=== PATIENT | male | born 1970 | race Hispanic/Latino ===

== ENCOUNTER 2017-10-23 21:54 | Emergency (ER) | payer OTHER, SELFPAY ==
[2017-10-23] MEDS ORDERED: LEVETIRACETAM 500 MG/5 ML VIAL IV ONE (23:44)
[2017-10-23] MEDS ORDERED: NA CHLORIDE 0.9% 1,000 ML ONE (23:44)
[2017-10-24] MEDS ORDERED: CEFTRIAXONE 1000 MG/VIAL ONE (00:46)
[2017-10-24] MEDS ORDERED: NA CHLORIDE 0.9% 100 ML IV ONE (00:46)
[2017-10-24 00:51] LABS: Absolute Lymphocytes (CBC) 1.5 K/uL (0.7-4.9); Absolute Monocytes 0.8 K/uL (0.1-1.3); Absolute Neutrophil 5.8 K/uL (1.8-8.0); Basophils % 0.3 % (0-1.3); Eosinophils % 2.7 % (0-4.4); Hematocrit 46.2 % (39.6-49.0); Lymphocytes % 17.7 % (15.3-44.8); MCV 88.3 fL (80-100); MPV 7.6 fL (7.6-11.3); Monocytes % 9.5 % (3.3-12.3); RBC Red Blood Cell Count 5.23 M/uL (4.33-5.43)
--- NOTE | 2017-10-24 01:29 | EDPHYS ---
Physician Documentation [facility] Name: Pravin Bateman Age: 47 yrs Sex: Male : 1970 Arrival Date: 10/23/2017 Time: 21:55 Bed 27 Private MD: ED Physician Jhon Mcmullen HPI: 10/23 23:35 This 47 yrs old Male presents to ER via Ambulatory with complaints of Headache.pj 23:35 The patient complains of pain to the forehead. The patient describes the headache as pj constant. Onset: The symptoms/episode began/occurred 1 day(s) ago. Associated signs and symptoms: The patient has no apparent associated signs or symptoms. Severity of symptoms: At its worst the pain was mild, moderate, in the emergency department the pain is unchanged. Headache History: Denies prior headaches. The symptoms are alleviated by nothing. the symptoms are aggravated by nothing. The patient has not experienced similar symptoms in the past. Historical: - Allergies: 22:02 Augmentin; la1 22:02 K-Clor; la1 22:02 PENICILLINS; la1 - Home Meds: 22:51 Topamax 50 mg oral tab 3 tabs 2 times per day [Active]; losartan 100 mg Oral tab 1 tab tl3 once daily [Active]; Keppra 250 mg oral tab 1 tabs 2 times per day [Active]; clindamycin HCl 300 mg Oral cap 1 cap every 6 hours [Active]; - PMHx: 22:02 Hypertension; Seizures; la1 - PSHx: 22:02 sinus cavity sx; la1 - Immunization history:: Adult Immunizations up to date. - Social history:: Smoking status: Patient/guardian denies using tobacco. - Family history:: not pertinent. ROS: 23:35 Constitutional: Negative for fever, chills, and weight loss, Eyes: Negative for injury, pj pain, redness, and discharge, ENT: Negative for injury, pain, and discharge, Neck: Negative for injury, pain, and swelling, Cardiovascular: Negative for chest pain, palpitations, and edema, Respiratory: Negative for shortness of breath, cough, wheezing, and pleuritic chest pain, Abdomen/GI: Negative for abdominal pain, nausea, vomiting, diarrhea, and constipation, Back: Negative for injury and pain, : Negative for injury, bleeding, discharge, and swelling, MS/Extremity: Negative for injury and deformity, Skin: Negative for injury, rash, and discoloration, Psych: Negative for depression, anxiety, suicide ideation, homicidal ideation, and hallucinations, Allergy/Immunology: Negative for hives, rash, and allergies, Endocrine: Negative for neck swelling, polydipsia, polyuria, polyphagia, and marked weight changes, Hematologic/Lymphatic: Negative for swollen nodes, abnormal bleeding, and unusual bruising. 23:35 Neuro: Positive for dizziness, headache, of the forehead. Exam: 23:35 Constitutional: This is a well developed, well nourished patient who is awake, alert, pj and in no acute distress. Head/Face: Normocephalic, atraumatic. Eyes: Pupils equal round and reactive to light, extra-ocular motions intact. Lids and lashes normal. Conjunctiva and sclera are non-icteric and not injected. Cornea within normal limits. Periorbital areas with no swelling, redness, or edema. ENT: Nares patent. No nasal discharge, no septal abnormalities noted. Tympanic membranes are normal and external auditory canals are clear. Oropharynx with no redness, swelling, or masses, exudates, or evidence of obstruction, uvula midline. Mucous membranes moist. Neck: Trachea midline, no thyromegaly or masses palpated, and no cervical lymphadenopathy. Supple, full range of motion without nuchal rigidity, or vertebral point tenderness. No Meningismus. Chest/axilla: Normal chest wall appearance and motion. Nontender with no deformity. No lesions are appreciated. Cardiovascular: Regular rate and rhythm with a normal S1 and S2. No gallops, murmurs, or rubs. Normal PMI, no JVD. No pulse deficits. Respiratory: Lungs have equal breath sounds bilaterally, clear to auscultation and percussion. No rales, rhonchi or wheezes noted. No increased work of breathing, no retractions or nasal flaring. Abdomen/GI: Soft, non-tender, with normal bowel sounds. No distension or tympany. No guarding or rebound. No evidence of tenderness throughout. Back: No spinal tenderness. No costovertebral tenderness. Full range of motion. Male : Normal genitalia with no discharge or lesions. Skin: Warm, dry with normal turgor. Normal color with no rashes, no lesions, and no evidence of cellulitis. MS/ Extremity: Pulses equal, no cyanosis. Neurovascular intact. Full, normal range of motion. Psych: Awake, alert, with orientation to person, place and time. Behavior, mood, and affect are within normal limits. 23:35 Neuro: Orientation: is normal, appropriate for stated age, no acute changes, Mentation: is normal, appropriate for stated age, no acute changes, Memory: is normal, appropriate for stated age, no acute changes, Cranial nerves: grossly normal, is grossly normal based on the patient's age, no acute changes, CN II- XII are normal as tested, Cerebellar function: is grossly normal, Motor: is normal, no acute changes, moves all fours, Sensation: is normal, no obvious gross deficits, appropriate numbness, Gait: not tested. seizure activity, is not displayed by the patient. 23:39 Neck: ROM/movement: is normal, no acute changes, pain, is not appreciated, limited pj range of motion, is not appreciated, Meningeal signs: are not present, Kernig's sign is negative, Brudzinski's sign is negative, nuchal rigidity, is not appreciated. Vital Signs: 22:02 BP 175 / 99; Pulse 85; Resp 19; Temp 99.7(TE); Pulse Ox 100% on R/A; Weight 127.91 kg; la1 Height 6 ft. 0 in. (182.88 cm); 22:42 BP 151 / 96; Pulse 98; Resp 18; Pulse Ox 98% ; tl3 10/24 00:38 BP 148 / 81; Pulse 72; Resp 18; Pulse Ox 100% on R/A; tl3 01:20 BP 137 / 69; Pulse 80; Resp 18; Pulse Ox 98% on R/A; rk2 02:06 BP 152 / 83; Pulse 70; Resp 18; Pulse Ox 98% on R/A; rk2 10/23 22:02 Body Mass Index 38.25 (127.91 kg, 182.88 cm) la1 MDM: 10/23 22:53 Patient medically screened. [facility] 23:35 Data reviewed: vital signs, nurses notes, lab test result(s), EKG, radiologic studies, [facility] CT scan, plain films. 10/23 23:34 Order name: CBC with Diff; Complete Time: 01:14 [facility] 10/23 23:34 Order name: Comprehensive Metabolic Panel; Complete Time: 01:57 [facility] 10/23 23:34 Order name: Blood Culture Adult (2) [facility] 10/23 23:34 Order name: Chest Single View XRAY [facility] 10/23 23:34 Order name: Urine Culture [facility] 10/24 00:44 Order name: Urine Dipstick--Ancillary (enter results); Complete Time: 01:57 rg2 10/23 23:34 Order name: Urine Dipstick-Ancillary (obtain specimen); Complete Time: 00:35 [facility] 10/23 23:34 Order name: Seizure Precautions; Complete Time: 00:02 [facility] 10/23 23:34 Order name: CT Head Brain wo Cont [facility] 10/23 23:35 Order name: EKG; Complete Time: 23:35 [facility] 10/23 23:35 Order name: EKG - Nurse/Tech; Complete Time: 00:01 [facility] Administered Medications: 10/24 00:02 Not Given (pt just took home dose at 10pm): Keppra 500 mg IV at per protocol once tl3 00:35 Drug: NS 0.9% 1000 ml Route: IV; Rate: 1 bolus; Site: right wrist; tl3 01:17 Drug: Rocephin - (cefTRIAXone) 2 grams Route: IVPB; Infused Over: 30 mins; Site: right rk2 wrist; Disposition: 10/24/17 01:28 Transfer ordered to [facility]. Diagnosis are Headache - sp sinus surgery, 10/19/17, Fever, unspecified, Acute sinusitis. - Reason for transfer: Higher level of care. - Accepting physician is to [facility]. - Condition is Fair. - Problem is new. - Symptoms have improved. Signatures: Dispatcher [employer] EDJhon Guerrero MD MD cha Attema, Lee RN RN la1 Pura Preston RN RN rk2 Kirsty Connolly RN RN tl3 Corrections: (The following items were deleted from the chart) 01:57 01:28 10/24/2017 01:28 Transfer ordered to [facility]. [facility] Diagnosis is Headache - sp sinus surgery, 10/19/17; Fever, unspecified. Reason for transfer: Higher level of care. Accepting physician is to [facility]. Condition is Fair. Problem is new. Symptoms have improved. pj 02:45 01:57 10/24/2017 01:28 Transfer ordered to [facility]. rk2 Diagnosis is Headache - sp sinus surgery, 10/19/17; Fever, unspecified; Acute sinusitis. Reason for transfer: Higher level of care. Accepting physician is to [facility]. Condition is Fair. Problem is new. Symptoms have improved. [facility]
--- NOTE | 2017-10-24 01:29 | ER ---
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 Transition of care: patient was not received from another setting of care. Onset of symptoms was October 23, 2017. Initial Sepsis Screen: Does the patient meet any 2 criteria? No. Patient's initial sepsis screen is negative. Does the patient have a suspected source of infection? No. Patient's initial sepsis screen is negative. Care prior to arrival: None. 22:00 Method Of Arrival: Ambulatory la1 22:00 Acuity: DONNIE 3 la1 Triage Assessment: 10/24 00:41 Pain: Also complains of. tl3 00:42 Headache History: Denies prior headaches. General: Appears uncomfortable, well groomed, tl3 well developed, well nourished. Pain: Complains of pain in forehead Pain currently is 6 out of 10 on a pain scale. Pain began 4 hours ago. Historical: - Allergies: 10/23 22:02 Augmentin; la1 22:02 K-Clor; la1 22:02 PENICILLINS; la1 - Home Meds: 22:51 Topamax 50 mg oral tab 3 tabs 2 times per day [Active]; losartan 100 mg Oral tab 1 tab tl3 once daily [Active]; Keppra 250 mg oral tab 1 tabs 2 times per day [Active]; clindamycin HCl 300 mg Oral cap 1 cap every 6 hours [Active]; - PMHx: 22:02 Hypertension; Seizures; la1 - PSHx: 22:02 sinus cavity sx; la1 - Immunization history:: Adult Immunizations up to date. - Social history:: Smoking status: Patient/guardian denies using tobacco. - Family history:: not pertinent. Screenin:42 Abuse screen: Denies threats or abuse. Nutritional screening: No deficits noted. tl3 Tuberculosis screening: No symptoms or risk factors identified. Fall Risk None identified. Assessment: 22:42 Reassessment: pt c/o headache, increased blood pressure and hands turning cold. tl3 General: Appears distressed, uncomfortable, obese, well groomed, well developed, well nourished, Behavior is calm, cooperative, appropriate for age. Pain: Complains of pain in headache. Neuro: Level of Consciousness is awake, alert, obeys commands, Oriented to person, place, time, situation, Appropriate for age. Cardiovascular: Heart tones S1 S2 present Patient's skin is warm and dry. Respiratory: Airway is patent Trachea midline Respiratory effort is even, unlabored, Respiratory pattern is regular, symmetrical, Breath sounds are clear bilaterally. GI: No signs and/or symptoms were reported involving the gastrointestinal system. : No signs and/or symptoms were reported regarding the genitourinary system. 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. Derm: No signs and/or symptoms reported regarding the dermatologic system. Musculoskeletal: No signs and/or symptoms reported regarding the musculoskeletal system. 10/24 00:38 Reassessment: Patient appears in no apparent distress at this time. No changes from tl3 previously documented assessment. Patient and/or family updated on plan of care and expected duration. Pain level reassessed. Patient is alert, oriented x 3, equal unlabored respirations, skin warm/dry/pink. family at bedside, pt has no needs at this time. 02:18 Reassessment: Report called to receiving RN September... Pt. is to be transported by EMS. rk2 02:44 Reassessment: Reported given to EMS... pt. ambulated to stretcher without difficulty. rk2 Vital Signs: 10/23 22:02 BP 175 / 99; Pulse 85; Resp 19; Temp 99.7(TE); Pulse Ox 100% on R/A; Weight 127.91 kg; la1 Height 6 ft. 0 in. (182.88 cm); 22:42 BP 151 / 96; Pulse 98; Resp 18; Pulse Ox 98% ; tl3 10/24 00:38 BP 148 / 81; Pulse 72; Resp 18; Pulse Ox 100% on R/A; tl3 01:20 BP 137 / 69; Pulse 80; Resp 18; Pulse Ox 98% on R/A; rk2 02:06 BP 152 / 83; Pulse 70; Resp 18; Pulse Ox 98% on R/A; rk2 10/23 22:02 Body Mass Index 38.25 (127.91 kg, 182.88 cm) la1 ED Course: 10/23 21:55 Patient arrived in ED. ds1 22:01 Triage completed. la1 22:02 Arm band placed on right wrist. la1 22:42 Kirsty Connolly RN is Primary Nurse. tl3 22:42 Patient has correct armband on for positive identification. Placed in gown. Bed in low tl3 position. Call light in reach. Side rails up X 1. Adult w/ patient. Pulse ox on. NIBP on. 22:42 No provider procedures requiring assistance completed. tl3 22:53 Jhon Mcmullen MD is Attending Physician. pj 23:47 X-ray completed. Portable x-ray completed in exam room. Patient tolerated procedure kw well. 23:49 Chest Single View XRAY In Process Unspecified. EDMS 23:50 Initial lab(s) drawn, by me, sent to lab. First set of blood cultures drawn by me. tl3 05/08 00:38 Inserted saline lock: 22 gauge in right wrist, using aseptic technique. Blood collected.tl3 00:41 No apparent distress. Awaiting lab results. tl3 00:[address] via wheelchair. tl3 00:57 CT Head Brain wo Cont In Process Unspecified. EDMS 01:02 Report given to Pura HARRIS. tl3 02:45 Patient transferred, IV remains in place. rk2 Administered Medications: 00:02 Not Given (pt just took home dose at 10pm): Keppra 500 mg IV at per protocol once tl3 00:35 Drug: NS 0.9% 1000 ml Route: IV; Rate: 1 bolus; Site: right wrist; tl3 01:17 Drug: Rocephin - (cefTRIAXone) 2 grams Route: IVPB; Infused Over: 30 mins; Site: right rk2 wrist; Outcome: 01:28 ER care complete, transfer ordered by . pj 02:45 Transferred by ground EMS to [facility]. rk2 02:45 Condition: good 02:45 Instructed on the need for transfer. 02:45 Patient left the ED. rk2 Signatures: Dispatcher [employer] EDJhon Guerrero MD MD cha Sanford, Demi ds1 Carmita Wiley Lee RN RN la1 Pura Preston RN RN rk2 Kirsty Connolly RN RN tl3
[2017-10-24 01:35] LABS: Glucose Level 105 mg/dL (65-120)
[2017-10-24 01:39] LABS: ALT/SGPT 21 IU/L (10-60); AST/SGOT 21 IU/L (10-42); Albumin 4.3 g/dL (3.2-5.5); Alkaline Phosphatase 121 IU/L (42-121); BUN Blood Urea Nitrogen 14 mg/dL (6-20); Bicarbonate 22 mEq/L (21-31); Bilirubin Total 0.9 mg/dL (0.3-1.2); Potassium 4.1 mEq/L (3.6-5.0); Protein, Total 7.8 g/dL (6.0-8.3); Sodium Level 137 mEq/L (135-145)
[2017-10-24 01:42] LABS: Urine Blood NEGATIVE (NEG); Urine Glucose NEGATIVE (NEG); Urine Protein NEGATIVE (NEG)
[2017-10-24 02:52] VITALS: TEMP 99.7
[2017-10-24 02:57] VITALS: O2SAT 98
[2017-10-24 02:58] VITALS: BP 152/83
--- NOTE | 2017-10-24 06:39 | EKG ---
Test Date: 2017-10-23 Test Time: 23:52:18 Vice President Tax: TL MEASUREMENT RESULTS: Intervals: Rate: 73 SD: 144 QRSD: 80 QT: 386 QTc: 425 [place]: P: 33 SD: 144 QRS: 0 T: 16 INTERPRETIVE STATEMENTS: Normal sinus rhythm Normal ECG Compared to ECG 06/13/2017 10:37:09 No significant changes Electronically Signed On 10-24-17 06:38:59 CDT by Jovi Bass
--- NOTE | 2017-10-24 08:25 | RAD REPORT ---
EXAM DESCRIPTION: CT - Head Brain Wo Cont - 10/24/2017 5:38 am CLINICAL HISTORY: Headache COMPARISON: 06/13/2017 TECHNIQUE: All CT scans are performed using dose optimization technique as appropriate and may inclu de automated exposure control or mA/KV adjustment according to patient size. FINDINGS: No intracranial hemorrhage, hydrocephalus or extra-axial fluid collection.No areas of brai n edema or evidence of midline shift. Extensive multifocal opacification of the paranasal sinuses is seen, greatest involving the the sphen oid and posterior ethmoid air cells. Trace fluid also seen in the right mastoid air cell. The calvari um is intact. IMPRESSION: No acute intracranial abnormality. Extensive multifocal sinus opacification.
--- NOTE | 2017-10-24 08:45 | RAD REPORT ---
EXAM DESCRIPTION: RAD - Chest Single View - 10/23/2017 11:51 pm CLINICAL HISTORY: Headache, chest pain COMPARISON: 06/13/2017 FINDINGS: Portable technique limits examination quality. The lungs are grossly clear. The heart is normal in size. No displaced fractures. IMPRESSION: No acute intrathoracic process suspected.
== END 2017-10-24 02:45 | disposition short-term general hospital (02) ==
LOC: ER 21:54
DX: R50.9 Fever, unspecified (principal); J01.90 Acute sinusitis, unspecified; Z98.890 Other specified postprocedural states; I10 Essential (primary) hypertension; G40.909 Epilepsy, unspecified, not intractable, without status epilepticus; Z88.0 Allergy status to penicillin; Z88.1 Allergy status to other antibiotic agents; Z88.8 Allergy status to other drugs, medicaments and biological substances
CPT/HCPCS: 36415; 70450; 71045; 80053; 81003; 85025; 87040 ×2; 87086; 87088; 93005; 96374; 99285; J7030; J1953

== ENCOUNTER 2018-04-21 06:32 | Emergency (ER) | payer OTHER ==
--- OUTSIDE RECORDS SUMMARY | 2018-04-21 06:34 | XMS REPORT ---
:1970 Author Organization eClinicalWorks Care Team Providers Name Role Phone Tez [facility] Provider Role Unavailable Allergies No Known Allergies Problems Problem Type Condition Code Onset Dates Condition Status Problem BMI 40.0-44.9, adult Z68.41 Active Problem Chronic sinusitis J32.9 Active Problem Nonalcoholic fatty liver disease K76.0 Active Assessment Hypertension I10 Active Problem Obesity E66.9 Active Problem Seizure disorder G40.909 Active Problem Hypertension I10 Active Problem Hyperlipidemia, mixed E78.2 Active Problem Sleep apnea, obstructive G47.33 Active Problem Headache R51 Active Problem Erectile dysfunction N52.9 Active Medications Medication Code System Code Instructions Start Date End Date Status Dosage Cozaar [facility] 75950284047 100 MG Orally Active 1 tablet Once a day Results No Known Results Summary Purpose eClinicalWorks Submission
--- OUTSIDE RECORDS SUMMARY | 2018-04-21 06:34 | XMS REPORT ---
:1970 Author Organization eClinical[employer] Care Team Providers Name Role Phone Tez Beau Provider Role Unavailable Allergies No Known Allergies Problems Problem Type Condition Code Onset Dates Condition Status Problem BMI 40.0-44.9, adult Z68.41 Active Problem Chronic sinusitis J32.9 Active Problem Nonalcoholic fatty liver disease K76.0 Active Problem Obesity E66.9 Active Problem Seizure disorder G40.909 Active Problem Hypertension I10 Active Problem Hyperlipidemia, mixed E78.2 Active Problem Sleep apnea, obstructive G47.33 Active Problem Headache R51 Active Problem Erectile dysfunction N52.9 Active Assessment Chronic sinusitis J32.9 Active Assessment Headache R51 Active Assessment BMI 40.0-44.9, adult Z68.41 Active Assessment Sleep apnea, obstructive G47.33 Active Assessment Hyperlipidemia, mixed E78.2 Active Assessment Seizure disorder G40.909 Active Assessment Acute diffuse otitis externa of H60.311 Active right ear Assessment Nonalcoholic fatty liver disease K76.0 Active Assessment Hypertension I10 Active Medications Medication Code Code Instructions Start End Status Dosage System Date Date [facility] 41752710528 100 MG Orally Active 1 tablet Once a day Topamax [facility] 71219924408 50 MG Orally Active 3 tablet Twice a day Levetiracetam [facility] 40721155833 250 MG Orally Active 1 tablet Twice a day Neomycin-Polymyx [facility] [id number] 3.5-48706-7 December 04, Active 1 drop into in-HC Otic TID 2017 affected ear Results No Known Results Summary Purpose eClinicalWorks Submission
--- OUTSIDE RECORDS SUMMARY | 2018-04-21 06:34 | XMS REPORT | Summary of Care ---
:1970 Author Encounter [facility] Encntr_mamie(HENRIK) [id number] Date(s): 09/23/14 - 09/23/[address] Discharge Disposition: Home Physician Attending: Larry Mckinney MD Physician_Referring: Larry Mckinney MD Vital Signs No data available for this section Problem List No data available for this section Allergies, Adverse Reactions, Alerts Substance Reaction Severity Status NKDA Active Medications No data available for this section Results No data available for this section Immunizations No data available for this section Procedures No data available for this section Social History No data available for this section Assessment and Plan No data available for this section
--- OUTSIDE RECORDS SUMMARY | 2018-04-21 06:34 | XMS REPORT | CCD ---
:1970 Author Organization [facility] Care Team Providers Name Role Phone ChartServer, Login Consulting Provider Unavailable Param Ferguson Consulting Provider Vance Najera Consulting Provider [phone] Physician, Non Associated Referring Provider Unavailable Saima Mcallister Consulting Provider [phone] Sahil Dixon Consulting Provider Unavailable Allergies, Adverse Reactions, Alerts Substance Reaction Status NKDA ?? Active
--- OUTSIDE RECORDS SUMMARY | 2018-04-21 06:34 | XMS REPORT | Continuity of Care Document ---
:1970 Author Organization Interface Problems Problem Status Onset Classification Date Comments Source Date Reported INTRACTABLE Active [facility] PARTIAL COMPLEX 5 [facility] SEIZ[facility] DISO Center INTRACTABLE Active [facility] PARTIAL 4 Medical SEIZURES Center 345.[address] APNEA Active [address] Medications Medication Details Route Status Patient Ordering Order Source Instructions Provider Date Allergies, Adverse Reactions, Alerts Substance Category Reaction Severity Reaction Status Date Comments Source type Reported Immunizations Immunization Date Given Site Status Last Updated Comments Source Results Order Results Value Reference Date Interpretation Comments Source Name Range Brain wo Brain wo EXAM: MRI OF THE BRAIN WITHOUT CONTRAST - EPILEPSY PROTOCOL 05/03 - [facility] contrast contrast /2013 - [facility] Read by: Imani Wills MD Dictated Date/time: 05/03/14 13:51 DATE: May 03, 2014 11:38:56 AM Electronically Signed by: Imani Wills MD 05/03/14 14:09 FINAL REPORT CLINICAL HISTORY: Seizures COMPARISON: TECHNIQUE: Noncontrast images of the brain are performed. High resolution coronal T2- weighted images and axial T1 weighted images are also obtained for structural evaluation. FINDINGS: Although there is no architectural distortion, the height of the right hippocampal formation is smaller as compared to the left. This is especially noticeable in the body of the hippocampi. There is a s mall arachnoid pit in the floor of the middle cranial fossa, with a small meningocele is identified (series 5, image 56) however no encephalocele is demonstrated. No other focal parenchymal lesion is id entified. The ventricles and sulci are normal in size. Mucosal thickening is demonstrated in the left sphenoid sinus and right maxillary sinus. IMPRESSION: Questionable loss of height of the right hippocampal body as compared to the left. 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 Vital Signs Vital Sign Value Date Comments Source Encounters Location Location Encounter Encounter Reason Attending ADM DC Status Source Details Type Number For Provider Date Date Visit [facility] Outpatient [id number] 345.41 JESSICA 04/21 Active [facility] Aline REYNOLDS /2010 [facility] Outpatient [id number] Larry 09/23 09/24 [facility] Reggie Mckinney /2014 [facility] Procedures Procedure Code Date Perfomer Comments Source
--- OUTSIDE RECORDS SUMMARY | 2018-04-21 06:35 | XMS REPORT ---
:1970 Author Organization eClinicalWorks Care Team Providers Name Role Phone Tez [facility] Provider Role Unavailable Allergies No Known Allergies [...] Start Date End Date Status Dosage Cozaar [facility] 63630897747 100 MG Orally Active 1 tablet Once a day Results No Known Results Summary Purpose eClinicalWorks Submission
[2018-04-21 07:22] LABS: Absolute Lymphocytes (CBC) 1.5 K/uL (0.7-4.9); Absolute Monocytes 0.4 K/uL (0.1-1.3); Absolute Neutrophil 3.8 K/uL (1.8-8.0); Basophils % 0.3 % (0-1.3); Eosinophils % 2.7 % (0-4.4); Hematocrit 48.5 % (39.6-49.0); Lymphocytes % 25.2 % (15.3-44.8); MCH 30.8 pg (27.0-35.0); MPV 7.6 fL (7.6-11.3); Monocytes % 7.2 % (3.3-12.3); RBC Red Blood Cell Count 5.45 M/uL (4.33-5.43)
[2018-04-21 07:28] LABS: Protime INR 1.08
[2018-04-21 07:41] LABS: BUN Blood Urea Nitrogen 15 mg/dL (7-18); Bicarbonate 27 mmol/L (21-32); Creatine Phosphokinase 55 U/L (39-308); Glucose Level 107 mg/dL (74-106); Magnesium 2.3 mg/dL (1.8-2.4); Potassium 3.9 mmol/L (3.5-5.1); Sodium Level 141 mmol/L (136-145); Troponin (Emerg Dept Use Only) < 0.02 ng/mL (0.0-0.045)
--- NOTE | 2018-04-21 07:55 | RAD REPORT ---
EXAM DESCRIPTION: CT - Ct Stroke Brain Wo Cont - 04/21/2018 7:25 am CLINICAL HISTORY: Confusion and dizziness COMPARISON: October 2017 TECHNIQUE: Computed axial tomography of the head was obtained. IV contrast was not requested. All CT scans are performed using dose optimization technique as appropriate and may include automated exposure control or mA/KV adjustment according to patient size. FINDINGS: An intracranial bleed is not seen . The ventricles are normal in caliber. No extra-axial fluid collection is noted. Fluid within the sinuses/ mastoids is not seen. IMPRESSION: No acute intracranial abnormality is seen. If patient's symptoms persist MRI of the bra in would be recommended. Exam was discussed with 3 to change in emergency room 7:35 a.m. 04/21/2018
[2018-04-21] MEDS ORDERED: CALCIUM GLUCONATE 1gm/100 ML NS (4.65 mEq/100mL) IV ONE ×2 (08:00)
[2018-04-21 08:03] LABS: Albumin 3.9 g/dL (3.4-5.0); Phosphorus 3.1 mg/dL (2.5-4.9)
--- NOTE | 2018-04-21 09:10 | RAD REPORT ---
EXAM DESCRIPTION: Silvano Single View04/21/2018 7:23 am CLINICAL HISTORY: Hypertension and seizure COMPARISON: October 2017 FINDINGS: The lungs appear clear of acute infiltrate. The heart is normal size IMPRESSION: No acute abnormalities displayed
[2018-04-21] MEDS ORDERED: ACETAMINOPHEN 500 MG TAB ONE ×2 (09:39)
--- NOTE | 2018-04-21 09:52 | EDPHYS ---
Physician Documentation [facility] Name: Pravin Bateman Age: 47 yrs Sex: Male : 1970 Arrival Date: 04/21/2018 Time: 06:33 Bed 8 Private MD: Madyson Reaganh ED Physician Medardo Hoover HPI: 04/21 06:41 This 47 yrs old Male presents to ER via Ambulatory with complaints of rh1 Dizziness, PREVIOUS SEIZURES, CONFUSION, Slurred Speech. 06:41 The patient presents with feeling faint, generalized weakness. Onset: The rh1 symptoms/episode began/occurred yesterday, at 10:00. Context: occurred at home, occurred while the patient was at rest. Modifying factors: The symptoms are alleviated by nothing, the symptoms are aggravated by nothing. Associated signs and symptoms: Pertinent positives: confusion, focal weakness of the left hand, Pertinent negatives: agitation, ataxia, blurred vision, chest pain, diaphoresis, head injury, headache, nausea, near-syncope, numbness, palpitations, shortness of breath, syncope, tingling, vomiting. Severity of symptoms: At their worst the symptoms were moderate in the emergency department the symptoms are unchanged. The patient has experienced a previous episode, last year. The patient has not recently seen a physician. His states he has been confused and not acting right since waking yesterday am at 1000. Yesterday he was having difficulty speaking describes difficulty finding words, possibly slurred speech. His left hand was "frozen" for < 5 minutes, without paresthesias yesterday am. She checked his BP yesterday with onset of symptoms, which was 180 systolic. 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 1 month ago his neurologist/Maximiliano at lowered his dose of keppra. She reports similar symptoms last year prior to his most recent SZ, and is concerned with the lowered dosing he is going to have another SZ. This am he denies any complaints overall, reports generally feels sleepy. . 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 - Social history:: Smoking status: Patient/guardian denies using tobacco, Patient/guardian denies using alcohol, street drugs. - Ebola Screening: : No symptoms or risks identified at this time. ROS: 06:41 Constitutional: Negative for fever, chills rh1 06:41 Eyes: Negative for acute changes, blurry vision, visual disturbance. 06:41 ENT: Negative for rhinorrhea, difficulty swallowing, difficulty handling secretions. 06:41 Neck: Negative for pain with movement, pain at rest. 06:41 Cardiovascular: Negative for chest pain, edema, palpitations. 06:41 Respiratory: Negative for cough, shortness of breath, wheezing. 06:41 Abdomen/GI: Negative for abdominal pain, nausea, vomiting, and diarrhea. 06:41 Back: Negative for decreased range of motion, pain at rest, pain with movement. 06:41 : Negative for difficulty urinating. 06:41 MS/extremity: Positive for decreased range of motion, Negative for pain, paresthesias, swelling, tenderness, tingling. 06:41 Skin: Negative for diaphoresis, discoloration. 06:41 Neuro: Positive for altered mental status, dizziness, speech changes, Negative for gait disturbance, headache, loss of consciousness, numbness, seizure activity, syncope, near syncope, tingling, visual changes, weakness. Exam: 06:41 Constitutional: This is a well developed, well nourished patient who is awake, alert, rh1 and in no acute distress. Head/Face: Normocephalic, atraumatic. 06:41 Neck: Trachea midline, and no cervical lymphadenopathy. Supple, full range of motion without nuchal rigidity. No Meningismus. Chest/axilla: Normal chest wall appearance and motion. Nontender with no deformity. No lesions are appreciated. Cardiovascular: Regular rate and rhythm with a normal S1 and S2. No gallops, murmurs, or rubs. No JVD. No pulse deficits. Respiratory: Lungs have equal breath sounds bilaterally, clear to auscultation. No rales, rhonchi or wheezes noted. No increased work of breathing. Abdomen/GI: Soft, non-tender, with normal bowel sounds. No distension. No guarding or rebound. No evidence of tenderness throughout. Back: No spinal tenderness. No costovertebral tenderness. Full range of motion. Skin: Warm, dry with normal turgor. Normal color with no rashes, no lesions, and no evidence of cellulitis. 06:41 Eyes: Pupils: no acute changes, normal size, normal reaction to light, equal, right pupil is approximately 3 mm(s), left pupil is approximately 3 mm(s), Extraocular movements: intact throughout, Nystagmus: is not appreciated. 06:41 ENT: Mouth: is normal, no drooling, no lip abnormalities, no mucosal abnormalities, Posterior pharynx: is normal, airway is patent, Voice: is normal. 06:41 Musculoskeletal/extremity: ROM: intact in all extremities, full active range of motion, in all extremities, Pulses: noted to be 2+ in the right radial artery, right posterior tibial artery, right dorsalis pedis artery, left radial artery, left posterior tibial artery and left dorsalis pedis artery, Edema, is not appreciated, Sensation intact. 06:41 Neuro: Orientation: is normal, to person, place \\T\\ time. Mentation: is normal, lucid, able to follow commands, reports he is staring off and not as interactive as per normal, Memory: is normal, Cranial nerves: visual mesa are intact. extraocular movements are intact, Facial palsy and sensory deficits are absent. Nystagmus is absent. Speech is clear and appropriate. Gag reflex present. Tongue strength is normal, deviation is absent. Cerebellar function: normal finger to nose testing, heel to cavazos testing is normal, Motor: is normal, moves all fours, strength is 5/5 in all extremities, Sensation: is normal, no obvious gross deficits, numbness, is not appreciated, tingling, is not appreciated, Gait: is steady, at a normal pace, without difficulty, seizure activity, is not displayed by the patient. Vital Signs: 06:54 BP 172 / 86; Pulse 71; Resp 16 S; Temp 97.9(O); Pulse Ox 98% on R/A; Weight 128.82 kg bb (R); Height 6 ft. 0 in. (182.88 cm) (R); 07:34 BP 138 / 90; Pulse 70; Resp 17; Pulse Ox 98% on R/A; tw2 08:35 BP 143 / 86; Pulse 81; Resp 14; Pulse Ox 98% on R/A; tw2 09:38 BP 145 / 84; Pulse 64; Resp 18; Pulse Ox 99% on R/A; ph 06:54 Body Mass Index 38.52 (128.82 kg, 182.88 cm) bb NIH Stroke Scale Scores: 07:21 NIHSS Score: 0 tw2 MDM: 06:41 Patient medically screened. [facility] 08:15 Physician consultation: MD Darling was called at 08:16, paged via nurse triage line. [facility] 08:37 Physician consultation: MD Renteria was called at 08:15, was contacted at 08:30, [facility] regarding consult, patient's condition, Pt. was seen on 04/05/18, and had topamax dose lowered from 150 mg BID to 100 mg BID, keppra dose currently at 250 mg BID; recommendation to increase topamax back up to 150 mg BID, and follow up with Dr. Gallardo in the clinic Monday -- pt. and notified, in agreement with plan of care. 08:37 ED course: pt. reports he had another "episode" described as licking lips and rh1 moving eyes back and forth, blinking a lot; per RN in room no SZ - like activity noted; upon questioning pt. reports feeling a lot of saliva in mouth at the time, no specific complaints otherwise, no neuro deficits at this time, no SZ activity noted now. 08:50 Data reviewed: I have discussed the patient's presentation/case with the attending [facility] Emergency Department Physician;. 09:49 Data reviewed: vital signs, nurses notes, lab test result(s), EKG, radiologic studies, [facility] CT scan, plain films, I have discussed the patient's presentation/case with the attending Emergency Department Physician; and as a result, I will discharge patient. Data interpreted: Pulse oximetry: on room air is 99 %. Interpretation: normal. Counseling: I had a detailed discussion with the patient and/or guardian regarding: the historical points, exam findings, and any diagnostic results supporting the discharge/admit diagnosis, lab results, radiology results, the need for outpatient follow up, a neurologist, to return to the emergency department if symptoms worsen or persist or if there are any questions or concerns that arise at home. Special discussion: Based on the history and exam findings, there is no indication for further emergent testing or inpatient evaluation. I discussed with the patient/guardian the need to see the neurologist for further evaluation of the symptoms. 04/21 07:01 Order name: UDS; Complete Time: 10:45 [facility] 04/21 07:01 Order name: Troponin (emerg Dept Use Only); Complete Time: 08:15 [facility] 04/21 07:01 Order name: Magnesium; Complete Time: 08:15 [facility] 04/21 07:01 Order name: CPK; Complete Time: 08:15 [facility] 04/21 07:01 Order name: Basic Metabolic Panel; Complete Time: 08:15 [facility] 04/21 07:01 Order name: CBC with Diff; Complete Time: 07:29 [facility] 04/21 07:01 Order name: Protime (+inr); Complete Time: 07:42 [facility] 04/21 07:01 Order name: Ptt, Activated; Complete Time: 07:42 [facility] 04/21 07:01 Order name: CT Stroke Brain w/o Contrast; Complete Time: 07:57 [facility] 04/21 07:55 Order name: Phosphorus; Complete Time: 08:15 EDMS 04/21 07:55 Order name: Albumin; Complete Time: 08:15 EDMS 04/21 09:40 Order name: Urine Dipstick--Ancillary (enter results) hb 04/21 07:01 Order name: Stroke CXR 1 View; Complete Time: 09:15 [facility] 04/21 07:01 Order name: EKG; Complete Time: 07:02 [facility] 04/21 07:01 Order name: Accucheck; Complete Time: 07:19 [facility] 04/21 07:01 Order name: Cardiac monitoring; Complete Time: 07:19 [facility] 04/21 07:01 Order name: EKG - Nurse/Tech; Complete Time: 07:19 [facility] 04/21 07:01 Order name: IV Saline Lock; Complete Time: 07:19 [facility] 04/21 07:01 Order name: Labs collected and sent; Complete Time: 07:19 [facility] 04/21 07:01 Order name: NPO; Complete Time: 07:07 [facility] 04/21 07:01 Order name: O2 Per Protocol; Complete Time: 07:20 rh1 04/21 07:01 Order name: O2 Sat Monitoring; Complete Time: 07:20 rh1 04/21 07:01 Order name: Stroke Swallow Screen; Complete Time: 07:06 rh1 04/21 07:01 Order name: Misc. Order: if swallow screen negative, ok to take home BP and SZ rh1 medication; Complete Time: 07:06 Administered Medications: 08:14 Drug: Calcium Gluconate 1 grams Route: IVPB; Infused Over: 60 mins; Site: left tw2 antecubital; 09:20 Follow up: Response: No adverse reaction; IV Status: Completed infusion tw2 09:23 Follow up: Response: No adverse reaction; IV Status: Completed infusion ph 08:35 Not Given (pt taking own medication, provider at bedside): Topamax 50 mg PO once tw2 09:37 Drug: Tylenol 1000 mg Route: PO; ph 10:04 Follow up: Response: No adverse reaction tw2 Point of Care Testing: Blood Glucose: 07:13 Blood Glucose: 102 mg/dL; rb1 Ranges: Critical Glucose Levels:Adult <50 mg/dl or >400 mg/dl <40 mg/dl or >180 mg/dl Disposition: 11:47 Co-signature as Attending Physician, Medardo Hoover MD I agree with the assessment and kdr plan of care. Disposition: 04/21/18 09:51 Discharged to Home. Impression: Altered mental status, unspecified. - Condition is Stable. - Discharge Instructions: Confusion, Seizure, Adult. - Prescriptions for topiramate 50 mg Oral tablet - take 3 tablet by ORAL route 2 times per day; 120 tablet. - Medication Reconciliation Form, Thank You Letter, Antibiotic Education, Prescription Opioid Use form. - Follow up: Beau Reagan DO; When: 1 - 2 days. Follow up: Private Physician; When: 1 - 2 days; Reason: Recheck today's complaints, Continuance of care, Re-evaluation by your physician. Follow up: Emergency Department; When: As needed; Reason: Fever > 102 F, If symptoms return, Trouble breathing, Worsening of condition. - Problem is new. - Symptoms have improved. NIH Stroke Scale - NIH Stroke Score Date: 04/21/2018 Time: 07:21 Total Score = 0 1a. Level of Consciousness (LOC) - 0(Alert) 1b. Level of Consciousness (LOC) (Year \\T\\ Age) - 0(Both) 1c. LOC Commands (Open \\T\\ Closes Eyes/Side Show Entertainer) - 0(Both) 2. Best Gaze (Lateral Gaze Paresis) - 0(Normal) 3. Visual Field Loss - 0(No visual loss) 4. Facial Palsy - 0(Normal) 5a. Left Arm: Motor (10-second hold) - 0(No drift) 5b. Right Arm: Motor (10-second hold) - 0(No drift) 6a. Left Leg: Motor (5-second hold - always test supine) - 0(No drift) 6b. Right Leg: Motor (5-second hold - always test supine) - 0(No drift) 7. Limb Ataxia (finger/nose \\T\\ heel/cavazos - test with eyes open) - 0(Absent) 8. Sensory Loss (pinprick arms/legs/face) - 0(Normal) 9. Best Language: Aphasia (description/naming/reading) - 0(No aphasia) 10. Dysarthria (speech clarity - read or repeat words) - 0(Normal) 11. Extinction and Inattention (visual/tactile/auditory/spatial/personal) - 0(No abnormality) Initials: tw2 Signatures: Dispatcher [employer] EDMS Medardo Hoover MD MD kdr Ballard, Brenda, RN RN Chelsey Tejeda RN RN Candice Nelson, AGATA INSEMINATOR rh1 Dimple Titus RN RN tw2 Corrections: (The following items were deleted from the chart) 07:28 06:41 His states he has been confused and not acting right since waking rh1 yesterday am at 1000. Yesterday he was having difficulty speaking describes difficulty finding words, possibly slurred speech. His left hand was "frozen" for < 5 minutes, without paresthesias yesterday am. She checked his BP yesterday with onset of symptoms, which was 180 systolic. He has a hx of SZ, and approx. 1 month ago his neurologist/Viera at lowered his dose of keppra. She reports similar symptoms last year prior to his most recent SZ, and is concerned with the lowered dosing he is going to have another SZ. This am he denies any complaints overall, reports generally feels sleepy. . rh1 07:55 07:53 Albumin+C.LAB.BRZ ordered. EDHI EDMS 07:55 07:53 PHOSPHORUS+C.LAB.BRZ ordered. EDHI EDMS 08:36 06:41 His states he has been confused and not acting right since waking rh1 yesterday am at 1000. Yesterday he was having difficulty speaking describes difficulty finding words, possibly slurred speech. His left hand was "frozen" for < 5 minutes, without paresthesias yesterday am. She checked his BP yesterday with onset of symptoms, which was 180 systolic. 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 1 month ago his neurologist/Viera at lowered his dose of keppra. She reports similar symptoms last year prior to his most recent SZ, and is concerned with the lowered dosing he is going to have another SZ. This am he denies any complaints overall, reports generally feels sleepy. . rh1 10:05 09:51 04/21/2018 09:51 Discharged to Home. Impression: Altered mental status, tw2 unspecified. Condition is Stable. Forms are Medication Reconciliation Form, Thank You Letter, Antibiotic Education, Prescription Opioid Use. Follow up: Beau Reagan; When: 1 - 2 days. Follow up: Private Physician; When: 1 - 2 days; Reason: Recheck today's complaints, Continuance of care, Re-evaluation by your physician. Follow up: Emergency Department; When: As needed; Reason: Fever > 102 F, If symptoms return, Trouble breathing, Worsening of condition. Problem is new. Symptoms have improved. rh1
--- NOTE | 2018-04-21 09:52 | ER ---
Nurse's Notes [facility] Name: Pravin Bateman Age: 47 yrs Sex: Male : 1970 Arrival Date: 04/21/2018 Time: 06:33 Bed 8 Private MD: Beau Reagan Diagnosis: Altered mental status, unspecified Presentation: 04/21 06:48 Presenting complaint: states: pt has hx of seizures last seizure was January and pt's medication dosage was recently decreased pt started feeling dizzy and was confused but responsive, pt had episode of left hand being frozen for a few seconds she also states pt had some slurred speech while talking to her daughter on the phone but continued to respond. states pt usually has similar symptoms when he is going to have a gran-mal seizure. Transition of care: patient was not received from another setting of care. Onset of symptoms was April 20, 2018. Risk Assessment: Do you want to hurt yourself or someone else? Patient reports no desire to harm self or others. Initial Sepsis Screen: Does the patient meet any 2 criteria? No. Patient's initial sepsis screen is negative. Does the patient have a suspected source of infection? No. Patient's initial sepsis screen is negative. Care prior to arrival: None. 06:48 Method Of Arrival: Ambulatory bb 06:48 Acuity: DONNIE 2 bb 07:24 No acute neurological deficit is noted. Pre-hospital glucose is not applicable to this tw2 patient. Triage Assessment: 07:26 The onset of the patients symptoms was April 21, 2018 at 07:26. General: Appears in tw2 no apparent distress. Stroke Activation: Symptom onset > 6 hours Physician: Stroke Attending; Name: ; Notified At: ; Arrived At: Physician: Chief Stroke Resident; Name: ; Notified At: ; Arrived At: Physician: Stroke Resident; Name: ; Notified At: ; Arrived At: Physician: ED Attending; Name: ; Notified At: ; Arrived At: Physician: ED Resident; Name: ; Notified At: ; Arrived At: Historical: - Allergies: 06:54 Augmentin; bb 06:54 K-Clor; bb 06:54 PENICILLINS; bb - Home Meds: 06:54 Keppra 500 mg oral tab 1 tab 2 times per day [Active]; Topamax 100 mg oral tab 1 tab 2 bb times per day [Active]; losartan 100 mg Oral tab 1 tab once daily [Active]; Bystolic 5 mg PRN [Active]; - PMHx: 06:54 Hypertension; Seizures; bb - PSHx: 06:54 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 - Social history:: Smoking status: Patient/guardian denies using tobacco, Patient/guardian denies using alcohol, street drugs. - Ebola Screening: : No symptoms or risks identified at this time. Screenin:01 Patient has been NPO before screening. The patient is alert, able to follow commands. lp1 The patient does not exhibit slurred or garbled speech The patient is not exhibiting difficulty speaking. The patient does not exhibit difficulty understanding words. The patient is able to swallow own secretions with no drooling or need for suction. Patient tolerated one teaspoon of water. No drooling, immediate coughing, gurgling, or clearing of the throat was noted. The patient tolerated 90mL of water. No drooling, immediate coughing, gurgling, or clearing of the throat was noted. The patient passed the bedside swallow screening. Oral medications may be given as ordered. Contact Physician for further diet orders. Provider notified of bedside swallow screening results: Candice Toussaint NP. 07:24 Abuse screen: Denies threats or abuse. Nutritional screening: No deficits noted. tw2 Tuberculosis screening: No symptoms or risk factors identified. Fall Risk None identified. Assessment: 07:21 Patient has been NPO before screening. The patient is alert, and able to follow tw2 commands. The patient does not exhibit slurred or garbled speech. The patient is not exhibiting difficulty speaking. The patient is exhibiting difficulty understanding words. The patient is able to swallow own secretions with no drooling or need for suction. Patient tolerated one teaspoon of water. No drooling, immediate coughing, gurgling, or clearing of the throat was noted. The patient tolerated 90mL of water. No drooling, immediate coughing, gurgling, or clearing of the throat was noted. The patient passed the bedside swallow screening. Oral medications may be given as ordered. Contact Physician for further diet orders. Provider notified of bedside swallow screening results: Candice Toussaint NP. General: Appears in no apparent distress. Behavior is calm, cooperative, appropriate for age. Pain: Denies pain. Neuro: Level of Consciousness is awake, alert, obeys commands, Oriented to person, place, time, situation, Reports dizziness. Cardiovascular: Denies chest pain, shortness of breath, Heart tones S1 S2 Capillary refill < 3 seconds Patient's skin is warm and dry. Respiratory: Airway is patent Respiratory effort is even, unlabored, Respiratory pattern is regular, symmetrical, Breath sounds are clear bilaterally. GI: No signs and/or symptoms were reported involving the gastrointestinal system. Abdomen is round Bowel sounds present X 4 quads. : No signs and/or symptoms were reported regarding the genitourinary system. EENT: No signs and/or symptoms were reported regarding the EENT system. Derm: No signs and/or symptoms reported regarding the dermatologic system. Musculoskeletal: Range of motion: intact in all extremities. 07:25 T-PA (Activase) Screening: Contraindications: Patient reports onset of signs and tw2 symptoms of stroke greater than 6 hours ago:. 07:33 Reassessment: provider at bedside at this time. Reassessment: pts states "i think tw2 he is going to get a big seizure because he is starting to get a headache and since they lowered it do you think you can give him some of the keppra", provider notified. 07:35 Reassessment: Patient appears in no apparent distress at this time. Patient and/or tw2 family updated on plan of care and expected duration. Pain level reassessed. Patient is alert, oriented x 3, equal unlabored respirations, skin warm/dry/pink. 08:00 Reassessment: per spouse, currently taking 250 mg of Keppra BID, and 100 mg Topamax, tw2 "they lowered the dose of Keppra can you give him a higher dose maybe" provider notified. 08:40 Reassessment: Patient appears in no apparent distress at this time. Patient and/or tw2 family updated on plan of care and expected duration. Pain level reassessed. Patient is alert, oriented x 3, equal unlabored respirations, skin warm/dry/pink. 09:37 Reassessment: Patient appears in no apparent distress at this time. Patient and/or ph family updated on plan of care and expected duration. Pain level reassessed. Patient is alert, oriented x 3, equal unlabored respirations, skin warm/dry/pink. Pt c/o headache, ERP notified and Tylenol administered, see MAR. 10:04 Reassessment: Patient appears in no apparent distress at this time. Patient and/or tw2 family updated on plan of care and expected duration. Pain level reassessed. Patient is alert, oriented x 3, equal unlabored respirations, skin warm/dry/pink. Vital Signs: 06:54 BP 172 / 86; Pulse 71; Resp 16 S; Temp 97.9(O); Pulse Ox 98% on R/A; Weight 128.82 kg bb (R); Height 6 ft. 0 in. (182.88 cm) (R); 07:34 BP 138 / 90; Pulse 70; Resp 17; Pulse Ox 98% on R/A; tw2 08:35 BP 143 / 86; Pulse 81; Resp 14; Pulse Ox 98% on R/A; tw2 09:38 BP 145 / 84; Pulse 64; Resp 18; Pulse Ox 99% on R/A; ph 06:54 Body Mass Index 38.52 (128.82 kg, 182.88 cm) bb NIH Stroke Scale Scores: 07:21 NIHSS Score: 0 tw2 ED Course: 06:33 Patient arrived in ED. al2 06:34 Beau Reagan DO is Private Physician. al2 06:41 [facility]. rh1 06:41 Medardo Hoover MD is Attending Physician. rh1 06:52 Triage completed. bb 06:54 Arm band placed on Patient placed in an exam room, on a stretcher, on pulse oximetry. bb Family accompanied patient. 07:06 Dimple Titus, RN is Primary Nurse. tw2 07:09 Note: exam ordered as a stroke,but not a stroke protocol, pt having iv,etc done \\T\\ this bq time. 07:10 Inserted saline lock: 22 gauge in left antecubital area, using aseptic technique. Blood tw2 collected. 07:20 Bed in low position. Call light in reach. Adult w/ patient. playground monitor on. Pulse tw2 ox on. NIBP on. 07:21 Stroke CXR 1 View In Process Unspecified. EDMS 07:25 CT completed. Patient moved to CT via stretcher. Patient moved back from CT. bq 07:25 CT Stroke Brain w/o Contrast In Process Unspecified. EDMS 07:46 Door closed. Noise minimized. Lights dimmed. seizure precautions implemented. tw2 09:50 Beau Reagan DO is Referral Physician. rh1 10:04 UDS Sent. tw2 10:04 No provider procedures requiring assistance completed. IV discontinued, intact, tw2 bleeding controlled, No redness/swelling at site. Pressure dressing applied. Administered Medications: 08:14 Drug: Calcium Gluconate 1 grams Route: IVPB; Infused Over: 60 mins; Site: left tw2 antecubital; 09:20 Follow up: Response: No adverse reaction; IV Status: Completed infusion tw2 09:23 Follow up: Response: No adverse reaction; IV Status: Completed infusion ph 08:35 Not Given (pt taking own medication, provider at bedside): Topamax 50 mg PO once tw2 09:37 Drug: Tylenol 1000 mg Route: PO; ph 10:04 Follow up: Response: No adverse reaction tw2 Point of Care Testing: Blood Glucose: 07:13 Blood Glucose: 102 mg/dL; rb1 Ranges: Outcome: 09:51 Discharge ordered by MD. rh1 10:04 Discharged to home ambulatory, with significant other. tw2 10:04 Condition: stable 10:04 Discharge instructions given to patient, significant other, Instructed on discharge instructions, follow up and referral plans. medication usage, Demonstrated understanding of instructions, follow-up care, medications, Prescriptions given X 1. 10:05 Patient left the ED. tw2 NIH Stroke Scale - NIH Stroke Score Date: 04/21/2018 Time: 07:21 Total Score = 0 1a. Level of Consciousness (LOC) - 0(Alert) 1b. Level of Consciousness (LOC) (Year \\T\\ Age) - 0(Both) 1c. LOC Commands (Open \\T\\ Closes Eyes/Coding Manager) - 0(Both) 2. Best Gaze (Lateral Gaze Paresis) - 0(Normal) 3. Visual Field Loss - 0(No visual loss) 4. Facial Palsy - 0(Normal) 5a. Left Arm: Motor (10-second hold) - 0(No drift) 5b. Right Arm: Motor (10-second hold) - 0(No drift) 6a. Left Leg: Motor (5-second hold - always test supine) - 0(No drift) 6b. Right Leg: Motor (5-second hold - always test supine) - 0(No drift) 7. Limb Ataxia (finger/nose \\T\\ heel/cavazos - test with eyes open) - 0(Absent) 8. Sensory Loss (pinprick arms/legs/face) - 0(Normal) 9. Best Language: Aphasia (description/naming/reading) - 0(No aphasia) 10. Dysarthria (speech clarity - read or repeat words) - 0(Normal) 11. Extinction and Inattention (visual/tactile/auditory/spatial/personal) - 0(No abnormality) Initials: tw2 Signatures: Dispatcher [employer] EDMS Maira Chowdary Brenda, RN RN bb Ester Beckett RN RN lp1 Chelsey Slater RN RN ph Norbert, Candice, AGATA CHARGING OPERATOR rh1 Jasmin Campbell, RN RN rb1 Dimple Titus RN RN tw2 Rosa Levi2
[2018-04-21 10:11] VITALS: TEMP 97.9
[2018-04-21 10:14] VITALS: BP 145/84; O2SAT 99
[2018-04-21 10:37] LABS: Barbiturates NEGATIVE (NEGATIVE); Benzodiazepines NEGATIVE (NEGATIVE); Cocaine NEGATIVE (NEGATIVE); METHAMPHETAM NEGATIVE (NEGATIVE); Methadone NEGATIVE (NEGATIVE); Opiates NEGATIVE (NEGATIVE); Phencyclidine NEGATIVE (NEGATIVE); THC Cannibis NEGATIVE (NEGATIVE)
[2018-04-21 12:43] LABS: Urine Blood NEGATIVE (NEG); Urine Glucose NEGATIVE (NEG); Urine Protein NEGATIVE (NEG)
--- NOTE | 2018-04-22 06:10 | EKG ---
Test Date: 2018-04-21 Test Time: 07:14:24 Windshield Repair Technician: BRIAN MEASUREMENT RESULTS: Intervals: Rate: 73 WA: 164 QRSD: 84 QT: 394 QTc: 434 Mcdonald: P: 46 WA: 164 QRS: -15 T: 35 INTERPRETIVE STATEMENTS: Normal sinus rhythm Normal ECG Compared to ECG 10/23/2017 23:52:18 No significant changes Electronically Signed On 04-22-18 06:10:06 PARAGLIDING INSTRUCTOR by Jovi Bass
== END 2018-04-21 10:05 | disposition home or self-care (01) ==
LOC: ER 06:32
DX: R41.82 Altered mental status, unspecified (principal); I10 Essential (primary) hypertension; G40.909 Epilepsy, unspecified, not intractable, without status epilepticus; Z88.0 Allergy status to penicillin; Z88.1 Allergy status to other antibiotic agents; Z88.8 Allergy status to other drugs, medicaments and biological substances
CPT/HCPCS: 36415; 70450; 71045; 80048; 80307 ×8; 81003; 82040; 82550; 82962; 83735; 84100; 84484; 85025; 85610; 85730; 93005; 96365; 99285; J0610

== ENCOUNTER 2018-05-15 21:29 | Emergency (ER) | payer OTHER ==
--- OUTSIDE RECORDS SUMMARY | 2018-05-15 21:31 | XMS REPORT | Continuity of Care Document ---
:1970 Author Organization Interface Problems Problem Status Onset Classification Date Comments Source Date Reported INTRACTABLE Active [facility] PARTIAL COMPLEX 5 [facility] INTRACTABLE Active [facility] PARTIAL 4 Medical SEIZURES Center 345.[address] APNEA Active [address] Medications Medication Details Route Status Patient [...] WITHOUT CONTRAST - EPILEPSY PROTOCOL 05/03 - [facility] contrast contrast /2013 - [facility] Read by: Imani Wills [...] Type Number For Provider Date Date Visit [facility] Outpatient [id number] 345.41 JESSICA 04/21 Active [facility] Aline REYNOLDS /2010 [facility] Outpatient [id number] Larry 09/23 09/24 [facility] Reggie Mckinney /2014 [facility] Procedures Procedure Code Date Perfomer Comments Source
--- OUTSIDE RECORDS SUMMARY | 2018-05-15 21:31 | XMS REPORT ---
[...] End Status Dosage System Date Date Frederick [facility] 91886399418 100 MG Orally Active 1 tablet Once a day Topamax [facility] 89036677090 50 MG Orally Active 3 tablet Twice a day Levetiracetam [facility] 48244328864 250 MG Orally Active 1 tablet Twice a day Neomycin-Polymyx [facility] 37269008670 3.5-35295-1 December 04, Active 1 drop into in-HC Otic TID 2017 affected ear Results No Known Results Summary Purpose eClinicalWorks Submission
--- OUTSIDE RECORDS SUMMARY | 2018-05-15 21:31 | XMS REPORT | CCD ---
:1970 Author Organization [facility] Care Team Providers Name Role Phone ChartServer, Login Consulting Provider Unavailable Param Ferguson Consulting Provider Vance Najera Consulting Provider [phone] Physician, Non Associated Referring Provider Unavailable Saima Mcallister Consulting Provider [phone] Sahil Dixon Consulting Provider Unavailable Allergies, Adverse Reactions, Alerts Substance Reaction Status NKDA ?? Active
--- OUTSIDE RECORDS SUMMARY | 2018-05-15 21:32 | XMS REPORT ---
:1970 Author Organization eClinicalWorks Care Team Providers Name Role Phone Tez [facility] Provider Role Unavailable Allergies No Known [...] Date End Date Status Dosage Cozaar [facility] 11701422228 100 MG Orally Active 1 tablet Once a day Results No Known Results Summary Purpose eClinicalWorks Submission
--- OUTSIDE RECORDS SUMMARY | 2018-05-15 21:32 | XMS REPORT ---
:1970 Author Organization eClinicalWorks Care Team Providers Name Role Phone Tez [facility] Provider Role Unavailable Allergies No Known Allergies [...] Start Date End Date Status Dosage Cozaar [facility] 76839320566 100 MG Orally Active 1 tablet Once a day Results No Known Results Summary Purpose eClinicalWorks Submission
[2018-05-15 22:31] LABS: Absolute Lymphocytes (CBC) 1.3 K/uL (0.7-4.9); Absolute Monocytes 0.5 K/uL (0.1-1.3); Absolute Neutrophil 5.8 K/uL (1.8-8.0); Basophils % 0.3 % (0-1.3); Eosinophils % 1.6 % (0-4.4); Hematocrit 46.4 % (39.6-49.0); Lymphocytes % 16.5 % (15.3-44.8); MCH 30.7 pg (27.0-35.0); MCV 88.7 fL (80-100); MPV 7.5 fL (7.6-11.3); Monocytes % 6.9 % (3.3-12.3); RBC Red Blood Cell Count 5.24 M/uL (4.33-5.43)
[2018-05-15 22:32] LABS: Protime INR 1.1
[2018-05-15 22:44] LABS: ALT/SGPT 34 U/L (12-78); AST/SGOT 26 U/L (15-37); Alkaline Phosphatase 161 U/L (45-117); BUN Blood Urea Nitrogen 15 mg/dL (7-18); Bicarbonate 24 mmol/L (21-32); Bilirubin Direct < 0.1 mg/dL (0-0.2); Bilirubin Total 0.4 mg/dL (0.2-1.0); Glucose Level 111 mg/dL (74-106); Magnesium 2.2 mg/dL (1.8-2.4); NT PRO-BNP 38 pg/mL (<125); Protein, Total 7.8 g/dL (6.4-8.2); Sodium Level 139 mmol/L (136-145); Troponin (Emerg Dept Use Only) < 0.02 ng/mL (0.0-0.045)
[2018-05-15] MEDS ORDERED: KETOROLAC 30 MG/ML INJ ONE (23:22)
[2018-05-16 00:12] LABS: Barbiturates NEGATIVE (NEGATIVE); Benzodiazepines NEGATIVE (NEGATIVE); Cocaine NEGATIVE (NEGATIVE); METHAMPHETAM NEGATIVE (NEGATIVE); Methadone NEGATIVE (NEGATIVE); Opiates NEGATIVE (NEGATIVE); Phencyclidine NEGATIVE (NEGATIVE); THC Cannibis NEGATIVE (NEGATIVE)
--- NOTE | 2018-05-16 00:32 | EDPHYS ---
Physician Documentation [facility] Name: Pravin Bateman Age: 47 yrs Sex: Male : 1970 Arrival Date: 05/15/2018 Time: 21:33 Bed 5 Private MD: Beau Reagan ED Physician Zander Pizarro HPI: 05/16 01:42 This 47 yrs old Male presents to ER via Ambulatory with complaints of High gs Blood Pressure, Headache. 01:42 The patient presents with staring episode. Onset: The symptoms/episode began/occurred gs acutely, just prior to arrival. Possible causes: CVA or TIA, seizure, the patient has a known seizure history. Associated signs and symptoms: Pertinent negatives: abdominal pain, agitation, combativeness. Current symptoms: In the emergency department the patient's symptoms have improved, mildly. The patient has experienced similar episodes in the past, multiple times, with the last episode occurring 3 week(s) ago. The patient has been recently seen at the [facility] Emergency Department, a couple of weeks ago, for similar complaints. Historical: - Allergies: 05/15 21:40 Augmentin; aj1 21:40 K-Clor; aj1 21:40 PENICILLINS; aj1 - Home Meds: 21:40 Bystolic 5 mg PRN [Active]; Keppra 500 mg Oral tab 1 tab 2 times per day [Active]; aj1 losartan 100 mg Oral tab 1 tab once daily [Active]; Topamax 100 mg Oral tab 1 tab 2 times per day [Active]; - PMHx: 21:40 Hypertension; Seizures; aj1 - Immunization history:: Flu vaccine is not up to date. - Social history:: Smoking status: Patient/guardian denies using tobacco. - Ebola Screening: : Patient denies travel to an Ebola-affected area in the 21 days before illness onset. ROS: 05/16 01:42 All other systems are negative. gs Exam: 01:42 Head/Face: Normocephalic, atraumatic. Eyes: Pupils equal round and reactive to light, gs extra-ocular motions intact. Lids and lashes normal. Conjunctiva and sclera are non-icteric and not injected. Cornea within normal limits. Periorbital areas with no swelling, redness, or edema. ENT: Nares patent. No nasal discharge, no septal abnormalities noted. Tympanic membranes are normal and external auditory canals are clear. Oropharynx with no redness, swelling, or masses, exudates, or evidence of obstruction, uvula midline. Mucous membranes moist. Neck: Trachea midline, no thyromegaly or masses palpated, and no cervical lymphadenopathy. Supple, full range of motion without nuchal rigidity, or vertebral point tenderness. No Meningismus. Chest/axilla: Normal chest wall appearance and motion. Nontender with no deformity. No lesions are appreciated. Cardiovascular: Regular rate and rhythm with a normal S1 and S2. No gallops, murmurs, or rubs. Normal PMI, no JVD. No pulse deficits. Respiratory: Lungs have equal breath sounds bilaterally, clear to auscultation and percussion. No rales, rhonchi or wheezes noted. No increased work of breathing, no retractions or nasal flaring. Abdomen/GI: Soft, non-tender, with normal bowel sounds. No distension or tympany. No guarding or rebound. No evidence of tenderness throughout. Back: No spinal tenderness. No costovertebral tenderness. Full range of motion. Skin: Warm, dry with normal turgor. Normal color with no rashes, no lesions, and no evidence of cellulitis. MS/ Extremity: Pulses equal, no cyanosis. Neurovascular intact. Full, normal range of motion. Neuro: Awake and alert, GCS 15, oriented to person, place, time, and situation. Cranial nerves II-XII grossly intact. Motor strength 5/5 in all extremities. Sensory grossly intact. Cerebellar exam normal. Normal gait. 01:42 Constitutional: The patient appears alert, awake. 01:42 ECG was reviewed by the Attending Physician. Vital Signs: 05/15 21:40 BP 170 / 81; Pulse 73; Resp 18; Temp 98.2; Pulse Ox 97% on R/A; Weight 127.91 kg; aj1 Height 6 ft. 0 in. (182.88 cm) (R); Pain 8/10; 22:26 BP 155 / 78; Pulse 79; Resp 20; Pulse Ox 94% on R/A; lp1 23:30 BP 155 / 94; Pulse 68; Resp 16; Pulse Ox 98% on R/A; lp1 05/16 00:30 BP 136 / 69; Pulse 64; Resp 16; Pulse Ox 98% on R/A; lp1 01:00 Pain 0/10; tl1 05/15 21:40 Body Mass Index 38.25 (127.91 kg, 182.88 cm) aj1 NIH Stroke Scale Scores: 01:42 NIHSS Score: 0 MDM: 05/15 22:10 Patient medically screened. 05/16 01:42 Differential Diagnosis: electrolyte abnormality, intracranial bleed, seizure, gs hemiplegic migraine. Data reviewed: vital signs, nurses notes. Counseling: I had a detailed discussion with the patient and/or guardian regarding: the historical points, exam findings, and any diagnostic results supporting the discharge/admit diagnosis, the need for outpatient follow up, a neurologist. Response to treatment: the patient's symptoms have resolved after treatment, the patient's condition has returned to base line, the patient is now symptom free, and as a result, I will discharge patient. 05/15 21:59 Order name: Basic Metabolic Panel 05/15 21:59 Order name: CBC with Diff; Complete Time: 00:30 05/15 21:59 Order name: LFT's; Complete Time: 00:30 05/15 21:59 Order name: Magnesium; Complete Time: 00:30 05/15 21:59 Order name: NT PRO-BNP; Complete Time: 00:30 05/15 21:59 Order name: PT-INR; Complete Time: 00:30 05/15 21:59 Order name: Troponin (emerg Dept Use Only); Complete Time: 00:30 05/15 21:59 Order name: XRAY Chest (1 view) 05/15 21:59 Order name: CT Head Brain wo Cont 05/15 21:59 Order name: ETOH Level; Complete Time: 00:30 05/15 21:59 Order name: Urine Drug Screen; Complete Time: 00:30 05/15 21:59 Order name: Basic Metabolic Panel; Complete Time: 00:30 EDMS 05/16 00:02 Order name: Urine Dipstick--Ancillary (enter results) em1 05/15 21:59 Order name: EKG; Complete Time: 22:00 05/15 21:59 Order name: Cardiac monitoring; Complete Time: 22:12 05/15 21:59 Order name: EKG - Nurse/Tech; Complete Time: 22:29 05/15 21:59 Order name: IV Saline Lock; Complete Time: 22:10 05/15 21:59 Order name: Labs collected and sent; Complete Time: 22:10 05/15 21:59 Order name: O2 Per Protocol; Complete Time: 22:10 05/15 21:59 Order name: O2 Sat Monitoring; Complete Time: 22:10 EC:42 Rate is 75 beats/min. Rhythm is regular. MA interval is normal. QRS interval is normal. gs T waves are Normal. No ST changes noted. Clinical impression: Normal ECG. Interpreted by me. Administered Medications: 05/15 23:18 Drug: TORadol 15 mg Route: IVP; Infused Over: 2 mins; Site: right antecubital; tl1 05/16 00:59 Follow up: Response: No adverse reaction; Marked relief of symptoms; Pain is decreased tl1 Disposition: 05/16/18 00:31 Discharged to Home. Impression: Epilepsy and recurrent seizures, Hemiplegic migraine. - Condition is Stable. - Discharge Instructions: Seizure, Adult. - Medication Reconciliation Form, Thank You Letter, Antibiotic Education, Prescription Opioid Use form. - Follow up: Private Physician; When: 1 - 2 days; Reason: Re-evaluation by your physician. NIH Stroke Scale - NIH Stroke Score Date: 05/16/2018 Time: 01:42 Total Score = 0 1a. Level of Consciousness (LOC) - 0(Alert) 1b. Level of Consciousness (LOC) (Year \T\ Age) - 0(Both) 1c. LOC Commands (Open \T\ Closes Eyes/Shank Faker) - 0(Both) 2. Best Gaze (Lateral Gaze Paresis) - 0(Normal) 3. Visual Field Loss - 0(No visual loss) 4. Facial Palsy - 0(Normal) 5a. Left Arm: Motor (10-second hold) - 0(No drift) 5b. Right Arm: Motor (10-second hold) - 0(No drift) 6a. Left Leg: Motor (5-second hold - always test supine) - 0(No drift) 6b. Right Leg: Motor (5-second hold - always test supine) - 0(No drift) 7. Limb Ataxia (finger/nose \T\ heel/cavazos - test with eyes open) - 0(Absent) 8. Sensory Loss (pinprick arms/legs/face) - 0(Normal) 9. Best Language: Aphasia (description/naming/reading) - 0(No aphasia) 10. Dysarthria (speech clarity - read or repeat words) - 0(Normal) 11. Extinction and Inattention (visual/tactile/auditory/spatial/personal) - 0(No abnormality) Initials: gs Signatures: Dispatcher [employer] EDDaniela Paulson RN RN aj1 Cathy Chau RN RN tl1 Zander Pizarro MD MD gs Corrections: (The following items were deleted from the chart) 01:00 00:31 05/16/2018 00:31 Discharged to Home. Impression: Epilepsy and recurrent tl1 seizures; Hemiplegic migraine. Condition is Stable. Forms are Medication Reconciliation Form, Thank You Letter, Antibiotic Education, Prescription Opioid Use. Follow up: Private Physician; When: 1 - 2 days; Reason: Re-evaluation by your physician. gs
--- NOTE | 2018-05-16 00:32 | ER ---
Nurse's Notes [facility] Name: Pravin Bateman Age: 47 yrs Sex: Male : 1970 Arrival Date: 05/15/2018 Time: 21:33 Bed 5 Private MD: Beau Reagan Diagnosis: Epilepsy and recurrent seizures;Hemiplegic migraine Presentation: 05/15 21:35 Presenting complaint: states: He was laying down and when she came in she noticed aj1 that the right side of his face was "twisted" and his right arm was locked up. An hour she checked his blood pressure and it was 164/108. This has happened to him before and his neurologist said it wasn't a seizure, but he does get seizures when his blood pressure gets high. Patient states that he has a headache right now. Speech is clear, patient ambulated to triage with a steady gait. Hand hogshead cooper are equal bilaterally. Transition of care: patient was not received from another setting of care. Onset of symptoms was May 15, 2018 at 20:10. Risk Assessment: Do you want to hurt yourself or someone else? Patient reports no desire to harm self or others. Initial Sepsis Screen: Does the patient meet any 2 criteria? No. Patient's initial sepsis screen is negative. Does the patient have a suspected source of infection? No. Patient's initial sepsis screen is negative. Care prior to arrival: None. 21:35 Method Of Arrival: Ambulatory aj1 21:35 Acuity: DONNIE 3 aj1 Triage Assessment: 21:40 Headache History: Denies prior headaches. General: Appears in no apparent distress. aj1 comfortable, Behavior is calm, cooperative, appropriate for age. Pain: Complains of pain in occipital area Pain currently is 8 out of 10 on a pain scale. Pain began 1 hour ago. Also complains of no other associated symptoms. Neuro: Level of Consciousness is awake, alert, obeys commands. Cardiovascular: Patient's skin is warm and dry. Respiratory: Airway is patent Respiratory effort is even, unlabored, Respiratory pattern is regular, symmetrical. Historical: - Allergies: 21:40 Augmentin; aj1 21:40 K-Clor; aj1 21:40 PENICILLINS; aj1 - Home Meds: 21:40 Bystolic 5 mg PRN [Active]; Keppra 500 mg Oral tab 1 tab 2 times per day [Active]; aj1 losartan 100 mg Oral tab 1 tab once daily [Active]; Topamax 100 mg Oral tab 1 tab 2 times per day [Active]; - PMHx: 21:40 Hypertension; Seizures; aj1 - Immunization history:: Flu vaccine is not up to date. - Social history:: Smoking status: Patient/guardian denies using tobacco. - Ebola Screening: : Patient denies travel to an Ebola-affected area in the 21 days before illness onset. Screenin:28 Abuse screen: Denies threats or abuse. Denies injuries from another. Nutritional lp1 screening: No deficits noted. Tuberculosis screening: No symptoms or risk factors identified. Fall Risk None identified. Assessment: 22:27 General: Appears in no apparent distress. Behavior is calm, cooperative, appropriate lp1 for age. Pain: Denies pain. Neuro: Level of Consciousness is awake, alert, obeys commands, Oriented to person, place, time, situation, Orthodontist Small Business Owner are equal bilaterally Moves all extremities. Full function Facial symmetry appears normal, Pupils are PERRLA, Reports headache. Cardiovascular: Patient's skin is warm and dry. Rhythm is sinus rhythm. Respiratory: Respiratory effort is even, unlabored. GI: Abdomen is obese. : No signs and/or symptoms were reported regarding the genitourinary system. EENT: No signs and/or symptoms were reported regarding the EENT system. Derm: Skin is pink, warm \\T\\ dry. Musculoskeletal: Circulation, motion, and sensation intact. 23:30 Reassessment: Patient appears in no apparent distress at this time. No changes from lp1 previously documented assessment. Patient and/or family updated on plan of care and expected duration. Pain level reassessed. 05/16 00:30 Reassessment: Patient appears in no apparent distress at this time. Patient is alert, lp1 oriented x 3, equal unlabored respirations, skin warm/dry/pink. Patient states symptoms have improved. Vital Signs: 05/15 21:40 BP 170 / 81; Pulse 73; Resp 18; Temp 98.2; Pulse Ox 97% on R/A; Weight 127.91 kg; aj1 Height 6 ft. 0 in. (182.88 cm) (R); Pain 8/10; 22:26 BP 155 / 78; Pulse 79; Resp 20; Pulse Ox 94% on R/A; lp1 23:30 BP 155 / 94; Pulse 68; Resp 16; Pulse Ox 98% on R/A; lp1 05/16 00:30 BP 136 / 69; Pulse 64; Resp 16; Pulse Ox 98% on R/A; lp1 01:00 Pain 0/10; tl1 05/15 21:40 Body Mass Index 38.25 (127.91 kg, 182.88 cm) aj1 NIH Stroke Scale Scores: 01:42 NIHSS Score: 0 ED Course: 05/15 21:33 Patient arrived in ED. es 21:33 Beau Reagan DO is Private Physician. es 21:39 Triage completed. aj1 21:40 Arm band placed on Patient placed in an exam room. aj1 21:58 Zander Pizarro MD is Attending Physician. gs 22:[address] nj 22:10 Inserted saline lock: 20 gauge in right antecubital area, using aseptic technique. mw2 Blood collected. iv inserted by Jaylen HARRIS. 22:11 Basic Metabolic Panel Sent. mw2 22:11 Urine Drug Screen Sent. mw2 22:11 Troponin (emerg Dept Use Only) Sent. mw2 22:11 NT PRO-BNP Sent. mw2 22:11 Magnesium Sent. mw2 22:11 LFT's Sent. mw2 22:11 Basic Metabolic Panel Sent. mw2 22:12 CT Head Brain wo Cont In Process Unspecified. EDMS 22:12 CBC with Diff Sent. mw2 22:12 PT-INR Sent. mw2 22:26 EKG done, by ED staff, reviewed by Zander Pizarro MD. lp1 22:28 Patient has correct armband on for positive identification. Call light in reach. lp1 monitoring engineer on. Pulse ox on. NIBP on. 22:36 XRAY Chest (1 view) In Process Unspecified. EDMS 05/16 00:44 Ester Beckett, KIMBERLY is Primary Nurse. lp1 00:45 No provider procedures requiring assistance completed. IV discontinued, No lp1 redness/swelling at site. Pressure dressing applied. Administered Medications: 05/15 23:18 Drug: TORadol 15 mg Route: IVP; Infused Over: 2 mins; Site: right antecubital; tl1 05/16 00:59 Follow up: Response: No adverse reaction; Marked relief of symptoms; Pain is decreased tl1 Outcome: 00:31 Discharge ordered by . luis 00:45 Discharged to home ambulatory, with family. lp1 00:45 Condition: good 00:45 Discharge instructions given to patient, Instructed on discharge instructions, follow up and referral plans. Demonstrated understanding of instructions, follow-up care. 01:00 Patient left the ED. tl1 NIH Stroke Scale - NIH Stroke Score Date: 05/16/2018 Time: 01:42 Total Score = 0 1a. Level of Consciousness (LOC) - 0(Alert) 1b. Level of Consciousness (LOC) (Year \\T\\ Age) - 0(Both) 1c. LOC Commands (Open \\T\\ Closes Eyes/Kettle Firer) - 0(Both) 2. Best Gaze (Lateral Gaze Paresis) - 0(Normal) 3. Visual Field Loss - 0(No visual loss) 4. Facial Palsy - 0(Normal) 5a. Left Arm: Motor (10-second hold) - 0(No drift) 5b. Right Arm: Motor (10-second hold) - 0(No drift) 6a. Left Leg: Motor (5-second hold - always test supine) - 0(No drift) 6b. Right Leg: Motor (5-second hold - always test supine) - 0(No drift) 7. Limb Ataxia (finger/nose \\T\\ heel/cavazos - test with eyes open) - 0(Absent) 8. Sensory Loss (pinprick arms/legs/face) - 0(Normal) 9. Best Language: Aphasia (description/naming/reading) - 0(No aphasia) 10. Dysarthria (speech clarity - read or repeat words) - 0(Normal) 11. Extinction and Inattention (visual/tactile/auditory/spatial/personal) - 0(No abnormality) Initials: Signatures: Dispatcher [employer] EDDaniela Paulson RN RN aj1 Anna Cramer Laura, RN RN lp1 Cathy Chau RN RN tl1 Frank Garcia Gregory, MD MD gs [place], MyKena 2
[2018-05-16 01:20] LABS: Urine Glucose NEGATIVE (NEG)
[2018-05-16 01:21] LABS: Urine Blood NEGATIVE (NEG); Urine Protein NEGATIVE (NEG)
[2018-05-16 11:40] VITALS: TEMP 98.2
[2018-05-16 11:43] VITALS: O2SAT 98
[2018-05-16 11:45] VITALS: BP 136/69
--- NOTE | 2018-05-16 11:47 | EKG ---
Test Date: 2018-05-15 Test Time: 22:23:30 Senior It Engineer: GRACIELA MEASUREMENT RESULTS: Intervals: Rate: 75 FL: 152 QRSD: 76 QT: 404 QTc: 451 [place]: P: 62 FL: 152 QRS: 11 T: 9 INTERPRETIVE STATEMENTS: Normal sinus rhythm Normal ECG Compared to ECG 04/21/2018 07:14:24 No significant changes Electronically Signed On 05-16-18 11:45:33 WHIZZER OPERATOR by Jovi Bass
--- NOTE | 2018-05-16 11:57 | RAD REPORT ---
EXAM DESCRIPTION: CT - Head Brain Wo Cont - 05/16/2018 5:51 am CLINICAL HISTORY: Seizure COMPARISON: April 21, 2018 TECHNIQUE: Computed axial tomography of the head was obtained. IV contrast was not requested. All CT scans are performed using dose optimization technique as appropriate and may include automated exposure control or mA/KV adjustment according to patient size. FINDINGS: An intracranial bleed is not seen . The ventricles are normal in caliber. No extra-axial fluid collection is noted. Fluid within the sinuses/ mastoids is not seen. Mucus retention cyst in the right maxillary sinus IMPRESSION: No acute intracranial abnormality is seen. If patient's symptoms persist MRI of the bra in would be recommended.
--- NOTE | 2018-05-16 13:07 | RAD REPORT ---
EXAM DESCRIPTION: Silvano Single View05/15/2018 10:35 pm CLINICAL HISTORY: Chest pain COMPARISON: April 21, 2018 FINDINGS: The lungs appear clear of acute infiltrate. The heart is normal size IMPRESSION: No acute abnormalities displayed
== END 2018-05-16 01:00 | disposition home or self-care (01) ==
LOC: ER 21:29
DX: G43.409 Hemiplegic migraine, not intractable, without status migrainosus (principal); G40.802 Other epilepsy, not intractable, without status epilepticus; I10 Essential (primary) hypertension; Z88.0 Allergy status to penicillin; Z88.1 Allergy status to other antibiotic agents; Z88.8 Allergy status to other drugs, medicaments and biological substances
CPT/HCPCS: 36415; 70450; 71045; 80048; 80076; 80307; 80320; 81003; 83735; 83880; 84484; 85025; 85610; 93005; 96374; 99285

== ENCOUNTER 2020-01-24 05:42 | Day surgery (SDC) | payer OTHER ==
[2020-01-20 10:21] LABS: Absolute Lymphocytes (CBC) 1.3 K/uL (0.7-4.9); Basophils % 0.3 % (0-1.3); Hematocrit 45.8 % (39.6-49.0); Lymphocytes % 22.4 % (15.3-44.8); MPV 7.2 fL (7.6-11.3); RBC Red Blood Cell Count 5.25 M/uL (4.33-5.43)
[2020-01-20 10:23] LABS: Protime INR 1.1
--- NOTE | 2020-01-20 10:26 | RAD REPORT ---
EXAM DESCRIPTION: RAD - Chest Pa And Lat (2 Views) - 01/20/2020 10:13 am CLINICAL HISTORY: pre op, patient pending knee arthroscopy, history of hypertension COMPARISON: Portable April 2018 TECHNIQUE: Frontal and lateral views of the chest were obtained. FINDINGS: The lungs are clear. Interstitial pattern matches comparison. Heart size is normal and ce ntral vasculature is within normal limits. No pleural effusion or pneumothorax seen. No acute bony finding noted. No aortic abnormality. IMPRESSION: No acute cardiopulmonary process.
[2020-01-20 10:31] LABS: BUN Blood Urea Nitrogen 12 mg/dL (7-18); Bicarbonate 24 mmol/L (21-32); Glucose Level 101 mg/dL (74-106); Potassium 3.3 mmol/L (3.5-5.1); Sodium Level 140 mmol/L (136-145)
--- OUTSIDE RECORDS SUMMARY | 2020-01-24 05:53 | XMS REPORT | Continuity of Care Document ---
:1970 Author Organization [employer] Care Team Providers Name Role Phone [employer] Unavailable Un available Problems Problem Status Onset Classification Date Comments Sourc e Date Reported INTRACTABLE Active [facility] PART[facility] COM[facility] 5 [facility]O [facility] INTRACTABLE Active [facility] PARTIAL 4 Medical SEIZURES Center 345.[address] APNEA Active [address] Medications No Data Provided for This Section Allergies, Adverse Reactions, Alerts No Known Medication Allergies Immunizations No Data Provided for This Section Results No Data Provided for This Section Pathology Reports No Data Provided for This Section Diagnostic Reports Report Value Date Source Brain wo contrast MRI EXAM: MRI OF THE BRAIN WITHO MO CONTRAST - EPILEPSY PROTOCOL 05/03/2014 [facility] DATE: May 03, 2014 11:38:56 AM CLINICAL HISTORY: Seizures COMPARISON: TECHNIQUE: Noncontrast images of the br ain are performed. High resolution coronal T2- weighted images and axial T1 weighted images are also obtained for structural evaluation. FINDINGS: Although there is no archite ctural distortion, the height of the right hippocampal formation is smaller as compared to the left. This is especially noticeable in the body of the hippocampi. There is a s mall arachnoid pit in the fl oor of the middle cranial fossa, with a [...] to the left. 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 Consultation Notes No Data Provided for This Section Discharge Summaries No Data Provided for This Section History and Physicals No Data Provided for This Section Vital Signs No Data Provided for This Section Encounters Location Location Encounter Encounter Reason Attending ADM GA Stat us Source Details Type Number For Provider Date Date Visit [facility] Outpatient [id number] JESSICA 04/21 Activ e [facility] RODOLFO /2010 [facility] [id number] Larry 09/23 09/24 [facility] Reggie Mckinney /2014 [facility] Procedures No Data Provided for This Section Assessment and Plan No Data Provided for This Section Plan of Care No Data Provided for This Section Social History Social History Date Source No data available for this 09/24/2014 [facility] section Family History No Data Provided for This Section Advance Directives No Data Provided for This Section Functional Status No Data Provided for This Section
--- OUTSIDE RECORDS SUMMARY | 2020-01-24 05:54 | XMS REPORT | Continuity of Care Document ---
:1970 Author Organization [facility] t Address [address] [place] [address] Dr. Lou. [address] [place] [address] Care Team Providers Name Role Phone Tashi Luis MD Attending Clinician Doctor Unassigned, Spiro Attending Clinician Unavailable Nhung Leonard MD Attending Clinician ERNIE Attending Clinician Unavailable ANNAMARIA Attending Clinician Unavailable CHAPIN Attending Clinician Unavailable DALLIN Attending Clinician Unavailable Mone Attending Clinician Unavailable Korey Mckinney Attending Clinician Problems Condition Condition Condition Status Onset Resolution Last Treating Co mments Source Name Details Category Date Date Treatment Clinician Date INTRACTABL Diagnosis Active 2014-09-23 Memoria E PARTIAL 3-19 13:31:00 l COMPLEX 00:00: Reggie SEIZURE INTRACTABL 00 DISO E PARTIAL COMPLEX SEIZURE DISO Active 09/04/2014 [facility] INTRACTABL Diagnosis Active 2013-062014-05-19 Memoria E PARTIAL 0-14 13:24:00 l SEIZURES 00:00: [place] INTRACTABL 00 E PARTIAL SEIZURES Active 04/01/2014 [facility] 345.41 Diagnosis Active 2010-062011-04-21 Mem oria 0-03 09:14:00 l 345.41 00:00: [place] 00 Active 03/21/2011 [facility] APNEA Diagnosis Active 2014-07-11 Mem oria 06-19 15:55:00 l APNEA 00:00: [place] 00 Active 06/19/2000 [facility] BMI BMI Problem Active [facility] 40.0-44.9, 40.0-44.9, Temi kes - adult adult Memoria l [facility] Chronic Chronic Problem Active [facility] sinusitis sinusitis Luke s - Memoria l [facility] Nonalcohol Nonalcohol Problem Active C [facility] ic fatty ic fatty [facility] - liver liver Memoria disease disease l [facility] Obesity Obesity Problem Active [facility] Seizure Seizure Problem Active [facility] disorder disorder [facility] Hypertensi Hypertensi Problem Active C [facility] on on [facility] Hyperlipid Hyperlipid Problem Active C [facility] emia, emia, [facility] - mixed mixed Memoria l [facility] Sleep Sleep Problem Active [facility] apnea, apnea, [facility] - obstructiv obstructiv Me moria e e l [facility] Headache Headache Problem Active [facility] Erectile Erectile Problem Active [facility] dysfunctio dysfunctio Temi kes - n n Memoria l [facility] Vitamin D Vitamin D Problem Active [facility] deficiency deficiency Temi kes - disease disease Memoria l [facility] Limping Limping Problem Active [facility] Internal Internal Problem Active [facility] derangemen derangemen Temi kes - t of left t of left [place] audelia knee knee l [facility] Primary Primary Diagnosis Active [facility] t osteoarthr osteoarthr Temi kes - itis of itis of Memoria left knee left knee l [facility]ics Complex Complex Diagnosis Active [facility] tear of tear of [facility] - medial medial Memoria meniscus meniscus l of left of left Outpati knee as knee as ent current current Clinics injury, injury, initial initial encounter encounter Pain, Pain, Diagnosis Active [facility] joint, joint, [facility] - knee, left knee, left Me moria l [facility] History of History of Problem Resolve Univers high blood high blood d it y of pressure pressure [place] Physici ans Essential Essential Problem Active Uni vers (primary) (primary) ity of hypertensi hypertens[place] Physici ans 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 it y of c epilepsy c epilepsy [place] with with Physici complex complex ans partial partial seizures, seizures, not not intractabl intractabl e, without e, without status status epilepticu epilepticu s s Obstructiv Obstructiv Problem Active U nivers e sleep e sleep ity of apnea apnea [place] [facility] ans Seizure Seizure Problem Active Univers disorder disorder ity of [place] [facility] ans Male Male Problem Active Univers sexual sexual ity of dysfunctio dysfunctio [place] Physici ans Abdominal Abdominal Problem Active Uni vers hernia hernia ity of [place] Physici ans Obesity Obesity Problem Active Univers ity of [place] [facility]ici ans Hypertroph Hypertroph Problem Active U nivers y of both y of both ity of inferior inferior [place] nasal nasal Physici turbinates turbinates an s Post-nasal Post-nasal Problem Active U nivers drip drip ity of [place] Physici ans 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 sinusitis [place] 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 ity of [place] Physici ans Nasal mass Nasal mass Problem Active U nivers ity of [place] Physici ans Nasal Nasal Problem Active Univers septal septal ity of deviation deviation [place] Chronic Chronic Problem Active Univers ethmoidal ethmoidal ity of sinusitis [place] Chronic Chronic Problem Active Univers frontal frontal ity of [place]itis [place] Chronic Chronic Problem Active Univers maxillary maxillary it[place] of [place]itis [place] History of History of Problem Resolve Univers Epilepsy Epilepsy d ity of with with [place] status status Physici epilepticu epilepticu an s s, not s, not intractabl intractabl e e 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 Amoxicil Adverse Active Info Not [facility] allyssa Reaction Available [facility] - [facility]oria [facility] Augmenti Adverse Active Info Not [facility] n Reaction Available kes - [facility]oria [facility] Augmenti Allergy Active Univers n to drug ity of (finding [place] ) Physici ans Potassim Allergy Active Univers in TABS to drug ity of (finding [place] ) Physici ans Social History Social Habit Start Date Stop Date Quantity Comments Source Social History 2014-09-24 2014-09-24 [facility] 04:59:00 04:59:00 Smoking Status Start Date Stop Date Source Ex-smoker (finding) [facility] o [facility] Physicians Medications Ordered Filled Start Stop Current Ordering Indication Dosage Frequency Signature Comments Components Source Medication Medication Date Date Medication? Clinician (SIG) Name Name OXcarbazepi OXcarbazepi 2018-06 2020- No DINA 2 Q0.5D TAKE 2 Univers ne 300 MG ne 300 MG 2-05-25 KLEIN TABLET ity of Oral Tablet Oral Tablet 00:00: 23:59 M.D. TWICE [place] 00 :00 DAILY Physici ans levETIRAcet levETIRAcet Yes DINA Q0.5D TAKE ONE Univers am 250 MG am 250 MG 03-18 KLEIN (1) i ty of Oral Tablet Oral Tablet 00:00: M.D. TABLET(S) [place] 00 BY MOUTH Physici TWICE A ans DAY. Fluticasone Fluticasone Yes JAMARCUS Q0.5D USE 1 Univers Propionate Propionate 2-26 ANNAMARIA M.D. SPRAY IN ity of 50 MCG/ACT 50 MCG/ACT 00:00: EACH [place] Nasal Nasal 00 NOSTRIL Physici Suspension Suspension TWICE an s DAILY. Topiramate Topiramate Yes DINA 3 Q0.5D TAKE 3 Univers 50 MG Oral 50 MG Oral 11-18 KLEIN TABLET ity of Tablet Tablet 00:00: M.D. TWICE [place] 00 DAILY Physici ans Frederick Mack Yes Mik [address] [facility] [facility] Levetiracet Levetiracet Yes Mik [address] am am [place] [facility] Topamax Topamax Yes Mik [address] [place] [facility] Amlodipine Amlodipine Yes Mik TAKE ONE [facility] Besylate Besylate [place] (1) [facility] - TABLET(S) Memoria BY MOUTH l ONCE A Outpati DAY. ent Clinics Topiramate Topiramate Yes Mik not [facility] [place] defined [facility] Losartan Losartan Yes Mik not [facility] Potassium Potassium [place] defined Tem[place] k[place] - Memoria l Outpati ent Clinics Vitamin D3 Vitamin D3 Yes Mik not [facility] defined [facility] Oxcarbazepi Oxcarbazepi Yes Mik not [facility] ne ne [place] defined [facility] Vitamin D Vitamin D Yes Mik not [facility] (Ergocalcif (Ergocalcif [place] defined [facility] - joanna) joanna) Memoria l Outpati ent Clinics Losartan Losartan Yes Univers Potassium Potassium ity o f 100 MG Oral 100 MG Oral [place] Tablet Tablet Physici ans Bystolic Bystolic Yes Univers 2.5 MG Oral 2.5 MG Oral i ty of Tablet Tablet [place] [facility] ans Vital Signs Vital Name Observation Time Observation Value Comments Source BP Systolic 2019-05-31 152 mm[Hg] [facility] 10:17:00 [place] Physician s BP Diastolic 2019-05-31 80 mm[Hg] [facility] :17: [place] Physician s Height 2019-05-31 72 [in_us] [facility] 10:17:00 [place] Physician s Weight 2019-05-31 299 [lb_av] [facility] :17:00 [place] Physician s Body Mass Index 2019-05-31 40.55 kg/m2 University o f Calculated 10:17:00 [place] Physician s Heart Rate 2019-05-31 76 /min [facility] 10:17:00 [place] Physician s BP Systolic 2018-11-23 149 mm[Hg] University of 11:02:00 [place] Physician s BP Diastolic 2018-11-23 93 mm[Hg] [facility] 11:02:00 [place] Physician s Height 2018-11-23 72 [in_us] University of 11:02:00 [place] Physician s Weight 2018-11-23 298 [lb_av] University of 11:02:00 [place] Physician s Body Mass Index 2018-11-23 40.42 kg/m2 University o f Calculated 11:02:00 [place] Physician s Heart Rate 2018-11-23 71 /min [facility] 11::00 [place] Physician s BP Systolic 2018-08-14 146 mm[Hg] Location: [facility] 10:17:00 Position: [place] Physician s Sitting BP Diastolic 2018-08-14 83 mm[Hg] Location: [facility] 10:17:00 Position: [place] Physician s Sitting Height 2018-08-14 72 [in_us] [facility] 10:17: [place] Physician s Weight 2018-08-14 292 [lb_av] University of 10:17:00 [place] Physician s Body Mass Index 2018-08-14 39.6 kg/m2 University o f Calculated 10:17:00 [place] Physician s Temperature 2018-08-14 99.9 [degF] Method: Oral University of 10:17:00 [place] Physician s Heart Rate 2018-08-14 69 /min University of 10:17:00 [place] Physician s BP Systolic 2018-05-22 147 mm[Hg] University of 10:37:00 [place] Physician s BP Diastolic 2018-05-22 82 mm[Hg] University of 10:37:00 [place] Physician s Height 2018-05-22 72 [in_us] University of 10:37:00 [place] Physician s Weight 2018-05-22 287 [lb_av] University of 10:37:00 [place] Physician s Body Mass Index 2018-05-22 38.92 kg/m2 University o f Calculated 10:37:00 [place] Physician s Heart Rate 2018-05-22 83 /min University of 10:37:00 [place] Physician s BP Systolic 2018-04-17 153 mm[Hg] Location: [facility] 10:15: Position: [place] Physician s Sitting BP Diastolic 2018-04-17 87 mm[Hg] Location: [facility] 10:: Position: [place] Physician s Sitting Height 2018-04-17 72 [in_us] University of 10:15: [place] Physician s Weight 2018-04-17 292 [lb_av] University of 10:15: [place] Physician s Body Mass Index 2018-04-17 39.6 kg/m2 University o f Calculated 10::00 [place] Physician s Temperature 2018-04-17 98.4 [degF] Method: Oral University of 10:15: [place] Physician s Heart Rate 2018-04-17 73 /min University of 10:15: [place] Physician s BP Systolic 2018-03-06 146 mm[Hg] University of 11:14:00 [place] Physician s BP Diastolic 2018-03-06 91 mm[Hg] University of 11:14:00 [place] Physician s Height 2018-03-06 72 [in_us] University of 11:14:00 [place] Physician s Weight 2018-03-06 295 [lb_av] University of 11:14:00 [place] Physician s Body Mass Index 2018-03-06 40.01 kg/m2 University o f Calculated 11:14:00 [place] Physician s Heart Rate 2018-03-06 73 /min University of 11:14:00 [place] Physician s BP Systolic 2017-12-18 161 mm[Hg] Location: [facility]; [place] [facility] :: Position: [place] Physician s Sitting BP Diastolic 2017-12-18 96 mm[Hg] Location: [facility]; [facility] :: Position: [place] Physician s Sitting Height 2017-12-18 72 [in_us] University of 11::00 [place] Physician s Weight 2017-12-18 292.1 [lb_av] University of 11:: [place] Physician s Body Mass Index 2017-12-18 39.62 kg/m2 University o f Calculated 11::00 [place] Physician s Temperature 2017-12-18 97.3 [degF] Method: Oral University of 11:: [place] Physician s Heart Rate 2017-12-18 83 /min University of 11::00 [place] Physician s BP Systolic 2017-11-10 145 mm[Hg] Location: [facility]; [place] [facility] ::00 Position: [place] Physician s Sitting BP Diastolic 2017-11-10 86 mm[Hg] Location: [facility]; [place] [facility] ::00 Position: [place] Physician s Sitting Height 2017-11-10 72 [in_us] University of 10:02:00 [place] Physician s Weight 2017-11-10 293 [lb_av] University of ::00 [place] Physician s Body Mass Index 2017-11-10 39.74 kg/m2 University o f Calculated 10:02:00 [place] Physician s Temperature 2017-11-10 97.5 [degF] Method: Oral University of 10:02:00 [place] Physician s Heart Rate 2017-11-10 87 /min University of ::00 [place] Physician s BP Systolic 2017-10-26 156 mm[Hg] Location: [facility]; [place] [facility] ::00 Position: [place] Physician s Sitting BP Diastolic 2017-10-26 92 mm[Hg] Location: [facility]; [place] [facility] ::00 Position: [place] Physician s Sitting Height 2017-10-26 72 [in_us] University of 10:04:00 [place] Physician s Weight 2017-10-26 289 [lb_av] University of :04:00 [place] Physician s Body Mass Index 2017-10-26 39.2 kg/m2 [place] [facility] f Calculated 10:04:00 [place] Physician s Temperature 2017-10-26 98 [degF] Method: Oral [facility] 10:04:00 [place] Physician s Heart Rate 2017-10-26 81 /min [facility] 10:04:00 [place] Physician s Procedures Procedure Date / Time Performing Clinician Source Performed MRI Brain wo contrast 2019-05-31 00:00:00 [facility] [id number] Physicians [UTP] Neuro Adult 23 Hr 2018-12-18 00:00:00 [facility] EEG Physicians 23hr EEG/Video 2018-11-23 00:00:00 [place] [facility] [place] Physicians [facility] Sleep Lab - Sleep 2018-03-06 00:00:00 [facility] Study Physicians History of Knee surgery [facility] Physicians History of Hernia [facility] repair Physicians History of Myringotomy [facility] Physicians Plan of Care Planned Activity Planned Date Details Comments Source Diagnostic Test 2018-12-18 [UTP] Neuro Adult [facility] Pending 00:00:00 23 Hr EEG [code = Physicians [UTP] Neuro Adult 23 Hr EEG] Diagnostic Test 2018-12-18 [UTP] Neuro Adult [facility] Pending 00:00:00 23 Hr EEG [code = Physicians [UTP] Neuro Adult 23 Hr EEG] Diagnostic Test 2018-12-18 [UTP] Neuro Adult [facility] Pending 00:00:00 23 Hr EEG [code = Physicians [UTP] Neuro Adult 23 Hr EEG] Encounters Start End Encounter Admission Attending Care Care Encounter Source Date/Time Date/Time Type Type Clinicians Facility Department ID 2020-01-20 2020-01-20 [facility] [id number] 08:00:00 08:00:00 t [facility] 2020-01-08 2020-01-08 Telephone SINCERE Luis [id number] 00:00:00 00:00:00 Tashi [place] [id number] April [id number] Harry [id number] [facility] 2020-01-07 2020-01-07 Orders Doctor MADRID [id number] 00:00:00 00:00:00 Only Unassigned, VILLA [id number] Spiro [facility] [id number] 2019-12-23 2019-12-23 [facility] [id number] 08:17:00 08:17:00 t [facility] 2019-12-23 2019-12-23 [facility] [id number] 08:13:00 08:13:00 t [facility] 2019-12-19 2019-12-19 [facility] [id number] 08:00:00 08:00:00 t [facility] 2019-12-14 2019-12-14 Haritha MADRID [id number] 00:00:00 00:00:00 Only Unassigned, VILLA [id number] Spiro [facility] [id number] 2019-12-13 2019-12-13 [facility] [id number] 11:33:00 11:33:00 t [facility] [employer] - [facility] [place] [facility] 2019-11-29 2019-11-29 [facility] [id number] 10:30:00 10:30:00 t Leland [facility] Luke s - Drive [facility] ent [facility] 2019-11-22 2019-11-22 [facility] [id number] 12:47:00 12:47:00 t Leland Leland [employer] Luke s - [facility] [place] [facility] Clinics 2019-11-21 2019-11-21 [facility] [id number] 09:30:00 09:30:00 t [facility] [employer] - [facility] [place] [facility] 2019-10-17 2019-10-17 [facility] [id number] 00:00:00 00:00:00 Tashi [place] [id number] [place] [id number] [facility] [id number] [address] 2019-10-16 2019-10-16 [facility] [id number] 00:00:00 00:00:00 Tashi [place] [id number] [place] [id number] [id number] [address] 2019-08-29 2019-08-29 [facility] [id number] 09:30:00 09:30:00 Petta [facility] 2019-08-14 2019-08-15 Emergency [id number] 22:55:11 00:54:00 Jed Norman [id number] [place] [id number] Daphne [id number] [facility] 2019-05-31 2019-05-31 Appointmen [facility] KLEIN Neurology - [id number] Univers 10:30:00 10:30:00 t; Xiang ARROYO M.D. [facility] Jose Roche ans 2019-05-30 2019-05-30 [facility] [id number] 09:30:00 09:30:00 [facility] 2019-02-11 2019-02-11 Appointmen STANFORD YIN [id number] Univers 10:15:00 10:15:00 t; JAMARCUS YIN ity o f WILLIAM, M.D. [place] M.D. Physici ans 2019-01-21 2019-01-21 Outpatient [facility] [id number] [facility] 15:44:00 15:44:00 2018-12-17 2018-12-17 [facility] [id number] 10:30:00 10:30:[address] Luke s - [facility] Outpati ent [facility] 2018-11-23 2018-11-23 [facility] Infante Neurology - 5 [id number] Univers 10:30:00 10:30:00 t; Xiang ARROYO M.D. [facility] Jose Roche ans 2018-11-20 2018-11-20 ST[facility] Infante UTP [id number] Univers 10:30:00 10:30:00 t; megan ARROYO M.D. [place] Jose ARROYO M.D. ans 2018-09-18 2018-09-18 [facility] [id number] 10:15:00 10:15:00 t Leland Krowder [facility] [place] [facility] 2018-08-14 2018-08-14 ST[facility] Bob Otorhinolar [id number] Univers 10:15:00 10:15:00 t; JAMARCUS YIN yngology - it y cordelia RICKETTS M.D. [facility] Physici [place] ans 2018-08-09 2018-08-09 [facility] [id number] 10:30:00 10:30:00 t Leland Krowder [facility] [place] [facility] Outpati ent [facility] 2018-08-03 2018-08-03 Yogi COYNE UTP [id number] Univers 11:00:00 11:00:00 t; SVITLANA Redmond ity of TALLAVAJHU M.D. [place] SVITLANA CAIN Physi ci M.D. ans 2018-06-29 2018-06-29 [facility] [id number] 10:00:00 10:00:00 t Leland Krowder [facility] [place] [facility] Outpati ent Clinics 2018-05-22 2018-05-22 [facility] Infante Neurology [id number] Univers 10:00:00 10:00:00 t; megan ARROYO M.D. [place] Jose ARROYO M.D. ans 2018-04-17 2018-04-17 [facility] Bob Otorhinolar [id number] Univers 10:15:00 10:15:00 t; JAMARCUS YIN yngology - it y of Kaley RICKETTS [facility] ans 2018-03-06 2018-03-06 [facility] Infante Neurology [id number] Univers 10:30:00 10:30:00 t; megan ARROYO M.D. [place] STEPHEN, Physici M.D. [facility] 2018-01-29 2018-01-29 [facility] [id number] 14:34:00 14:34:00 t AMENDIA [facility] ent [facility] 2018-01-22 2018-01-22 STANF[facility] Infante UTP [id number] Univers 09:30:00 09:30:00 t; megan ARROYO M.D. [place] Jose ARROYO M.D. [facility] 2018-01-15 2018-01-15 STAN[facility] Infante UTP [id number] Univers 09:30:00 09:30:00 t; megan ARROYO M.D. [place] Jose ARROYO M.D. [facility] 2018-01-10 2018-01-10 [facility] [id number] 10:02:00 10:02:00 t Leland Krowder [facility] ent [facility] 2017-12-18 2017-12-18 ST[facility] Bob Otorhinolar [id number] Univers 11:00:00 11:00:00 t; JAMARCUS YIN yngology Luke it y of Kaley RICKETTS [facility] ans 2017-12-04 2017-12-04 [facility] [id number] 10:00:00 10:00:00 t Prospex Medical [facility] 2017-11-10 2017-11-10 ST[facility] Bob Otorhinolar [id number] Univers 10:00:00 10:00:00 t; JAMARCUS YIN yngology - it y of Kaley RICKETTS [facility] ans 2017-10-26 2017-10-26 Yogi YIN, [facility] Otorhinolar [id number] Univers 10:00:00 10:00:00 t; JAMARCUS YIN yngology - Anna M.D. [facility] ans 2017-09-05 2017-09-05 AppointSTANFORD Schmitt [facility] [id number] Univers 09:30:00 09:30:00 t; JAMARCUS YIN ity o f WILLIAM, M.D. [facility] Physici ans 2017-08-22 2017-08-22 [facility] YIN [facility] [id number] Univers 09:45:00 09:45:00 t; JAMARCUS YIN ity o f WILLIAM, M.D. [facility] Physici ans 2017-02-08 2017-02-08 STANFORD Ortiz [facility] [id number] Univers 11:00:00 11:00:00 t; VANESSA MCKINNEY ity of JEREMY, M.D. [facility] Physici ans 2017-02-01 2017-02-01 [facility] DALLIN, STANFORD [facility] [id number] Univers 10:30:00 10:30:00 t; VANESSA MCKINNEY ity of JEREMY, M.D. [facility] Physici ans 2016-11-03 2016-11-03 STANFORD Ortiz [facility] [id number] Univers 16:00:00 16:00:00 t; VANESSA MCKINNEY ity of JEREMY, M.D. [facility] ans 2016-09-28 2016-09-28 Appointgerri MCKINNEY, STANFORD [facility] [id number] Univers 14:00:00 14:00:00 t; VANESSA MCKINNEY ity of JEREMY, M.D. [facility] Physici ans 2016-08-31 2016-08-31 STANFORD Ortiz [facility] [id number] Univers 09:30:00 09:30:00 t; VANESSA MCKINNEY ity of JEREMY, M.D. [facility] Physici ans 2016-06-01 2016-06-01 AppointSTANFORD Lofton [facility] [id number] Univers 13:30:00 13:30:00 t; VANESSA MCKINNEY ity of JEREMY, M.D. [facility] ans 2016-04-26 2016-04-26 [facility] UTP [id number] Univers 09:45:00 09:45:00 t; en, Rolf, ity of [facility] M.D. [place] hen, Rolf, Physi ci M.D. ans 2016-04-08 2016-04-08 [facility] UTP [id number] Univers 15:00:00 15:00:00 t; en, Rolf, ity of [facility] M.D. [place] hen, Rolf, Physi ci M.DJaylyn [facility] 2016-03-23 [facility] UTP [id number] Univers 10:30:00 10:30:00 t; VANESSA [facility]CK[facility]NEY [facility] [place], M.D. 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 No intracranialhemorrhage is identified. The ventricles are normal in size. No parenchymalmass, mass effect or midline shift is present. No pathologic extra axial fluidis identified. Major intracranial vascular flow voids are preserved. Smallinflammatory mucosal thickening of the right maxillary sinus. The remainingparanasal sinuses are clear. No mastoid effusion is identified.IMPRESSION:1. No intracranial abnormality.--Read by: Jose Ridley MDDictated Date/time: 07/01/19 09:06Electronically Signed by: Jose Ridley MD 07/01/2009:22FINAL REPORT
--- OUTSIDE RECORDS SUMMARY | 2020-01-24 05:55 | XMS REPORT ---
:1970 Author Organization eClinicalWorks Care Team Providers Name Role Phone Mik Juarez Provider Role Unavailable Allergies No Known Allergies Problems Problem Type Condition Code Onset Dates Condition Statu s Problem Obesity E66.9 Active Problem Chronic sinusitis J32.9 Active Problem Hypertension I10 Active Problem Locking of left knee M23.92 Active Problem Limping R26.89 Active Problem Internal derangement of left knee M23.92 Active Problem Hyperlipidemia, mixed E78.2 Active Problem Sleep apnea, obstructive G47.33 Act maddie Problem Primary osteoarthritis of left knee M17.12 Active Problem Vitamin D deficiency disease E55.9 Active Problem Nonalcoholic fatty liver disease K76.0 Active Problem Erectile dysfunction N52.9 Active Problem Headache R51 Active Problem BMI 40.0-44.9, adult Z68.41 Active Problem Seizure disorder G40.909 Active Medications No Known Medications Results No Known Results Summary Purpose eClinicalWorks Submission
--- OUTSIDE RECORDS SUMMARY | 2020-01-24 05:55 | XMS REPORT ---
:1970 Author Organization eClinicalWorks Care Team Providers Name Role Phone Mik Juarez Provider Role Unavailable Allergies, Adverse Reactions, Alerts Substance Reaction Event Type Dilantin Info Not Available Drug Allergy Augmentin Info Not Available Drug Allergy Amoxicillin Info Not Available Drug Allergy Problems Problem Type Condition Code Onset Dates Condition Statu s Problem Obesity E66.9 Active Problem Chronic sinusitis J32.9 Active Problem Hypertension I10 Active Problem Locking of left knee M23.92 Active Problem Limping R26.89 Active Problem Internal derangement of left knee M23.92 Active Problem Hyperlipidemia, mixed E78.2 Active Problem Sleep apnea, obstructive G47.33 Act maddie Problem Primary osteoarthritis of left M17.12 Active knee Problem Vitamin D deficiency disease E55.9 Active Assessment Complex tear of medial meniscus of S83.232A Active left knee as current injury, initial encounter Assessment Pain, joint, knee, left M25.562 Acti ve Assessment Primary osteoarthritis of left M17.12 Active knee Problem Nonalcoholic fatty liver disease K76.0 Active Problem Erectile dysfunction N52.9 Active Problem Headache R51 Active Problem BMI 40.0-44.9, adult Z68.41 Active Problem Seizure disorder G40.909 Active Medications Medication Code Code Instructions Start End Status Dosage System Date Date Amlodipine [facility] 29230772869 10 MG Oral Active TAKE O NE Besylate (1) TABLET(S) BY MOUTH ONCE A DAY. Vitamin D3 [facility] [address]87-[address]321 Active not defined Oxcarbazepine [facility] [address]-26 Active not defined Cozaar [facility] 24333796685 100 MG Orally Active 1 tabl et Once a day Topamax [facility] 51169861631 50 MG Orally Active 2 table t Twice a day Topiramate [facility] [address]-93 Active not defined Losartan [facility] [address]-95 Active not Potassium defined Vitamin D [facility] 52817394140 Active not (Ergocalciferol) defined Levetiracetam [facility] 60092307478 250 MG Orally Active 1 tablet Twice a day Results No Known Results Summary Purpose eClinicalWorks Submission
--- OUTSIDE RECORDS SUMMARY | 2020-01-24 05:55 | XMS REPORT ---
[...] Start End Status Dosage System Date Date Topamax [facility] 91708029152 50 MG Orally Active 2 table t Twice a day Topiramate [facility] [address]-62 Active not defined Losartan [facility] [address]-32 Active not Potassium defined Cozaar [facility] 63378252241 100 MG Orally Active 1 tabl et Once a day Amlodipine [facility] 62234087761 10 MG Oral Active TAKE O NE Besylate (1) TABLET(S) BY MOUTH ONCE A DAY. Vitamin D3 [facility] [address]163 Active not defined Vitamin D [facility] [address]72 Active not (Ergocalciferol) defined Oxcarbazepine [facility] [address]-18 Active not defined Levetiracetam [facility] 64895701663 250 MG Orally Active 1 tablet Twice a day Results No Known Results Summary Purpose eClinicalWorks Submission
--- OUTSIDE RECORDS SUMMARY | 2020-01-24 05:55 | XMS REPORT ---
:1970 Author Organization eClinicalWorks Care Team Providers Name Role Phone Beau Reagan Provider Role Unavailable Allergies, Adverse Reactions, Alerts Substance Reaction Event Type Dilantin Info Not Available Drug Allergy Augmentin Info Not Available Drug Allergy Amoxicillin Info Not Available Drug Allergy Problems Problem Type Condition Code Onset Dates Condition Statu s Assessment Screening for colon cancer Z12.11 A ctive Assessment Hyperglycemia R73.9 Active Assessment Hypocalcemia E83.51 Active Assessment Vitamin D deficiency disease E55.9 Active Problem Erectile dysfunction N52.9 Active Assessment BMI 40.0-44.9, adult Z68.41 Active Problem Headache R51 Active Assessment Chronic sinusitis J32.9 Active Problem Seizure disorder G40.909 Active Problem Hypertension I10 Active Problem Obesity E66.9 Active Problem Locking of left knee M23.92 Active Problem Limping R26.89 Active Assessment Nonalcoholic fatty liver disease K76.0 Active Assessment Seizure disorder G40.909 Active Problem Internal derangement of left knee M23.92 Active Assessment Headache R51 Active Problem Sleep apnea, obstructive G47.33 Act maddie Problem Chronic sinusitis J32.9 Active Problem Vitamin D deficiency disease E55.9 Active Problem Hyperlipidemia, mixed E78.2 Active Assessment Refused influenza vaccine Z28.21 Ac tive Assessment Hypertension I10 Active Assessment Sleep apnea, obstructive G47.33 Act maddie Assessment Hyperlipidemia, mixed E78.2 Active Problem BMI 40.0-44.9, adult Z68.41 Active Problem Nonalcoholic fatty liver disease K76.0 Active Assessment Well adult health check Z00.00 Acti ve Medications Medication Code Code Instructions Start End Status Dosage System Date Cozaar [facility] 85769995772 100 MG Orally Active 1 tabl et Once a day Topamax [facility] 74345462386 50 MG Orally Active 2 table t Twice a day Levetiracetam [facility] 40046524337 250 MG Orally Active 1 tablet Twice a day Amlodipine [facility] 46016966604 10 MG Oral Active TAKE O NE Besylate (1) TABLET(S) BY MOUTH ONCE A DAY. Results No Known Results Summary Purpose eClinicalWorks Submission
--- OUTSIDE RECORDS SUMMARY | 2020-01-24 05:55 | XMS REPORT ---
:1970 Author Organization eClinicalWorks Care Team Providers Name Role Phone ReaganBeau Provider Role Unavailable Allergies No Known Allergies Problems Problem Type Condition Code Onset Dates Condition Statu s Problem Seizure disorder G40.909 Active Problem Hypertension I10 Active Problem Obesity E66.9 Active Problem Locking of left knee M23.92 Active Problem Limping R26.89 Active Problem Internal derangement of left knee M23.92 Active Problem Sleep apnea, obstructive G47.33 Act maddie Problem Chronic sinusitis J32.9 Active Problem Vitamin D deficiency disease E55.9 Active Problem Hyperlipidemia, mixed E78.2 Active Problem BMI 40.0-44.9, adult Z68.41 Active Problem Nonalcoholic fatty liver disease K76.0 Active Assessment Acute medial meniscus tear of left S83.242A Active knee, initial encounter Problem Erectile dysfunction N52.9 Active Problem Headache R51 Active Medications No Known Medications Results No Known Results Summary Purpose [employer] Submission
--- OUTSIDE RECORDS SUMMARY | 2020-01-24 05:55 | XMS REPORT | Summary of Care ---
:[address] [facility] - Health Address [address] [place] [address] Care Team Providers Name Role Phone Beau Reagan Faculty Blane Reagan Primary Care Provider Encounter Details Date Type Department Care Team Description 12/14/[address] [facility] Doctor Unassigned, No 301 [facility] Name [place] [id number] [address] [place] [phone] Allergies Active Allergy Reactions Severity Noted Date Comments Amoxicillin-Pot Other - See comments 11/17/2016 Elev ated blood Clavulanate pressure and fa cial tremors Potassium Other - See comments 03/01/2011 Seizure - documented as of this encounter (statuses as of 12/24/2019) Medications Medication Sig Dispensed Refills Start Date End Date Status levETIRAcetam (KEPPRA) Take 250 mg by 0 Active 250 mg tablet mouth 2 (two) times daily. topiramate (TOPAMAX) 100 Take 100 mg by 0 Active mg tablet mouth 2 (two) times daily. losartan 100 mg tablet Take 1 tablet by 30 tablet 6 10/16/2019 Active mouth daily. amLODIPine 10 mg Take 1 tablet by 30 tablet 11 10/17/2019 Active tabletIndications: mouth daily. Essential hypertension documented as of this encounter (statuses as of 12/24/2019) Active Problems Problem Noted Date Obesity (BMI 30-39.9) 11/17/2016 documented as of this encounter (statuses as of 12/24/2019) Social History Tobacco Use Types Packs/Day Years Used Date Former Smoker Cigarettes 07 15 Quit: 03/01/20 04 Smokeless Tobacco: Never Used Alcohol Use Drinks/Week oz/Week Comments No Sex Assigned at Date Recorded Not on file Job Start Date Occupation Industry Not on file Not on file Not on file Travel History Travel Start Travel End No recent travel history available. documented as of this encounter Last Filed Vital Signs Not on filedocumented in this encounter Plan of Treatment Date Type Specialty Care Team Description 07/20/2020 Office Visit Cardiology Tashi Luis M D [address] [place] [address] 15 [phone] Health Maintenance Due Date Last Done Comments DTaP,Tdap,and Td Vaccines (1 - 1979 Tdap) Depression Screening 1980 COLONOSCOPY 2018 Zoster Recombinant Vaccine 2018 (SHINGRIX) (1 of 2) INFLUENZA VACCINE (Season Ended) 2020 Postponed from 02/18/2020 (Refused) PNEUMOCOCCAL 0-64 YEARS COMBINED Aged Out No longer eligible based on SERIES patient's age to complete this topic documented as of this encounter Procedures Procedure Name Priority Date/Time Associated Diagnosis Comme nts MEDICATION CORRESPONDENCE Routine 12/14/2019 12:01 AM CDT documented in this encounter Results Not on filedocumented in this encounter Insurance Payer Benefit Plan Subscriber ID Effective Phone Address Typ e / Group Dates AET[employer] - AETNA [id number] 2016-Joni Foster [address] Me dicare Adv MANAGED MEDICARE [place]V nt [id number] [place] [address] documented as of this encounter
--- OUTSIDE RECORDS SUMMARY | 2020-01-24 05:55 | XMS REPORT ---
:1970 Author Organization eClinicalWorks Care Team Providers Name Role Phone Beau Reagan Provider Role Unavailable Allergies No Known Allergies [...] Active Problem Hyperlipidemia, mixed E78.2 Active Assessment Swelling of left knee joint M25.462 Active Assessment Left knee pain, unspecified M25.562 Active chronicity Assessment Instability of left knee joint M25.362 Active Problem BMI 40.0-44.9, adult Z68.41 Active Problem Nonalcoholic fatty liver disease K76.0 Active Assessment Internal derangement of left knee M23.92 Active Problem Erectile dysfunction N52.9 Active Problem Headache R51 Active Medications No Known Medications Results No Known Results Summary Purpose eClinicalWorks Submission
--- OUTSIDE RECORDS SUMMARY | 2020-01-24 05:55 | XMS REPORT | Summary of Care ---
:1970 Author Organization [facility] - Health Address [address] [place] [address] Care Team Providers Name Role Phone Beau Reagan Faculty Blane Reagan Primary Care Provider Encounter Details Date Type Department Care Team Description 01/07/2020 Orders Only [facility] Doctor Unassigned, No 301 [facility] Name [place] [phone] [place] [phone] Allergies Active Allergy Reactions Severity Noted Date Comments Amoxicillin-Pot Other - See comments 11/17/2016 Elev ated blood Clavulanate pressure and fa cial tremors Potassium Other - See comments 03/01/2011 Seizure - documented as of this encounter (statuses as of 01/14/2020) Medications Medication Sig Dispensed Refills Start Date [...] as of this encounter (statuses as of 01/14/2020) Active Problems Problem Noted Date Obesity (BMI 30-39.9) 11/17/2016 documented as of this encounter (statuses as of 01/14/2020) Social History Tobacco Use Types Packs/Day Years Used Date Former Smoker Cigarettes 1 Quit: 03/01/20 04 Smokeless Tobacco: Never Used [...] Office Visit Cardiology Tashi Luis M D [address] [place] [address] 15 [phone] Health Maintenance Due Date Last Done Comments DTaP,Tdap,and Td Vaccines (1 - 1979 Tdap) Depression Screening 1980 COLONOSCOPY 2018 Zoster Recombinant Vaccine 2018 (SHINGRIX) (1 of 2) INFLUENZA VACCINE (#1) 2020 Postponed from 02/18/2020 (Refused) PNEUMOCOCCAL 0-64 YEARS COMBINED Aged Out No longer eligible based on SERIES patient's age to complete this topic documented as of this encounter Procedures Procedure Name Priority Date/Time Associated Diagnosis Comme nts MEDICAL Routine 01/07/2020 12:01 AM CDT RELEASE/CLEARANCE FORMS documented in this encounter Results Not on filedocumented in this encounter Insurance Payer Benefit Plan Subscriber ID Effective Phone Address Typ e / Group Dates AETNA - AETNA [id number] 2016-Joni Foster [address] Me dicare Adv MANAGED MEDICARE ADV [place] [id number] [place] [address] documented as of this encounter
--- OUTSIDE RECORDS SUMMARY | 2020-01-24 05:55 | XMS REPORT ---
:1970 Author Organization eClinicalWorks Care Team Providers Name Role Phone Beau Reagan Provider Role Unavailable Allergies, Adverse Reactions, Alerts Substance Reaction Event Type Dilantin Info Not Available Drug Allergy Augmentin Info Not Available Drug Allergy Amoxicillin Info Not Available Drug Allergy Problems Problem Type Condition Code Onset Dates Condition Statu s Problem Headache R51 Active Problem Obesity E66.9 Active Problem Seizure disorder G40.909 Active Problem Limping R26.89 Active Problem Vitamin D deficiency disease E55.9 Active Problem Locking of left knee M23.92 Active Problem Chronic sinusitis J32.9 Active Problem Hypertension I10 Active Problem Hyperlipidemia, mixed E78.2 Active Problem Sleep apnea, obstructive G47.33 Act maddie Assessment Swelling of left knee joint M25.462 Active Assessment Acute left-sided low back pain M54.5 Active without sciatica Problem BMI 40.0-44.9, adult Z68.41 Active Assessment Locking of left knee M23.92 Active Problem Nonalcoholic fatty liver disease K76.0 Active Assessment Acute pain of left knee M25.562 Acti ve Problem Erectile dysfunction N52.9 Active Medications Medication Code Code Instructions Start End Status Dosage System Date Date Amlodipine [facility] 99709025590 10 MG Oral Active TAKE O NE Besylate (1) TABLET(S) BY MOUTH ONCE A DAY. Cozaar [facility] 97837411235 100 MG Orally Active 1 tabl et Once a day Topamax [facility] 59762393730 50 MG Orally Active 2 table t Twice a day Vitamin D3 [facility] 01742493900 [address]29[address] UNIT August Active 1 caps ule Orally Once a 2019 10, week x 12 weeks 2019 Levetiracetam [facility] 35868475401 250 MG Orally Active 1 tablet Twice a day Results No Known Results Summary Purpose eClinicalWorks Submission
--- OUTSIDE RECORDS SUMMARY | 2020-01-24 05:55 | XMS REPORT | Summary of Care ---
:1970 Author Organization [facility] Address [address] [place] [address] Care Team Providers Name Role Phone Beau Reagan Faculty Blane Reagan Primary Care Provider Reason for Visit Reason Comments [facility] Encounter Details Date Type Department Care Team Description 01/08/2020 Telephone [facility] Tashi Luis M D Pre-op Clearance (Bone Cardiology- [address] [facility]) [address] [place], [place] [phone] Allergies Active Allergy Reactions Severity Noted Date Comments Amoxicillin-Pot Other - See comments 11/17/2016 Elev ated blood Clavulanate pressure and fa cial tremors Potassium Other - See comments 03/01/2011 Seizure - documented as of this encounter (statuses as of 01/08/2020) Medications Medication Sig Dispensed Refills Start Date [...] as of this encounter (statuses as of 01/08/2020) Active Problems Problem Noted Date Obesity (BMI 30-39.9) 11/17/2016 documented as of this encounter (statuses as of 01/08/2020) Social History Tobacco Use Types Packs/Day Years [...] Office Visit Cardiology Tashi Luis M D [address] [place] [address] 15 [phone] Health Maintenance Due Date Last Done Comments DTaP,Tdap,and Td Vaccines (1 - 1979 Tdap) Depression Screening 1980 COLONOSCOPY 2018 Zoster Recombinant Vaccine 2018 (SHINGRIX) (1 of 2) INFLUENZA VACCINE (#1) 2020 Postponed from 02/18/2020 (Refused) PNEUMOCOCCAL 0-64 YEARS COMBINED Aged Out No longer eligible based on SERIES patient's age to complete this topic documented as of this encounter Results Not on filedocumented in this encounter Insurance Payer Benefit Plan Subscriber ID Effective Phone Address Typ e / Group Dates AETNA - AETNA [id number] 2016-Joni Gu [address] Me dicare Adv MANAGED MEDICARE [place]V nt [id number] [place] [address] documented as of this encounter
[2020-01-24] MEDS ORDERED: Ringers Lactate 1,000 ML IV ONE (06:13)
[2020-01-24] MEDS ORDERED: CLINDAMYCIN INJ 600 MG in NA CHLORIDE 0.9% 50 ML IV SCH (07:00)
[2020-01-24] MEDS ORDERED: FENTANYL CITR 100 MCG/2 ML ONE (07:24)
[2020-01-24] MEDS ORDERED: LIDOCAINE 1% MPF 5 ML VIAL ONE (07:24)
[2020-01-24] MEDS ORDERED: propofoL 200 MG/20 ML VIAL IV ONE (07:24)
[2020-01-24] MEDS ORDERED: MIDAZOLAM HCL 2 MG/2 ML INJ ONE (07:24)
[2020-01-24] MEDS ORDERED: BUPIVACAINE 0.25% PF 10 ML VIAL ONE (07:28)
[2020-01-24] MEDS ORDERED: dexAMETHasone 10 MG/ML VIAL ONE (08:04)
[2020-01-24] MEDS ORDERED: KETOROLAC 30 MG/ML INJ ONE (08:04)
[2020-01-24] MEDS ORDERED: ONDANSETRON 4 MG/2 ML VIAL ONE (08:49)
--- NOTE | 2020-01-24 08:55 | P.BOP ---
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
[2020-01-24] MEDS ORDERED: HYDROCODONE/APAP 7.5/325 MG TAB ONE (09:43)
[2020-01-24 09:57] VITALS: TEMP 97.6
[2020-01-24 11:36] VITALS: BP 110/64; O2SAT 99
== END 2020-01-24 11:10 | disposition home or self-care (01) ==
LOC: OR 05:42
PROVIDERS: ATTEND Orthopaedic Surgery Sports Medicine
PROC: 0SBD4ZZ Excision of Left Knee Joint, Percutaneous Endoscopic Approach (ICD-10-PCS; principal; 2020-01-24 07:30)
DX: S83.232A Complex tear of medial meniscus, current injury, left knee, initial encounter (principal); M94.262 Chondromalacia, left knee; M17.12 Unilateral primary osteoarthritis, left knee; I10 Essential (primary) hypertension; E78.2 Mixed hyperlipidemia; G47.33 Obstructive sleep apnea (adult) (pediatric); K76.0 Fatty (change of) liver, not elsewhere classified; G40.909 Epilepsy, unspecified, not intractable, without status epilepticus; N52.9 Male erectile dysfunction, unspecified; E66.9 Obesity, unspecified; Z68.39 Body mass index [BMI] 39.0-39.9, adult; Z11.59 Encounter for screening for other viral diseases; Z88.8 Allergy status to other drugs, medicaments and biological substances; Z88.0 Allergy status to penicillin; Z83.3 Family history of diabetes mellitus; Z80.8 Family history of malignant neoplasm of other organs or systems; Z82.49 Family history of ischemic heart disease and other diseases of the circulatory system
CPT/HCPCS: 93005; 85025; 80048; 36415; 85610; 85730; 71046; 29881; U0002; J2704; J2250; J3010; J1100; J7120; J2405

== ENCOUNTER 2020-02-26 12:49 | Emergency (ER) | payer OTHER ==
--- OUTSIDE RECORDS SUMMARY | 2020-02-26 12:51 | XMS REPORT | Continuity of Care Document ---
:1970 Author Organization [employer] Care Team Providers Name Role Phone [employer] Unavailable Un available Problems Problem Status Onset Classification Date Comments Sourc e Date Reported INTRACTABLE Active [facility] PARTIAL COMPLEX 5 Medi jac SEIZURE DISO Center INTRACTABLE Active [facility] PARTIAL 4 Medical SEIZURES Center 345.[address] APNEA Active [address] Medications No Data Provided for This Section Allergies, Adverse Reactions, Alerts No Known Medication Allergies Immunizations No Data Provided for This Section Results No Data Provided for This Section Pathology Reports No Data Provided for This Section Diagnostic Reports Report Value Date Source Brain wo contrast MRI EXAM: MRI OF THE BRAIN WITHO AK CONTRAST - EPILEPSY PROTOCOL 05/03/2014 [facility] DATE: May 03, 2014 11:38:56 AM CLINICAL [...] Type Number For Provider Date Date Visit [facility] Outpatient [id number] 345.41 JESSICA 04/21 Activ e [facility] RODOLFO /2010 [facility] Outpatient [id number] Larry 09/23 09/24 [facility] Reggie Mckin[facility] Procedures No Data Provided for This Section Assessment and Plan No Data Provided for This Section Plan of Care No Data Provided for This Section Social History Social History Date Source No data available for this 09/24/2014 [facility] section Family History No Data Provided for This Section Advance Directives No Data Provided for This Section Functional Status No Data Provided for This Section
--- OUTSIDE RECORDS SUMMARY | 2020-02-26 12:52 | XMS REPORT ---
[...] Medications Results No Known Results Summary Purpose [employer] Submission
--- OUTSIDE RECORDS SUMMARY | 2020-02-26 12:52 | XMS REPORT ---
[...] Start End Status Dosage System Date Cozaar [facility] 11437120302 100 MG Orally Active 1 tabl et Once a day Topamax [facility] 62528601630 50 MG Orally Active 2 table t Twice a day Levetiracetam [facility] 39310597742 250 MG Orally Active 1 tablet Twice a day Amlodipine [facility] 79499613331 10 MG Oral Active TAKE O NE Besylate (1) TABLET(S) BY MOUTH ONCE A DAY. Results No Known Results Summary Purpose eClinicalWorks Submission
--- OUTSIDE RECORDS SUMMARY | 2020-02-26 12:52 | XMS REPORT | Continuity of Care Document ---
:1970 Author Organization [facility] t Address [address] [place] [address] Dr. Lou. [address] [place] [address] Care Team Providers Name Role Phone Tashi Luis MD Attending Clinician Doctor Unassigned, [place] Attending Clinician Unavailable Nhung Leonard MD Attending [...] E PARTIAL 3-19 13:31:00 l COMPLEX 00:00: [place] SEIZURE INTRACTABL 00 DISO E PARTIAL COMPLEX SEIZURE DISO Active 09/04/2014 [facility] INTRACTABL Diagnosis Active 2013-062014-05-19 Memoria E PARTIAL 0-14 13:24:00 l SEIZURES 00:00: [place] INTRACTABL 00 E PARTIAL SEIZURES Active 04/01/2014 [facility] 345.41 Diagnosis Active 2010-062011-04-21 Mem oria 0- 09:14:00 l 345.41 00:00: [place] 00 Active 03/21/2011 [facility] APNEA Diagnosis Active 2014-07-11 Mem oria 06-19 15:55:00 l APNEA 00:00: [place] 00 Active 06/19/2000 [facility] BMI BMI Problem Active [facility] 40.0-44.9, 40.0-44.9, Temi kes - adult adult [facility] Chronic Chronic Problem Active [facility] sinusitis sinusitis [facility] Nonalcohol Nonalcohol Problem Active [facility] ic fatty ic fatty [facility] - liver liver Memoria disease disease l Outpati ent Clinics Obesity Obesity Problem [facility] Seizure Seizure Problem Active [facility] disorder disorder [facility] Hypertensi Hypertensi Problem Active [facility] on [facility]ics Hyperlipid Hyperlipid Problem Active [facility] emia, emia, [facility] - mixed mixed [facility] Sleep Sleep Problem Active [facility] apnea, apnea, [facility] - obstructiv obstructiv Me moria e e l Outpati ent Clinics Headache Headache Problem [facility] Erectile Erectile Problem Active [facility] t dysfunctio dysfunctio Temi kes - n n Memoria l [facility] ent Clinics Vitamin D Vitamin D Problem Active [facility] deficiency deficiency Temi kes - disease disease [facility] Clinics Limping Limping Problem Active [facility]ics Internal Internal Problem Active [facility] t derangemen derangemen Temi kes - t of left t of left [place] knee knee l Outpat[facility] ent Clinics Primary Primary Problem Active [facility] osteoarthr osteoarthr Temi kes - itis of itis of Memoria left knee left knee l Outpati ent Clinics History of History of Problem Resolve Univers high blood high blood d it y of pressure pressure [place] Physici ans Essential Essential Problem Active Uni [...] Active Uni vers hernia hernia ity of [place] Physici ans Obesity Obesity Problem Active Univers ity of [place] Physici ans Hypertroph Hypertroph Problem Active U nivers y of both y of both ity of inferior inferior [place] nasal nasal Physici turbinates turbinates an s Post-nasal Post-nasal Problem Active U nivers drip drip ity of [place] Physici ans 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 [place] Phys[place] 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 ity of [place] Physici ans Nasal mass Nasal mass Problem [...] Epilepsy Epilepsy d ity of with with [place] status status Physici epilepticu epilepticu an s s, not s, not intractabl intractabl e e 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 [place] Physici ans Allergies, Adverse Reactions, Alerts Allergy Allergy Status Severity Reaction(s) Onset Inactive Treating Comm ents Source Name Type Date Date Clinician Dilantin Adverse Active Info Not [facility] Reaction Available [facility] Amoxicil Adverse Active Info Not [facility] t allyssa Reaction Available [facility] ent Clinics Augmenti Adverse Active Info Not [facility] n Reaction [facility] Augmenti Allergy Active Univers n to drug ity of (finding [place] ) Physici ans Potassim Allergy Active Univers in TABS to drug ity of (finding [place] ) Physici ans Social History Social Habit Start Date Stop Date Quantity Comments Source Social History 2014-09-24 2014-09-24 Jose mujica 04:59:00 04:59:00 Smoking Status Start Date Stop Date Source Ex-smoker (finding) [facility] Physicians Medications Ordered Filled Start Stop Current Ordering Indication Dosage Frequency Signature Comments Components Source Medication Medication Date Date Medication? Clinician (SIG) Name Name OXcarbazepi OXcarbazepi 2019- 2020- No DINA 2 Q0.5D TAKE 2 Univers ne 300 MG ne 300 MG 2-13 05-25 ERNIE TABLET ity of Oral Tablet Oral Tablet [...] 50 MG Oral 50 MG Oral 11-18 ERNIE TABLET ity of Tablet Tablet 00:00: M.D. TWICE [place] 00 DAILY Physici ans Cozaar Cozaar Yes Mik [address] [facility] [address] [place] [...] Mik not [facility] (Ergocalcif (Ergocalcif Juarze defined [facility] - joanna) joanna) [place] [facility] Hydrocodone Hydrocodone Yes Mik not [facility] -Acetaminop -Acetaminop [place] defined [facility] - hen hen Memoria l [facility] ent Clinics Losartan Losartan Yes Univers Potassium Potassium ity o f 100 MG Oral 100 MG Oral [place] Tablet Tablet Physici ans Bystolic Bystolic Yes Univers 2.5 MG Oral 2.5 MG Oral i ty of Tablet Tablet [place] Physici ans Vital Signs Vital Name Observation Time Observation Value Comments Source BP Systolic 2019-05-31 152 mm[Hg] [facility] 10:17: [place] Physician s BP Diastolic 2019-05-31 80 mm[Hg] [facility] 10:17: [place] Physician s Height 2019-05-31 72 [in_us] [facility] :17: [place] Physician s Weight 2019-05-31 299 [lb_av] [facility] 10:17: [place] Physician s Body Mass Index 2019-05-31 40.55 kg/m2 University o f Calculated 10:17:00 [place] Physician s Heart Rate 2019-05-31 76 /min [facility] :17:00 [place] Physician s BP Systolic 2018-11-23 149 mm[Hg] [facility] of 11:02: [place] Physician s BP Diastolic 2018-11-23 93 mm[Hg] [facility] 11:02:00 [place] Physician s Height 2018-11-23 72 [in_us] University of 11:02:00 [place] Physician s Weight 2018-11-23 298 [lb_av] [facility] of 11:02: [place] Physician s Body Mass Index 2018-11-23 40.42 kg/m2 University o f Calculated 11:02:00 [place] Physician s Heart Rate 2018-11-23 71 /min [facility] 11:: [place] Physician s BP Systolic 2018-08-14 146 mm[Hg] Location: [facility] 10:17:00 Position: [place] Physician s Sitting BP Diastolic 2018-08-14 83 mm[Hg] Location: [facility] 10:17:00 Position: [place] Physician s Sitting Height 2018-08-14 72 [in_us] [facility] 10:17:00 [place] Physician s Weight 2018-08-14 292 [lb_av] [facility] 10:17: [place] Physician s Body Mass Index 2018-08-14 [...] s BP Systolic 2018-04-17 153 mm[Hg] Location: [facility] 10:: Position: [place] Physician s Sitting BP Diastolic 2018-04-17 87 mm[Hg] Location: [facility] 10:15:00 Position: [place] Physician s Sitting Height 2018-04-17 72 [in_us] [facility] of 10:15:00 [place] Physician s Weight 2018-04-17 292 [lb_av] [facility] of 10:15: [place] Physician s Body Mass Index 2018-04-17 39.6 kg/m2 University o f Calculated 10:15:00 [place] Physician s Temperature 2018-04-17 98.4 [degF] Method: Oral University of 10:15: [place] Physician s Heart Rate 2018-04-17 73 /min [facility] of 10:15:00 [place] Physician s BP Systolic 2018-03-06 146 [...] BP Systolic 2017-12-18 161 mm[Hg] Location: [facility]; [facility] :: Position: [place] Physician s Sitting BP Diastolic 2017-12-18 96 mm[Hg] Location: [facility]; [facility] : Position: [place] Physician s Sitting Height 2017-12-18 72 [in_us] [facility] of 11::00 [place] Physician s Weight 2017-12-18 292.1 [lb_av] [facility] of :: [place] Physician s Body Mass Index 2017-12-18 39.62 kg/m2 University o f Calculated 11::00 [place] Physician s Temperature 2017-12-18 97.3 [degF] Method: Oral [facility] 11:: [place] Physician s Heart Rate 2017-12-18 83 /min [facility] :: [place] Physician s BP Systolic 2017-11-10 145 mm[Hg] Location: [facility]; [facility] : Position: [place] Physician s Sitting BP Diastolic 2017-11-10 86 mm[Hg] Location: [facility]; [facility] :: Position: [place] Physician s Sitting Height 2017-11-10 72 [in_us] University of :02:00 [place] Physician s Weight 2017-11-10 293 [lb_av] University of ::00 [place] Physician s Body Mass Index 2017-11-10 39.74 kg/m2 University o f Calculated :02:00 [place] Physician s Temperature 2017-11-10 97.5 [degF] Method: Oral [facility] :02:00 [place] Physician s Heart Rate 2017-11-10 87 /min University of ::00 [place] Physician s BP Systolic 2017-10-26 156 mm[Hg] Location: [facility]; [facility] ::00 Position: [place] Physician s Sitting BP Diastolic 2017-10-26 92 mm[Hg] Location: [facility]; [facility] ::00 Position: [place] Physician s Sitting Height 2017-10-26 72 [in_us] [facility] of 10:04:00 [place] Physician s Weight 2017-10-26 289 [lb_av] University of ::00 [place] Physician s Body Mass Index 2017-10-26 39.2 kg/m2 University o f Calculated 10:04:00 [place] Physician s Temperature 2017-10-26 98 [degF] Method: Oral University of :04:00 [place] Physician s Heart Rate 2017-10-26 81 /min [facility] 10:04:00 [place] Physician s Procedures Procedure Date / Time Performing Clinician Source Performed MRI Brain wo contrast 2019-05-31 00:00:00 [facility] [id number] Physicians [UTP] Neuro Adult 23 Hr 2018-12-18 00:00:00 [facility] EEG Physicians 23hr EEG/Video 2018-11-23 00:00:00 [facility] Physicians [facility] Sleep Lab - Sleep 2018-03-06 00:00:00 [facility] Study Physicians History of Knee surgery [facility] Physicians History of Hernia [facility] repair Physicians History of Myringotomy [facility] Physicians Plan of Care Planned Activity Planned Date Details Comments Source Diagnostic Test 2018-12-18 [UTP] Neuro Adult [facility] Pending 00:00:00 23 Hr EEG [code = Physicians [UTP] Neuro Adult 23 Hr EEG] Diagnostic Test 2018-12-18 [UTP] Neuro Adult [facility] Pending 00:00:00 23 Hr EEG [code = Physicians [UTP] Neuro Adult 23 Hr EEG] Diagnostic Test 2018-12-18 [UTP] Neuro Adult [facility] Pending 00:00:00 23 Hr EEG [code = Physicians [UTP] Neuro Adult 23 Hr EEG] Encounters Start End Encounter Admission Attending Care Care Encounter Source Date/Time Date/Time Type Type Clinicians Facility Department ID 2020-02-03 2020-02-03 Outpatient Teo Kate [id number] [facility] 11:26:00 11:26:00 [facility] 2020-01-30 2020-01-30 Outpatient Teo Kate [id number] [address] 16:21:00 16:21:00 t [facility] 2020-01-30 2020-01-30 Outpatient Teo Kate [id number] 13:30:00 13:30:00 t [facility] 2020-01-27 2020-01-27 Outpatient Teo Kate [id number] 09:05:00 09:05:00 t [facility] 2020-01-20 2020-01-20 [facility] [id number] 08:00:00 08:00:00 t [facility] 2020-01-08 2020-01-08 Telephone Toby, [facility] [id number] 00:00:00 00:00:00 Tashi Norman [id number] [place] [id number] Ltac[facility] [id number] [facility] 2020-01-07 2020-01-07 Orders Doctor JULIUS [id number] 00:00:00 00:00:00 Only Unassigned, VILLA [id number] [place] [id number] 2019-12-23 2019-12-23 [facility] [id number] 08:17:00 08:17:00 t [facility] 2019-12-23 2019-12-23 [facility] [id number] 08:13:00 08:13:00 t [facility] 2019-12-19 2019-12-19 [facility] [id number] 08:00:00 08:00:00 t [facility] 2019-12-14 2019-12-14 Orders Doctor JULIUS [id number] 00:00:00 00:00:00 Only Unassigned, [place] [id number] [place] [id number] [id number] 2019-12-13 2019-12-13 [facility] [id number] 11:33:00 11:33:00 t Withlocals Luke [facility] 2019-11-29 2019-11-29 [facility] [id number] 10:30:00 10:30:00 [facility] s [facility] 2019-11-22 2019-11-22 [facility] [id number] 12:47:00 12:47:00 [facility] s [facility] 2019-11-21 2019-11-21 [facility] [id number] 09:30:00 09:30:00 [facility] 2019-10-17 2019-10-17 Refill [facility] [id number] 00:00:00 00:00:00 Tashi Norman [id number] [place] [id number] [facility] [id number] [address] 2019-10-16 2019-10-16 [facility] [id number] 00:00:00 00:00:00 Tashi Norman [id number] [place] [id number] Ltac, [facility] [phone] nal [address] [place] [address] 2019-08-29 2019-08-29 [facility] [id number] 09:30:00 09:30:00 [facility] 2019-08-14 2019-08-15 Emergency [facility] [id number] 22:55:11 00:54:00 Jed Norman [id number] [place] [id number] [place] [id number] 2019-05-31 2019-05-31 [facility] Infante [facility] - 5 [id number] [facility] 10:30:00 10:30:00 Xiang Ventura M.D. [facility] Jose Roche [facility] 2019-05-30 2019-05-30 [facility] [id number] 09:30:00 09:30:00 [facility] 2019-02-11 2019-02-11 AppointSTANFORD Schmitt [id number] Univers 10:15:00 10:15:00 t; JAMARCUS YIN ity o f WILLIAM, M.D. [place] [facility]. [facility] 2019-01-21 2019-01-21 [id number] 15:44:00 15:44:00 2018-12-17 2018-12-17 [facility] [id number] 10:30:00 10:30:00 t [facility] 2018-11-23 2018-11-23 AppointSTANFORD Diaz Neurology - 5 [id number] Univers 10:30:00 10:30:00 t; Xiang ARROYO M.D. [facility] Jose Roche [facility] 2018-11-20 2018-11-20 AppointSTANFORD Diaz UTP [id number] Univers 10:30:00 10:30:00 t; megan ARROYO M.D. [facility] M.D. [facility] 2018-09-18 2018-09-18 [facility] [id number] 10:15:00 10:15:00 t [facility] 2018-08-14 2018-08-14 AppointSTANFORD Schmitt Otorhinolar [id number] Univers 10:15:00 10:15:00 t; JAMARCUS YIN yngology - Anna M.D. [facility] Kaley [facility] Physici [place] ans 2018-08-09 2018-08-09 [facility] [id number] 10:30:00 10:30:00 t [facility] 2018-08-03 2018-08-03 Appointmen JESS [facility] [id number] Univers 11:00:00 11:00:00 t; SVITLANA Redmond ity of TALLAVAJHU M.D. [place] SVITLANA CAIN Physi ci M.D. ans 2018-06-29 2018-06-29 [facility] [id number] 10:00:00 10:00:00 t [facility] [employer] [facility] 2018-05-22 2018-05-22 [facility] [id number] Univers 10:00:00 10:00:00 t; megan ARROYO M.D. [place] Jose ARROYO M.D. ans 2018-04-17 2018-04-17 STANFORD Bob Otorhinolar [id number] Univers 10:15:00 10:15:00 t; JAMARCUS YIN ylucina - it y cordelia RICKETTS M.D. [facility] [place] ans 2018-03-06 2018-03-06 [facility] [id number] Univers 10:30:00 10:30:00 t; megan ARROYO M.D. [place] STEPHEN, Physici M.D. ans 2018-01-29 2018-01-29 [facility] [id number] 14:34:00 14:34:00 t [place] [employer] [facility] 2018-01-22 2018-01-22 STANF[facility] Infante [facility] [id number] Univers 09:30:00 09:30:00 t; megan ARROYO M.D. [place] Jose ARROYO M.D. ans 2018-01-15 2018-01-15 ST[facility] Infante [facility] [id number] Univers 09:30:00 09:30:00 t; megan ARROYO M.D. [place] Jose ARROYO M.D. ans 2018-01-10 2018-01-10 [facility] [id number] 10:02:00 10:02:00 t [facility] [employer] [facility] ent Clinics 2017-12-18 2017-12-18 Appointmen STANFORD YIN Otorhinolar [id number] Univers 11:00:00 11:00:00 t; JAMARCUS YIN yngology - it y of WILLIAM, M.D. [facility] ans 2017-12-04 2017-12-04 [facility] [id number] 10:00:00 10:00:00 t Withlocals [place] Prong [facility] [place] [facility] ent Clinics 2017-11-10 2017-11-10 Appointmen STANFORD YIN Otorhinolar [id number] Univers 10:00:00 10:00:00 t; JAMARCUS YIN yngology - it y of WILLIAM, M.D. [facility] ans 2017-10-26 2017-10-26 AppointSTANFORD Schmitt Otorhinolar [id number] Univers 10:00:00 10:00:00 t; JAMARCUS YIN yngology - it y of WILLIAM, M.D. [facility] ans 2017-09-05 2017-09-05 AppointSTANFORD Schmitt UTP [id number] Univers 09:30:00 09:30:00 t; JAMARCUS YIN ity o f WILLIAM, M.D. [facility] ans 2017-08-22 2017-08-22 STANFORD Bob UTP [id number] Univers 09:45:00 09:45:00 t; JAMARCUS YIN ity o f WILLIAM, M.D. [facility]. Physici ans 2017-02-08 2017-02-08 STANFORD Ortiz UTP [id number] Univers 11:00:00 11:00:00 t; VANESSA MCKINNEY ity of JEREMY, M.D. [facility] 2017-02-01 2017-02-01 STANFORD Ortiz [id number] Univers 10:30:00 10:30:00 t; VANESSA MCKINNEY ity of JEREMY, [facility]. [facility] ans 2016-11-03 2016-11-03 STANFORD Ortiz [id number] Univers 16:00:00 16:00:00 t; VANESSA MCKINNEY ity of [place]EREMY, M.D. [facility] ans 2016-09-28 2016-09-28 [facility] MCKINNEY UTP [id number] Univers 14:00:00 14:00:00 t; VANESSA MCKINNEY ity of JEREMY, M.D. [facility] ans 2016-08-31 2016-08-31 [facility] STANFORD MCKINNEY UTP [id number] Univers 09:30:00 09:30:00 t; VANESSA MCKINNEY ity of [place]EREMY, M.D. [facility] ans 2016-06-01 2016-06-01 [facility] STANFORD MCKINNEY UTP [id number] Univers 13:30:00 13:30:00 t; VANESSA MCKINNEY ity of [place]ER[place]Y, M.D. [facility] ans 2016-04-26 2016-04-26 [facility] UTP [id number] Univers 09:45:00 09:45:00 t; Juancho mccallf, ity cordelia AmbrizMartinezIza Roche [place] Bin rao, Physi ci M.DJaylyn ans 2016-04-08 2016-04-08 [facility] UTP [id number] Univers 15:00:00 15:00:00 t; enJuanchof, ity cordelia AmbrizMartinezIza Roche [place] Bin rao, Physi ci M.D. ans 2016-03-23 2016-03-23 [facility] DALLIN [facility] UTP [id number] Univers 10:30:00 10:30:00 t; VANESSA MCKINNEY ity of JEREMY, M.D. [facility] ans 2014-09-23 2014-09-23 Outpatient SOTO Mckinney [id number] 13:23:00 23:59:00 Vanessa 03 Korey Results Test Test Test Results Result Source Description Time Comments Comments MRI Brain wo 2019-06- EXAM: MRI BRAIN WITHOUT University of contrast [id number] CONTRASTDATE: 06/29/2019 [place] 15:09:00 13:35 CSTINDICATION: 48 P hysicians years [...]
--- OUTSIDE RECORDS SUMMARY | 2020-02-26 12:52 | XMS REPORT ---
[...] End Status Dosage System Date Date Topamax [facility] 43214056082 50 MG Orally Active 2 table t Twice a day Topiramate [facility] [address]-55 Active not defined Losartan [facility] [address]-58 Active not Potassium defined Cozaar [facility] 19613680763 100 MG Orally Active 1 tabl et Once a day Amlodipine [facility] 26136602904 10 MG Oral Active TAKE O NE Besylate (1) TABLET(S) BY MOUTH ONCE A DAY. Vitamin D3 [facility] 48560-06877 Active not defined Vitamin D [facility] 89028-87303 Active not (Ergocalciferol) defined Oxcarbazepine [facility] [address]-01 Active not defined Levetiracetam [facility] 51826653041 250 MG Orally Active 1 tablet Twice a day Results No Known Results Summary Purpose eClinicalWorks Submission
--- OUTSIDE RECORDS SUMMARY | 2020-02-26 12:53 | XMS REPORT ---
:1970 Author Organization eClinicalWorks Care Team Providers Name Role Mik Simmons Provider Role Unavailable Allergies, Adverse Reactions, Alerts [...] Start End Status Dosage System Date Date Topiramate [facility] [address]-14 Active not defined Cozaar [facility] 41619900131 100 MG Orally Active 1 tabl et Once a day Vitamin D3 [facility] 51947-75233 Active not defined Losartan [facility] [address]-82 Active not Potassium defined Amlodipine [facility] 54203472658 10 MG Oral Active TAKE O NE Besylate (1) TABLET(S) BY MOUTH ONCE A DAY. Levetiracetam [facility] 14359973631 250 MG Orally Active 1 tablet Twice a day Vitamin D [facility] 91898212428 Active not (Ergocalciferol) defined Oxcarbazepine [facility] [address]-43 Active not defined Hydrocodone-Acet [facility] [address]-67 Active n ot aminophen defined Topamax [facility] 42145041428 50 MG Orally Active 2 table t Twice a day Results No Known Results Summary Purpose eClinicalWorks Submission
--- OUTSIDE RECORDS SUMMARY | 2020-02-26 12:53 | XMS REPORT ---
[...] End Status Dosage System Date Date Amlodipine [facility] 03596862603 10 MG Oral Active TAKE O NE Besylate (1) TABLET(S) BY MOUTH ONCE A DAY. Vitamin D3 [facility] 12190-29217 Active not defined Oxcarbazepine [facility] [address]-23 Active not defined Cozaar [facility] 27274680868 100 MG Orally Active 1 tabl et Once a day Topamax [facility] 03283340504 50 MG Orally Active 2 table t Twice a day Topiramate [facility] [address]-13 Active not defined Losartan [facility] [address]-11 Active not Potassium defined Vitamin D [facility] 85745519803 Active not (Ergocalciferol) defined Levetiracetam [facility] 47040032394 250 MG Orally Active 1 tablet Twice a day Results No Known Results Summary Purpose eClinicalWorks Submission
[2020-02-26 13:38] LABS: Absolute Lymphocytes (CBC) 0.6 K/uL (0.7-4.9); Basophils % 0.4 % (0-1.3); Hematocrit 45.9 % (39.6-49.0); Lymphocytes % 9.5 % (15.3-44.8); MPV 7.3 fL (7.6-11.3); RBC Red Blood Cell Count 5.24 M/uL (4.33-5.43)
--- NOTE | 2020-02-26 13:40 | RAD REPORT ---
EXAM DESCRIPTION: CT - Head Brain Wo Cont - 02/26/2020 1:32 pm CLINICAL HISTORY: Headache;Seizure Headache, drowsiness, seizure COMPARISON: Head Brain Wo Cont dated 05/15/2018; Ct Stroke Brain Wo Cont dated 04/21/2018 TECHNIQUE: All CT scans are performed using dose optimization technique as appropriate and may inclu de automated exposure control or mA/KV adjustment according to patient size. FINDINGS: No intracranial hemorrhage, hydrocephalus or extra-axial fluid collection.No areas of brai n edema or evidence of midline shift. Mild thickening is present in the inferior right maxillary antrum. The paranasal sinuses and mastoids are otherwise clear. The calvarium is intact. IMPRESSION: No acute intracranial abnormality.
[2020-02-26 13:42] LABS: Protime INR 1.03
[2020-02-26 13:48] LABS: Magnesium 2.1 mg/dL (1.8-2.4)
--- NOTE | 2020-02-26 14:21 | EDPHYS ---
Physician Documentation [facility] Name: Pravin Bateman Age: 49 yrs Sex: Male : 1970 Arrival Date: 02/26/2020 Time: 12:55 Bed 14 Private MD: ED Physician Eron Ureña HPI: 02/25 13:28 This 49 yrs old Male presents to ER via EMS with complaints of Probable rn Seizure. 13:28 The patient presents after having a possible seizure episode, no tonic-clonic activity rn was appreciated, blank stare was witnessed. Associated injury: The patient did not suffer any apparent associated injury. Current symptoms: Currently, the patient is not experiencing any symptoms. The patient has not experienced similar symptoms in the past. It is unknown whether or not the patient has recently seen a physician. Per EMS, patient with extensive seizure history, takes keppra and topamax, compliant, has about 2 seizures every week, had some episodes with blank stare and mumbling, preceded by aura of smell that he normally has, now feels better, feels sleepy and "drowsy". No fever. Doesn't feel ill. No chest pain/sob/abd pain/vomiting. NO focal neuro complaints. . Historical: - Allergies: 13:05 Augmentin; tw2 13:05 PENICILLINS; tw2 13:05 K-Clor; tw2 13:05 Dilantin; tw2 13:05 potassium, high doses; tw2 - Home Meds: 13:05 Keppra 500 mg Oral tab 1 tab 2 times per day [Active]; losartan 100 mg Oral tab 1 tab tw2 once daily [Active]; Topamax 100 mg Oral tab 1 tab 2 times per day [Active]; - PMHx: 13:05 Seizures; Hypertension; tw2 - Immunization history:: Adult Immunizations. - Social history:: Smoking status: . - Family history:: not pertinent. - Hospitalizations: : No recent hospitalization is reported. ROS: 13:28 Constitutional: Negative for fever, chills, and weight loss, Eyes: Negative for injury, rn pain, redness, and discharge, Cardiovascular: Negative for chest pain, palpitations, and edema, Respiratory: Negative for shortness of breath, cough, wheezing, and pleuritic chest pain, Abdomen/GI: Negative for abdominal pain, nausea, vomiting, diarrhea, and constipation, MS/Extremity: Negative for injury and deformity, Skin: Negative for injury, rash, and discoloration, Neuro: Negative for weakness, numbness, tingling Exam: 13:28 Constitutional: This is a well developed, well nourished patient who is awake, alert, rn and in no acute distress. Head/Face: Normocephalic, atraumatic. Cardiovascular: Regular rate and rhythm. No pulse deficits. Respiratory: No increased work of breathing, no retractions or nasal flaring. Abdomen/GI: soft, non-tender Skin: Warm, dry MS/ Extremity: Pulses equal, no cyanosis. Neurovascular intact. Full, normal range of motion. Equal circumference. Neuro: Awake and alert, GCS 15, oriented to person, place, time, and situation. Cranial nerves II-XII grossly intact. Motor strength 5/5 in all extremities. Sensory grossly intact. 13:48 ECG was reviewed by the Attending Physician. rn Vital Signs: 12:55 BP 134 / 73; Pulse 89; Resp 17; Temp 98.7; Pulse Ox 98% on R/A; Weight 132.9 kg (R); tw2 Height 6 ft. 0 in. (182.88 cm) (R); Pain 8/10; 13:55 BP 119 / 59; Pulse 76; Resp 16; Pulse Ox 96% on R/A; tw2 14:41 BP 120 / 63; Pulse 81; Resp 17; Pulse Ox 98% on R/A; tw2 12:55 Body Mass Index 39.74 (132.90 kg, 182.88 cm) tw2 12:55 headache tw2 Xiomara Coma Score: 13:02 Eye Response: spontaneous(4). Verbal Response: oriented(5). Motor Response: obeys tw2 commands(6). Total: 15. MDM: 13:03 Patient medically screened. rn 13:48 Data reviewed: vital signs, nurses notes. rn 14:18 Differential diagnosis: seizure. Counseling: I had a detailed discussion with the rn patient and/or guardian regarding: the historical points, exam findings, and any diagnostic results supporting the discharge/admit diagnosis, lab results, radiology results, the need for outpatient follow up, to return to the emergency department if symptoms worsen or persist or if there are any questions or concerns that arise at home. Response to treatment: the patient's symptoms have markedly improved after treatment, the patient's condition has returned to base line, the patient is now symptom free, and as a result, I will discharge patient. Special discussion: I discussed with the patient/guardian in detail that at this point there is no indication for admission to the hospital. It is understood, however, that if the symptoms persist or worsen the patient needs to return immediately for re-evaluation. Based on the history and exam findings, there is no indication for further emergent testing or inpatient evaluation. I discussed with the patient/guardian the need to see the neurologist for further evaluation of the symptoms. ED course: Updated with results, she states has had multiple absence seizures in past and not new for him, she states she worries about not knowing difference between another seizure and stroke so calls 911 "every time to be safe". . 02/25 13:13 Order name: CBC with Diff; Complete Time: 13:48 rn 02/25 13:13 Order name: Basic Metabolic Panel; Complete Time: 13:50 rn 02/25 13:13 Order name: CT Head Brain wo Cont; Complete Time: 13:48 rn 02/25 13:13 Order name: Protime (+inr); Complete Time: 13:48 rn 02/25 13:13 Order name: Ptt, Activated; Complete Time: 13:48 rn 02/25 13:13 Order name: Magnesium; Complete Time: 13:50 rn 02/25 13:13 Order name: IV Start; Complete Time: 13:42 rn 02/25 13:13 Order name: EKG; Complete Time: 13:14 rn 02/25 13:13 Order name: EKG - Nurse/Tech; Complete Time: 13:42 rn EC:48 Rate is 82 beats/min. Rhythm is regular. QRS [place] is Normal. IL interval is normal. QRS rn interval is normal. QT interval is normal. No Q waves. T waves are Normal. No ST changes noted. Clinical impression: Normal ECG. Interpreted by me. Reviewed by me. Administered Medications: No medications were administered Disposition: 02/26/20 14:20 Discharged to Home. Impression: Epilepsy and recurrent seizures. - Condition is Stable. - Discharge Instructions: Seizure, Adult, Hypocalcemia, Adult. - Medication Reconciliation Form, Thank You Letter, Antibiotic Education, Prescription Opioid Use form. - Follow up: Private Physician; When: As needed; Reason: Recheck today's complaints, Re-evaluation by your physician. - Problem is new. - Symptoms have improved. Signatures: Dispatcher [employer] Eron Reed MD MD rn Wise, Tara, RN RN tw2 Corrections: (The following items were deleted from the chart) 14:47 14:20 02/26/2020 14:20 Discharged to Home. Impression: Epilepsy and recurrent seizures. tw2 Condition is Stable. Forms are Medication Reconciliation Form, Thank You Letter, Antibiotic Education, Prescription Opioid Use. Follow up: Private Physician; When: As needed; Reason: Recheck today's complaints, Re-evaluation by your physician. Problem is new. Symptoms have improved. rn
--- NOTE | 2020-02-26 14:21 | ER ---
Nurse's Notes [facility] Name: Pravin Bateman Age: 49 yrs Sex: Male : 1970 Arrival Date: 02/26/2020 Time: 12:55 Bed 14 Private MD: Diagnosis: Epilepsy and recurrent seizures Presentation: 02/25 12:55 Chief complaint: EMS states: pt has hx of grand mal seizures was placed on Topamax, tw2 then 2007 had absence seizures and placed on Keppra, had hx of several grand mal seizures several years ago, today his had he had 3 spells where he was just looking through stuff and mumbling, a\T\o4 but still nii of drowsy, vs stable, pt states he normally gets a weird smell before he has a grand mal seizure and he got that 2 days ago, also in 2018 had hx of headache and had tumor removed today he is complaining of headache on top of head. Coronavirus screen: At this time, the client does not indicate any symptoms associated with coronavirus-19. Ebola Screen: Patient denies travel to an Ebola-affected area in the 21 days before illness onset. Initial Sepsis Screen: Does the patient meet any 2 criteria? No. Patient's initial sepsis screen is negative. Does the patient have a suspected source of infection? No. Patient's initial sepsis screen is negative. Risk Assessment: Do you want to hurt yourself or someone else? Patient reports no desire to harm self or others. Onset of symptoms was February 26, 2020. 12:55 Method Of Arrival: EMS: [facility] tw2 12:55 Acuity: DONNIE 3 tw2 Triage Assessment: 13:02 General: Appears in no apparent distress. obese, well groomed, Behavior is calm, tw2 cooperative, appropriate for age. Pain: Complains of pain in headache on top of head. Neuro: Reports headache. Historical: - Allergies: 13:05 Augmentin; tw2 13:05 PENICILLINS; tw2 13:05 K-Clor; tw2 13:05 Dilantin; tw2 13:05 potassium, high doses; tw2 - Home Meds: 13:05 Keppra 500 mg Oral tab 1 tab 2 times per day [Active]; losartan 100 mg Oral tab 1 tab tw2 once daily [Active]; Topamax 100 mg Oral tab 1 tab 2 times per day [Active]; - PMHx: 13:05 Seizures; Hypertension; tw2 - Immunization history:: Adult Immunizations. - Social history:: Smoking status: . - Family history:: not pertinent. - Hospitalizations: : No recent hospitalization is reported. Screenin:06 Abuse screen: Denies threats or abuse. Denies injuries from another. Nutritional tw2 screening: No deficits noted. Tuberculosis screening: No symptoms or risk factors identified. Fall Risk None identified. Assessment: 12:55 General: Appears in no apparent distress. obese, well groomed, Behavior is calm, tw2 cooperative, appropriate for age. Pain: Complains of pain in headache. Neuro: Level of Consciousness is awake, alert, obeys commands, Oriented to person, place, time, situation. Cardiovascular: Heart tones S1 S2 Patient's skin is warm and dry. Respiratory: Airway is patent Respiratory effort is even, unlabored, Respiratory pattern is regular, symmetrical, Breath sounds are clear bilaterally. GI: Abdomen is round non-distended, obese, Bowel sounds present X 4 quads. : No signs and/or symptoms were reported regarding the genitourinary system. EENT: No signs and/or symptoms were reported regarding the EENT system. Derm: No signs and/or symptoms reported regarding the dermatologic system. Musculoskeletal: Range of motion: intact in all extremities. 13:10 Reassessment: provider at bedside at this time. tw2 13:55 Reassessment: Patient appears in no apparent distress at this time. No changes from tw2 previously documented assessment. Patient and/or family updated on plan of care and expected duration. Pain level reassessed. Patient is alert, oriented x 3, equal unlabored respirations, skin warm/dry/pink. 14:41 Reassessment: Patient appears in no apparent distress at this time. No changes from tw2 previously documented assessment. Patient and/or family updated on plan of care and expected duration. Pain level reassessed. Patient is alert, oriented x 3, equal unlabored respirations, skin warm/dry/pink. Vital Signs: 12:55 BP 134 / 73; Pulse 89; Resp 17; Temp 98.7; Pulse Ox 98% on R/A; Weight 132.9 kg (R); tw2 Height 6 ft. 0 in. (182.88 cm) (R); Pain 8/10; 13:55 BP 119 / 59; Pulse 76; Resp 16; Pulse Ox 96% on R/A; tw2 14:41 BP 120 / 63; Pulse 81; Resp 17; Pulse Ox 98% on R/A; tw2 12:55 Body Mass Index 39.74 (132.90 kg, 182.88 cm) tw2 12:55 headache tw2 Xiomara Coma Score: 13:02 Eye Response: spontaneous(4). Verbal Response: oriented(5). Motor Response: obeys tw2 commands(6). Total: 15. ED Course: 12:55 Patient arrived in ED. tw2 12:55 Bed in low position. Call light in reach. Side rails up X2. Placed in gown. Seizure tw2 precautions initiated. public relations coordinator on. Pulse ox on. NIBP on. 13:01 Triage completed. tw2 13:01 Arm band placed on. tw2 13:03 Eron Ureña MD is Attending Physician. rn 13:10 Dimple Titus RN is Primary Nurse. tw2 13:25 Missed attempt(s): 22 gauge in right antecubital area. Bleeding controlled, band aid tw2 applied, catheter tip intact. Inserted saline lock: 22 gauge in left antecubital area, using aseptic technique. ,using aseptic technique. by David Song Blood collected. 13:31 CT Head Brain wo Cont In Process Unspecified. EDMS 14:25 Awaiting: results from provider at this time, prior to discharge. tw2 14:47 No provider procedures requiring assistance completed. IV discontinued, intact, tw2 bleeding controlled, No redness/swelling at site. Pressure dressing applied. Administered Medications: No medications were administered Outcome: 14:20 Discharge ordered by . rn 14:47 Discharged to home ambulatory. tw2 14:47 Condition: stable 14:47 Discharge instructions given to patient, Instructed on discharge instructions, follow up and referral plans. the need for admit, Demonstrated understanding of instructions, follow-up care. 14:47 Patient left the ED. tw2 Signatures: Dispatcher [employer] EDMS Eron Ureña MD MD rn Wise, Tara, RN RN tw2 Corrections: (The following items were deleted from the chart) 13:02 12:55 Chief complaint: EMS states: pt has hx of grand mal seizures was placed on tw2 Topamax, then 2007 had absence seizures and placed on Keppra, had hx of several grand mal seizures several years ago, today his had he had 3 spells where he was just looking through stuff and mumbling, a\T\o4 but still nii of drowsy, vs stable, tw2
[2020-02-26 14:54] VITALS: TEMP 98.7
[2020-02-26 15:08] VITALS: BP 120/63; O2SAT 98
--- NOTE | 2020-02-27 05:57 | EKG ---
Test Date: 2020-02-26 Test Time: 13:40:43 Head Of Mobile: CORDELL MEASUREMENT RESULTS: Intervals: Rate: 82 OR: 142 QRSD: 80 QT: 378 QTc: 441 [place]: P: 60 OR: 142 QRS: -6 T: 37 INTERPRETIVE STATEMENTS: Normal sinus rhythm Normal ECG Compared to ECG 01/20/2020 09:42:29 No significant changes Electronically Signed On 02-27-20 05:55:19 CDT by Manuel Smith
== END 2020-02-26 14:47 | disposition home or self-care (01) ==
LOC: ER 12:49
DX: G40.802 Other epilepsy, not intractable, without status epilepticus (principal); I10 Essential (primary) hypertension; Z88.0 Allergy status to penicillin; Z88.1 Allergy status to other antibiotic agents; Z88.8 Allergy status to other drugs, medicaments and biological substances; Z91.048 Other nonmedicinal substance allergy status
CPT/HCPCS: 36415; 70450; 80048; 83735; 85025; 85610; 85730; 93005; 99284

== ENCOUNTER 2020-06-29 22:43 | Emergency (ER) | payer OTHER ==
--- OUTSIDE RECORDS SUMMARY | 2020-06-29 22:46 | XMS REPORT | Continuity of Care Document ---
:1970 Author Organization [facility] Care Team Providers Name Role Phone [facility] Unavailable Un available Problems Problem Status Onset Classification Date Comments Sourc e Date Reported INTRACTABLE Active [facility] PARTIAL COMPLEX 5 Medi jac SEIZURE DISO Center INTRACTABLE Active [facility] PARTIAL 4 Medical SEIZURES Center 345.[address] APNEA Active [address] Medications No Data Provided for This Section Allergies, Adverse Reactions, Alerts No Known Medication Allergies Immunizations No Data Provided for This Section Results No Data Provided for This Section Pathology Reports No Data Provided for This Section Diagnostic Reports Report Value Date Source Brain wo contrast MRI EXAM: MRI OF THE BRAIN WITHO LA CONTRAST - EPILEPSY PROTOCOL 05/03/2014 [facility] DATE: May 03, 2014 11:38:56 [...] Location Location Encounter Encounter Reason Attending ADM SD Stat us Source Details Type Number For Provider Date Date Visit [facility] Outpatient [id number] 345.41 JESSICA 04/21 Activ e [facility] RODOLFO /2010 [facility] [id number] Larry 09/23 09/24 [facility] Reggie Mckinney /2014 [facility] Procedures No Data Provided for This Section Assessment and Plan No Data Provided for This Section Plan of Care No Data Provided for This Section Social History Social History Date Source No data available for this 09/24/2014 [facility] section Family History No Data Provided for This Section Advance Directives No Data Provided for This Section Functional Status No Data Provided for This Section
--- OUTSIDE RECORDS SUMMARY | 2020-06-29 22:47 | XMS REPORT | Summary of Care ---
:1970 Author Name ANNAMARIA Roche, JAMARCUS Address Unavailable Unavailable , Care Team Providers Name Role Phone ERNIE Roche, DINA Unavailable Unavailable ANNAMARIA Roche, JAMARCUS Unavailable Unavailable BARB PINEDA, JORGE Jones Unavailable Unavailable SUSHMA PINEDA OK, ENEDELIA BROWN Unavailable Unavailable TARYN PINEDA, ABDOULAYE HER Unavailable Unavailable DALLIN PINEDA OK Unavailable Unavailable KEVYN DAY MD Unavailable Unavailable ERNIE PINEDA OK Unavailable Unavailable ANNAMARIA PINEDA Unavailable Unavailable Unavailable Unavailable Unavailable Functional Status Name Dates Details Functional status health issues are not documented Status: Name Dates Details Cognitive status health issues are not documented Status: Problems Name Dates Details Essential (primary) hypertension (401.9, I10) Status: Active Essential (primary) hypertension (401.9, I10) Status: Active Male sexual 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, 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) Status: Active Seizure disorder (345.90, G40.909) Statu s: Active Abdominal hernia (553.9, K46.9) Status: Active Obesity (278.00, E66.9) Status: Active Nasal septal deviation (470, J34.2) Stat us: Active Nasal polyposis (471.9, J33.9) Status: A ctive Post-nasal drip (784.91, R09.82) Status: Active 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, 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 : Active Nasal mass (478.19, J34.89) Status: Acti ve Hypertrophy of both inferior nasal turbinates (478.0, J34.3) Status: Active Chronic maxillary sinusitis (473.0, J32.0) Status: Active Chronic frontal sinusitis (473.1, J32.1) Status: Active Chronic ethmoidal sinusitis (473.2, J32.2) Status: Active Chronic sphenoidal sinusitis (473.3, J32.3) Status: Active 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, not intractable, without status epilepticus (345.40, G40.209) Status: A ctive Intractable partial complex seizure disorder (345.41, G40.21 9) Status: Active Obstructive sleep apnea (327.23, G47.33) Status: Active Medications Name Dates Details Losartan Potassium 100 MG Oral Tablet Refills: 0 Active levETIRAcetam 250 MG Oral Tablet TAKE ONE (1) TABLET(S) BY MOUTH TWICE A DAY. Quantity: 60 Refills: 11 DINA KLEIN M.D. Start : 18-Mar-2019 Active amLODIPine Besylate TABS Refills: 0 Active Allergies and Adverse Reactions Name Dates Details Augmentin (Allergy) Status: Active Dilantin CAPS (Allergy) Status: Active Potassimin TABS (Allergy) Status: Active Past Medical History Name Dates Details History of Epilepsy with status epilepticus, not intractable (345.90, G40.901) Status: Resolved History of high blood pressure (V12.59, Z86.79) Status: Resolved Procedures Procedure Dates Details History of Hernia repair Completed History of Myringotomy Completed History of Knee surgery Completed Immunization Name Dates Details Immunizations not documented Family History Name Dates Details No pertinent family history (V49.89, Z78.9) Status: Active Social History Name Dates Details - Status: Name Dates Details Ex-smoker (finding) Tobacco smoking consumption unknown (finding) Vital Signs Date Test Result Details [id number] Body height 72 in Status: Weight 290 lb Status: Body mass index (BMI) [Ratio] 39.33 kg/m2 Status: Body surface area Derived from formula 2.49 m2 S tatus: Body temperature 97.4 f Status: Results Date Description Value Details Results not documented Plan of Care Name Dates Details Planned Observations Planned Goals not documented Planned Encounters Appointment; JAMARCUS YIN M.D. 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 He is doing well without any evidence of IP. He will use flonase.. He will f/u in 1-2yr Instructions Name Dates Details Instructions not documented Encounters Appointment; DINA KLEIN M.D. On: 22-May-2018 10 :00 Encounter Diagnosis: Problem not documented Appointment; SVITLANA SAMSON M.D. On: 03-Aug-2018 11:00 Encounter Diagnosis: Problem not documented Appointment; JAMARCUS YIN M.D. On: 14-Aug-2018 10:15 Encounter Diagnosis: Problem not documented Appointment; DINA KLEIN M.D. On: 20-Nov-2018 10 :30 Encounter Diagnosis: Problem not documented Appointment; DINA KLEIN M.D. On: 23-Nov-2018 10 :30 Encounter Diagnosis: Problem not documented Appointment; JAMARCUS YIN M.D. On: 11-Feb-2019 10:15 Encounter Diagnosis: Problem not documented Appointment; DINA KLEIN M.D. On: 31-May-2019 1 0:30 Encounter Diagnosis: Problem not documented Appointment; DINA KLEIN M.D. On: 30-Aug-2019 1 0:00 Encounter Diagnosis: Problem not documented Appointment; JMAARCUS YIN M.D. On: 31-Mar-2020 10:15 Encounter Diagnosis: Problem not documented Appointment; JAMARCUS YIN M.D. On: 12-May-2020 10:45 Encounter Diagnosis: Problem not documented
--- OUTSIDE RECORDS SUMMARY | 2020-06-29 22:47 | XMS REPORT ---
:1970 Author Organization [facility] Address [address] [place], [address] [place] [address] Care Team Providers Name Role Phone Reagan Unavailable [phone] PROBLEMS Type Condition ICD9-CM [id number] Onset Condition SNOMED Code Notes Code Code Dates Status Problem Nonalcoholic K76.0 Active 249065508 fatty liver disease Problem BMI 40.0-44.9, Z68.41 Active 050677569 adult Problem Headache R51 Active 53599082 Problem Erectile N52.9 Active 146284015 dysfunction Problem Hypertension I10 Active 86037291 Problem Chronic J32.9 Active 01329600 sinusitis Problem Sleep apnea, G47.33 Active 90398815 obstructive Problem Locking of left M23.92 Active 4796055534177930 5 knee Problem Obesity E66.9 Active 795622762 Problem Internal M23.92 Active [id number] derangement of left knee Problem Seizure disorder G40.909 Active 130142351 Problem Hyperlipidemia, E78.2 Active 181748638 mixed Problem Vitamin D E55.9 Active 54329767 deficiency disease Problem Primary M17.12 Active 516045281284205 osteoarthritis of left knee Problem Limping R26.89 Active 59307368 ALLERGIES Allergen (clinical drug Drug/Non Drug Allergy Reaction Allergy Type Onset Date Status ingredient) documented on EMR phenytoin Dilantin(NDC Unknown Drug Allergy Active Code:[address]-49) amoxicillin Amoxicillin(NDC Unknown Drug Allergy Active Code:[address]-31) amoxicillin / Augmentin(NDC Unknown Drug Allergy Active clavulanate Code:[address]-52) ENCOUNTERS from 1970 to 2020-06-08 Encounter Location Date Provider Diagnosis [facility] [address] [place], Beau Reagan Sei zure disorder Family [facility] [address], [address]40[address]909 ; [place] [address] I10 ; Hyperlip idemia, mixed E78.2 ; S leep apnea, obstruct maddie G47.33 ; Nonalc oholic fatty liver dis ease K76.0 ; Headach e R51 ; Chronic sinusit is J32.9 ; BMI 40. 0-44.9, adult Z68.41 ; Vitamin D deficiency di sease E55.9 ; Hypocal cemia E83.51 ; Refuse d influenza vacci ne Z28.21 and Hyperglycemia R 73.9 IMMUNIZATIONS No Information SOCIAL HISTORY Tobacco Use: Social History Observation Description Date Details (start date - stop date) Never Smoker Sex Assigned At : Social History Observation Description Sex Assigned At Unknown Alcohol Screen Question Answer Notes Did you have a drink containing alcohol in the past year? No Points 0 Interpretation Negative Tobacco Use/Smoking Question Answer Notes Are you a never smoker Additional Findings: Tobacco Non-User Current non-smoker REASON FOR REFERRAL No Information VITAL SIGNS Height 70 in May, Weight 299.4 lbs May, Temperature 98.2 degrees Fahrenheit May, BMI 42.95 kg/m2 May, Oximetry 97 % May, Respiratory Rate 19 /min May, Blood pressure systolic 132 mm Hg May, Blood pressure diastolic 65 mm Hg May, MEDICATIONS Medication SIG (Take, Route, Notes Start Date End Date Status Frequency, Duration) Topiramate Not-Taking Topamax 50 MG 2 tablet Orally Twice Active a day Levetiracetam 250 MG 1 tablet Orally Twice Active a day Losartan Potassium Not-Ta liliana Vitamin D (Ergocalciferol) Not-Taking Cozaar 100 MG 1 tablet Orally Once a Active day for 30 days Oxcarbazepine Not-Taking Hydrocodone-Acetaminophen Active Vitamin D3 Not-Taking Amlodipine Besylate 10 MG TAKE ONE (1) TABLET(S) Active BY MOUTH ONCE A DAY. Oral PROCEDURES No Information RESULTS No Results REASON FOR VISIT 3 mth lab f/u [facility] (GENERAL) HISTORY Type Description Date Medical History Hyperlipidemia, mixed Medical History Hypertension Medical History Seizure disorder Medical History Headache Medical History Chronic sinusitis Medical History Obesity Medical History Sleep apnea, obstructive Medical History Erectile dysfunction Medical History Nonalcoholic fatty liver disease Surgical History Umbilical hernia - Dr. Ortiz Surgical History Laparscopic knee surgery bilaterally Surgical History Ear drum surgery bilaterally Surgical History Sinus Surgery "Removal of Benign Tumor" 2018 Surgical History Left knee PMM 01/24/2020 Goals Section No Information Health Concerns No Information MEDICAL EQUIPMENT No Information MENTAL STATUS No Information FUNCTIONAL STATUS No Information ASSESSMENTS Encounter Date Diagnosis Assessment Notes Treatment Notes Treatm ent Clinical Notes May, Seizure disorder Encouraged to (ICD-10 - G40.909) follow-up with neurology urgently. ED course reviewed extensively with patient and . Answered all questions the best my knowledge. Unknown etiology at this time. May, Hypertension (ICD-10 Managed by CARDIO: - I10) . On losartan and amlodipine. SIde effect discussed. HTN Education This is a condition that puts at risk for heart attack, stroke, and kidney disease. Lifestyle modification, low fat/low salt diet, exercise, low alcohol intake and medication is utilized to help control your BP. Untreated HTN increases the strain on the heart and arteries, eventually causing organ damage.Normal BP is less than 140/90. High BP is greater than 140/90. If your BP is not controlled, call your doctor. Medication may need to be adjusted and/or added. Compliance with medication is vital. If you have chest pain, shortness of breath, severe nausea/vomiting, fatigue, and other symptoms, you will need to contact your doctor or go to the ER immediately to address. May, Hyperlipidemia, Diet-Controlled. mixed (ICD-10 - Education given. E78.2) May, Sleep apnea, Encourage patient obstructive (ICD-10 to be compliant - G47.33) with CPAP. Disinfecting use properly. Patient vocalized understanding. May, Nonalcoholic fatty Diet and liver disease Weight-Loss. (ICD-10 - K76.0) May, Headache (ICD-10 - Stable. Controlled. R51) Education given. Managed by Neurology. May, Chronic sinusitis Managed by (ICD-10 - J32.9) Specialist in [place]. ROR signed. May, BMI 40.0-44.9, adult Counseling given. (ICD-10 - Z68.41) Education given. Utilized the 5-A''s approach to increase patient motivation and behavioral change. ASK: Patient expressed desire/readiness to change and premission was obtained to discuss. ASSESS: BMI class discussed. In addition, patient''s barrier to weight loss and identified drivers and complications. ADVISE: Discussed benefits of modest weight loss and long-term strategy as well. Educated on risks and complications of obesity on health. Treatment options were discussed including but not limited to non-surgical (medications, gym, diet/exercise) and surgical options. AGREE: Realistic weight-loss goal discussed. Behavioral goals done. Patient agreed with treatment plan. ASSIST: Provided education and resources. Plan made to address drivers and barriers. Close follow-up arranged. START: Walking daily, reducing soda and increased hydration with water of at least 64 ounces. May, Vitamin D deficiency Start 50,000 and disease (ICD-10 - vitamin D E55.9) international units once weekly then transition to daily 2000 to 5000 IU daily. Side effect discussed. , Discussed on causes of Vit D Def. Increase sunlight + Hydration + Exercise + Food High in Vit D and OTC supplements. May, Hypocalcemia (ICD-10 instructed to take - E83.51) OTC supplements. Asymptomatic. Encouraged on being compliant May, Refused influenza vaccine (ICD-10 - Z28.21) May, Hyperglycemia Education given. (ICD-10 - R73.9) Diet controlled May, Other -- Medication reviewed and updated. -- Dietary and Lifestyle modifications addressed regarding diet, exercise and weight managemen t. -- Treatment options, risks and benefits, side effects reviewed in detail. -- Advised on signs/symptoms to monitor and when to call clinic and/or visit the nearest ER. Patient verbalized understanding and agreeable with plan. PLAN OF TREATMENT Medication Medication Name Sig Start Date Stop Date Cozaar 100 MG 1 tablet Orally Once a day for 30 days Amlodipine Besylate 10 MG TAKE ONE (1) TABLET(S) BY MOUTH ONCE A DAY. Oral Levetiracetam 250 MG 1 tablet Orally Twice a day Topamax 50 MG 2 tablet Orally Twice a day Treatment Notes Assessment Notes Clinical Notes Seizure disorder Encouraged to follow-up with neurology urgently. ED course reviewed extensively with patient and . Answered all questions the best my knowledge. Unknown etiology at this time. Hypertension Managed by CARDIO: . On losartan and amlodipine. SIde effect discussed. HTN Education This is a condition that puts at risk for heart attack, stroke, and kidney disease. Lifestyle modification, low fat/low salt diet, exercise, low alcohol intake and medication is utilized to help control your BP. Untreated HTN increases the strain on the heart and arteries, eventually causing organ damage.Normal BP is less than 140/90. High BP is greater than 140/90. If your BP is not controlled, call your doctor. Medication may need to be adjusted and/or added. Compliance with medication is vital. If you have chest pain, shortness of breath, severe nausea/vomiting, fatigue, and other symptoms, you will need to contact your doctor or go to the ER immediately to address. Hyperlipidemia, mixed Diet-Controlled. Education given. Sleep apnea, obstructive Encourage patient to be compliant with CPAP. Disinfecting use properly. Patient vocalized understanding. Nonalcoholic fatty liver disease Diet and Weight-Loss. Headache Stable. Controlled. Education given. Managed by Neurology. Chronic sinusitis Managed by Specialist in [place]. ROR signed. BMI 40.0-44.9, adult Counseling given. Education given. Utilized the 5-A''s approach to increase patient motivation and behavioral change. ASK: Patient expressed desire/readiness to change and premission was obtained to discuss. ASSESS: BMI class discussed. In addition, patient''s barrier to weight loss and identified drivers and complications. ADVISE: Discussed benefits of modest weight loss and long-term strategy as well. Educated on risks and complications of obesity on health. Treatment options were discussed including but not limited to non-surgical (medications, gym, diet/exercise) and surgical options. AGREE: Realistic weight-loss goal discussed. Behavioral goals done. Patient agreed with treatment plan. ASSIST: Provided education and resources. Plan made to address drivers and barriers. Close follow-up arranged. START: Walking daily, reducing soda and increased hydration with water of at least 64 ounces. Vitamin D deficiency disease Start 50,000 and vitamin D international units once weekly then transition to daily 2000 to 5000 IU daily. Side effect discussed. , Discussed on causes of Vit D Def. Increase sunlight + Hydration + Exercise + Food High in Vit D and OTC supplements. Hypocalcemia instructed to take OTC supplements. Asymptomatic. Encouraged on being compliant Hyperglycemia Education given. Diet controlled Treatment Notes Test Name Order Date Lipid Panel With LDL/HDL Ratio 2020-06-08 Calcium, Ionized, Serum 2020-06-08 Hemoglobin A1c 2020-06-08 Comp. Metabolic Panel (14) (CMP) 2020-06-08 CBC With Differential/Platelet 2020-06-08 Vitamin D, 25-Hydroxy 2020-06-08 Next Appt Details 3 Months + Labs 1 week before Reason: Provider Name:Mik Juarez, 2020-07-07 1 1:00:00 AM, [address] [facility] [address], [place], [address], Provider Name:Beau Reagan, 2020-08-31 09:15:00 AM, [address], [address], [place], [address], Provider Name:Beau Reagan, 2020-09-07 10:00:00 AM, [address], [place], [address], Insurance Providers Payer Name Payer Payer Insured Patient Coverage Coverage End Address Phone Name Relationship to Start Date Armin e Insured [employer] [phone] Pravin Bateman self 2019 MEDICARE [id number] [facility] [id number]
--- OUTSIDE RECORDS SUMMARY | 2020-06-29 22:47 | XMS REPORT | Summary of Care ---
:1970 Author Name Svetlana Arriola LVN Address Unavailable Unavailable , Care Team Providers Name Role Phone ERNIE Roche, DINA Unavailable Unavailable BARB PINEDA, JORGE Jones Unavailable Unavailable SUSHMA PINEDA UT, ENEDELIA BROWN Unavailable Unavailable TARYN PINEDA, ABDOULAYE HER Unavailable Unavailable DALLIN PINEDA UT Unavailable Unavailable BARB PINEDA, KEVYN Jones Unavailable Unavailable ERNIE PINEDA UT Unavailable Unavailable ANNAMARIA PINEDA Unavailable Unavailable Unavailable Unavailable Unavailable Functional Status Name Dates Details Functional status health issues are not documented Status: Name Dates Details Cognitive status health issues are not documented Status: Problems Name Dates Details Essential (primary) hypertension (401.9, I10) Status: Active Intractable partial complex seizure disorder (345.41, G40.21 9) Status: Active Obstructive sleep apnea (327.23, G47.33) Status: Active Seizure disorder (345.90, G40.909) Statu s: Active Male sexual 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, N53.9) Status: Active Essential (primary) hypertension (401.9, I10) Status: Active Abdominal hernia (553.9, K46.9) Status: Active Obesity (278.00, E66.9) Status: Active Hypertrophy of both inferior nasal turbinates (478.0, J34.3) Status: Active Post-nasal drip (784.91, R09.82) Status: Active 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, not intractable, without status epilepticus (345.40, G40.209) Status: A ctive Nasal polyposis (471.9, J33.9) Status: A ctive Nasal septal deviation (470, J34.2) Stat us: Active Chronic ethmoidal sinusitis (473.2, J32.2) Status: Active Chronic frontal sinusitis (473.1, J32.1) Status: Active Chronic maxillary sinusitis (473.0, J32.0) Status: Active Chronic sphenoidal sinusitis (473.3, J32.3) Status: Active Nasal mass (478.19, J34.89) Status: Acti ve 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 Start : 18-Nov-2016 Active levETIRAcetam 250 MG Oral Tablet TAKE ONE (1) TABLET(S) BY MOUTH TWICE A DAY. Quantity: 60 Refills: 0 DINA KLEIN M.D. Start : 18-Mar-2019 Active [...] Resolved Procedures Procedure Dates Details History of Knee surgery Completed History of Hernia repair Completed History of Myringotomy Completed Immunization Name Dates Details Immunizations not documented Family History Name Dates Details No pertinent family history (V49.89, Z78.9) Status: Active Social History Name Dates Details - Status: Name Dates Details Ex-smoker (finding) Tobacco smoking consumption unknown (finding) Vital Signs Date Test Result Details [id number] Body height 72 in Status: Weight 290 lb Status: Body mass index (BMI) [Ratio] 39.33 kg/m2 Status: Body surface area Derived from formula 2.49 m2 S tatus: Body temperature 97.4 f Status: Results Date Description Value Details Results not documented Plan of Care Name Dates Details Planned Observations Planned Goals not documented Planned Encounters Appointment; JAMARCUS YIN M.D. On: 11-May-2021 10:45 Interventions Provided Medication ChangeslevETIRAcetam 250 MG Oral Tablet - Renew Instructions Name Dates Details Instructions not documented Encounters Appointment; SVITLANA SAMSON M.D. On: 03-Aug-2018 11:00 [...] 0:00 Encounter Diagnosis: Problem not documented Appointment; JAMARCUS YIN M.D. On: 31-Mar-2020 10:15 Encounter Diagnosis: Problem not documented Appointment; JAMARCUS YIN M.D. On: 12-May-2020 10:45 Encounter Diagnosis: Problem not documented
--- OUTSIDE RECORDS SUMMARY | 2020-06-29 22:47 | XMS REPORT | Continuity of Care Document ---
:1970 Author Organization [facility] t Address [address] [place] [address] Care Team Providers Name Role Phone JAMARCUS YIN M.D. Attending Clinician Unavailable Toby PINEDA, Qiangjun Attending Clinician Doctor Unassigned, [place] Attending Clinician Unavailable ERNIE Attending Clinician Unavailable Nhung Leonard MD Attending Clinician CHAPIN Attending Clinician Unavailable DALLIN Attending Clinician Unavailable Mone Attending Clinician Unavailable Korey Mckinney Attending Clinician Problems Condition Condition Condition Status Onset Resolution Last Treating Co mments Source Name Details Category Date Date Treatment Clinician Date INTRACTABL Diagnosis Active 2014-09-23 Memoria E PARTIAL 3-19 13:31:00 l COMPLEX 00:00: [place] SEIZURE INTRACTABL 00 DISO E PARTIAL COMPLEX SEIZURE DISO Active 09/04/2014 [facility] INTRACTABL Diagnosis Active 2013-062014-05-19 Memoria E PARTIAL 0-14 13:24:00 l SEIZURES 00:00: [place] INTRACTABL 00 E PARTIAL SEIZURES Active 04/01/2014 [facility] 345.41 Diagnosis Active 2010-062011-04-21 Mem oria 0-03 09:14:00 l 345.41 00:00: [place] 00 Active 03/21/2011 [facility] APNEA Diagnosis Active 2014-07-11 Mem oria 06-19 15:55:00 l APNEA 00:00: [place] 00 Active 06/19/2000 [facility] History of History of Problem Resolve Univers Epilepsy Epilepsy d ity of with with [place] status status Physici epilepticu epilepticu an s s, not s, not intractabl intractabl e e History of History of Problem Resolve Univers high blood high blood d it y of pressure pressure [place] Physici ans Essential Essential Problem Active Uni vers (primary) (primary) ity of hypertens[place] Physici ans Male Male Problem Active Univers sexual sexual ity of dysfunctio [place]functio [place] Physici ans Seizure Seizure Problem Active Univers disorder disorder ity of [place] Physici ans Abdominal Abdominal Problem Active Uni vers hernia hernia ity of [place] Physici ans Obesity Obesity Problem Active Univers ity of [place] Physici ans Nasal Nasal Problem Active Univers septal septal ity of deviation deviation [place] Physici ans 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 ity of [place] Physici ans Post-nasal Post-nasal Problem Active U nivers drip drip ity of [place] Physici ans 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 [place] Physici ans Nasal mass Nasal mass Problem Active U nivers ity of [place] Physici ans Hypertroph Hypertroph Problem Active U nivers y of both y of both ity of inferior inferior [place] nasal nasal Physici turbinates turbinates an s Chronic Chronic Problem Active Univers maxillary maxillary ity of sinusitis [place] Phys[place] Chronic Chronic Problem Active Univers frontal frontal ity of sinusitis [place] Phys[place] ans Chronic Chronic Problem Active Univers ethmoidal ethmoidal ity of sinusitis [place] 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 [place] ans 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 it y of c epilepsy c epilepsy [place] with with Physici complex complex ans partial partial seizures, seizures, not not intractabl intractabl e, without e, without status status epilepticu epilepticu s s Intractabl Intractabl Problem Active U nivers e partial e partial ity of complex complex [place] seizure seizure Physici disorder disorder ans Obstructiv Obstructiv Problem Active U nivers e sleep e sleep ity of apnea apnea [place] Physici ans Allergies, Adverse Reactions, Alerts Allergy Allergy Status Severity Reaction(s) Onset Inactive Treating Comm ents Source Name Type Date Date Clinician Dilantin Adverse Active Info Not [facility] Reaction Available [facility] Amoxicil Adverse Active Info Not [facility] allyssa Reaction Available [facility] Augmenti Adverse Active Info Not [facility] n Reaction Available [facility] Potassim Allergy Active Univers in TABS to drug ity of (finding [place] ) Physici ans Augmenti Allergy Active Univers n to drug ity of (finding [place] ) Physici ans Dilantin Allergy Active Univers CAPS to drug ity of ([facility] ) Physici ans Social History Social Habit Start Date Stop Date Quantity Comments Source Social History 2014-09-24 2014-09-24 [facility] sil 04:59:00 04:59:00 Smoking Status Start Date Stop Date Source Ex-smoker ([facility] Physicians Medications Ordered Filled Start Stop Current Ordering Indication Dosage Frequency Signature Comments Components Source Medication Medication Date Date Medication? Clinician (SIG) Name Name levETIRAcet levETIRAcet Yes DINA Q0.5D TAKE ONE Univers am 250 MG am 250 MG 930 KLEIN (1) i ty of Oral Tablet Oral Tablet 00:00: M.D. TABLET(S) [place] 00 BY MOUTH Physici TWICE A ans DAY. Topiramate Topiramate Yes DINA Q0.5D TAKE 3 Univers 50 MG Oral 50 MG Oral 11-18 KLEIN TABLET ity of Tablet Tablet 00:00: M.D. Twice [place] 00 daily Physici ans Frederick Cozaar Yes Beau 1 tablet [facility] Levetiracet Levetiracet Yes Beau [address] am am [facility] ent Clinics Topamax Topamax Yes Beau [address] [facility] [facility] Amlodipine Amlodipine Yes Beau TAKE ONE [facility] Besylate Besylate Reagan (1) [facility] - TABLET(S) Memoria BY MOUTH l [facility] Topiramate Topiramate Yes Beau not [facility] Losartan Losartan Yes Beau not [facility] Potassium Potassium Reagan defined [facility] Vitamin D3 Vitamin D3 Yes Beau not [facility] Oxcarbazepi Oxcarbazepi Yes Beau not [facility] ne ne [facility] defined [facility] Vitamin D Vitamin D Yes Beau not [facility] (Ergocalcif (Ergocalcif Reagan defined [facility] joanna) joanna) Memoria l Outpati ent Clinics Hydrocodone Hydrocodone Yes Beau not [facility] -Acetaminop -Acetaminop Reagan defined [facility] hen hen Memoria l Outpati ent Clinics Losartan Losartan Yes Univers Potassium Potassium ity o f 100 MG Oral 100 MG Oral [place] Tablet Tablet Physici ans amLODIPine amLODIPine Yes Uni vers Besylate Besylate ity of TABS TABS [place] Physici ans Vital Signs Vital Name Observation Time Observation Value Comments Source Body height 2020-05-12 72 [in_us] [facility] 10:17:00 [place] Physician s Weight 2020-05-12 290 [lb_av] University 10:17: [place] Physician s Body mass index 2020-05-12 39.33 kg/m2 [place] f (BMI) [Ratio] 10:17:00 [place] Physicia ns Body temperature 2020-05-12 97.4 [degF] [facility] 10:17:00 [place] Physician s BP Systolic 2019-05-31 152 mm[Hg] [facility] 10:17:00 [place] Physician s BP Diastolic 2019-05-31 80 mm[Hg] [facility] 10:17:00 [place] Physician s Height 2019-05-31 72 [in_us] University 10:17:00 [place] Physician s Weight 2019-05-31 299 [lb_av] [facility] 10:17:00 [place] Physician s Body Mass Index 2019-05-31 40.55 kg/m2 University o f Calculated 10:17:00 [place] Physician s Heart Rate 2019-05-31 76 /min [facility] 10:17:00 [place] Physician s BP Systolic 2018-11-23 149 mm[Hg] [facility] 11:02:00 [place] Physician s BP Diastolic 2018-11-23 93 mm[Hg] [facility] 11:02:00 [place] Physician s Height 2018-11-23 72 [in_us] University of 11:02:00 [place] Physician s Weight 2018-11-23 298 [lb_av] University of 11:02:00 [place] Physician s Body Mass Index 2018-11-23 40.42 kg/m2 University o f Calculated 11:02:00 [place] Physician s Heart Rate 2018-11-23 71 /min University of 11:02:00 [place] Physician s BP Systolic 2018-08-14 146 mm[Hg] Location: [facility]; [facility] 10:17:00 Position: [place] Physician s Sitting BP Diastolic 2018-08-14 83 mm[Hg] Location: [facility]; [facility] 10:17:00 Position: [place] Physician s Sitting Height 2018-08-14 72 [in_us] University of 10:17:00 [place] Physician s Weight 2018-08-14 292 [lb_av] University 10:17:00 [place] Physician s Body Mass Index [...] Physician s Weight 2018-05-22 287 [lb_av] University 10:37:00 [place] Physician s Body Mass Index 2018-05-22 38.92 kg/m2 University o f Calculated 10:37:00 [place] Physician s Heart Rate 2018-05-22 83 /min University 10:37:00 [place] Physician s BP Systolic 2018-04-17 153 mm[Hg] Location: [facility]; [facility] 10:15:00 Position: [place] Physician s Sitting BP Diastolic 2018-04-17 87 mm[Hg] Location: [facility]; [facility] 10:15:00 Position: [place] Physician s Sitting Height 2018-04-17 72 [in_us] University 10:15:00 [place] Physician s Weight 2018-04-17 292 [lb_av] University 10:15: [place] Physician s Body Mass Index 2018-04-17 39.6 kg/m2 [place] Calculated 10:15:00 [place] Physician s Temperature 2018-04-17 98.4 [degF] Method: Oral University of 10:15:00 [place] Physician s Heart Rate 2018-04-17 73 /min University of :15:00 [place] Physician s BP Systolic 2018-03-06 146 mm[Hg] University of 11:14: [place] Physician s BP Diastolic 2018-03-06 91 mm[Hg] University of 11:14:00 [place] Physician s Height 2018-03-06 72 [in_us] University of 11:14:00 [place] Physician s Weight 2018-03-06 295 [lb_av] University of 11:: [place] Physician s Body Mass Index 2018-03-06 40.01 kg/m2 [place] Calculated 11:14:00 [place] Physician s Heart Rate 2018-03-06 73 /min University of 11:14:00 [place] Physician s BP Systolic 2017-12-18 161 mm[Hg] Location: [facility]; [place] 11::00 Position: [place] Physician s Sitting BP Diastolic 2017-12-18 96 mm[Hg] Location: [facility] 11::00 Position: [place] Physician s Sitting Height 2017-12-18 72 [in_us] University of 11:10:00 [place] Physician s Weight 2017-12-18 292.1 [lb_av] University of 11:10:00 [place] Physician s Body Mass Index 2017-12-18 39.62 kg/m2 [place] Calculated 11:10:00 [place] Physician s Temperature 2017-12-18 97.3 [degF] Method: Oral University of 11:: [place] Physician s Heart Rate 2017-12-18 83 /min University of 11:10:00 [place] Physician s BP Systolic 2017-11-10 145 mm[Hg] Location: [facility] ::00 Position: [place] Physician s Sitting BP Diastolic 2017-11-10 86 mm[Hg] Location: [facility] of ::00 Position: [place] Physician s Sitting Height 2017-11-10 72 [in_us] University of 10:02:00 [place] Physician s Weight 2017-11-10 293 [lb_av] University of 10:02:00 [place] Physician s Body Mass Index 2017-11-10 39.74 kg/m2 University o f Calculated 10:02:00 [place] Physician s Temperature 2017-11-10 97.5 [degF] Method: Oral [facility] 10:02:00 [place] Physician s Heart Rate 2017-11-10 87 /min [facility] 10:02:00 [place] Physician s BP Systolic 2017-10-26 156 mm[Hg] Location: [facility] :04:00 Position: [place] Physician s Sitting BP Diastolic 2017-10-26 92 mm[Hg] Location: [facility] :04:00 Position: [place] Physician s Sitting Height 2017-10-26 72 [in_us] University 10:04:00 [place] Physician s Weight 2017-10-26 289 [lb_av] [facility] :: [place] Physician s Body Mass Index 2017-10-26 39.2 kg/m2 University o f Calculated 10:04:00 [place] Physician s Temperature 2017-10-26 98 [degF] Method: Oral [facility] :: [place] Physician s Heart Rate 2017-10-26 81 /min [facility] :04:00 [place] Physician s Procedures Procedure Date / Time Performing Clinician Source Performed MRI Brain wo contrast 2019-05-31 00:00:00 [facility] [id number] Physicians [UTP] Neuro Adult 23 Hr 2018-12-18 00:00:00 [facility] EEG Physicians 23hr EEG/Video 2018-11-23 00:00:00 [place] [facility] Physicians [facility] Sleep Lab - Sleep 2018-03-06 00:00:00 [facility] Study Physicians History of Knee surgery [facility] Physicians History of Hernia [facility] repair Physicians History of Myringotomy [facility] Physicians Plan of Care Planned Activity Planned Date Details Comments Source Diagnostic Test 2018-12-18 [UTP] Neuro Adult [facility] Pending 00:00:00 23 Hr EEG [code = Physicians [UTP] Neuro Adult 23 Hr EEG] Diagnostic Test 2018-12-18 [UTP] Neuro Adult [facility] Pending 00:00:00 23 Hr EEG [code = Physicians [UTP] Neuro Adult 23 Hr EEG] Diagnostic Test 2018-12-18 [UTP] Neuro Adult [facility] Pending 00:00:00 23 Hr EEG [code = Physicians [UTP] Neuro Adult 23 Hr EEG] Future Appointment 2021-05-11 Kaley RICKETTS [facility] 10:45:00 Kd YIN Encounters Start End Encounter Admission Attending Care Care Encounter Source Date/Time Date/Time Type Type Clinicians Facility Department ID 2020-06-08 2020-06-08 [facility] [id number] [facility] 2020-05-12 2020-05-12 Appointmen STANFORD YIN Otorhinolar [id number] [facility] 10:45:00 10:45:00 t; JAMARCUS YIN yngology - raffy y cordelia RICKETTS M.D. [facility] ans 2020-03-31 2020-03-31 Appointmen STANFORD YIN [facility] [id number] Univers 10:15:00 10:15:00 t; JAMARCUS YIN ity o f Kaley RICKETTS [facility] Physici [facility] 2020-03-12 2020-03-12 Jose Miguel Luis [facility] [id number] 00:00:00 00:00:00 Tashi [place] [id number] [place] [id number] [facility] [phone] [address] 2020-03-04 2020-03-04 [facility] [id number] 16:07:00 16:07:00 [facility] 2020-03-04 2020-03-04 [facility] [id number] 16:00:00 16:00:00 [facility] 2020-03-02 2020-03-02 [facility] [id number] 09:30:00 09:30:00 [facility] 2020-02-27 2020-02-27 [facility] [id number] 15:52:00 15:52:00 t [facility] 2020-02-27 2020-02-27 [facility] [id number] 15:42:00 15:42:00 t [facility] 2020-02-26 2020-02-26 [facility] [id number] 16:41:00 16:41:00 t [facility] 2020-02-03 2020-02-03 [facility] [id number] 11:26:00 11:26:00 t [facility] ent [facility] 2020-01-30 2020-01-30 [facility] [id number] 16:21:00 16:21:00 t [facility] ent [facility] 2020-01-30 2020-01-30 [facility] [id number] 13:30:00 13:30:00 t [facility] ent [facility] 2020-01-27 2020-01-27 [facility] [id number] 09:05:00 09:05:00 t [facility] ent [facility] 2020-01-20 2020-01-20 [facility] [id number] 08:00:00 08:00:00 t [facility] ent [facility] 2020-01-08 2020-01-08 Telephone Toby, [facility] [id number] 00:00:00 00:00:00 Tashi [place] [id number] [place] [id number] Harry [phone] [address] 2020-01-07 2020-01-07 Orders Doctor MADRID [id number] 00:00:00 00:00:00 Only Unassamando, VILLA [id number] [facility] [id number] 2019-12-23 2019-12-23 [facility] [id number] 08:17:00 08:17:00 t [facility] ent Clinics 2019-12-23 2019-12-23 [facility] [id number] 08:13:00 08:13:00 t [facility] ent Clinics 2019-12-19 2019-12-19 [facility] [id number] 08:00:00 08:00:00 t [facility] ent [facility] 2019-12-14 2019-12-14 Haritha MADRID [id number] 00:00:00 00:00:00 Only UnassignedVILLA [id number] [facility] [id number] 2019-12-13 2019-12-13 [facility] [id number] 11:33:00 11:33:00 [place] [employer] s - [facility] 2019-11-29 2019-11-29 [facility] [id number] 10:30:00 10:30:00 [place] [employer] Luke s - Drive [facility] ent [facility] 2019-11-22 2019-11-22 [facility] [id number] 12:47:00 12:47:00 [place] [employer] Luke s - [facility] ent [facility] 2019-11-21 2019-11-21 [facility] [id number] 09:30:00 09:30:00 t [place] [employer] - [facility] ent [facility] 2019-10-17 2019-10-17 SINCERE Walker [id number] 00:00:00 00:00:00 Tashi [place] [id number] [place] [id number] [facility] [phone] [facility] 2019-10-16 2019-10-16 [facility] [id number] 00:00:00 00:00:00 Tashi [place] [id number] [place] [id number] [facility] [phone] [address] 2019-08-30 2019-08-30 STANFORD Infante UTP [id number] Univers 10:00:00 10:00:00 t; megan ARROYO M.D. [place] Jose ARROYO M.D. [facility] 2019-08-29 2019-08-29 [facility] [id number] [facility] [address] 09:30:00 09:30:00 t [employer] [email or web address] 2019-08-14 2019-08-15 Emergency [place] [id number] 22:55:11 00:54:00 Jed Hooker Ester [id number] [place] [id number] Wilsey [phone] [facility] 2019-05-31 2019-05-31 STANFORD Infante Neurology - 5 [id number] Univers 10:30:00 10:30:00 t; Xiang ARROYO M.[facility]. [facility] Jose Roche [facility] 2019-05-30 2019-05-30 [facility] [id number] 09:30:00 09:30:00 t [employer] [facility] Dropl[employer] [facility] ent [facility] 2019-02-11 2019-02-11 STANFORD Bob UTP [id number] Univers 10:15:00 10:15:00 t; JAMARCUS YIN ity o f WILLIAM, M.D. [place] M.D. Physici ans 2019-01-21 2019-01-21 Outpatient [facility] [id number] [facility] 15:44:00 15:44:00 2018-12-17 2018-12-17 [facility] [id number] 10:30:00 10:30:00 t [facility] [email or web address] [facility] Outpati ent [facility] 2018-11-23 2018-11-23 STANFORD Infante Neurology - 5 [id number] Univers 10:30:00 10:30:00 t; Xiang ARROYO M.D. [facility] Physicpeter [place] ans 2018-11-20 2018-11-20 STANFORD Infante UTP [id number] Univers 10:30:00 10:30:00 t; megan [facility]. [facility] 2018-09-18 2018-09-18 [facility] [id number] 10:15:00 10:15:00 t [facility] [employer] [facility] ent [facility] 2018-08-14 2018-08-14 STANFORD Bob Otorhinolar [id number] Univers 10:15:00 10:15:00 t; JAMARCUS YIN ypadmaology - it y cordelia RICKETTS M.D. [facility] Kaley [facility] Physici Center ans 2018-08-09 2018-08-09 [facility] [id number] 10:30:00 10:30:00 t [place] [employer] [facility] Outpati ent [facility] 2018-08-03 2018-08-03 Yogi COYNE [facility] [id number] Univers 11:00:00 11:00:00 t; SVITLANA Redmond ity of TALLAVAJHU M.D. [place] SVITLANA CAIN Physi ci M.D. ans 2018-06-29 2018-06-29 [facility] [id number] 10:00:00 10:00:00 t [facility] Outpati ent [facility] 2018-05-22 2018-05-22 STANFORD Infante Neurology [id number] Univers 10:00:00 10:00:00 t; DINA, ity o Kaley Bernstein Physici M.D. [facility] 2018-04-17 2018-04-17 STANFORD Bob Otorhinolar [id number] Univers 10:15:00 10:15:00 t; JAMARCUS YIN yngology - it y of WILLIAM, M.D. [facility] Physici Center ans 2018-03-06 2018-03-06 STANFORD Infante Neurology [id number] Univers 10:30:00 10:30:00 t; megan ARROYO M.D. [place] STEPHEN, Physici M.D. [facility] 2018-01-29 2018-01-29 [facility] [id number] 14:34:00 14:34:00 t [place] [employer] Noli [facility] ent [facility] 2018-01-22 2018-01-22 STANFORD Infante UTP [id number] Univers 09:30:00 09:30:00 t; megan ARROYO M.D. [place] STEPHEN, Physici M.D. [facility] 2018-01-15 2018-01-15 STANFORD Infante UTP [id number] Univers 09:30:00 09:30:00 t; megan ARROYO M.D. [place] Jose ARROYO M.D. [facility] 2018-01-10 2018-01-10 [facility] [id number] 10:02:00 10:02:00 t [place] [employer] Noli [facility] 2017-12-18 2017-12-18 STANFORD Bob Otorhinolar [id number] Univers 11:00:00 11:00:00 t; JAMARCUS YIN yngology - it Brenda [facility]. [facility] Physici [place] ans 2017-12-04 2017-12-04 [facility] [id number] 10:00:00 10:00:00 t [place] [employer] Noli [facility] 2017-11-10 2017-11-10 STANFORD Bob Otorhinolar [id number] Univers 10:00:00 10:00:00 t; JAMARCUS YNI yngology - it y of Kaley RICKETTS [facility] ans 2017-10-26 2017-10-26 AppointSTANFORD Schmitt Otorhinolar [id number] Univers 10:00:00 10:00:00 t; JAMARCUS YIN yngology - it y of Kaley RICKETTS [facility] ans 2017-09-05 2017-09-05 AppointSTANFORD Schmitt [facility] [id number] Univers 09:30:00 09:30:00 t; JAMARCUS YIN ity o yvonne RICKETTS [facility].D. [facility] ans 2017-08-22 2017-08-22 AppointSTANFORD Schmitt [id number] Univers 09:45:00 09:45:00 t; JAMARCUS YIN ity o f WILLIAM, M.D. [facility] ans 2017-02-08 2017-02-08 AppointSTANFORD Lofton [id number] Univers 11:00:00 11:00:00 t; VANESSA MCKINNEY ity of JEREMY, M.D. [facility] ans 2017-02-01 2017-02-01 AppointSTANFORD Lofton [id number] Univers 10:30:00 10:30:00 t; VANESSA MCKINNEY ity of JEREMY, M.D. [facility] ans 2016-11-03 2016-11-03 AppointSTANFORD Lofton [id number] Univers 16:00:00 16:00:00 t; VANESSA MCKINNEY ity of JEREMY, M.D. [facility] [facility] 2016-09-28 2016-09-28 AppointSTANFORD Lofton [id number] Univers 14:00:00 14:00:00 t; VANESSA MCKINNEY ity of [place], M.D. [facility] 2016-08-31 2016-08-31 AppointSTANFORD Lofton [id number] Univers 09:30:00 09:30:00 t; VANESSA MCKINNEY ity of [place], M.D. [facility] 2016-06-01 2016-06-01 [facility] STANFORD MCKINNEY UTP [id number] Univers 13:30:00 13:30:00 t; VANESSA MCKINNEY ity of [place], M.D. [facility] 2016-04-26 2016-04-26 [facility] [id number] Univers 09:45:00 09:45:00 t; Bin mccall ity [facility] [place] hen, Rolf, Physi ci M.D. [facility] 2016-04-08 2016-04-08 [facility] UTP [id number] Univers 15:00:00 15:00:00 t; iBn mccall [facility] [place] maira, Juanchof, Physi ci M.D. [facility] 2016-03-23 2016-03-23 [facility] STANFORD MCKINNEY UTP [id number] Univers 10:30:00 10:30:00 t; VANESSA MCKINNEY ity of [place], M.D. [facility] 2014-09-23 2014-09-23 Outpatient SOTO Mckinney [facility] [id number] 13:23:00 23:59:00 Vanessa 03 Korey Results Test Test Test Results Result Source Description Time Comments Comments MRI Brain 2019-06- EXAM: MRI BRAIN WITHOUT [facility] of contrast [id number] CONTRASTDATE: 06/29/2019 [place] 15:09:00 13:35 CSTINDICATION: 48 P hysicians years [...]
[2020-06-29 23:35] LABS: Absolute Lymphocytes (CBC) 1.1 K/uL (0.7-4.9); Basophils % 0.3 % (0-1.3); Hematocrit 44.4 % (39.6-49.0); Lymphocytes % 14.1 % (15.3-44.8); MPV 7.4 fL (7.6-11.3); RBC Red Blood Cell Count 5.04 M/uL (4.33-5.43)
[2020-06-29 23:41] LABS: Potassium 3.3 mmol/L (3.5-5.1)
[2020-06-30] MEDS ORDERED: NA CHLORIDE 0.9% 100 ML ONE (00:16)
[2020-06-30] MEDS ORDERED: LEVETIRACETAM 500 MG/5 ML VIAL IV ONE (00:16)
--- NOTE | 2020-06-30 00:21 | EDPHYS ---
Physician Documentation [facility] Name: Pravin Bateman Age: 49 yrs Sex: Male : 1970 Arrival Date: 06/29/2020 Time: 22:44 Bed 23 Private MD: ED Physician Curtis Fernandez HPI: 06/29 23:49 This 49 yrs old Male presents to ER via EMS with complaints of Seizure. pm1 23:49 The patient presents after having a single isolated seizure, the episode(s) was pm1 witnessed, by family, . Character of seizure(s): Motor activity: generalized, Incontinence: none, Apnea: the patient did not experience apnea, Circulation: the patient did not experience evidence of pulse disturbance. Seizure onset: just prior to arrival. Context: occurred at home, occurred while the patient was looking at pictures on his phone with . Contributing factors: believes that it happens when he is taking antibiotics. Currently taking amoxicillin for dental infection. Has a root canal planned with his dentisit. Seizure Hx: Seizure medications: Keppra, topamax. Associated injury: Other: right shoulder pain. Current symptoms: Currently, the patient is not experiencing any symptoms, the patient feels back to baseline. The patient has experienced similar episodes in the past, multiple times. Recently seen by Dentist and currently taking his 10th day of antibiotics. Historical: - Allergies: 22:53 Augmentin; vg1 22:53 potassium, high doses; vg1 22:53 Dilantin; vg1 22:53 PENICILLINS; vg1 22:53 K-Clor; vg1 - Home Meds: 22:53 losartan 100 mg Oral tab 1 tab once daily [Active]; clindamycin HCl 150 mg Oral cap 1 vg1 cap [Active]; levetiracetam 250 mg oral tab [Active]; amlodipine 10 mg tab [Active]; topiramate 50 mg oral tab [Active]; - Immunization history:: Adult Immunizations up to date. - Social history:: Smoking status: unknown. ROS: 23:49 Constitutional: Negative for fever, chills, and weight loss, Neck: Negative for injury, pm1 pain, and swelling, Cardiovascular: Negative for chest pain, palpitations, and edema, Respiratory: Negative for shortness of breath, cough, wheezing, and pleuritic chest pain, Abdomen/GI: Negative for abdominal pain, nausea, vomiting, diarrhea, and constipation, Back: Negative for injury and pain. 23:49 Skin: Negative for injury, rash, and discoloration. 23:49 MS/extremity: Positive for pain, of the anterior aspect of right shoulder. 23:49 Neuro: Positive for seizure activity, Negative for headache, weakness. Exam: 23:49 Constitutional: This is a well developed, well nourished patient who is awake, alert, pm1 and in no acute distress. Head/Face: Normocephalic, atraumatic. Eyes: Pupils equal round and reactive to light, extra-ocular motions intact. Lids and lashes normal. Conjunctiva and sclera are non-icteric and not injected. Cornea within normal limits. Periorbital areas with no swelling, redness, or edema. ENT: Nares patent. No nasal discharge, no septal abnormalities noted. Tympanic membranes are normal and external auditory canals are clear. Oropharynx with no redness, swelling, or masses, exudates, or evidence of obstruction, uvula midline. Mucous membranes moist. Neck: Trachea midline, no thyromegaly or masses palpated, and no cervical lymphadenopathy. Supple, full range of motion without nuchal rigidity, or vertebral point tenderness. No Meningismus. Chest/axilla: Normal chest wall appearance and motion. Nontender with no deformity. No lesions are appreciated. Cardiovascular: Regular rate and rhythm with a normal S1 and S2. No gallops, murmurs, or rubs. Normal PMI, no JVD. No pulse deficits. Respiratory: Lungs have equal breath sounds bilaterally, clear to auscultation and percussion. No rales, rhonchi or wheezes noted. No increased work of breathing, no retractions or nasal flaring. Abdomen/GI: Soft, non-tender, with normal bowel sounds. No distension or tympany. No guarding or rebound. No evidence of tenderness throughout. Back: No spinal tenderness. No costovertebral tenderness. Full range of motion. Skin: Warm, dry with normal turgor. Normal color with no rashes, no lesions, and no evidence of cellulitis. 23:49 Musculoskeletal/extremity: Extremities: grossly normal except: noted in the anterior aspect of right shoulder: tenderness, There is no evidence of decreased ROM, deformity. 23:49 Neuro: Exam negative for acute changes, Orientation: is normal, Mentation: is normal, Motor: is normal, moves all fours, Sensation: is normal, no obvious gross deficits. Vital Signs: 22:46 BP 152 / 91; Pulse 90; Resp 18; Temp 98.6; Pulse Ox 99% on R/A; Weight 132.9 kg; Height vg1 6 ft. 0 in. (182.88 cm); Pain 8/10; 23:00 BP 137 / 83; Pulse 88; Resp 18; Pulse Ox 97% on R/A; vg1 22:46 Body Mass Index 39.74 (132.90 kg, 182.88 cm) vg1 Xiomara Coma Score: 23:46 Eye Response: spontaneous(4). Verbal Response: oriented(5). Motor Response: obeys vg1 commands(6). Total: 15. MDM: 23:03 Patient medically screened. pm1 06/30 00:20 Data reviewed: vital signs. Counseling: I had a detailed discussion with the patient pm1 and/or guardian regarding: the historical points, exam findings, and any diagnostic results supporting the discharge/admit diagnosis, lab results, radiology results, the need for outpatient follow up, for definitive care, a neurologist, to return to the emergency department if symptoms worsen or persist or if there are any questions or concerns that arise at home. 06/29 23:04 Order name: CBC with Diff; Complete Time: 23:49 pm1 06/29 23:04 Order name: BMP; Complete Time: 23:49 pm1 06/29 22:54 Order name: Shoulder Right (2 View) XRAY pm1 06/29 23:04 Order name: CT Head Brain wo Cont pm1 06/29 23:04 Order name: EKG; Complete Time: 23:06 pm1 06/29 23:04 Order name: EKG - Nurse/Tech; Complete Time: 23:43 pm1 06/29 23:04 Order name: IV Saline Lock; Complete Time: 23:43 pm1 Administered Medications: 00:07 Drug: Keppra 1000 mg Route: IV; Rate: calculated rate; Site: left antecubital; dm5 Disposition: 07: Co-signature as Attending Physician, Curtis Fernandez MD. pkl Disposition: 06/30/20 00:20 Discharged to Home. Impression: Epilepsy and recurrent seizures. - Condition is Stable. - Discharge Instructions: Seizure, Adult, [id number]. - Medication Reconciliation Form, Thank You Letter, Antibiotic Education, Prescription Opioid Use form. - Follow up: Emergency Department; When: As needed; Reason: Worsening of condition. Follow up: Private Physician; When: 2 - 3 days; Reason: Recheck today's complaints, Continuance of care, Re-evaluation by your physician. - Problem is new. - Symptoms have improved. Signatures: Dispatcher [employer] Stephanie Aranda, RN RN dm5 Curtis Fernandez MD MD pkl Ronal Ortega EXPORT AGENT EXPORT AGENT pm1 Calista Sylvester mw2 Celia Bran, RN RN vg1 Corrections: (The following items were deleted from the chart) 00:42 00:20 06/30/2020 00:20 Discharged to Home. Impression: Epilepsy and recurrent seizures. mw2 Condition is Stable. Forms are Medication Reconciliation Form, Thank You Letter, Antibiotic Education, Prescription Opioid Use. Follow up: Emergency Department; When: As needed; Reason: Worsening of condition. Follow up: Private Physician; When: 2 - 3 days; Reason: Recheck today's complaints, Continuance of care, Re-evaluation by your physician. Problem is new. Symptoms have improved. pm1
--- NOTE | 2020-06-30 00:21 | ER ---
Nurse's Notes [facility] Name: Pravin Bateman Age: 49 yrs Sex: Male : 1970 Arrival Date: 06/29/2020 Time: 22:44 Bed 23 Private MD: Diagnosis: Epilepsy and recurrent seizures Presentation: 06/29 22:46 Chief complaint: EMS states: Patient was in bed when had seizure. Patient had a total vg1 of 2, lasting about 3-5 minutes. Patient was altered on scene but is now AOx4. Patient has an appointment to neurologist on 07/14/2020. No meds were given on transportation. Coronavirus screen: Client denies travel out of the [place] in the last 14 days. Ebola Screen: Patient negative for fever greater than or equal to 101.5 degrees Fahrenheit, and additional compatible Ebola Virus Disease symptoms. Initial Sepsis Screen: Does the patient meet any 2 criteria? No. Patient's initial sepsis screen is negative. Does the patient have a suspected source of infection? No. Patient's initial sepsis screen is negative. Risk Assessment: Do you want to hurt yourself or someone else? Patient reports no desire to harm self or others. Onset of symptoms was June 29, 2020. 22:46 Method Of Arrival: EMS: [facility] vg1 22:46 Acuity: DONNIE 3 vg1 Historical: - Allergies: 22:53 Augmentin; vg1 22:53 potassium, high doses; vg1 22:53 Dilantin; vg1 22:53 PENICILLINS; vg1 22:53 K-Clor; vg1 - Home Meds: 22:53 losartan 100 mg Oral tab 1 tab once daily [Active]; clindamycin HCl 150 mg Oral cap 1 vg1 cap [Active]; levetiracetam 250 mg oral tab [Active]; amlodipine 10 mg tab [Active]; topiramate 50 mg oral tab [Active]; - Immunization history:: Adult Immunizations up to date. - Social history:: Smoking status: unknown. Screenin:55 Abuse screen: Denies threats or abuse. Nutritional screening: No deficits noted. vg1 Tuberculosis screening: No symptoms or risk factors identified. Fall Risk No fall in past 12 months (0 pts). No secondary diagnosis (0 pts). IV access (20 points). Ambulatory Aid- None/Bed Rest/Nurse Assist (0 pts). Gait- Normal/Bed Rest/Wheelchair (0 pts) Mental Status- Oriented to own ability (0 pts). Total Lomeli Fall Scale indicates No Risk (0-24 pts). Assessment: 22:54 General: Appears in no apparent distress. comfortable, Behavior is calm, cooperative. vg1 Pain: Complains of pain in Left shoulder Pain currently is 8 out of 10 on a pain scale. Pain began 1 day ago. Neuro: Level of Consciousness is awake, alert, obeys commands, Oriented to person, place, time, situation. Cardiovascular: Patient's skin is warm and dry. Respiratory: Airway is patent Respiratory effort is even, unlabored, Respiratory pattern is regular, symmetrical. GI: No signs and/or symptoms were reported involving the gastrointestinal system. : No signs and/or symptoms were reported regarding the genitourinary system. EENT: Reports bit tongue.. Derm: Skin is intact, is healthy with good turgor. Musculoskeletal: Circulation, motion, and sensation intact. 23:55 Reassessment: Patient appears in no apparent distress at this time. Patient is alert, vg1 oriented x 3, equal unlabored respirations, skin warm/dry/pink. Patient states he feels ok, but still has left shoulder pain. Vital Signs: 22:46 BP 152 / 91; Pulse 90; Resp 18; Temp 98.6; Pulse Ox 99% on R/A; Weight 132.9 kg; Height vg1 6 ft. 0 in. (182.88 cm); Pain 8/10; 23:00 BP 137 / 83; Pulse 88; Resp 18; Pulse Ox 97% on R/A; vg1 22:46 Body Mass Index 39.74 (132.90 kg, 182.88 cm) vg1 Xiomara Coma Score: 23:46 Eye Response: spontaneous(4). Verbal Response: oriented(5). Motor Response: obeys vg1 commands(6). Total: 15. ED Course: 22:40 Maintain EMS IV. Gauge \T\ site: 20 G L AC. vg1 22:44 Patient arrived in ED. cl3 22:45 Celia Bran, KIMBERLY is Primary Nurse. vg1 22:47 Ronal Ortega NP is PHCP. pm1 22:47 Curtis Fernandez MD is Attending Physician. pm1 22:49 Katerina Bateman [phone] Patient's . mw2 22:50 Triage completed. vg1 22:55 Arm band placed on. vg1 22:55 Seizure precautions initiated. vg1 23:[address] via stretcher. vg1 23:30 CT Head Brain wo Cont In Process Unspecified. EDMS 23:45 Patient has correct armband on for positive identification. Bed in low position. Call vg1 light in reach. Side rails up X2. 23:57 Shoulder Right (2 View) XRAY In Process Unspecified. EDMS Administered Medications: 12 00:07 Drug: Keppra 1000 mg Route: IV; Rate: calculated rate; Site: left antecubital; dm5 Outcome: 00:20 Discharge ordered by . pm1 00:42 Patient left the ED. mw2 Signatures: Dispatcher [employer] EDMS Stephanie Silver, KIMBERLY RN dm5 Ronal Ortega, CHILDRENS CLUB ATTENDANT CHILDRENS CLUB ATTENDANT pm1 Calista Sylvester mw2 Vera Smith cl3 Celia Bran, RN RN vg1
[2020-06-30 00:47] VITALS: TEMP 98.6
[2020-06-30 00:48] VITALS: BP 137/83; O2SAT 97
--- NOTE | 2020-06-30 08:27 | RAD REPORT ---
EXAM DESCRIPTION: Shoulder Right 2 View - 06/29/2020 11:57 pm CLINICAL HISTORY: PAIN, seizure, fall with shoulder pain COMPARISON: No comparisons TECHNIQUE: Internal and external rotation views of the right shoulder were obtained. FINDINGS: There is no fracture or dislocation. Mild AC joint degenerative changes are present witho ut spurring. Scapula detail is limited by film technique and patient body habitus. No acute or suspic ious findings. IMPRESSION: Negative two-view right shoulder examination for acute finding.
--- NOTE | 2020-06-30 11:14 | RAD REPORT ---
EXAM DESCRIPTION: CT - Head Brain Wo Cont - 06/30/2020 6:22 am CLINICAL HISTORY: The patient is 49 years old and is Male; SEIZURE TECHNIQUE: Axial computed tomography images of the head/brain without intravenous contrast. Sagitt al and coronal reformatted images were created and reviewed. This CT exam was performed using one o r more of the following dose reduction techniques: automated exposure control, adjustment of the mA and/or kV according to patient size, and/or use of iterative reconstruction technique. COMPARISON: CT of the head February 26, 2020 FINDINGS: BRAIN: Unremarkable. The ruvalcaba-white matter differentiation is preserved . No hemorrhag e. No significant white matter disease. No edema. No extra-axial fluid collections. VENTRICLES: Unremarkable. No ventriculomegaly. BONES/JOINTS: No acute fracture. SOFT TISSUES: Unremarkable. SINUSES: Unremarkable as visualized. No acute sinusitis. MASTOID AIR CELLS: Unremarkable as visualized. No mastoid effusion. ORBITS: Unremarkable as visualized. IMPRESSION: No acute intracranial findings. Electronically signed by: Esperanza Nath MD 06/29/2020 11:36 PM RECRUITING ASSISTANT Due to temporary technical issues with the PACS/Fluency reporting system, reports are being signed by the in house radiologist without review as a courtesy to ensure prompt reporting. The interpreting r adiologist is fully responsible for the content of the report.
--- NOTE | 2020-07-01 06:11 | EKG ---
Test Date: 2020-06-29 Test Time: 23:38:08 Web Operations Manager: YASSINE MEASUREMENT RESULTS: Intervals: Rate: 71 MT: 142 QRSD: 78 QT: 394 QTc: 428 Caldwell: P: 46 MT: 142 QRS: -3 T: 30 INTERPRETIVE STATEMENTS: Normal sinus rhythm Normal ECG Compared to ECG 02/26/2020 13:40:43 No significant changes Electronically Signed On 07-01-20 06:09:10 QA ANALYST by Manuel Smith
== END 2020-06-30 00:42 | disposition home or self-care (01) ==
LOC: ER 22:43
DX: G40.802 Other epilepsy, not intractable, without status epilepticus (principal); M25.511 Pain in right shoulder; Z88.0 Allergy status to penicillin; Z88.1 Allergy status to other antibiotic agents; Z88.8 Allergy status to other drugs, medicaments and biological substances; Z91.048 Other nonmedicinal substance allergy status
CPT/HCPCS: 93005; 85025; 80048; 36415; 70450; 73030; J1953; 96374; 99284

== ENCOUNTER 2022-11-02 10:32 | Emergency (ER) | payer OTHER ==
--- OUTSIDE RECORDS SUMMARY | 2022-11-02 10:46 | XMS REPORT | Continuity of Care Document ---
:1970 Author Organization [facility] t Address [address] [place] [address] [place] [id number] Care Team Providers Name Role Phone Beau Reagan Primary Care Physician Beau Reagan Attending Clinician Unavailable VANESSA MIRELES Attending Clinician Unavailable Vanessa Ponce Attending Clinician ISABEL HO Attending Clinician Unavailable Isabel Ho DO Attending Clinician Angeline Samson Attending Clinician ANGELINE SAMSON Attending Clinician Unavailable Tashi Vickers MD Attending Clinician Doctor Unassigned, [facility] Attending Clinician Unavailable TERRELL HULL Attending Clinician Unavailable Terrell Pedraza Attending Clinician CASEY FERNANDEZ Attending Clinician Unavailable TASHI VICKERS Attending Clinician Unavailable Cordell Yin MD Attending Clinician SONIA ROBLERO Attending Clinician Unavailable Aimee ALEJANDRO Attending Clinician Unavailable Aimee Power Attending Clinician Cordell Yin Attending Clinician [facility], [facility] Fam Pob I Attending Clinician Unavailable Ivan Brown Attending Clinician IVAN URBINA Attending Clinician Unavailable FACUNDO VIERA M.D. Attending Clinician Unavailable CORDELL YIN M.D. Attending Clinician Unavailable Jed Leonard MD Attending Clinician Facundo Viera Attending Clinician [facility] Cardio Fac Attending Clinician Unavailable 2, [facility] Cardio Fac Room Attending Clinician Unavailable [place] Cristina LEYVA S Attending Clinician 1, [facility] Lab Attending Clinician Unavailable ANGELINE SAMSON M.D. Attending Clinician Unavailable Flaquito Yoder Attending Clinician VANESSA MCKINNEY M.D. Attending Clinician Unavailable Vanessa Mckinney Attending Clinician Medardo Ho Attending Clinician Bin Shore M.D. Attending Clinician Unavailable ISABEL HO Admitting Clinician Unavailable Aimee ALEJANDRO Admitting Clinician Unavailable Kyle Anderson Admitting Clinician Cordell Yin Admitting Clinician Payers Payer Name Policy Type Policy Number Effective Date Expiration Date S alexis [facility] MED[facility] [id number] 2016 ADV 00:00:00 AET[employer] MEDICARE 53 [id number] 2019 [facility] 00:00:00 [facility] AETNA MEDICARE [id number] 2018 PPO 00:00:00 AET[employer] CHOICE [id number] 2018 POS II 00:00:00 MEDICARE MB [id number] 2014 [facility] NOVITAS 00:00:00 - [facility] Problems Condition Condition Condition Status Onset Resolution Last Treating Co mments Source Name Details Category Date Date Treatment Clinician Date 3 MONTH 3 MONTH Diagnosis Active 2022-04-13 Memoria F/U F/U Active 12-23 08:22:00 l 12/23/2021 00:00: Deng lynn [facility] 00 SLEEP SLEEP Diagnosis Active 2021-12-23 Mem oria APNEA APNEA 11-30 09:10:00 l Active 00:00: Reggie 11/30/2021 00 [facility] G40.209 - G40.209 - Diagnosis Active 2019-07-24 Memoria LOCAL-REL LOCAL-REL 1- 06:32:00 l SYMPTC EPI SYMPTC EPI 00:01: Miles vázquez W CMPLX P W CMPLX P 00 Active 06/29/2019 OPID Reggie G40.209 G40.209 Diagnosis Active 2019-01-21 Memoria Active 12-31 15:53:00 l 12/31/2018 00:00: eDng lynn [address] FOLLOW UP FOLLOW Diagnosis Active 2019-03-15 Memoria UP Active 11-28 17:11:00 l 11/28/2017 00:00: Deng lynn [facility] 00 YARIEL YARIEL Diagnosis Active 2017-12-13 Mem oria Active 11-28 08:19:00 l 11/28/2017 00:00: Deng lynn [facility] 00 F/U F/U Diagnosis Active 2017-11-28 Mem oria Active 11-10 10:19:00 l 11/10/2017 00:00: Deng lynn [facility] 00 LOW GRADE LOW GRADE Diagnosis Active 2017-10-24 Memoria FEVER AND FEVER AND 10-23 05:02:00 l H/A H/A Active 00:00: Deng lynn 00 8 [facility] D14.0 D14.0 Diagnosis Active 2017-10-27 Mem oria BENIGN BENIGN 20 16:11:00 l NEOPLASM NEOPLASM 00:00: Deng lynn OF MIDDLE OF MIDDLE 00 EAR, LUIS EAR, LUIS Active 09/05/2017 [facility] Obesity Obesity Disease Active Univers (BMI (BMI 6-01 ity of 30-39.9) 30-39.9) 00:00: [place] [id number] Medical Branch POSSIBLE POSSIBLE Diagnosis Active 2016-11-02 Memoria STROKE STROKE 11-02 19:19:00 l Active 00:00: [place] 11/02/2016 00 [facility] F/U SLLEP F/U SLLEP Diagnosis Active 2016-11-02 Memoria APNEA APNEA 11-01 11:59:00 l Active 00:00: [place] 11/01/2016 00 [facility] MILD YARIEL MILD YARIEL Diagnosis Active 2015-062016-05-11 Memoria Active 06-29 08:49:00 l 04/29/2016 00:00: Deng lynn [facility] 00 INTRACTABL Diagnosis Active 2014-09-23 Memoria E PARTIAL INTRACTABL 09-04 13:31:00 l COMPLEX E PARTIAL 00:00: Deng lynn SEIZURE COMPLEX 00 DISO SEIZURE DISO Active 09/04/2014 [facility] INTRACTABL INTRACTAB Diagnosis Active 2013-062014-05-19 Memoria E PARTIAL LE PARTIAL 0- 13:24:00 l SEIZURES SEIZURES 00:00: Deng lynn Active 00 04/01/2014 [facility] 345.41 345.41 Diagnosis Active 2010-062011-04-21 Me moria Active 09:14:00 l 03/21/2011 00:00: Deng lynn [address] APNEA APNEA Diagnosis Active 2014-07-11 Mem oria Active 06-19 15:55:00 l 06/19/2000 00:00: Deng lynn [address] Cyst and Cyst and Problem 2017-11-29 Memoria mucocele mucocele 15:50:36 l of nose of nose Reggie and nasal and nasal sinus sinus 11/29/2017 [facility] [place] Polyp of Polyp of Problem 2017-11-29 Memoria nasal nasal 15:50:36 l cavity cavity [place] 11/29/2017 [facility] [place] Hearing Hearing Problem Resolve 2021-12-26 M emoria loss loss d 00:59:19 l (finding) (finding) Herm eb Resolved Problem 12/26/2021 Medical Group,[facility], [facility], [facility] Reggie, [facility] [place], [facility] [place] Childhood Childhood Problem Active 2021-12-26 Memoria asthma asthma 00:59:19 l (disorder) (disorder) He rmann Active Problem 12/26/2021 [facility], [facility], OP[facility] [place], [facility] [place], [facility] [place] Morbid Morbid Problem Active 2021-12-26 [place] audelia obesity obesity 00:59:19 l (disorder) (disorder) He rmann Active Problem 12/26/2021 [facility], [facility], OP[facility] Reggie, [facility] [place], [facility] [place] Seizure Seizure Problem Active 2021-12-26 Me moria (finding) (finding) 00:59:19 l Active Reggie Problem 12/26/2021 Medical [facility], [facility], OPID Reggie, OP[facility] [place], [facility] [place] Sinusitis Sinusitis Problem Active 2021-12-26 Memoria (disorder) (disorder) 00:59:19 l Active Reggie Problem 12/26/2021 [facility], [facility], [facility] [place], [facility] [place], [facility] Sleep Sleep Problem Active 2021-12-26 Memor ia apnea apnea 00:59:19 l (finding) (finding) Herm eb Active Problem 12/26/2021 Medical [facility], [facility], [facility] [place], [facility] [place], [facility] [place] J32.2 - J32.2 - Diagnosis Active 2021-05-21 Memoria CHRONIC CHRONIC 14:23:00 l ETHMOIDAL ETHMOIDAL Herm eb SINUSITIS SINUSITIS Active DICKSON Paredes OBSTRUCTIV OBSTRUCTI Diagnosis Active 2016-11-02 Memoria E SLEEP VE SLEEP 11:59:00 l APNEA APNEA [place] (ADULT) (ADULT) (PEDIATR (PEDIATR Active [facility] No known No known Disease [place] active active Health problems problems [id number] BMI Problem Common 40.0-44.9, [facility] adult - [facility] Erectile Erectile Problem Commo n dysfunctio dysfunctio Sp ricardo n n [facility] Non-alcoho Nonalcohol Problem C ommon lic fatty ic fatty Spiri t liver liver - [facility] disease [facility] Seizure Seizure Problem Common disorder disorder [facility] Headache Headache Problem Commo n [facility] Chronic Chronic Problem Common sinusitis sinusitis Spir [facility] Obstructiv Sleep Problem Commo n e sleep apnea, Spirit apnea obstructiv - [facility] syndrome e [facility] Mixed Hyperlipid Problem Commo n hyperlipid emia, Spirit emia mixed [facility] [id number] Internal Problem Com mon [id number] derangemen Spiri t t of left [facility] knee [facility] Hypertensi Hypertensi Problem C ommon on on [facility] Hypocalcem Hypocalcem Problem C ommon ia ia [facility] Obesity Obesity Problem Common [facility] [id number] Vitamin D Problem Comm on deficiency [facility] disease [facility] [id number] Primary Problem [facility] left knee [facility] [id number] [place] Problem [facility] [id number] Locking of Problem C ommon [id number] left knee [facility] History of History of Problem Resolve [place] Epilepsy Epilepsy d Physic i with with ans status status epilepticu epilepticu s, not s, not intractabl intractabl e e History of History of Problem Resolve UT high blood high blood d Ph ysici pressure pressure ans Essential Essential Problem Active UT (primary) (primary) Phys ici hypertensi hypertensi an s on on Male Male Problem Active UT sexual sexual Physici dysfunctio dysfunctio an s n n Seizure Seizure Problem Active UT disorder disorder Physic i ans Abdominal Abdominal Problem Active UT hernia hernia Physici ans Obesity Obesity Problem Active UT Physici ans Nasal Nasal Problem Active UT septal septal Physici deviation deviation ans Nasal Nasal Problem Active UT polyposis polyposis Phys ici ans Post-nasal Post-nasal Problem Active U T drip drip Physici ans 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 ans Nasal mass Nasal mass Problem Active U T Physici ans Hypertroph Hypertroph Problem Active U T y of both y of both Phys ici inferior inferior ans nasal nasal turbinates turbinates Chronic Chronic Problem Active UT maxillary maxillary Phys ici sinusitis sinusitis ans Chronic Chronic Problem Active UT frontal frontal Physici sinusitis sinusitis ans Chronic Chronic Problem Active UT ethmoidal ethmoidal Phys ici sinusitis sinusitis ans 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 ans 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 c epilepsy c epilepsy an s with with complex complex partial partial seizures, seizures, not not intractabl intractabl e, without e, without status status epilepticu epilepticu s s Intractabl Intractabl Problem Active U T e partial e partial Phys ici complex complex ans seizure seizure disorder disorder Obstructiv Obstructiv Problem Active U T e sleep e sleep Physici apnea apnea ans History of Past Illness Condition Condition Condition Status Onset Resolution Last Treating Co mments Source Name Details Category Date Date Treatment Clinician Date Unspecifie Unspecifi Problem 2021-12-26 2021-12-26 Memoria d ed 12-23 00:59:19 00:59:19 l convulsion convulsion 14:52: Miles burrows s 00 12/23/2021 12/26/2021 [facility] Sleep Sleep Problem 2021-12-26 2021-12-26 M juniorrielsie apnea, apnea, 12-23 00:59:19 00:59:19 l unspecifie unspecifie 14:52: He kathie mas d 00 12/23/2021 12/26/2021 [facility] Localized Localized Problem 2017-11-29 2017-11-29 Memoria swelling, swelling, -10 15:50:36 15:50:36 l mass and mass and 05:42: Deng lynn lump, head lump, head 45 08/26/2017 11/29/2017 IAIN FORMAN [place] Headache Headache Problem 2017-10-28 2017-10-28 Memoria 10/24/201710-24 00:56:56 00:56:56 l 10/28/2017 05:00: Deng TIMMONS [address] Localizati Localizat Problem 2016-11-05 2016-11-05 Memoria on-related ion-relate 11-02 05:01:34 05:01:34 l (focal) d (focal) 05:00: Deng n (partial) (partial) 00 symptomati symptomati c epilepsy c epilepsy and and epileptic epileptic syndromes syndromes with with simple simple partial partial seizures, seizures, not not intractabl intractabl e, without e, without status status epilepticu epilepticu s s 11/02/2016 7 [facility] Allergies, Adverse Reactions, Alerts Allergy Allergy Status Severity Reaction(s) Onset Inactive Treating Comm ents Source Name Type Date Date Clinician Phenytoi Propensi Active Other - See 2020-06 U nivers n ty to comments 07-26 ity of adverse 00:00: [place] reaction 00 Medical s Branch PHENYTOI DRUG Active Other-Cmnt 2020-06 Univ ers N INGREDI 07-26 ity of 00:00: [place] 00 Medical Branch Amoxicil Propensi Active Other - See Interfer e Univers allyssa ty to comments 07-20 s with ity of adverse 00:00: seizure [place] reaction 00 medicatio Medic al s n Branch AMOXICIL DRUG Active Other-Cmnt Univ ers ALLYSSA INGREDI 07-20 ity of 00:00: [place] 00 Medical Branch Amoxicil Drug Active Other UT allyssa-Pot Allergy 11-17 reaction( Healt h Clavulan 00:00: s): Other ate 00 - See comments, UnknownEl evated blood pressure and facial tremors Amoxicil Propensi Active Other - See Elevated Univers allyssa-Pot ty to comments 11-17 blood ity of Clavulan adverse 00:00: pressure [place] ate reaction 00 and Medical s facial Branch tremors AMOXICIL DRUG Active Other-Cmnt Univ ers ALLYSSA-POT 11-17 ity of CLAVULAN 00:00: [place] ATE 00 Medical Branch Potassiu Allergy Active Other UT m to 03-01 reaction( Health substanc 00:00: s): Other e 00 (See Comments) , Other - See commentsS eizure - Seizures as claimed by Potloydaieleuterio Propensi Active Other - See Seizure - Univers m ty to comments 03-01 Only with ity o f adverse 00:00: high [place] reaction 00 doses Medical s Branch POTASSIU DRUG Active Other-Cmnt 2010-0 Univ ers M INGREDI -13 ity of 00:00: [place] 00 Medical Branch potassiu potassiu Active Memori a m m l chloride chloride Deng n Augmenti Augmenti Active Memori a n n l [place] penicill penicill Active Memori a ins ins l [place] Dilantin Dilantin Active Memori a l [place] phenytoi phenytoi Active Unknown Commo n n n Spirit - [facility] amoxicil amoxicil Active Unknown Commo n allyssa allyssa Spirit - [facility] amoxicil amoxicil Active Unknown Commo n allyssa / allyssa / Spirit clavulan clavulan - [facility] ate ate [facility] Potassim Allergy Active UT in TABS to drug Physici (finding ans ) Social History Social Habit Start Date Stop Date Quantity Comments [facility] Alcohol Std Drinks History [facility] Health Alcohol Binge History [facility] Health Alcohol Comment History of Tobacco [facility] - Use [facility] Sex Assigned At [facility] ricardo - [facility] Exposure to 2022-09-24 2022-10-[address] [facility] SARS-CoV-2 (event) 00:00:00 00:05:00 [facility] Alcohol intake 2021-05-11 2021-05-11 Lifetime [facility] 00:00:00 00:00:00 non-drinker (finding) History SDOH 2021-05-11 2021-05-11 1 [facility] Alcohol Frequency 00:00:00 00:00:00 Cigarettes smoked 2018-06-21 2018-06-21 Univers ity of current (pack per 00:00:00 00:00:00 [facility] ) - Reported Branch Cigarette 2018-06-21 2018-06-21 University of pack-years 00:00:00 00:00:00 [facility] Tobacco use and 2018-06-21 2018-06-21 Smokeless Universit y of exposure 00:00:00 00:00:00 tobacco non-user [facility] dical [place] Social History 2016-11-02 2016-11-02 [facility] sil 18:47:08 18:47:08 Smoking Status Start Date Stop Date Source Never Smoker [facility] Ex-smoker 2018-06-21 00:00:00 2018-06-21 [facility] Branch Medications Ordered Filled Start Stop Current Ordering Indication Dosage Frequency Signature Comments Components Source Medication Medication Date Date Medication? Clinician (SIG) Name Name pilio No 10mg 10 mg, Uni vers ne 10-04 Oral, ity of (DECADRON 07:30: 06:35 ONCE, 1 [place] PHOSPHATE) 00 :00 dose, On Medic al injection Tue Branch 10 mg 10/04/22 at 0230, Routine ketorolac 2022- No 30mg 30 mg, Unive rs (TORADOL) 10-04 Intramuscu ity of injection 07:30: 06:35 lar, ONCE, [place] 30 mg 00 :00 1 dose, On Medical Tue Branch 10/04/22 at 0230, Routine methylPREDN Yes [id number] Take by Univers ISolone 10-04 mouth ity of (MEDROL, 00:00: SEE-INSTRU Wm as KOLTON,) 4 mg 00 CTIONS. Medica l tablets follow Branch package directions azithromyci Yes [id number] 250mg Take 1 Univers n 18 tablet by ity of (ZITHROMAX 00:00: mouth in Wm as Z-KOLTON) 250 00 the Medical mg tablet morning. Branch maalox:diph 2022- No 15mL 15 mL, Uni vers enhydrAMINE 08-20 Oral, ity of :lidocaine 01:45: 01:55 ONCE, 1 Wm as 2 % viscous 00 :00 dose, On Medi jac 1:1:1 Mon08/19/22 Branch (FIRST-MOUT at 1945, HWASH BLM) Routine oral suspension 15 mL famotidine 2022- No 20mg 20 mg, Univ ers (PEPCID 08-20 Slow IV ity of (PF)) 01:45: 01:54 Push, [place] injection 00 :00 ONCE, 1 Medical 20 mg dose, On Branch 08/19/22 at 1945, JEANETTE amLODIPine Yes 10 mg = 1 Me moria 10 mg oral 7-07 tab, PO, l tablet 15:03: Bedtime, 0 Kelsey nn 00 Refill(s) amLODIPine 2021-0 Yes 10 mg = 1 Me moria 10 mg oral 7-07 tab, PO, l tablet 15:03: Bedtime, 0 Kelsey nn 00 Refill(s) amLODIPine 2021-0 Yes 10 mg = 1 Me moria 10 mg oral 7-07 tab, PO, l tablet 15:03: Bedtime, 0 Kelsey nn 00 Refill(s) amLODIPine 2021-0 Yes 10 mg = 1 Me moria 10 mg oral 7-07 tab, PO, l tablet 15:03: Bedtime, 0 Kelsey nn 00 Refill(s) amLODIPine 2021-0 Yes 10 mg = 1 Me moria 10 mg oral 7-07 tab, PO, l tablet 15:03: Bedtime, 0 Kelsey nn 00 Refill(s) amLODIPine 2021-0 Yes 10 mg = 1 Me moria 10 mg oral 7-07 tab, PO, l tablet 15:03: Bedtime, 0 Kelsey nn 00 Refill(s) amLODIPine 2021-0 Yes 10 mg = 1 Me moria 10 mg oral 7-07 tab, PO, l tablet 15:03: Bedtime, 0 Kelsey nn 00 Refill(s) amLODIPine 2021-0 Yes 10 mg = 1 Me moria 10 mg oral 7-07 tab, PO, l tablet 15:03: Bedtime, 0 Kelsey nn 00 Refill(s) amLODIPine 2021-0 Yes [id number] 10mg Take 1 U nivers 10 mg 5-09 tablet by ity of tablet 00:00: mouth [place] 00 daily. Medical Branch amLODIPine 2021-0 Yes [id number] 10mg Take 1 U nivers 10 mg 5-09 tablet by ity of tablet 00:00: mouth [place] 00 daily. Medical Branch amLODIPine 2021-0 Yes [id number] 10mg Take 1 U nivers 10 mg 5-09 tablet by ity of tablet 00:00: mouth [place] 00 daily. Medical Branch gabapentin 2021-0 Yes [id number] 100mg Take 1 Univers 100 mg 3-10 capsule by ity of capsule 00:00: mouth 3 [place] 00 (three) Medical times Branch daily as needed for Pain (scale 4-6). gabapentin 2021-0 Yes [id number] 100mg Take 1 Univers 100 mg 3-10 capsule by ity of capsule 00:00: mouth 3 00 (three) Medical times Branch daily as needed for Pain (scale 4-6). gabapentin Yes [id number] 100mg Take 1 Univers 100 mg 3-10 capsule by ity of capsule 00:00: mouth 3 00 (three) Medical times Branch daily as needed for Pain (scale 4-6). gabapentin Yes [id number] 100mg Take 1 Univers 100 mg 3-10 capsule by ity of capsule 00:00: mouth 3 00 (three) Medical times Branch daily as needed for Pain (scale 4-6). gabapentin Yes [id number] 100mg Take 1 Univers 100 mg 3-10 capsule by ity of capsule 00:00: mouth 3 (three) Medical times Branch daily as needed for Pain (scale 4-6). lamoTRIgine 2023- No [id number] 100mg Q.5D Take 4 UT (LaMICtal) 07-17 01-30 tablets Healt h 25 MG 00:00: 05:59 (100 mg tablet 00 :00 total) by mouth 2 (two) times a day. Fluticasone 2020-06 Yes [id number] 1{spray Q.5D Administer [place] Propionate 2-21 } 1 spray Health (Xhance) 93 00:00: into each MCG/ACT 00 nostril 2 Exhaler (two) Suspension times a day. Fluticasone 2020-06 Yes [id number] 1{spray Q.5D Administer [place] Propionate 2-21 } 1 spray Health (Xhance) 93 00:00: into each MCG/ACT 00 nostril 2 Exhaler (two) Suspension times a day. ibuprofen 2020-06 Yes [id number] 600mg Take 1 Univers 600 mg 2-08 tablet by ity of tablet 00:00: mouth [place] 00 every 6 Medical (six) Branch hours as needed for Pain (scale 4-6). benzonatate 2020-06 Yes [id number] 100mg Take 1 Univers 100 mg 2-08 capsule by ity of capsule 00:00: mouth 3 00 (three) Medical times Branch daily as needed for Cough. ondansetron 2020-06 Yes [id number] 4mg Take 1 Univers (ZOFRAN 2-08 tablet by ity of ODT) 4 mg 00:00: mouth [place] disintegrat 00 every 8 Medic al ing tablet (eight) Branch hours as needed for Nausea and Vomiting (N/V). ibuprofen 2020-06 Yes [id number] 600mg Take 1 Univers 600 mg 2-08 tablet by ity of tablet 00:00: mouth [place] 00 every 6 Medical (six) Branch hours as needed for Pain (scale 4-6). benzonatate 2020-06 Yes [id number] 100mg Take 1 Univers 100 mg 2-08 capsule by ity of capsule 00:00: mouth 3 [place] 00 (three) Medical times Branch daily as needed for Cough. ondansetron 2020-06 Yes [id number] 4mg Take 1 Univers (ZOFRAN 2-08 tablet by ity of ODT) 4 mg 00:00: mouth [place] disintegrat 00 every 8 Medic al ing tablet (eight) Branch hours as needed for Nausea and Vomiting (N/V). ibuprofen 2020-06 Yes [id number] 600mg Take 1 Univers 600 mg 2-08 tablet by ity of tablet 00:00: mouth [place] 00 every 6 Medical (six) Branch hours as needed for Pain (scale 4-6). benzonatate 2020-06 Yes [id number] 100mg Take 1 Univers 100 mg 2-08 capsule by ity of capsule 00:00: mouth 3 [place] 00 (three) Medical times Branch daily as needed for Cough. ondansetron 2020-06 Yes [id number] 4mg Take 1 Univers (ZOFRAN 2-08 tablet by ity of ODT) 4 mg 00:00: mouth [place] disintegrat 00 every 8 Medic al ing tablet (eight) Branch hours as needed for Nausea and Vomiting (N/V). ibuprofen 2020-06 Yes [id number] 600mg Take 1 Univers 600 mg 2-08 tablet by ity of tablet 00:00: mouth [place] 00 every 6 Medical (six) Branch hours as needed for Pain (scale 4-6). benzonatate 2020-06 Yes [id number] 100mg Take 1 Univers 100 mg 2-08 capsule by ity of capsule 00:00: mouth 3 [place] 00 (three) Medical times Branch daily as needed for Cough. ondansetron 2020-06 Yes [id number] 4mg Take 1 Univers (ZOFRAN 2-08 tablet by ity of ODT) 4 mg 00:00: mouth [place] disintegrat 00 every 8 Medic al ing tablet (eight) Branch hours as needed for Nausea and Vomiting (N/V). ibuprofen 2020-06 Yes [id number] 600mg Take 1 Univers 600 mg 2-08 tablet by ity of tablet 00:00: mouth [place] 00 every 6 Medical (six) Branch hours as needed for Pain (scale 4-6). benzonatate 2020-06 Yes [id number] 100mg Take 1 Univers 100 mg 2-08 capsule by ity of capsule 00:00: mouth 3 [place] 00 (three) Medical times Branch daily as needed for Cough. ondansetron 2020-06 Yes [id number] 4mg Take 1 Univers (ZOFRAN 2-08 tablet by ity of ODT) 4 mg 00:00: mouth [place] disintegrat 00 every 8 Medic al ing tablet (eight) Branch hours as needed for Nausea and Vomiting (N/V). predniSONE 2020-06 Yes 75 Take 3 UT (Deltasone) 1-23 tablets by He alth 10 MG 00:00: mouth tablet 00 daily for 3 days then Take 2 tablets by mouth daily for 3 days then Take 1 tablets by mouth daily for 4 days predniSONE 2020-06 Yes 75 Take 3 UT (Deltasone) 1-23 tablets by He alth 10 MG 00:00: mouth tablet 00 daily for 3 days then Take 2 tablets by mouth daily for 3 days then Take 1 tablets by mouth daily for 4 days predniSONE 2020-06 Yes 75 Take 3 UT (Deltasone) 1-23 tablets by He alth 10 MG 00:00: mouth tablet 00 daily for 3 days then Take 2 tablets by mouth daily for 3 days then Take 1 tablets by mouth daily for 4 days fluticasone 2020-06- No [id number] 1{spray Q.5D Administer [facility] (Flonase) 07-11 } 1 spray Health 50 MCG/ACT 00:00: 05:59 into each nasal spray 00 :00 nostril 2 (two) times a day. Shake gently. Before first use, prime pump. After use, clean tip and replace cap. fluticasone 2020-06- No [id number] 1{spray Q.5D Administer [place] (Flonase) 07-11 } 1 spray Health 50 MCG/ACT 00:00: 05:59 into each nasal spray 00 :00 nostril 2 (two) times a day. Shake gently. Before first use, prime pump. After use, clean tip and replace cap. fluticasone 2020-06- No [id number] 1{spray Q.5D Administer [place] (Flonase) 07-11 } 1 spray Health 50 MCG/ACT 00:00: 05:59 into each nasal spray 00 :00 nostril 2 (two) times a day. Shake gently. Before first use, prime pump. After use, clean tip and replace cap. fluticasone 2020-06- No [id number] 1{spray Q.5D Administer [place] (Flonase) 07-11 } 1 spray Health 50 MCG/ACT 00:00: 05:59 into each nasal spray 00 :00 nostril 2 (two) times a day. Shake gently. Before first use, prime pump. After use, clean tip and replace cap. predniSONE 2020-06- No 75 Take 3 UT (Deltasone) 07-11 03-04 tablets by H ealth 10 MG 00:00: 00:00 mouth tablet 00 :00 daily for 3 days then Take 2 tablets by mouth daily for 3 days then Take 1 tablets by mouth daily for 4 days losartan 2020-06 Yes 100mg QD Take 100 [facility] (Cozaar) 1-04 mg by [facility] 100 MG 00:00: mouth 1 tablet 00 (one) time each day. losartan 2020-06 Yes 100mg QD Take 100 [facility] (Cozaar) 1-04 mg by Health 100 MG 00:00: mouth 1 tablet 00 (one) time each day. losartan 2020-06 Yes 100mg QD Take 100 [facility] (Cozaar) 1-04 mg by Health 100 MG 00:00: mouth 1 tablet 00 (one) time each day. losartan 2020-06 Yes 100mg QD Take 100 [facility] (Cozaar) 1-04 mg by Health 100 MG 00:00: mouth 1 tablet 00 (one) time each day. amLODIPine 2020-06 Yes 1{tbl} QD Take 1 [facility] (Norvasc) 0-01 tablet by Healt [facility] 10 MG 00:00: mouth 1 tablet 00 (one) time each day. amLODIPine 2020-06 Yes [id number] 10mg Take 1 U nivers 10 mg 0-01 tablet by ity of tablet 00:00: mouth [place] 00 daily. [facility] amLODIPine 2020-06 Yes [id number] 10mg Take 1 U nivers 10 mg 0-01 tablet by ity of tablet 00:00: mouth [place] 00 daily. [facility] amLODIPine 2020-06 Yes 1{tbl} QD Take 1 [facility] (Norvasc) 0-01 tablet by Healt [facility] 10 MG 00:00: mouth 1 tablet 00 (one) time each day. amLODIPine 2020-06 Yes 1{tbl} QD Take 1 [facility] (Norvasc) 0-01 tablet by [facility]alt [facility] 10 MG 00:00: mouth 1 tablet 00 (one) time each day. amLODIPine 2020-06 Yes 1{tbl} QD Take 1 [facility] (Norvasc) 0-01 tablet by Healt [facility] 10 MG 00:00: mouth 1 tablet 00 (one) time each day. amLODIPine 2020-06- No [id number] 10mg Take 1 [facility] 10 mg 0-01 05-09 tablet by ity of tablet 00:00: 00:00 mouth [place] 00 :00 daily. [facility] losartan Yes 100mg Take 1 [facility] 100 mg 4-21 tablet by ity of tablet 00:00: mouth [place] 00 daily. [facility] losartan Yes 100mg Take 1 [facility] 100 mg 4-21 tablet by ity of tablet 00:00: mouth [place] 00 daily. [facility] losartan Yes 100mg Take 1 [facility] 100 mg 4-21 tablet by ity of tablet 00:00: mouth [place] 00 daily. [facility] losartan Yes 100mg Take 1 [facility] 100 mg 4-21 tablet by ity of tablet 00:00: mouth [place] 00 daily. [facility] losartan 0 Yes 100mg Take 1 [facility] 100 mg 4-21 tablet by ity of tablet 00:00: mouth [place] 00 daily. [facility] levETIRAcet Yes 250mg Take 250 U nivers am (KEPPRA) 2-01 mg by ity of 250 mg 13:07: mouth 2 [place] tablet 07 (two) Medical times Branch daily. topiramate Yes 100mg Take 100 [facility] [place] (TOPAMAX) 2-01 mg by ity of 100 mg 13:07: mouth 2 [place] tablet 07 (two) Medical times Branch daily. levETIRAcet 1-0 Yes 250mg Take 250 U nivers am (KEPPRA) 2-01 mg by ity of 250 mg 13:07: mouth 2 [place] tablet 07 (two) Medical times [facility] daily. topiramate 2020-0 Yes 100mg Take 100 [facility] [place] (TOPAMAX) 2-01 mg by ity of 100 mg 13:07: mouth 2 [place] tablet 07 (two) Medical times [facility] daily. levETIRAcet 2020-0 Yes 250mg Take 250 U nivers am (KEPPRA) 2-01 mg by ity of 250 mg 13:07: mouth 2 [place] tablet 07 (two) Medical times [facility] daily. topiramate 2020-0 Yes 100mg Take 100 [facility] [place] (TOPAMAX) 2-01 mg by ity of 100 mg 13:07: mouth 2 [place] tablet 07 (two) Medical times Branch daily. levETIRAcet 2020-0 Yes 250mg Take 250 U nivers am (KEPPRA) 2-01 mg by ity of 250 mg 13:07: mouth 2 [place] tablet 07 (two) Medical times [facility] daily. topiramate 2020-0 Yes 100mg Take 100 [facility] [place] (TOPAMAX) 2-01 mg by ity of 100 mg 13:07: mouth 2 [place] tablet 07 (two) Medical times [facility] daily. levETIRAcet 2020-0 Yes 250mg Take 250 U nivers am (KEPPRA) 2-01 mg by ity of 250 mg 13:07: mouth 2 [place] tablet 07 (two) Medical times [facility] daily. topiramate 2020-0 Yes 100mg Take 100 [facility] [place] (TOPAMAX) 2-01 mg by ity of 100 mg 13:07: mouth 2 [place] tablet 07 (two) Medical times Branch daily. lamoTRIgine lamoTRIgine 2020-0 Yes FACUNDO Week 1 and UT 25 MG Oral 25 MG Oral 1-26 [facility] 2: 1 [facility] Tablet Tablet 00:00: M.D. tablet ans 00 dailyWeek 3 and 4: 1 tablets twice a dayWeek 5: 2 tablets twice a day lamoTRIgine lamoTRIgine 2021-0 Yes FACUNDO Q0.5D TAKE ONE UT 100 MG Oral 100 MG Oral - VIERA (1) Physici Tablet Tablet 00:00: M.D. TABLET(S) ans 00 BY MOUTH TWICE A DAY. levETIRAcet 2018-0 Yes Q12H every 12 [facility] am (Keppra) 9-30 (twelve) [facility]al [facility] 250 MG 00:00: hours. tablet 00 levETIRAcet 2018-0 Yes Q12H every 12 [facility] am (Keppra) 930 (twelve) [facility] 250 MG 00:00: hours. tablet 00 levETIRAcet 2018-0 Yes Q12H every 12 [facility] am (Keppra) 9-30 (twelve) [facility]al [facility] 250 MG 00:00: hours. tablet 00 levETIRAcet 0 Yes Q12H every 12 [facility] am (Keppra) 930 (twelve) [facility]al th 250 MG 00:00: hours. tablet 00 levETIRAcet levETIRAcet Yes FACUNDO Q0.5D TAKE ONE UT am 250 MG am 250 MG 03-18 [facility] (1) P [facility]ysici Oral Tablet Oral Tablet 00:00: M.D. TABLET(S) ans 00 BY MOUTH TWICE A DAY. remove No Notes: [facility]oria patch 8-06 Remove l 15:00: patch 12 [place] 00 hours after applicatio n each day. remove No Notes: [facility] patch 8-06 Remove l 15:00: patch 12 [place] 00 hours after applicatio n each day. remove No Notes: [facility] patch 8-06 Remove l 15:00: patch 12 [place] 00 hours after applicatio n each day. remove No Notes: [facility] patch 8-06 Remove l 15:00: patch 12 [place] 00 hours after applicatio n each day. remove No Notes: [facility] patch 8-06 Remove l 15:00: patch 12 [place] 00 hours after applicatio n each day. remove No Notes: [facility] patch 8-06 Remove l 15:00: patch 12 [place] 00 hours after applicatio n each day. remove No Notes: [facility] patch 8-06 Remove l 15:00: patch 12 [place] 00 hours after applicatio n each day. remove No Notes: [facility] patch 8-06 Remove l 15:00: patch 12 [place] 00 hours after applicatio n each day. Lidocaine No Notes: Memori a 0.05 MG/MG 8-06 Apply only l Transdermal 03:00: once for He rmann Patch 00 up to 12 hours in a 24-hour period (12 hours on and 12 hours off). (Same as: Lidoderm) "Remove old patch before applicatio n of new patch" Lidocaine No Notes: Memori a 0.05 MG/MG 8-06 Apply only l Transdermal 03:00: once for He rmann Patch 00 up to 12 hours in a 24-hour period (12 hours on and 12 hours off). (Same as: Lidoderm) "Remove old patch before applicatio n of new patch" Lidocaine No Notes: Memori a 0.05 MG/MG 8-06 Apply only l Transdermal 03:00: once for He rmann Patch 00 up to 12 hours in a 24-hour period (12 hours on and 12 hours off). (Same as: Lidoderm) "Remove old patch before applicatio n of new patch" Lidocaine No Notes: Memori a 0.05 MG/MG 8-06 Apply only l Transdermal 03:00: once for He rmann Patch 00 up to 12 hours in a 24-hour period (12 hours on and 12 hours off). (Same as: Lidoderm) "Remove old patch before applicatio n of new patch" Lidocaine No Notes: Memori a 0.05 MG/MG 8-06 Apply only l Transdermal 03:00: once for He rmann Patch 00 up to 12 hours in a 24-hour period (12 hours on and 12 hours off). (Same as: Lidoderm) "Remove old patch before applicatio n of new patch" Lidocaine No Notes: Memori a 0.05 MG/MG 8-06 Apply only l Transdermal 03:00: once for He rmann Patch 00 up to 12 hours in a 24-hour period (12 hours on and 12 hours off). (Same as: Lidoderm) "Remove old patch before applicatio n of new patch" Lidocaine No Notes: Memori a 0.05 MG/MG 8-06 Apply only l Transdermal 03:00: once for He rmann Patch 00 up to 12 hours in a 24-hour period (12 hours on and 12 hours off). (Same as: Lidoderm) "Remove old patch before applicatio n of new patch" Lidocaine No Notes: Memori a 0.05 MG/MG 8-06 Apply only l Transdermal 03:00: once for He rmann Patch 00 up to 12 hours in a 24-hour period (12 hours on and 12 hours off). (Same as: Lidoderm) "Remove old patch before applicatio n of new patch" Ibuprofen No Notes: Memori a 400 MG Oral 8-06 (Same as: l Tablet 02:41: Motrin) Reggie 00 "Do Not Crush" Give with food. tramadol No Notes: Not Mem oria hydrochlori 8-06 to exceed l de 50 MG 02:41: 400mg/day. Her canales Oral Tablet 00 (Same As: Ultram) Ibuprofen No Notes: Memori a 400 MG Oral 8-06 (Same as: l Tablet 02:41: Motrin) Reggie 00 "Do Not Crush" Give with food. tramadol No Notes: Not Mem oria hydrochlori 8-06 to exceed l de 50 MG 02:41: 400mg/day. Her canales Oral Tablet 00 (Same As: Ultram) Ibuprofen No Notes: Memori a 400 MG Oral 8-06 (Same as: l Tablet 02:41: Motrin) [place] 00 "Do Not Crush" Give with food. tramadol No Notes: Not Mem oria hydrochlori 8-06 to exceed l de 50 MG 02:41: 400mg/day. Her canales Oral Tablet 00 (Same As: Ultram) Ibuprofen No Notes: Memori a 400 MG Oral 8-06 (Same as: l Tablet 02:41: Motrin) [place] 00 "Do Not Crush" Give with food. tramadol No Notes: Not Mem oria hydrochlori 8-06 to exceed l de 50 MG 02:41: 400mg/day. Her canla[place] Oral Tablet 00 (Same As: Ultram) Ibuprofen No Notes: Memori a 400 MG Oral 8-06 (Same as: l Tablet 02:41: Motrin) [place] 00 "Do Not Crush" Give with food. tramadol No Notes: Not Mem oria hydrochlori 8-06 to exceed l de 50 MG 02:41: 400mg/day. Her canales Oral Tablet 00 (Same As: Ultram) Ibuprofen No Notes: Memori a 400 MG Oral 8-06 (Same as: l Tablet 02:41: Motrin) [place] 00 "Do Not Crush" Give with food. tramadol No Notes: Not Mem oria hydrochlori 8-06 to exceed l de 50 MG 02:41: 400mg/day. Her canales Oral Tablet 00 (Same As: Ultram) Ibuprofen No Notes: Memori a 400 MG Oral 8-06 (Same as: l Tablet 02:41: Motrin) [place] "Do Not Crush" Give with food. tramadol No Notes: Not Mem oria hydrochlori 8-06 to exceed l de 50 MG 02:41: 400mg/day. Her canales Oral Tablet 00 (Same As: Ultram) Ibuprofen No Notes: Memori a 400 MG Oral 8-06 (Same as: l Tablet 02:41: Motrin) [place] "Do Not Crush" Give with food. tramadol No Notes: Not Mem oria hydrochlori 8-06 to exceed l de 50 MG 02:41: 400mg/day. Her canales Oral Tablet 00 (Same As: Ultram) Tylenol No Notes: Do Memor ia 8-05 not exceed l 22:23: 4 gm/day. (Same as: Tylenol) Tylenol No Notes: Do Memor ia 8-05 not exceed l 22:23: 4 gm/day. [place] 00 (Same as: Tylenol) Tylenol No Notes: Do Memor ia 8-05 not exceed l 22:23: 4 gm/day. (Same as: Tylenol) Tylenol No Notes: Do Memor ia 8-05 not exceed l 22:23: 4 gm/day. (Same as: Tylenol) Tylenol No Notes: Do Memor ia 8-05 not exceed l 22:23: 4 gm/day. [place] 00 (Same as: Tylenol) Tylenol No Notes: Do Memor ia 805 not exceed l 22:23: 4 gm/day. [place] 00 (Same as: Tylenol) Tylenol No Notes: Do Memor ia 805 not exceed l 22:23: 4 gm/day. [place] 00 (Same as: Tylenol) Tylenol No Notes: Do Memor ia 8-05 not exceed l 22:23: 4 gm/day. (Same as: Tylenol) topiramate Yes 150 mg = 3 M emoria 50 MG Oral 6-12 tab, PO, l Tablet 16:25: Daily, # [place] [Topamax] 00 270 tab, 3 Refill(s), Pharmacy: [facility] Levetiracet Yes 250 mg = 1 Memoria am 250 MG 6-12 tab, PO, l Oral Tablet 16:25: Daily, # [place] r[place] [Keppra] 00 90 tab, 3 Refill(s), Pharmacy: [facility] topiramate Yes 150 mg = 3 M emoria 50 MG Oral 6-12 tab, PO, l Tablet 16:25: Daily, # [place] [Topamax] 00 270 tab, 3 Refill(s), Pharmacy: [facility] Levetiracet Yes 250 mg = 1 Memoria am 250 MG 6-12 tab, PO, l Oral Tablet 16:25: Daily, # He r[place] [Keppra] 00 90 tab, 3 Refill(s), Pharmacy: [facility] topiramate Yes 150 mg = 3 M emoria 50 MG Oral 6-12 tab, PO, l Tablet 16:25: Daily, # [place] [Topamax] 00 270 tab, 3 Refill(s), Pharmacy: [facility] Levetiracet Yes 250 mg = 1 Memoria am 250 MG 6-12 tab, PO, l Oral Tablet 16:25: Daily, # He r[place] [Keppra] 00 90 tab, 3 Refill(s), Pharmacy: [facility] topiramate Yes 150 mg = 3 M emoria 50 MG Oral 6-12 tab, PO, l Tablet 16:25: Daily, # [place] [Topamax] 00 270 tab, 3 Refill(s), Pharmacy: [facility] topiramate 2018 Yes 150 mg = 3 M emoria 50 MG Oral 6-12 tab, PO, l Tablet 16:25: Daily, # [place] [Topamax] 00 270 tab, 3 Refill(s), Pharmacy: [facility] Levetiracet Yes 250 mg = 1 Memoria am 250 MG 6-12 tab, PO, l Oral Tablet 16:25: Daily, # [place] rmann [Keppra] 00 90 tab, 3 Refill(s), Pharmacy: [facility] Levetiracet Yes 250 mg = 1 Memoria am 250 MG 6-12 tab, PO, l Oral Tablet 16:25: Daily, # [place] rmann [Keppra] 00 90 tab, 3 Refill(s), Pharmacy: [facility] topiramate Yes 150 mg = 3 M emoria 50 MG Oral 6-12 tab, PO, l Tablet 16:25: Daily, # [place] [Topamax] 00 270 tab, 3 Refill(s), Pharmacy: [facility] Levetiracet Yes 250 mg = 1 Memoria am 250 MG 6-12 tab, PO, l Oral Tablet 16:25: Daily, # [place] rmann [Keppra] 00 90 tab, 3 Refill(s), Pharmacy: [facility] topiramate Yes 150 mg = 3 M emoria 50 MG Oral 6-12 tab, PO, l Tablet 16:25: Daily, # [place] [Topamax] 00 270 tab, 3 Refill(s), Pharmacy: [facility] Levetiracet Yes 250 mg = 1 Memoria am 250 MG 6-12 tab, PO, l Oral Tablet 16:25: Daily, # [place] r[place] [Keppra] 00 90 tab, 3 Refill(s), Pharmacy: [facility] topiramate Yes 150 mg = 3 M emoria 50 MG Oral 6-12 tab, PO, l Tablet 16:25: Daily, # [place] [Topamax] 00 270 tab, 3 Refill(s), Pharmacy: [facility] [place] Levetiracet Yes 250 mg = 1 Memoria am 250 MG 6-12 tab, PO, l Oral Tablet 16:25: Daily, # He kathie [Keppra] 00 90 tab, 3 Refill(s), Pharmacy: [facility] [place] diclofenac Yes 25 mg = 1 Me moria sodium 25 5-08 tab, PO, l mg oral 12:31: BID, # 60 [place] nn enteric 00 tab, 0 coated, Refill(s) delayed-rel ease tablet diclofenac Yes 25 mg = 1 Me moria sodium 25 5-08 tab, PO, l mg oral 12:31: BID, # 60 [place] nn enteric 00 tab, 0 coated, Refill(s) delayed-rel ease tablet diclofenac Yes 25 mg = 1 Me moria sodium 25 5-08 tab, PO, l mg oral 12:31: BID, # 60 [place] nn enteric 00 tab, 0 coated, Refill(s) delayed-rel ease tablet diclofenac Yes 25 mg = 1 Me moria sodium 25 5-08 tab, PO, l mg oral 12:31: BID, # 60 [place] nn enteric 00 tab, 0 coated, Refill(s) delayed-rel ease tablet diclofenac Yes 25 mg = 1 Me moria sodium 25 5-08 tab, PO, l mg oral 12:31: BID, # 60 [place] nn enteric 00 tab, 0 coated, Refill(s) delayed-rel ease tablet diclofenac Yes 25 mg = 1 Me moria sodium 25 5-08 tab, PO, l mg oral 12:31: BID, # 60 [place] nn enteric 00 tab, 0 coated, Refill(s) delayed-rel ease tablet diclofenac Yes 25 mg = 1 Me moria sodium 25 5-08 tab, PO, l mg oral 12:31: BID, # 60 [place] nn enteric 00 tab, 0 coated, Refill(s) delayed-rel ease tablet diclofenac Yes 25 mg = 1 Me moria sodium 25 5-08 tab, PO, l mg oral 12:31: BID, # 60 [place] nn enteric 00 tab, 0 coated, Refill(s) delayed-rel ease tablet Acetaminoph No 1 tab, [place] audelia en 300 MG / 5-08 Route: PO, l Codeine 11:23: Drug Form: Herm eb Phosphate 00 TAB, 30 MG Oral Dosing Tablet Weight [Tylenol 128.182, with kg, ONCE, Codeine #3] STAT, Start date: 10/24/17 6:23:00 CDT, Stop date: 10/24/17 6:23:00 CDT Acetaminoph 2017-0 No 1 tab, [place] audelia en 300 MG / 5-08 Route: PO, l Codeine 11:23: Drug Form: Herm eb Phosphate 00 TAB, 30 MG Oral Dosing Tablet Weight [Tylenol 128.182, with kg, ONCE, Codeine #3] STAT, Start date: 10/24/17 6:23:00 CDT, Stop date: 10/24/17 6:23:00 CDT Acetaminoph 2017-0 No 1 tab, [place] audelia en 300 MG / 5-08 Route: PO, l Codeine 11:23: Drug Form: Herm eb Phosphate 00 TAB, 30 MG Oral Dosing Tablet Weight [Tylenol 128.182, with kg, ONCE, Codeine #3] STAT, Start date: 10/24/17 6:23:00 CDT, Stop date: 10/24/17 6:23:00 CDT Acetaminoph 0 No 1 tab, [place] audelia en 300 MG / 5-08 Route: PO, l Codeine 11:23: Drug Form: Herm eb Phosphate 00 TAB, 30 MG Oral Dosing Tablet Weight [Tylenol 128.182, with kg, ONCE, Codeine #3] STAT, Start date: 10/24/17 6:23:00 CDT, Stop date: 10/24/17 6:23:00 CDT Acetaminoph 2017-0 No 1 tab, [place] audelia en 300 MG / 5-08 Route: PO, l Codeine 11:23: Drug Form: Herm eb Phosphate 00 TAB, 30 MG Oral Dosing Tablet Weight [Tylenol 128.182, with kg, ONCE, Codeine #3] STAT, Start date: 10/24/17 6:23:00 CDT, Stop date: 10/24/17 6:23:00 CDT Acetaminoph 2017-0 No 1 tab, [place] audelia en 300 MG / 5-08 Route: PO, l Codeine 11:23: Drug Form: Herm eb Phosphate 00 TAB, 30 MG Oral Dosing Tablet Weight [Tylenol 128.182, with kg, ONCE, Codeine #3] STAT, Start date: 10/24/17 6:23:00 CDT, Stop date: 10/24/17 6:23:00 CDT Acetaminoph 2018-0 No 1 tab, [place] audelia en 300 MG / 5-08 Route: PO, l Codeine 11:23: Drug Form: Herm eb Phosphate 00 TAB, 30 MG Oral Dosing Tablet Weight [Tylenol 128.182, with kg, ONCE, Codeine #3] STAT, Start date: 10/24/17 6:23:00 CDT, Stop date: 10/24/17 6:23:00 CDT Acetaminoph 2018-0 No 1 tab, [place] audelia en 300 MG / 5-08 Route: PO, l Codeine 11:23: Drug Form: Herm eb Phosphate 00 TAB, 30 MG Oral Dosing Tablet Weight [Tylenol 128.182, with kg, ONCE, Codeine #3] STAT, Start date: 10/24/17 6:23:00 CDT, Stop date: 10/24/17 6:23:00 CDT Tylenol 2017-0 No Notes: Do Memor ia 5-08 not exceed l 09:17: 4 gm/day. (Same as: Tylenol) Tylenol 0 No Notes: Do Memor ia 5-08 not exceed l 09:17: 4 gm/day. (Same as: Tylenol) Tylenol 0 No Notes: Do Memor ia 5-08 not exceed l 09:17: 4 gm/day. (Same as: Tylenol) Tylenol 0 No Notes: Do Memor ia 5-08 not exceed l 09:17: 4 gm/day. (Same as: Tylenol) Tylenol 2017-0 No Notes: Do Memor ia 5-08 not exceed l 09:17: 4 gm/day. (Same as: Tylenol) Tylenol 2017-0 No Notes: Do Memor ia 5-08 not exceed l 09:17: 4 gm/day. (Same as: Tylenol) Tylenol 0 No Notes: Do Memor ia 5-08 not exceed l 09:17: 4 gm/day. [place] 00 (Same as: Tylenol) Tylenol 2018-0 No Notes: Do Memor ia 5-08 not exceed l 09:17: 4 gm/day. (Same as: Tylenol) Fentanyl 2018-0 No 50 Memoria 5-08 microgram, l 09:13: Route: Reggie 00 IVP, ONCE, Dosing Weight 128.182, kg, Priority: STAT, Start date: 10/24/17 4:13:00 CDT, Stop date: 10/24/17 4:13:00 CDT Fentanyl 2018-0 No 50 Memoria 5-08 microgram, l 09:13: Route: [place] 00 IVP, ONCE, Dosing Weight 128.182, kg, Priority: STAT, Start date: 10/24/17 4:13:00 CDT, Stop date: 10/24/17 4:13:00 CDT Fentanyl 2018-0 No 50 Memoria 5-08 microgram, l 09:13: Route: [place] 00 IVP, ONCE, Dosing Weight 128.182, kg, Priority: STAT, Start date: 10/24/17 4:13:00 CDT, Stop date: 10/24/17 4:13:00 CDT Fentanyl 2018-0 No 50 Memoria 5-08 microgram, l 09:13: Route: [place] 00 IVP, ONCE, Dosing Weight 128.182, kg, Priority: STAT, Start date: 10/24/17 4:13:00 CDT, Stop date: 10/24/17 4:13:00 CDT Fentanyl 2018-0 No 50 Memoria 5-08 microgram, l 09:13: Route: [place] 00 IVP, ONCE, Dosing Weight 128.182, kg, Priority: STAT, Start date: 10/24/17 4:13:00 CDT, Stop date: 10/24/17 4:13:00 CDT Fentanyl 2018-0 No 50 Memoria 5-08 microgram, l 09:13: Route: [place] 00 IVP, ONCE, Dosing Weight 128.182, kg, Priority: STAT, Start date: 10/24/17 4:13:00 CDT, Stop date: 10/24/17 4:13:00 CDT Fentanyl 2018-0 No 50 Memoria 5-08 microgram, l 09:13: Route: [place] 00 IVP, ONCE, Dosing Weight 128.182, kg, Priority: STAT, Start date: 10/24/17 4:13:00 CDT, Stop date: 10/24/17 4:13:00 CDT Fentanyl 2018-0 No 50 Memoria 5-08 microgram, l 09:13: Route: [place] 00 IVP, ONCE, Dosing Weight 128.182, kg, Priority: STAT, Start date: 10/24/17 4:13:00 CDT, Stop date: 10/24/17 4:13:00 CDT Acetaminoph Yes 1 tab, PO, Memoria en 300 MG / 5-04 Q6H, PRN l Codeine 16:27: Pain, X 7 [place] nn Phosphate 00 day, # 28 30 MG Oral tab, 0 Tablet Refill(s) [Tylenol with Codeine #3] Acetaminoph Yes 1 tab, PO, Memoria en 300 MG / 5-04 Q6H, PRN l Codeine 16:27: Pain, X 7 [place] nn Phosphate 00 day, # 28 30 MG Oral tab, 0 Tablet Refill(s) [Tylenol with Codeine #3] Acetaminoph Yes 1 tab, PO, Memoria en 300 MG / 5-04 Q6H, PRN l Codeine 16:27: Pain, X 7 [place] nn Phosphate 00 day, # 28 30 MG Oral tab, 0 Tablet Refill(s) [Tylenol with Codeine #3] Acetaminoph Yes 1 tab, PO, Memoria en 300 MG / 5-04 Q6H, PRN l Codeine 16:27: Pain, X 7 [place] nn Phosphate 00 day, # 28 30 MG Oral tab, 0 Tablet Refill(s) [Tylenol with Codeine #3] Acetaminoph Yes 1 tab, PO, Memoria en 300 MG / 5-04 Q6H, PRN l Codeine 16:27: Pain, X 7 [place] nn Phosphate 00 day, # 28 30 MG Oral tab, 0 Tablet Refill(s) [Tylenol with Codeine #3] Acetaminoph Yes 1 tab, PO, Memoria en 300 MG / 5-04 Q6H, PRN l Codeine 16:27: Pain, X 7 [place] nn Phosphate 00 day, # 28 30 MG Oral tab, 0 Tablet Refill(s) [Tylenol with Codeine #3] Acetaminoph 2018-0 Yes 1 tab, PO, Memoria en 300 MG / 5-04 Q6H, PRN l Codeine 16:27: Pain, X 7 [place] nn Phosphate 00 day, # 28 30 MG Oral tab, 0 Tablet Refill(s) [Tylenol with Codeine #3] Acetaminoph 0 Yes 1 tab, PO, Memoria en 300 MG / 5-04 Q6H, PRN l Codeine 16:27: Pain, X 7 [place] nn Phosphate 00 day, # 28 30 MG Oral tab, 0 Tablet Refill(s) [Tylenol with Codeine #3] Ondansetron 2018 Yes 8 mg = 1 Me moria 8 MG Oral 5-04 tab, PO, l Tablet 14:29: TID, PRN [place] [Zofran] 00 Nausea & Vomiting, # 10 tab, 0 Refill(s) tramadol No 50 mg = 1 [place] audelia hydrochlori 5-04 tab, PO, l de 50 MG 14:29: Q4H, PRN [place] nn Oral Tablet 00 pain, X 7 day, # 30 tab, 0 Refill(s) Ondansetron 2018 Yes 8 mg = 1 Me moria 8 MG Oral 5-04 tab, PO, l Tablet 14:29: TID, PRN [place] [Zofran] 00 Nausea & Vomiting, # 10 tab, 0 Refill(s) tramadol No 50 mg = 1 [place] audelia hydrochlori 5-04 tab, PO, l de 50 MG 14:29: Q4H, PRN [place] nn Oral Tablet 00 pain, X 7 day, # 30 tab, 0 Refill(s) Ondansetron Yes 8 mg = 1 Me moria 8 MG Oral 5-04 tab, PO, l Tablet 14:29: TID, PRN [place] [Zofran] 00 Nausea & Vomiting, # 10 tab, 0 Refill(s) tramadol 0 No 50 mg = 1 [place] audelia hydrochlori 5-04 tab, PO, l de 50 MG 14:29: Q4H, PRN [place] nn Oral Tablet 00 pain, X 7 day, # 30 tab, 0 Refill(s) Ondansetron 2018-0 Yes 8 mg = 1 Me moria 8 MG Oral 5-04 tab, PO, l Tablet 14:29: TID, PRN [place] [Zofran] 00 Nausea & Vomiting, # 10 tab, 0 Refill(s) tramadol 2018-0 No 50 mg = 1 [place] audelia hydrochlori 5-04 tab, PO, l de 50 MG 14:29: Q4H, PRN [place] nn Oral Tablet 00 pain, X 7 day, # 30 tab, 0 Refill(s) Ondansetron 2018-0 Yes 8 mg = 1 Me moria 8 MG Oral 5-04 tab, PO, l Tablet 14:29: TID, PRN [place] [Zofran] 00 Nausea & Vomiting, # 10 tab, 0 Refill(s) tramadol 2018-0 No 50 mg = 1 [place] audelia hydrochlori 5-04 tab, PO, l de 50 MG 14:29: Q4H, PRN [place] nn Oral Tablet 00 pain, X 7 day, # 30 tab, 0 Refill(s) Ondansetron 2018-0 Yes 8 mg = 1 Me moria 8 MG Oral 5-04 tab, PO, l Tablet 14:29: TID, PRN [place] [Zofran] 00 Nausea & Vomiting, # 10 tab, 0 Refill(s) tramadol 2018-0 No 50 mg = 1 [place] audelia hydrochlori 5-04 tab, PO, l de 50 MG 14:29: Q4H, PRN [place] nn Oral Tablet 00 pain, X 7 day, # 30 tab, 0 Refill(s) Ondansetron 2018-0 Yes 8 mg = 1 Me moria 8 MG Oral 5-04 tab, PO, l Tablet 14:29: TID, PRN [place] [Zofran] 00 Nausea & Vomiting, # 10 tab, 0 Refill(s) tramadol 2018-0 No 50 mg = 1 [place] audelia hydrochlori 5-04 tab, PO, l de 50 MG 14:29: Q4H, PRN [place] nn Oral Tablet 00 pain, X 7 day, # 30 tab, 0 Refill(s) Ondansetron 2018-0 Yes 8 mg = 1 Me moria 8 MG Oral 5-04 tab, PO, l Tablet 14:29: TID, PRN [place] [Zofran] 00 Nausea & Vomiting, # 10 tab, 0 Refill(s) tramadol No 50 mg = 1 [place] audelia hydrochlori 5-04 tab, PO, l de 50 MG 14:29: Q4H, PRN [place] nn Oral Tablet 00 pain, X 7 day, # 30 tab, 0 Refill(s) Losartan No Notes: Memoria 5-04 (Same as: l 14:00: Cozaar) Losartan No Notes: Memoria 5-04 (Same as: l 14:00: Cozaar) Losartan No Notes: [facility]oria 5-04 (Same as: l 14:00: Cozaar) Losartan No Notes: [facility]oria 5-04 (Same as: l 14:00: Cozaar) Losartan No Notes: [facility]oria 5-04 (Same as: l 14:00: Cozaar) Losartan No Notes: [facility] 5-04 (Same as: l 14:00: Cozaar) Losartan No Notes: [facility]oria 5-04 (Same as: l 14:00: Cozaar) Losartan No Notes: [facility] 5-04 (Same as: l 14:00: Cozaar) clindamycin Yes 300 mg = 1 [facility] 300 mg oral 5-04 cap, PO, l capsule 11:10: Q6H, X 7 Deng n 00 day, # 28 cap, 0 Refill(s) clindamycin 0 Yes 300 mg = 1 [facility] 300 mg oral 5-04 cap, PO, l capsule 11:10: Q6H, X 7 Deng n 00 day, # 28 cap, 0 Refill(s) clindamycin 2018-0 Yes 300 mg = 1 [facility] 300 mg oral 5-04 cap, PO, l capsule 11:10: Q6H, X 7 Deng n 00 day, # 28 cap, 0 Refill(s) clindamycin 0 Yes 300 mg = 1 [facility] 300 mg oral 5-04 cap, PO, l capsule 11:10: Q6H, X 7 Deng n 00 day, # 28 cap, 0 Refill(s) clindamycin 2018-0 Yes 300 mg = 1 [facility] 300 mg oral 5-04 cap, PO, l capsule 11:10: Q6H, X 7 Deng n 00 day, # 28 cap, 0 Refill(s) clindamycin 2018-0 Yes 300 mg = 1 [facility] 300 mg oral 5-04 cap, PO, l capsule 11:10: Q6H, X 7 Deng n 00 day, # 28 cap, 0 Refill(s) clindamycin 2018-0 Yes 300 mg = 1 [facility] 300 mg oral 5-04 cap, PO, l capsule 11:10: Q6H, X 7 Edng n 00 day, # 28 cap, 0 Refill(s) clindamycin 2018-0 Yes 300 mg = 1 [facility] 300 mg oral 5-04 cap, PO, l capsule 11:10: Q6H, X 7 Deng n 00 day, # 28 cap, 0 Refill(s) Topamax 2018-0 No Notes: [facility] 5-04 (Same As: l 02:59: Topamax) [place] "Do Not Crush" Keppra No Notes: [facility] 5-04 (Same l 02:59: as:Keppra) Reggie Topamax No Notes: Memoria 5-04 (Same As: l 02:59: Topamax) [place] "Do Not Crush" Keppra No Notes: Memoria 5-04 (Same l 02:59: as:Keppra) [place] 00 Topamax 0 No Notes: Memoria 5-04 (Same As: l 02:59: Topamax) [place] 00 "Do Not Crush" Keppra 0 No Notes: Memoria 5-04 (Same l 02:59: as:Keppra) [place] 00 Topamax 2017-0 No Notes: [facility]oria 5-04 (Same As: l 02:59: Topamax) [place] "Do Not Crush" Keppra 0 No Notes: Memoria 5-04 (Same l 02:59: as:Keppra) [place] 00 Topamax 0 No Notes: [facility]oria 5-04 (Same As: l 02:59: Topamax) [place] 00 "Do Not Crush" Keppra 2017-0 No Notes: [facility] 5-04 (Same l 02:59: as:Keppra) [place] 00 Topamax 2017-0 No Notes: [facility]oria 5-04 (Same As: l 02:59: Topamax) [place] 00 "Do Not Crush" Keppra No Notes: [facility] 5-04 (Same l 02:59: as:Keppra) [place] 00 Topamax 2017- No Notes: [facility] 5-04 (Same As: l 02:59: Topamax) [place] 00 "Do Not Crush" Keppra No Notes: [facility]oria 5-04 (Same l 02:59: as:Keppra) [place] 00 Topamax No Notes: [facility] 5-04 (Same As: l 02:59: Topamax) [place] 00 "Do Not Crush" Keppra No Notes: [facility] 5-04 (Same l 02:59: as:Keppra) [place] 00 Cleocin HCl 2017- No Notes: [place] aud[facility] 5-03 (clindamyc l 22:00: in 150 [place] 00 mg/1 ml (600 mg/4 ml VL) INJ) (Same As: Cleocin) Cleocin HCl 0 No Notes: [place] aud[place] 5-03 (clindamyc l 22:00: in 150 [place] 00 mg/1 ml (600 mg/4 ml VL) INJ) (Same As: Cleocin) Cleocin HCl 2017-0 No Notes: [place] aud[place] 5-03 (clindamyc l 22:00: in 150 [place] 00 mg/1 ml (600 mg/4 ml VL) INJ) (Same As: Cleocin) Cleocin HCl 2017-0 No Notes: [place] aud[place] 5-03 (clindamyc l 22:00: in 150 [place] 00 mg/1 ml (600 mg/4 ml VL) INJ) (Same As: Cleocin) Cleocin HCl 2017-0 No Notes: [place] [facility] 5-03 (clindamyc l 22:00: in 150 [place] 00 mg/1 ml (600 mg/4 ml VL) INJ) (Same As: Cleocin) Cleocin HCl 2017-0 No Notes: [place] aud[place] 5-03 (clindamyc l 22:00: in 150 [place] 00 mg/1 ml (600 mg/4 ml VL) INJ) (Same As: Cleocin) Cleocin HCl 2017-0 No Notes: [place] aud[place] 5-03 (clindamyc l 22:00: in 150 [place] 00 mg/1 ml (600 mg/4 ml VL) INJ) (Same As: Cleocin) Cleocin HCl 2017-0 No Notes: [place] aud[place] 5-03 (clindamyc l 22:00: in 150 [place] 00 mg/1 ml (600 mg/4 ml VL) INJ) (Same As: Cleocin) glycopyrrol 2017-0 No Route: IV, Memoria ate (ANES) 5-03 Drug form: l 17:07: INJ, ONCE, Stop date: 10/19/17 12:07:00 CDT ondansetron 2017-0 No Route: IV, [facility] (ANES) 5-03 Drug form: l 17:07: INJ, ONCE, Stop date: 10/19/17 12:07:00 CDT neostigmine 2017-0 No Route: IV, [facility] (ANES) 5-03 Drug form: l 17:07: INJ, ONCE, Stop date: 10/19/17 12:07:00 CDT glycopyrrol 2017-0 No Route: IV, Memoria ate (ANES) 5-03 Drug form: l 17:07: INJ, ONCE, Stop date: 10/19/17 12:07:00 CDT ondansetron 2017-0 No Route: IV, [facility] (ANES) 5-03 Drug form: l 17:07: INJ, ONCE, Stop date: 10/19/17 12:07:00 CDT neostigmine 2018-0 No Route: IV, [facility] (ANES) 5-03 Drug form: l 17:07: INJ, ONCE, Stop date: 10/19/17 12:07:00 CDT glycopyrrol 2017-0 No Route: IV, Memoria ate (ANES) 5-03 Drug form: l 17:07: INJ, ONCE, Stop date: 10/19/17 12:07:00 CDT ondansetron 2018-0 No Route: IV, [facility] (ANES) 5-03 Drug form: l 17:07: INJ, ONCE, [place] 00 Stop date: 10/19/17 12:07:00 CDT neostigmine 2018-0 No Route: IV, [facility] (ANES) 5-03 Drug form: l 17:07: INJ, ONCE, [place] 00 Stop date: 10/19/17 12:07:00 CDT glycopyrrol 2018-0 No Route: IV, Memoria ate (ANES) 5- Drug form: l 17:07: INJ, ONCE, Stop date: 10/19/17 12:07:00 CDT ondansetron 2018-0 No Route: IV, [facility] (ANES) 5-03 Drug form: l 17:07: INJ, ONCE, Stop date: 10/19/17 12:07:00 CDT neostigmine 2018-0 No Route: IV, [facility] (ANES) 5-03 Drug form: l 17:07: INJ, ONCE, Stop date: 10/19/17 12:07:00 CDT glycopyrrol 2018-0 No Route: IV, Memoria ate (ANES) 5-03 Drug form: l 17:07: INJ, ONCE, Stop date: 10/19/17 12:07:00 CDT glycopyrrol 2018-0 No Route: IV, Memoria ate (ANES) 5-03 Drug form: l 17:07: INJ, ONCE, Stop date: 10/19/17 12:07:00 CDT ondansetron 2018-0 No Route: IV, [facility] (ANES) 5-03 Drug form: l 17:07: INJ, ONCE, [place] 00 Stop date: 10/19/17 12:07:00 CDT neostigmine 2018-0 No Route: IV, [facility] (ANES) 5-03 Drug form: l 17:07: INJ, ONCE, [place] 00 Stop date: 10/19/17 12:07:00 CDT ondansetron 2018-0 No Route: IV, [facility] (ANES) 5-03 Drug form: l 17:07: INJ, ONCE, [place] 00 Stop date: 10/19/17 12:07:00 CDT neostigmine 2018-0 No Route: IV, [facility] (ANES) 5-03 Drug form: l 17:07: INJ, ONCE, Stop date: 10/19/17 12:07:00 CDT glycopyrrol 2018-0 No Route: IV, Memoria ate (ANES) 5- Drug form: l 17:07: INJ, ONCE, Stop date: 10/19/17 12:07:00 CDT ondansetron 2018-0 No Route: IV, [facility] (ANES) 5-03 Drug form: l 17:07: INJ, ONCE, Stop date: 10/19/17 12:07:00 CDT neostigmine 2018-0 No Route: IV, [facility] (ANES) 5- Drug form: l 17:07: INJ, ONCE, Stop date: 10/19/17 12:07:00 CDT glycopyrrol 2018-0 No Route: IV, Memoria ate (ANES) 5- Drug form: l 17:07: INJ, ONCE, Stop date: 10/19/17 12:07:00 CDT ondansetron 2018-0 No Route: IV, [facility] (ANES) 5-03 Drug form: l 17:07: INJ, ONCE, Stop date: 10/19/17 12:07:00 CDT neostigmine 2018-0 No Route: IV, [facility] (ANES) 5-03 Drug form: l 17:07: INJ, ONCE, Stop date: 10/19/17 12:07:00 CDT Clindamycin 2017-0 No 600 mg, Mem oria - Route: l 17:00: IVPB, [place] 00 ABXQ8H, Dosing Weight 130.455, kg, Start date: 10/19/17 12:00:00 CDT, Duration: 10 day, Stop date: 10/29/17 4:00:00 CDT, ABX Indication : Open Wound Prophylaxi s Clindamycin 2017-0 No 600 mg, Mem oria 5- Route: l 17:00: IVPB, ABXQ8H, Dosing Weight 130.455, kg, Start date: 10/19/17 12:00:00 CDT, Duration: 10 day, Stop date: 10/29/17 4:00:00 CDT, ABX Indication : Open Wound Prophylaxi s Clindamycin 2018-0 No 600 mg, Mem oria 5-03 Route: l 17:00: IVPB, [place] 00 ABXQ8H, Dosing Weight 130.455, kg, Start date: 10/19/17 12:00:00 CDT, Duration: 10 day, Stop date: 10/29/17 4:00:00 CDT, ABX Indication : Open Wound Prophylaxi s Clindamycin 2018-0 No 600 mg, Mem oria 5-03 Route: l 17:00: IVPB, [place] 00 ABXQ8H, Dosing Weight 130.455, kg, Start date: 10/19/17 12:00:00 CDT, Duration: 10 day, Stop date: 10/29/17 4:00:00 CDT, ABX Indication : Open Wound Prophylaxi s Clindamycin 2018-0 No 600 mg, Mem oria 5-03 Route: l 17:00: IVPB, [place] 00 ABXQ8H, Dosing Weight 130.455, kg, Start date: 10/19/17 12:00:00 CDT, Duration: 10 day, Stop date: 10/29/17 4:00:00 CDT, ABX Indication : Open Wound Prophylaxi s Clindamycin 2018-0 No 600 mg, Mem oria 5-03 Route: l 17:00: IVPB, [place] 00 ABXQ8H, Dosing Weight 130.455, kg, Start date: 10/19/17 12:00:00 CDT, Duration: 10 day, Stop date: 10/29/17 4:00:00 CDT, ABX Indication : Open Wound Prophylaxi s Clindamycin 2018-0 No 600 mg, Mem oria 5-03 Route: l 17:00: IVPB, [place] 00 ABXQ8H, Dosing Weight 130.455, kg, Start date: 10/19/17 12:00:00 CDT, Duration: 10 day, Stop date: 10/29/17 4:00:00 CDT, ABX Indication : Open Wound Prophylaxi s Clindamycin No 600 mg, Mem oria 5-03 Route: l 17:00: IVPB, [place] 00 ABXQ8H, Dosing Weight 130.455, kg, Start date: 10/19/17 12:00:00 CDT, Duration: 10 day, Stop date: 10/29/17 4:00:00 CDT, ABX Indication : Open Wound Prophylaxi s Ondansetron No Notes: [place] aud[facility] 5-03 (Same as: l 16:46: Zofran) [place] 00 MEDICATION WASTE Product Size: 4 mg Product Wasted: __0_ mg Acetaminoph No Notes: Do M emoria en 5-03 not exceed l 16:46: 4 gm/day. [place] (Same as: Tylenol) Acetaminoph No Notes: [place] audelia en 325 MG / 5-03 (Same as: l Hydrocodone 16:46: [place] nn Bitartrate 00 325/5) Do 5 MG Oral not exceed Tablet 4gm/day of acetaminop hen. Morphine No Notes: [facility] 5-03 (Same l 16:46: as:MORPhin [place] 00 e Sulfate) Ondansetron No Notes: [place] aud[place] 5-03 (Same as: l 16:46: Zofran) [place] 00 MEDICATION WASTE Product Size: 4 mg Product Wasted: __0_ mg Acetaminoph No Notes: Do M emoria en 5-03 not exceed l 16:46: 4 gm/day. [place] 00 (Same as: Tylenol) Acetaminoph No Notes: [place] aud[place] en 325 MG / 5-03 (Same as: l Hydrocodone 16:46: [place] nn Bitartrate 00 325/5) Do 5 MG Oral not exceed Tablet 4gm/day of acetaminop hen. Morphine No Notes: [facility] 5-03 (Same l 16:46: as:MORPhin [place] 00 e Sulfate) Ondansetron No Notes: [place] aud[place] 5-03 (Same as: l 16:46: Zofran) [place] 00 MEDICATION WASTE Product Size: 4 mg Product Wasted: __0_ mg Acetaminoph No Notes: Do M emoria en 5-03 not exceed l 16:46: 4 gm/day. [place] 00 (Same as: Tylenol) Acetaminoph No Notes: [place] en 325 MG / 5-03 (Same as: l Hydrocodone 16:46: [place] nn Bitartrate 00 325/5) Do 5 MG Oral not exceed Tablet 4gm/day of acetaminop hen. Morphine No Notes: [facility] 5-03 (Same l 16:46: as:MORPhin [place] 00 e Sulfate) Ondansetron No Notes: [place] 5-03 (Same as: l 16:46: Zofran) [place] 00 MEDICATION WASTE Product Size: 4 mg Product Wasted: __0_ mg Acetaminoph No Notes: Do M emoria en 5- not exceed l 16:46: 4 gm/day. [place] (Same as: Tylenol) Acetaminoph No Notes: [place] en 325 MG / 5-03 (Same as: l Hydrocodone 16:46: [place] nn Bitartrate 00 325/5) Do 5 MG Oral not exceed Tablet 4gm/day of acetaminop hen. Morphine No Notes: [facility] 5- (Same l 16:46: as:MORPhin [place] 00 e Sulfate) Ondansetron No Notes: [place] 5-03 (Same as: l 16:46: Zofran) [place] 00 MEDICATION WASTE Product Size: 4 mg Product Wasted: __0_ mg Acetaminoph No Notes: Do M emoria en 5-03 not exceed l 16:46: 4 gm/day. [place] 00 (Same as: Tylenol) Acetaminoph No Notes: [place] en 325 MG / 5-03 (Same as: l Hydrocodone 16:46: [place] nn Bitartrate 00 325/5) Do 5 MG Oral not exceed Tablet 4gm/day of acetaminop hen. Morphine No Notes: [facility] 5-03 (Same l 16:46: as:MORPhin [place] 00 e Sulfate) Ondansetron No Notes: [place] [facility] 5-03 (Same as: l 16:46: Zofran) [place] 00 MEDICATION WASTE Product Size: 4 mg Product Wasted: __0_ mg Acetaminoph No Notes: Do M emoria en 5-03 not exceed l 16:46: 4 gm/day. [place] (Same as: Tylenol) Acetaminoph No Notes: [place] en 325 MG / 5-03 (Same as: l Hydrocodone 16:46: [place] nn Bitartrate 00 325/5) Do 5 MG Oral not exceed Tablet 4gm/day of acetaminop hen. Morphine No Notes: [facility] 5-03 (Same l 16:46: as:MORPhin [place] 00 e Sulfate) Ondansetron No Notes: [place] 5-03 (Same as: l 16:46: Zofran) [place] 00 MEDICATION WASTE Product Size: 4 mg Product Wasted: __0_ mg Acetaminoph No Notes: Do M emoria en 5- not exceed l 16:46: 4 gm/day. [place] (Same as: Tylenol) Acetaminoph No Notes: [place] aud[place] en 325 MG / 5-03 (Same as: l Hydrocodone 16:46: [place] nn Bitartrate 00 325/5) Do 5 MG Oral not exceed Tablet 4gm/day of acetaminop hen. Morphine No Notes: [facility] 5-03 (Same l 16:46: as:MORPhin [place] 00 e Sulfate) Ondansetron No Notes: [place] [facility] 5-03 (Same as: l 16:46: Zofran) [place] 00 MEDICATION WASTE Product Size: 4 mg Product Wasted: __0_ mg Acetaminoph No Notes: Do M emoria en 5-03 not exceed l 16:46: 4 gm/day. [place] 00 (Same as: Tylenol) Acetaminoph No Notes: [place] en 325 MG / 5-03 (Same as: l Hydrocodone 16:46: [place] nn Bitartrate 00 325/5) Do 5 MG Oral not exceed Tablet 4gm/day of acetaminop hen. Morphine No Notes: [facility] 5- (Same l 16:46: as:MORPhin [place] 00 e Sulfate) acetaminoph No Route: IV, Mem[facility] en (ANES) 10-19 Drug form: l 15:15: INJ, ONCE, [place] 00 Stop date: 10/19/17 10:15:00 CDT acetaminoph No Route: IV, Mem[facility] en (ANES) 10-19 Drug form: l 15:15: INJ, ONCE, [place] 00 Stop date: 10/19/17 10:15:00 CDT acetaminoph No Route: IV, [facility] en (ANES) 10-19 Drug form: l 15:15: INJ, ONCE, [place] 00 Stop date: 10/19/17 10:15:00 CDT acetaminoph No Route: IV, Mem[facility] en (ANES) 10-19 Drug form: l 15:15: INJ, ONCE, [place] 00 Stop date: 10/19/17 10:15:00 CDT acetaminoph No Route: IV, Mem[facility] en (ANES) 10-19 Drug form: l 15:15: INJ, ONCE, [place] 00 Stop date: 10/19/17 10:15:00 CDT acetaminoph No Route: IV, Mem[facility] en (ANES) - Drug form: l 15:15: INJ, ONCE, [place] 00 Stop date: 10/19/17 10:15:00 CDT acetaminoph 0 No Route: IV, Mem[facility] en (ANES) 5- Drug form: l 15:15: INJ, ONCE, [place] Stop date: 10/19/17 10:15:00 CDT acetaminoph No Route: IV, Mem[facility] en (ANES) 5- Drug form: l 15:15: INJ, ONCE, [place] 00 Stop date: 10/19/17 10:15:00 CDT fentaNYL No Route: IV, Mem oria (ANES) 10-19 Drug form: l 15:00: INJ, ONCE, [place] 00 Stop date: 10/19/17 10:00:00 CDT propofol 2018-0 No Route: IV, Mem oria (ANES) 5-03 Drug form: l 15:00: INJ, ONCE, [place] 00 Stop date: 10/19/17 10:00:00 CDT rocuronium 2018-0 No Route: IV, M emoria (ANES) 5-03 Drug form: l 15:00: INJ, ONCE, Stop date: 10/19/17 10:00:00 CDT midazolam 2018-0 No Route: IV, Me moria (ANES) 5-03 Drug form: l 15:00: SOLN, [place] ONCE, Stop date: 10/19/17 10:00:00 CDT lidocaine 2018-0 No Route: IV, Me moria (ANES) 5-03 Drug form: l 15:00: INJ, ONCE, Stop date: 10/19/17 10:00:00 CDT fentaNYL 2018-0 No Route: IV, Mem oria (ANES) 5-03 Drug form: l 15:00: INJ, ONCE, Stop date: 10/19/17 10:00:00 CDT propofol 2018-0 No Route: IV, Mem oria (ANES) 5-03 Drug form: l 15:00: INJ, ONCE, [place] 00 Stop date: 10/19/17 10:00:00 CDT rocuronium 2018-0 No Route: IV, M emoria (ANES) 5-03 Drug form: l 15:00: INJ, ONCE, [place] 00 Stop date: 10/19/17 10:00:00 CDT midazolam 2018-0 No Route: IV, Me moria (ANES) 5-03 Drug form: l 15:00: SOLN, [place] ONCE, Stop date: 10/19/17 10:00:00 CDT lidocaine 2018-0 No Route: IV, Me moria (ANES) 5-03 Drug form: l 15:00: INJ, ONCE, [place] 00 Stop date: 10/19/17 10:00:00 CDT fentaNYL 2018-0 No Route: IV, Mem oria (ANES) 5-03 Drug form: l 15:00: INJ, ONCE, [place] 00 Stop date: 10/19/17 10:00:00 CDT propofol 2018-0 No Route: IV, Mem oria (ANES) 5-03 Drug form: l 15:00: INJ, ONCE, [place] 00 Stop date: 10/19/17 10:00:00 CDT rocuronium 2018-0 No Route: IV, M emoria (ANES) 5-03 Drug form: l 15:00: INJ, ONCE, Stop date: 10/19/17 10:00:00 CDT midazolam 2018-0 No Route: IV, Me moria (ANES) 5-03 Drug form: l 15:00: SOLN, [place] ONCE, Stop date: 10/19/17 10:00:00 CDT lidocaine 2018-0 No Route: IV, Me moria (ANES) 5-03 Drug form: l 15:00: INJ, ONCE, Stop date: 10/19/17 10:00:00 CDT fentaNYL 2018-0 No Route: IV, Mem oria (ANES) 5-03 Drug form: l 15:00: INJ, ONCE, Stop date: 10/19/17 10:00:00 CDT propofol 2018-0 No Route: IV, Mem oria (ANES) 5-03 Drug form: l 15:00: INJ, ONCE, Stop date: 10/19/17 10:00:00 CDT rocuronium 2018-0 No Route: IV, M emoria (ANES) 5-03 Drug form: l 15:00: INJ, ONCE, Stop date: 10/19/17 10:00:00 CDT midazolam 2018-0 No Route: IV, Me moria (ANES) 5-03 Drug form: l 15:00: SOLN, [place] ONCE, Stop date: 10/19/17 10:00:00 CDT lidocaine 2018-0 No Route: IV, Me moria (ANES) 5-03 Drug form: l 15:00: INJ, ONCE, [place] 00 Stop date: 10/19/17 10:00:00 CDT fentaNYL 2018-0 No Route: IV, Mem oria (ANES) 5-03 Drug form: l 15:00: INJ, ONCE, [place] 00 Stop date: 10/19/17 10:00:00 CDT propofol 2018-0 No Route: IV, Mem oria (ANES) 5-03 Drug form: l 15:00: INJ, ONCE, [place] 00 Stop date: 10/19/17 10:00:00 CDT rocuronium 2018-0 No Route: IV, M emoria (ANES) 5-03 Drug form: l 15:00: INJ, ONCE, Stop date: 10/19/17 10:00:00 CDT midazolam 2018-0 No Route: IV, Me moria (ANES) 5- Drug form: l 15:00: SOLN, [place] 00 ONCE, Stop date: 10/19/17 10:00:00 CDT lidocaine 2018-0 No Route: IV, Me moria (ANES) 5-03 Drug form: l 15:00: INJ, ONCE, Stop date: 10/19/17 10:00:00 CDT fentaNYL 2018-0 No Route: IV, Mem oria (ANES) 5- Drug form: l 15:00: INJ, ONCE, Stop date: 10/19/17 10:00:00 CDT propofol 2018-0 No Route: IV, Mem oria (ANES) 5-03 Drug form: l 15:00: INJ, ONCE, Stop date: 10/19/17 10:00:00 CDT rocuronium 2018-0 No Route: IV, M emoria (ANES) 5-03 Drug form: l 15:00: INJ, ONCE, Stop date: 10/19/17 10:00:00 CDT midazolam 2018-0 No Route: IV, Me moria (ANES) 5-03 Drug form: l 15:00: SOLN, [place] ONCE, Stop date: 10/19/17 10:00:00 CDT lidocaine 2018-0 No Route: IV, Me moria (ANES) 5-03 Drug form: l 15:00: INJ, ONCE, [place] 00 Stop date: 10/19/17 10:00:00 CDT fentaNYL 2018-0 No Route: IV, Mem oria (ANES) 5-03 Drug form: l 15:00: INJ, ONCE, [place] 00 Stop date: 10/19/17 10:00:00 CDT propofol 2018-0 No Route: IV, Mem oria (ANES) 5- Drug form: l 15:00: INJ, ONCE, Stop date: 10/19/17 10:00:00 CDT rocuronium 2018-0 No Route: IV, M emoria (ANES) 5- Drug form: l 15:00: INJ, ONCE, Stop date: 10/19/17 10:00:00 CDT midazolam 2018-0 No Route: IV, Me moria (ANES) 5- Drug form: l 15:00: SOLN, [place] 00 ONCE, Stop date: 10/19/17 10:00:00 CDT lidocaine 2018-0 No Route: IV, Me moria (ANES) 5- Drug form: l 15:00: INJ, ONCE, Stop date: 10/19/17 10:00:00 CDT fentaNYL 2018-0 No Route: IV, Mem oria (ANES) 5- Drug form: l 15:00: INJ, ONCE, Stop date: 10/19/17 10:00:00 CDT propofol 2018-0 No Route: IV, Mem oria (ANES) 5- Drug form: l 15:00: INJ, ONCE, Stop date: 10/19/17 10:00:00 CDT rocuronium 2018-0 No Route: IV, M emoria (ANES) 5-03 Drug form: l 15:00: INJ, ONCE, Stop date: 10/19/17 10:00:00 CDT midazolam 2018-0 No Route: IV, Me moria (ANES) 5- Drug form: l 15:00: SOLN, ONCE, Stop date: 10/19/17 10:00:00 CDT lidocaine 2018-0 No Route: IV, Me moria (ANES) 5-03 Drug form: l 15:00: INJ, ONCE, Stop date: 10/19/17 10:00:00 CDT metoclopram 2018-0 No Route: IV, Memoria noel (ANES) 5- Drug form: l 14:55: INJ, ONCE, Stop date: 10/19/17 9:55:00 CDT dexamethaso 2018-0 No Route: IV, Memoria ne (ANES) 5- Drug form: l 14:55: INJ, ONCE, Stop date: 10/19/17 9:55:00 CDT famotidine 2018-0 No Route: IV, M emoria (ANES) 5- Drug form: l 14:55: INJ, ONCE, Stop date: 10/19/17 9:55:00 CDT metoclopram 2018-0 No Route: IV, Memoria noel (ANES) 5- Drug form: l 14:55: INJ, ONCE, Stop date: 10/19/17 9:55:00 CDT dexamethaso 2018-0 No Route: IV, Memoria ne (ANES) 5- Drug form: l 14:55: INJ, ONCE, Stop date: 10/19/17 9:55:00 CDT famotidine 2017-0 No Route: IV, M emoria (ANES) 5- Drug form: l 14:55: INJ, ONCE, Stop date: 10/19/17 9:55:00 CDT metoclopram 2018-0 No Route: IV, Memoria noel (ANES) 5-03 Drug form: l 14:55: INJ, ONCE, Stop date: 10/19/17 9:55:00 CDT dexamethaso 2018-0 No Route: IV, Memoria ne (ANES) 5-03 Drug form: l 14:55: INJ, ONCE, Stop date: 10/19/17 9:55:00 CDT famotidine 2018-0 No Route: IV, M emoria (ANES) 5-03 Drug form: l 14:55: INJ, ONCE, Stop date: 10/19/17 9:55:00 CDT metoclopram 2018-0 No Route: IV, Memoria noel (ANES) 5-03 Drug form: l 14:55: INJ, ONCE, Stop date: 10/19/17 9:55:00 CDT dexamethaso 2018-0 No Route: IV, Memoria ne (ANES) 5-03 Drug form: l 14:55: INJ, ONCE, Stop date: 10/19/17 9:55:00 CDT famotidine 2018-0 No Route: IV, M emoria (ANES) 5- Drug form: l 14:55: INJ, ONCE, Stop date: 10/19/17 9:55:00 CDT metoclopram 2018-0 No Route: IV, Memoria noel (ANES) 5- Drug form: l 14:55: INJ, ONCE, Stop date: 10/19/17 9:55:00 CDT dexamethaso 2018-0 No Route: IV, Memoria ne (ANES) 5- Drug form: l 14:55: INJ, ONCE, Stop date: 10/19/17 9:55:00 CDT famotidine 2018-0 No Route: IV, M emoria (ANES) 5- Drug form: l 14:55: INJ, ONCE, Stop date: 10/19/17 9:55:00 CDT metoclopram 2018-0 No Route: IV, Memoria noel (ANES) 5- Drug form: l 14:55: INJ, ONCE, Stop date: 10/19/17 9:55:00 CDT metoclopram 2018-0 No Route: IV, Memoria noel (ANES) 5- Drug form: l 14:55: INJ, ONCE, Stop date: 10/19/17 9:55:00 CDT dexamethaso 2017-0 No Route: IV, Memoria ne (ANES) 5- Drug form: l 14:55: INJ, ONCE, Stop date: 10/19/17 9:55:00 CDT famotidine 2017-0 No Route: IV, M emoria (ANES) 5- Drug form: l 14:55: INJ, ONCE, Stop date: 10/19/17 9:55:00 CDT dexamethaso 2018-0 No Route: IV, Memoria ne (ANES) 5- Drug form: l 14:55: INJ, ONCE, Stop date: 10/19/17 9:55:00 CDT famotidine 2018-0 No Route: IV, M emoria (ANES) 5-03 Drug form: l 14:55: INJ, ONCE, Stop date: 10/19/17 9:55:00 CDT metoclopram 2018-0 No Route: IV, Memoria noel (ANES) 5-03 Drug form: l 14:55: INJ, ONCE, Stop date: 10/19/17 9:55:00 CDT dexamethaso 2017-0 No Route: IV, Memoria ne (ANES) 5-03 Drug form: l 14:55: INJ, ONCE, Stop date: 10/19/17 9:55:00 CDT famotidine 2017-0 No Route: IV, M emoria (ANES) 5-03 Drug form: l 14:55: INJ, ONCE, Stop date: 10/19/17 9:55:00 CDT morphine 2017-0 No Route: IV, Mem oria Sulfate 5-03 Drug form: l (ANES) 14:40: INJ, ONCE, [place] Stop date: 10/19/17 9:40:00 CDT clindamycin 2017-0 No Route: IV, Memoria (ANES) 5-03 Drug form: l 14:40: INJ, ONCE, Stop date: 10/19/17 9:40:00 CDT morphine 2018-0 No Route: IV, Mem oria Sulfate 5-03 Drug form: l (ANES) 14:40: INJ, ONCE, [place] Stop date: 10/19/17 9:40:00 CDT clindamycin 2018-0 No Route: IV, Memoria (ANES) 5-03 Drug form: l 14:40: INJ, ONCE, Stop date: 10/19/17 9:40:00 CDT morphine 2018-0 No Route: IV, Mem oria Sulfate 5-03 Drug form: l (ANES) 14:40: INJ, ONCE, [place] Stop date: 10/19/17 9:40:00 CDT clindamycin 2018-0 No Route: IV, Memoria (ANES) 5-03 Drug form: l 14:40: INJ, ONCE, [place] 00 Stop date: 10/19/17 9:40:00 CDT morphine 2017-0 No Route: IV, Mem oria Sulfate 5-03 Drug form: l (ANES) 14:40: INJ, ONCE, [place] nn Stop date: 10/19/17 9:40:00 CDT clindamycin 2017-0 No Route: IV, Memoria (ANES) 5-03 Drug form: l 14:40: INJ, ONCE, [place] Stop date: 10/19/17 9:40:00 CDT morphine 2017-0 No Route: IV, Mem oria Sulfate 5-03 Drug form: l (ANES) 14:40: INJ, ONCE, [place] nn Stop date: 10/19/17 9:40:00 CDT clindamycin 2017-0 No Route: IV, Memoria (ANES) 5-03 Drug form: l 14:40: INJ, ONCE, [place] 00 Stop date: 10/19/17 9:40:00 CDT morphine 2017-0 No Route: IV, Mem oria Sulfate 5-03 Drug form: l (ANES) 14:40: INJ, ONCE, [place] Stop date: 10/19/17 9:40:00 CDT clindamycin 0 No Route: IV, Memoria (ANES) 5-03 Drug form: l 14:40: INJ, ONCE, [place] 00 Stop date: 10/19/17 9:40:00 CDT morphine 2017-0 No Route: IV, Mem oria Sulfate 5-03 Drug form: l (ANES) 14:40: INJ, ONCE, [place] nn Stop date: 10/19/17 9:40:00 CDT clindamycin 2017-0 No Route: IV, Memoria (ANES) 5-03 Drug form: l 14:40: INJ, ONCE, [place] Stop date: 10/19/17 9:40:00 CDT morphine 2017-0 No Route: IV, Mem oria Sulfate 5-03 Drug form: l (ANES) 14:40: INJ, ONCE, [place] nn Stop date: 10/19/17 9:40:00 CDT clindamycin 0 No Route: IV, Memoria (ANES) 5-03 Drug form: l 14:40: INJ, ONCE, [place] Stop date: 10/19/17 9:40:00 CDT Flumazenil 2018-0 No 0.2 mg, [place] audelia 5-03 Route: l 14:29: IVP, PRN, [place] 00 Dosing Weight 130.455, kg, PRN Benzodiaze pine Reversal, Initial dose, Start date: 10/19/17 9:29:00 CDT, Duration: 30 day, Stop date: 11/18/17 9:28:00 CDT Morphine 2018-0 No 4 mg, Memoria 5-03 Route: l 14:29: IVP, [place] 00 Q5Min, Dosing Weight 130.455, kg, PRN Pain Score 7-10, Start date: 10/19/17 9:29:00 CDT, Duration: 3 doses or times, Stop date: Limited # of times Labetalol 2018-0 No 10 mg, Memori a 5-03 Route: l 14:29: IVP, [place] 00 Q5Min, Dosing Weight 130.455, kg, PRN Elevated BP, Start date: 10/19/17 9:29:00 CDT, Duration: 5 doses or times, Stop date: Limited # of times Hydralazine 2018-0 No 10 mg, [place] audelia 5-03 Route: l 14:29: IVP, [place] 00 Q20Min, Dosing Weight 130.455, kg, PRN Elevated BP, Start date: 10/19/17 9:29:00 CDT, Duration: 2 doses or times, Stop date: Limited # of times Fentanyl 2018-0 No 25 Memoria 5-03 microgram, l 14:29: Route: [place] 00 IVP, Q5Min, Dosing Weight 130.455, kg, PRN Pain Score 4-6, Priority: Routine, Start date: 10/19/17 9:29:00 CDT, Duration: 4 doses or times, Stop date: Limited # of times Naloxone 2018-0 No 0.4 mg, Memori a 5-03 Route: l 14:29: IVP, [place] 00 Q2MIN, Dosing Weight 130.455, kg, PRN Narcotic Reversal, Start date: 10/19/17 9:29:00 CDT, Duration: 8 doses or times, Stop date: Limited # of times Flumazenil 2018-0 No 0.2 mg, [place] audelia 5-03 Route: l 14:29: IVP, PRN, [place] 00 Dosing Weight 130.455, kg, PRN Benzodiaze pine Reversal, Initial dose, Start date: 10/19/17 9:29:00 CDT, Duration: 30 day, Stop date: 11/18/17 9:28:00 CDT Morphine 2018-0 No 4 mg, [facility]oria 5-03 Route: l 14:29: IVP, [place] 00 Q5Min, Dosing Weight 130.455, kg, PRN Pain Score 7-10, Start date: 10/19/17 9:29:00 CDT, Duration: 3 doses or times, Stop date: Limited # of times Labetalol 2018-0 No 10 mg, Memori a 5-03 Route: l 14:29: IVP, [place] 00 Q5Min, Dosing Weight 130.455, kg, PRN Elevated BP, Start date: 10/19/17 9:29:00 CDT, Duration: 5 doses or times, Stop date: Limited # of times Hydralazine 2018-0 No 10 mg, [place] audelia 5-03 Route: l 14:29: IVP, [place] 00 Q20Min, Dosing Weight 130.455, kg, PRN Elevated BP, Start date: 10/19/17 9:29:00 CDT, Duration: 2 doses or times, Stop date: Limited # of times Fentanyl 2018-0 No 25 Memoria 5-03 microgram, l 14:29: Route: Reggie 00 IVP, Q5Min, Dosing Weight 130.455, kg, PRN Pain Score 4-6, Priority: Routine, Start date: 10/19/17 9:29:00 CDT, Duration: 4 doses or times, Stop date: Limited # of times Naloxone 2018-0 No 0.4 mg, Memori a 5-03 Route: l 14:29: IVP, [place] 00 Q2MIN, Dosing Weight 130.455, kg, PRN Narcotic Reversal, Start date: 10/19/17 9:29:00 CDT, Duration: 8 doses or times, Stop date: Limited # of times Flumazenil 2018-0 No 0.2 mg, [place] audelia 5-03 Route: l 14:29: IVP, PRN, Reggie 00 Dosing Weight 130.455, kg, PRN Benzodiaze pine Reversal, Initial dose, Start date: 10/19/17 9:29:00 CDT, Duration: 30 day, Stop date: 11/18/17 9:28:00 CDT Morphine 2018-0 No 4 mg, Memoria 5-03 Route: l 14:29: IVP, [place] 00 Q5Min, Dosing Weight 130.455, kg, PRN Pain Score 7-10, Start date: 10/19/17 9:29:00 CDT, Duration: 3 doses or times, Stop date: Limited # of times Labetalol 2018-0 No 10 mg, Memori a 5-03 Route: l 14:29: IVP, [place] 00 Q5Min, Dosing Weight 130.455, kg, PRN Elevated BP, Start date: 10/19/17 9:29:00 CDT, Duration: 5 doses or times, Stop date: Limited # of times Hydralazine 2018-0 No 10 mg, [place] audelia 5-03 Route: l 14:29: IVP, Reg[place] 00 Q20Min, Dosing Weight 130.455, kg, PRN Elevated BP, Start date: 10/19/17 9:29:00 CDT, Duration: 2 doses or times, Stop date: Limited # of times Fentanyl 2018-0 No 25 Memoria 5-03 microgram, l 14:29: Route: [place] 00 IVP, Q5Min, Dosing Weight 130.455, kg, PRN Pain Score 4-6, Priority: Routine, Start date: 10/19/17 9:29:00 CDT, Duration: 4 doses or times, Stop date: Limited # of times Naloxone 2018-0 No 0.4 mg, Memori a 5-03 Route: l 14:29: IVP, [place] 00 Q2MIN, Dosing Weight 130.455, kg, PRN Narcotic Reversal, Start date: 10/19/17 9:29:00 CDT, Duration: 8 doses or times, Stop date: Limited # of times Flumazenil 2018-0 No 0.2 mg, [place] audelia 5-03 Route: l 14:29: IVP, PRN, Reg[place] 00 Dosing Weight 130.455, kg, PRN Benzodiaze pine Reversal, Initial dose, Start date: 10/19/17 9:29:00 CDT, Duration: 30 day, Stop date: 11/18/17 9:28:00 CDT Morphine 2018-0 No 4 mg, [facility] 5-03 Route: l 14:29: IVP, [place] 00 Q5Min, Dosing Weight 130.455, kg, PRN Pain Score 7-10, Start date: 10/19/17 9:29:00 CDT, Duration: 3 doses or times, Stop date: Limited # of times Labetalol 2018-0 No 10 mg, [facility] a 5-03 Route: l 14:29: IVP, [place] 00 Q5Min, Dosing Weight 130.455, kg, PRN Elevated BP, Start date: 10/19/17 9:29:00 CDT, Duration: 5 doses or times, Stop date: Limited # of times Hydralazine 2018-0 No 10 mg, [place] audelia 5-03 Route: l 14:29: IVP, [place] 00 Q20Min, Dosing Weight 130.455, kg, PRN Elevated BP, Start date: 10/19/17 9:29:00 CDT, Duration: 2 doses or times, Stop date: Limited # of times Fentanyl 2018-0 No 25 Mem[facility] 5-03 microgram, l 14:29: Route: Reg[place] 00 IVP, Q5Min, Dosing Weight 130.455, kg, PRN Pain Score 4-6, Priority: Routine, Start date: 10/19/17 9:29:00 CDT, Duration: 4 doses or times, Stop date: Limited # of times Naloxone 2018-0 No 0.4 mg, [facility] a 5-03 Route: l 14:29: IVP, [place] 00 Q2MIN, Dosing Weight 130.455, kg, PRN Narcotic Reversal, Start date: 10/19/17 9:29:00 CDT, Duration: 8 doses or times, Stop date: Limited # of times Flumazenil 2018-0 No 0.2 mg, [place] audelia 5-03 Route: l 14:29: IVP, PRN, Reg[place] 00 Dosing Weight 130.455, kg, PRN Benzodiaze pine Reversal, Initial dose, Start date: 10/19/17 9:29:00 CDT, Duration: 30 day, Stop date: 11/18/17 9:28:00 CDT Morphine 2018-0 No 4 mg, [facility] 5-03 Route: l 14:29: IVP, [place] 00 Q5Min, Dosing Weight 130.455, kg, PRN Pain Score 7-10, Start date: 10/19/17 9:29:00 CDT, Duration: 3 doses or times, Stop date: Limited # of times Labetalol 2018-0 No 10 mg, [facility] a 5-03 Route: l 14:29: IVP, [place] 00 Q5Min, Dosing Weight 130.455, kg, PRN Elevated BP, Start date: 10/19/17 9:29:00 CDT, Duration: 5 doses or times, Stop date: Limited # of times Hydralazine 2018-0 No 10 mg, [place] audelia 5-03 Route: l 14:29: IVP, [place] 00 Q20Min, Dosing Weight 130.455, kg, PRN Elevated BP, Start date: 10/19/17 9:29:00 CDT, Duration: 2 doses or times, Stop date: Limited # of times Fentanyl 2018-0 No 25 [facility] 5-03 microgram, l 14:29: Route: [place] 00 IVP, Q5Min, Dosing Weight 130.455, kg, PRN Pain Score 4-6, Priority: Routine, Start date: 10/19/17 9:29:00 CDT, Duration: 4 doses or times, Stop date: Limited # of times Naloxone 2018-0 No 0.4 mg, [facility] a 5-03 Route: l 14:29: IVP, [place] 00 Q2MIN, Dosing Weight 130.455, kg, PRN Narcotic Reversal, Start date: 10/19/17 9:29:00 CDT, Duration: 8 doses or times, Stop date: Limited # of times Flumazenil 2018-0 No 0.2 mg, [place] audelia 5-03 Route: l 14:29: IVP, PRN, [place] 00 Dosing Weight 130.455, kg, PRN Benzodiaze pine Reversal, Initial dose, Start date: 10/19/17 9:29:00 CDT, Duration: 30 day, Stop date: 11/18/17 9:28:00 CDT Morphine 2018-0 No 4 mg, [facility] 5-03 Route: l 14:29: IVP, [place] 00 Q5Min, Dosing Weight 130.455, kg, PRN Pain Score 7-10, Start date: 10/19/17 9:29:00 CDT, Duration: 3 doses or times, Stop date: Limited # of times Labetalol 2018-0 No 10 mg, [facility] a 5-03 Route: l 14:29: IVP, [place] 00 Q5Min, Dosing Weight 130.455, kg, PRN Elevated BP, Start date: 10/19/17 9:29:00 CDT, Duration: 5 doses or times, Stop date: Limited # of times Hydralazine 2018-0 No 10 mg, [place] audelia 5- Route: l 14:29: IVP, [place] 00 Q20Min, Dosing Weight 130.455, kg, PRN Elevated BP, Start date: 10/19/17 9:29:00 CDT, Duration: 2 doses or times, Stop date: Limited # of times Fentanyl 2018-0 No 25 [facility] 5-03 microgram, l 14:29: Route: [place] 00 IVP, Q5Min, Dosing Weight 130.455, kg, PRN Pain Score 4-6, Priority: Routine, Start date: 10/19/17 9:29:00 CDT, Duration: 4 doses or times, Stop date: Limited # of times Naloxone 2018-0 No 0.4 mg, [facility] a 5- Route: l 14:29: IVP, [place] 00 Q2MIN, Dosing Weight 130.455, kg, PRN Narcotic Reversal, Start date: 10/19/17 9:29:00 CDT, Duration: 8 doses or times, Stop date: Limited # of times Flumazenil 2018-0 No 0.2 mg, [place] audelia 5-03 Route: l 14:29: IVP, PRN, [place] 00 Dosing Weight 130.455, kg, PRN Benzodiaze pine Reversal, Initial dose, Start date: 10/19/17 9:29:00 CDT, Duration: 30 day, Stop date: 11/18/17 9:28:00 CDT Morphine 2018-0 No 4 mg, [facility] 5-03 Route: l 14:29: IVP, [place] 00 Q5Min, Dosing Weight 130.455, kg, PRN Pain Score 7-10, Start date: 10/19/17 9:29:00 CDT, Duration: 3 doses or times, Stop date: Limited # of times Labetalol 2018-0 No 10 mg, [facility] a 5-03 Route: l 14:29: IVP, [place] 00 Q5Min, Dosing Weight 130.455, kg, PRN Elevated BP, Start date: 10/19/17 9:29:00 CDT, Duration: 5 doses or times, Stop date: Limited # of times Hydralazine 2018-0 No 10 mg, [place] audelia 5-03 Route: l 14:29: IVP, [place] 00 Q20Min, Dosing Weight 130.455, kg, PRN Elevated BP, Start date: 10/19/17 9:29:00 CDT, Duration: 2 doses or times, Stop date: Limited # of times Fentanyl 2018-0 No 25 [facility] 5-03 microgram, l 14:29: Route: [place] 00 IVP, Q5Min, Dosing Weight 130.455, kg, PRN Pain Score 4-6, Priority: Routine, Start date: 10/19/17 9:29:00 CDT, Duration: 4 doses or times, Stop date: Limited # of times Naloxone 2018-0 No 0.4 mg, [facility] a 5-03 Route: l 14:29: IVP, [place] 00 Q2MIN, Dosing Weight 130.455, kg, PRN Narcotic Reversal, Start date: 10/19/17 9:29:00 CDT, Duration: 8 doses or times, Stop date: Limited # of times Labetalol 2018-0 No 10 mg, [facility] a 5-03 Route: l 14:29: IVP, [place] 00 Q5Min, Dosing Weight 130.455, kg, PRN Elevated BP, Start date: 10/19/17 9:29:00 CDT, Duration: 5 doses or times, Stop date: Limited # of times Hydralazine 2018-0 No 10 mg, [place] audelia 5-03 Route: l 14:29: IVP, [place] 00 Q20Min, Dosing Weight 130.455, kg, PRN Elevated BP, Start date: 10/19/17 9:29:00 CDT, Duration: 2 doses or times, Stop date: Limited # of times Fentanyl 2018-0 No 25 [facility] 5-03 microgram, l 14:29: Route: [place] 00 IVP, Q5Min, Dosing Weight 130.455, kg, PRN Pain Score 4-6, Priority: Routine, Start date: 10/19/17 9:29:00 CDT, Duration: 4 doses or times, Stop date: Limited # of times Naloxone 2018-0 No 0.4 mg, [facility] a 5-03 Route: l 14:29: IVP, [place] 00 Q2MIN, Dosing Weight 130.455, kg, PRN Narcotic Reversal, Start date: 10/19/17 9:29:00 CDT, Duration: 8 doses or times, Stop date: Limited # of times Flumazenil 2018-0 No 0.2 mg, [place] audelia 5-03 Route: l 14:29: IVP, PRN, [place] 00 Dosing Weight 130.455, kg, PRN Benzodiaze pine Reversal, Initial dose, Start date: 10/19/17 9:29:00 CDT, Duration: 30 day, Stop date: 11/18/17 9:28:00 CDT Morphine 2018-0 No 4 mg, [facility] 5-03 Route: l 14:29: IVP, [place] 00 Q5Min, Dosing Weight 130.455, kg, PRN Pain Score 7-10, Start date: 10/19/17 9:29:00 CDT, Duration: 3 doses or times, Stop date: Limited # of times Sodium 2017-0 No Route: IV, Memor ia Chloride 5-03 Drug form: l 0.9% IV 14:15: INJ, Start Herm eb (ANES) 100 00 date: mL + 10/19/17 dexmedetomi 9:15:00 dine (ANES) CDT, Stop 200 date: microgram 10/19/17 10:15:00 CDT Sodium 2017-0 No Route: IV, [facility] ia Chloride 5-03 Drug form: l 0.9% IV 14:15: INJ, Start Herm eb (ANES) 100 00 date: mL + 10/19/17 dexmedetomi 9:15:00 dine (ANES) CDT, Stop 200 date: microgram 10/19/17 10:15:00 CDT Sodium 2017-0 No Route: IV, [facility] ia Chloride 5-03 Drug form: l 0.9% IV 14:15: INJ, Start Herm eb (ANES) 100 00 date: mL + 10/19/17 dexmedetomi 9:15:00 dine (ANES) CDT, Stop 200 date: microgram 10/19/17 10:15:00 CDT Sodium 2017-0 No Route: IV, [facility] ia Chloride 5-03 Drug form: l 0.9% IV 14:15: INJ, Start Herm eb (ANES) 100 00 date: mL + 10/19/17 dexmedetomi 9:15:00 dine (ANES) CDT, Stop 200 date: microgram 10/19/17 10:15:00 CDT Sodium 2017-0 No Route: IV, [facility] ia Chloride 5-03 Drug form: l 0.9% IV 14:15: INJ, Start Herm eb (ANES) 100 00 date: mL + 10/19/17 dexmedetomi 9:15:00 dine (ANES) CDT, Stop 200 date: microgram 10/19/17 10:15:00 CDT Sodium 2017-0 No Route: IV, [facility] ia Chloride 5-03 Drug form: l 0.9% IV 14:15: INJ, Start Herm eb (ANES) 100 00 date: mL + 10/19/17 dexmedetomi 9:15:00 dine (ANES) CDT, Stop 200 date: microgram 10/19/17 10:15:00 CDT Sodium 2017-0 No Route: IV, [facility] ia Chloride 5-03 Drug form: l 0.9% IV 14:15: INJ, Start Herm eb (ANES) 100 00 date: mL + 10/19/17 dexmedetomi 9:15:00 dine (ANES) CDT, Stop 200 date: microgram 10/19/17 10:15:00 CDT Sodium 2018-0 No Route: IV, [facility] ia Chloride 5-03 Drug form: l 0.9% IV 14:15: INJ, Start Herm eb (ANES) 100 00 date: mL + 10/19/17 dexmedetomi 9:15:00 dine (ANES) CDT, Stop 200 date: microgram 10/19/17 10:15:00 CDT Lactated 2017-0 No Route: IV, Mem oria Ringers 5-03 Total l Injection 13:00: Volume: Kelsey nn IV (ANES) 00 1,000, 1000 mL Start date: 10/19/17 8:00:00 CDT, Stop date: 10/19/17 9:00:00 CDT Lactated 2018-0 No Route: IV, Mem oria Ringers 5-03 Total l Injection 13:00: Volume: Kel[place] nn IV (ANES) 00 1,000, 1000 mL Start date: 10/19/17 8:00:00 CDT, Stop date: 10/19/17 9:00:00 CDT Lactated 2018-0 No Route: IV, Mem o[facility] Ringers 5-03 Total l Injection 13:00: Volume: Kel[place] nn IV (ANES) 00 1,000, 1000 mL Start date: 10/19/17 8:00:00 CDT, Stop date: 10/19/17 9:00:00 CDT Lactated 2018-0 No Route: IV, Mem oria Ringers 5-03 Total l Injection 13:00: Volume: Kelsey nn IV (ANES) 00 1,000, 1000 mL Start date: 10/19/17 8:00:00 CDT, Stop date: 10/19/17 9:00:00 CDT Lactated 2018-0 No Route: IV, Mem o[facility] Ringers 5-03 Total l Injection 13:00: Volume: Kel[place] nn IV (ANES) 00 1,000, 1000 mL Start date: 10/19/17 8:00:00 CDT, Stop date: 10/19/17 9:00:00 CDT Lactated 2018-0 No Route: IV, Mem o[facility] Ringers 5-03 Total l Injection 13:00: Volume: Kel[place] nn IV (ANES) 00 1,000, 1000 mL Start date: 10/19/17 8:00:00 CDT, Stop date: 10/19/17 9:00:00 CDT Lactated 2018-0 No Route: IV, Mem o[facility] Ringers 5-03 Total l Injection 13:00: Volume: Kel[place] nn IV (ANES) 00 1,000, 1000 mL Start date: 10/19/17 8:00:00 CDT, Stop date: 10/19/17 9:00:00 CDT Lactated 2018-0 No Route: IV, Mem o[facility] Ringers 5-03 Total l Injection 13:00: Volume: [place] nn IV (ANES) 00 1,000, 1000 mL Start date: 10/19/17 8:00:00 CDT, Stop date: 10/19/17 9:00:00 CDT Cleocin No Notes: [facility] Phosphate 5-03 (Same As: l 11:00: Cleocin) Cleocin No Notes: [facility] Phosphate 5-03 (Same As: l 11:00: Cleocin) Cleocin No Notes: [facility] Phosphate 5-03 (Same As: l 11:00: Cleocin) Cleocin No Notes: [facility] Phosphate 5-03 (Same As: l 11:00: Cleocin) Cleocin No Notes: [facility] Phosphate 5-03 (Same As: l 11:00: Cleocin) Cleocin No Notes: [facility] Phosphate 5-03 (Same As: l 11:00: Cleocin) Cleocin No Notes: [facility] Phosphate 5-03 (Same As: l 11:00: Cleocin) Cleocin No Notes: [facility] Phosphate 5-03 (Same As: l 11:00: Cleocin) Topamax 0 Yes 150 mg, Memoria 4-26 PO, Daily l 18:37: Aspirin 0 No 81 mg, PO, [place] audelia 4-26 Does not l 18:37: take regularly Keppra 0 Yes 250 mg, [facility] 4-26 PO, Daily l 18:37: multivitami No PO, Does Me moria n 4-26 not take l 18:37: regularly Topamax 0 Yes 150 mg, [facility] 4-26 PO, Daily l 18:37: Aspirin 0 No 81 mg, PO, [place] audelia 4-26 Does not l 18:37: take regularly Keppra 0 Yes 250 mg, [facility] 4-26 PO, Daily l 18:37: multivitami 0 No PO, Does Me moria n 4-26 not take l 18:37: regularly Topamax 2018-0 Yes 150 mg, [facility] 4-26 PO, Daily l 18:37: Aspirin 0 No 81 mg, PO, [place] audelia 4-26 Does not l 18:37: take regularly Keppra 20180 Yes 250 mg, [facility] 4-26 PO, Daily l 18:37: multivitami 0 No PO, Does Me moria n 4-26 not take l 18:37: regularly Topamax 0 Yes 150 mg, [facility] 4-26 PO, Daily l 18:37: Aspirin 0 No 81 mg, PO, [place] audelia 4-26 Does not l 18:37: take regularly Keppra 0 Yes 250 mg, [facility] 4-26 PO, Daily l 18:37: multivitami 0 No PO, Does Me moria n 4-26 not take l 18:37: regularly Topamax 0 Yes 150 mg, [facility] 4-26 PO, Daily l 18:37: Aspirin 0 No 81 mg, PO, [place] audelia 4-26 Does not l 18:37: take regularly Keppra 2017-0 Yes 250 mg, [facility] 4-26 PO, Daily l 18:37: multivitami 0 No PO, Does Me moria n 4-26 not take l 18:37: regularly Topamax 0 Yes 150 mg, [facility] 4-26 PO, Daily l 18:37: Aspirin 0 No 81 mg, PO, [place] audelia 4-26 Does not l 18:37: take regularly Keppra 2017-0 Yes 250 mg, [facility] 4-26 PO, Daily l 18:37: multivitami 0 No PO, Does Me moria n 4-26 not take l 18:37: regularly Topamax 2018-0 Yes 150 mg, [facility] 4-26 PO, Daily l 18:37: Aspirin 20180 No 81 mg, PO, [place] audelia 4-26 Does not l 18:37: take regularly Keppra 2018-0 Yes 250 mg, [facility] 4-26 PO, Daily l 18:37: [place] 00 multivitami 2018-0 No PO, Does Me moria n 4-26 not take l 18:37: regularly Topamax 2018-0 Yes 150 mg, [facility] 4-26 PO, Daily l 18:37: [place] 00 Aspirin 2018-0 No 81 mg, PO, [place] audelia 4-26 Does not l 18:37: take regularly Keppra 2018-0 Yes 250 mg, [facility] 4-26 PO, Daily l 18:37: [place] 00 multivitami 2018-0 No PO, Does Me moria n 4-26 not take l 18:37: regularly topiramate 2017-0 Yes Q12H every 12 UT (Topamax) 6-02 (twelve) Health 50 MG 00:00: hours. tablet 00 topiramate 2017-0 Yes Q12H every 12 UT (Topamax) 6-02 (twelve) Health 50 MG 00:00: hours. tablet 00 topiramate 2017-0 Yes Q12H every 12 UT 50 MG 6-02 (twelve) Health tablet 00:00: hours. 00 topiramate 2017-0 Yes Q12H every 12 UT (Topamax) 6-02 (twelve) Health 50 MG 00:00: hours. tablet 00 Topiramate Topiramate 2016-0 Yes FACUNDO TAKE THREE UT 50 MG Oral 50 MG Oral 11-18 VIERA (3) Physici Tablet Tablet 00:00: M.D. TABLETS BY ans 00 MOUTH TWICE DAILY. topiramate 2017-0 Yes 200 mg = 1 M emoria 200 mg oral 5-18 tab, PO, l tablet 01:39: BID, # 60 Deng n 00 tab, 0 Refill(s) topiramate 2017-0 Yes 200 mg = 1 M emoria 200 mg oral 5-18 tab, PO, l tablet 01:39: BID, # 60 Deng n 00 tab, 0 Refill(s) topiramate 2017-0 Yes 200 mg = 1 M emoria 200 mg oral 5-18 tab, PO, l tablet 01:39: BID, # 60 Deng n 00 tab, 0 Refill(s) topiramate 2017-0 Yes 200 mg = 1 M emoria 200 mg oral 5-18 tab, PO, l tablet 01:39: BID, # 60 Deng n 00 tab, 0 Refill(s) topiramate 20170 Yes 200 mg = 1 M emoria 200 mg oral 5-18 tab, PO, l tablet 01:39: BID, # 60 Deng n 00 tab, 0 Refill(s) topiramate 2016-0 Yes 200 mg = 1 M emoria 200 mg oral 5-18 tab, PO, l tablet 01:39: BID, # 60 Deng n 00 tab, 0 Refill(s) topiramate 0 Yes 200 mg = 1 M emoria 200 mg oral 5-18 tab, PO, l tablet 01:39: BID, # 60 Deng n 00 tab, 0 Refill(s) topiramate Yes 200 mg = 1 M emoria 200 mg oral 5-18 tab, PO, l tablet 01:39: BID, # 60 Deng n 00 tab, 0 Refill(s) Hydralazine No Notes: Chapin audelia 5-18 (Same as: l 00:33: Apresoline [place] 00 ) Push over 5 minutes Hydralazine No Notes: [facility] audelia 5-18 (Same as: l 00:33: Apresoline [place] 00 ) Push over 5 minutes Hydralazine No Notes: [facility] audelia 5-18 (Same as: l 00:33: Apresoline [place] 00 ) Push over 5 minutes Hydralazine No Notes: [facility] audelia 5-18 (Same as: l 00:33: Apresoline [place] 00 ) Push over 5 minutes Hydralazine No Notes: [facility] audelia 5-18 (Same as: l 00:33: Apresoline [place] 00 ) Push over 5 minutes Hydralazine No Notes: [facility] audelia 5-18 (Same as: l 00:33: Apresoline Reg[place] 00 ) Push over 5 minutes Hydralazine No Notes: [facility] audelia 5-18 (Same as: l 00:33: Apresoline Reg[place] 00 ) Push over 5 minutes Hydralazine No Notes: [facility] audelia 5-18 (Same as: l 00:33: Apresoline Reggie 00 ) Push over 5 minutes Ketorolac 2017-0 No 4 days. Chapin audelia 5-18 l 00:23: [place] 00 Ketorolac 2017-0 No 4 days. Chapin audelia 5-18 l 00:23: [place] 00 Ketorolac 2016-0 No 4 days. Chapin audelia 5-18 l 00:23: [place] 00 Ketorolac 2017-0 No 4 days. Chapin audelia 5-18 l 00:23: [place] 00 Ketorolac 2016-0 No 4 days. [facility] audelia 5-18 l 00:23: [place] 00 Ketorolac 2016-0 No 4 days. Chapin audelia 5-18 l 00:23: [place] 00 Ketorolac 2017-0 No 4 days. Chapin audelia 5-18 l 00:23: [place] 00 Ketorolac 2016-0 No 4 days. Chapin audelia 5-18 l 00:23: [place] 00 Acetaminoph No Notes: Chapin audelia en 325 MG / 5-18 (Same as: l Hydrocodone 00:22: [place] Kelsey nn Bitartrate 00 325/5) Do 5 MG Oral not exceed Tablet 4gm/day of acetaminop hen. Acetaminoph No Notes: Chapin audelia en 325 MG / 5-18 (Same as: l Hydrocodone 00:22: [place] Kelsey nn Bitartrate 00 325/5) Do 5 MG Oral not exceed Tablet 4gm/day of acetaminop hen. Acetaminoph No Notes: Chap[facility] audelia en 325 MG / 5-18 (Same as: l Hydrocodone 00:22: [place] Kelsey nn Bitartrate 00 325/5) Do 5 MG Oral not exceed Tablet 4gm/day of acetaminop hen. Acetaminoph No Notes: Chap[facility] audelia en 325 MG / 5-18 (Same as: l Hydrocodone 00:22: [place] Kelsey nn Bitartrate 00 325/5) Do 5 MG Oral not exceed Tablet 4gm/day of acetaminop hen. Acetaminoph No Notes: Chap[facility] audelia en 325 MG / 5-18 (Same as: l Hydrocodone 00:22: [place] Kelsey nn Bitartrate 00 325/5) Do 5 MG Oral not exceed Tablet 4gm/day of acetaminop hen. Acetaminoph No Notes: Chapin audelia en 325 MG / 5-18 (Same as: l Hydrocodone 00:22: [place] Kelsey nn Bitartrate 00 325/5) Do 5 MG Oral not exceed Tablet 4gm/day of acetaminop hen. Acetaminoph No Notes: Chapin audelia en 325 MG / 5-18 (Same as: l Hydrocodone 00:22: [place] Kelsey nn Bitartrate 00 325/5) Do 5 MG Oral not exceed Tablet 4gm/day of acetaminop hen. Acetaminoph No Notes: Chapin audelia en 325 MG / 5-18 (Same as: l Hydrocodone 00:22: [place] Kelsey nn Bitartrate 00 325/5) Do 5 MG Oral not exceed Tablet 4gm/day of acetaminop hen. clindamycin Yes 300 mg = 2 Memoria 150 mg oral 5-17 cap, PO, l capsule 22:44: Q6H, X 10 Kelsey nn 00 day, # 80 cap, 0 Refill(s) clindamycin Yes 300 mg = 2 Memoria 150 mg oral 5-17 cap, PO, l capsule 22:44: Q6H, X 10 Kelsey nn 00 day, # 80 cap, 0 Refill(s) clindamycin Yes 300 mg = 2 Memoria 150 mg oral 5-17 cap, PO, l capsule 22:44: Q6H, X 10 Kelsey nn 00 day, # 80 cap, 0 Refill(s) clindamycin Yes 300 mg = 2 [facility] 150 mg oral 5-17 cap, PO, l capsule 22:44: Q6H, X 10 Kelsey nn 00 day, # 80 cap, 0 Refill(s) clindamycin Yes 300 mg = 2 [facility] 150 mg oral 5-17 cap, PO, l capsule 22:44: Q6H, X 10 Kelsey nn 00 day, # 80 cap, 0 Refill(s) clindamycin Yes 300 mg = 2 [facility]oria 150 mg oral 5-17 cap, PO, l capsule 22:44: Q6H, X 10 Kelsey nn 00 day, # 80 cap, 0 Refill(s) clindamycin 2017-0 Yes 300 mg = 2 Memoria 150 mg oral 5-17 cap, PO, l capsule 22:44: Q6H, X 10 Kelsey nn 00 day, # 80 cap, 0 Refill(s) clindamycin 2017-0 Yes 300 mg = 2 Memoria 150 mg oral 5-17 cap, PO, l capsule 22:44: Q6H, X 10 Kelsey nn 00 day, # 80 cap, 0 Refill(s) Sodium 2017-0 No 1,000 mL, Memori a Chloride 5-17 1,000 l 0.154 22:31: ml/hr, [place] MEQ/ML 00 Infuse Injectable Over: 1 Solution hr, Route: IV, ONCE, Priority: STAT, Dosing Weight 137.727 kg, Start date: 11/02/16 17:31:00 CDT, Duration: 1 doses or times, Stop date: 11/02/16 17:31:00 CDT Sodium 2017-0 No 1,000 mL, Memori a Chloride 5-17 1,000 l 0.154 22:31: ml/hr, [place] MEQ/ML 00 Infuse Injectable Over: 1 Solution hr, Route: IV, ONCE, Priority: STAT, Dosing Weight 137.727 kg, Start date: 11/02/16 17:31:00 CDT, Duration: 1 doses or times, Stop date: 11/02/16 17:31:00 CDT Sodium 2017-0 No 1,000 mL, Memori a Chloride 5-17 1,000 l 0.154 22:31: ml/hr, Reggie MEQ/ML 00 Infuse Injectable Over: 1 Solution hr, Route: IV, ONCE, Priority: STAT, Dosing Weight 137.727 kg, Start date: 11/02/16 17:31:00 CDT, Duration: 1 doses or times, Stop date: 11/02/16 17:31:00 CDT Sodium 2017-0 No 1,000 mL, Memori a Chloride 5-17 1,000 l 0.154 22:31: ml/hr, Reggie MEQ/ML 00 Infuse Injectable Over: 1 Solution hr, Route: IV, ONCE, Priority: STAT, Dosing Weight 137.727 kg, Start date: 11/02/16 17:31:00 CDT, Duration: 1 doses or times, Stop date: 11/02/16 17:31:00 CDT Sodium 2017-0 No 1,000 mL, Memori a Chloride 5-17 1,000 l 0.154 22:31: ml/hr, Reggie MEQ/ML 00 Infuse Injectable Over: 1 Solution hr, Route: IV, ONCE, Priority: STAT, Dosing Weight 137.727 kg, Start date: 11/02/16 17:31:00 CDT, Duration: 1 doses or times, Stop date: 11/02/16 17:31:00 CDT Sodium 2017-0 No 1,000 mL, Memori a Chloride 5-17 1,000 l 0.154 22:31: ml/hr, Reggie MEQ/ML 00 Infuse Injectable Over: 1 Solution hr, Route: IV, ONCE, Priority: STAT, Dosing Weight 137.727 kg, Start date: 11/02/16 17:31:00 CDT, Duration: 1 doses or times, Stop date: 11/02/16 17:31:00 CDT Sodium 2017-0 No 1,000 mL, Memori a Chloride 5-17 1,000 l 0.154 22:31: ml/hr, Reggie MEQ/ML 00 Infuse Injectable Over: 1 Solution hr, Route: IV, ONCE, Priority: STAT, Dosing Weight 137.727 kg, Start date: 11/02/16 17:31:00 CDT, Duration: 1 doses or times, Stop date: 11/02/16 17:31:00 CDT Sodium 2017-0 No 1,000 mL, Memori a Chloride 5-17 1,000 l 0.154 22:31: ml/hr, Reggie MEQ/ML 00 Infuse Injectable Over: 1 Solution hr, Route: IV, ONCE, Priority: STAT, Dosing Weight 137.727 kg, Start date: 11/02/16 17:31:00 CDT, Duration: 1 doses or times, Stop date: 11/02/16 17:31:00 CDT losartan 2017-0 Yes 100 mg = 1 Mem [place] 100 mg oral 5-17 tab, PO, l tablet 18:30: Daily, # [place] 00 30 tab, 0 Refill(s) Levetiracet 2017-0 Yes 1,500 mg = Memoria am 750 MG 5-17 2 tab, PO, l Oral Tablet 18:30: BID, # 120 [place] [Keppra] 00 tab, 0 Refill(s) topiramate Yes 100 mg = 1 M emoria 100 MG Oral 5-17 tab, PO, l Tablet 18:30: Daily, # [place] [Topamax] 00 30 tab, 0 Refill(s) losartan Yes 100 mg = 1 Mem o[facility] 100 mg oral 5-17 tab, PO, l tablet 18:30: Daily, # [place] 00 30 tab, 0 Refill(s) Levetiracet Yes 1,500 mg = Memoria am 750 MG 5-17 2 tab, PO, l Oral Tablet 18:30: BID, # 120 [place] [Keppra] 00 tab, 0 Refill(s) topiramate Yes 100 mg = 1 M emoria 100 MG Oral 5-17 tab, PO, l Tablet 18:30: Daily, # [place] [Topamax] 00 30 tab, 0 Refill(s) losartan Yes 100 mg = 1 Mem [place] 100 mg oral 5-17 tab, PO, l tablet 18:30: Daily, # [place] 00 30 tab, 0 Refill(s) Levetiracet Yes 1,500 mg = [facility]oria am 750 MG 5-17 2 tab, PO, l Oral Tablet 18:30: BID, # 120 [place] [Keppra] 00 tab, 0 Refill(s) topiramate Yes 100 mg = 1 M emoria 100 MG Oral 5-17 tab, PO, l Tablet 18:30: Daily, # [place] [Topamax] 00 30 tab, 0 Refill(s) losartan Yes 100 mg = 1 Mem [place] 100 mg oral 5-17 tab, PO, l tablet 18:30: Daily, # [place] 00 30 tab, 0 Refill(s) Levetiracet Yes 1,500 mg = [facility] am 750 MG 5-17 2 tab, PO, l Oral Tablet 18:30: BID, # 120 [place] [Keppra] 00 tab, 0 Refill(s) topiramate Yes 100 mg = 1 M emoria 100 MG Oral 5-17 tab, PO, l Tablet 18:30: Daily, # [place] [Topamax] 00 30 tab, 0 Refill(s) losartan Yes 100 mg = 1 [facility] [place] 100 mg oral 5-17 tab, PO, l tablet 18:30: Daily, # [place] 00 30 tab, 0 Refill(s) Levetiracet Yes 1,500 mg = [facility]oria am 750 MG 5-17 2 tab, PO, l Oral Tablet 18:30: BID, # 120 [place] [Keppra] 00 tab, 0 Refill(s) topiramate Yes 100 mg = 1 M emoria 100 MG Oral 5-17 tab, PO, l Tablet 18:30: Daily, # [place] [Topamax] 00 30 tab, 0 Refill(s) losartan Yes 100 mg = 1 Mem oria 100 mg oral 5-17 tab, PO, l tablet 18:30: Daily, # [place] 00 30 tab, 0 Refill(s) Levetiracet Yes 1,500 mg = Memoria am 750 MG 5-17 2 tab, PO, l Oral Tablet 18:30: BID, # 120 [place] [Keppra] 00 tab, 0 Refill(s) topiramate Yes 100 mg = 1 M emoria 100 MG Oral 5-17 tab, PO, l Tablet 18:30: Daily, # [place] [Topamax] 00 30 tab, 0 Refill(s) losartan Yes 100 mg = 1 Mem oria 100 mg oral 5-17 tab, PO, l tablet 18:30: Daily, # [place] 00 30 tab, 0 Refill(s) Levetiracet Yes 1,500 mg = Memoria am 750 MG 5-17 2 tab, PO, l Oral Tablet 18:30: BID, # 120 [place] [Keppra] 00 tab, 0 Refill(s) topiramate Yes 100 mg = 1 M emoria 100 MG Oral 5-17 tab, PO, l Tablet 18:30: Daily, # [place] [Topamax] 00 30 tab, 0 Refill(s) losartan Yes 100 mg = 1 Mem oria 100 mg oral 5-17 tab, PO, l tablet 18:30: Daily, # [place] 00 30 tab, 0 Refill(s) Levetiracet Yes 1,500 mg = Memoria am 750 MG 5-17 2 tab, PO, l Oral Tablet 18:30: BID, # 120 [place] [Keppra] 00 tab, 0 Refill(s) topiramate Yes 100 mg = 1 M emoria 100 MG Oral 5-17 tab, PO, l Tablet 18:30: Daily, # [place] [Topamax] 00 30 tab, 0 Refill(s) Cozaar Cozaar Yes Beau 1 tablet Commo n [facility] Levetiracet Levetiracet Yes Beau 1 tablet Common am am [facility] Topamax Topamax Yes Beau 2 tablet Com mon [facility] Amlodipine Amlodipine Yes Beau TAKE ONE Common Besylate Besylate [facility] (1) [facility] TABLET(S) - [facility] BY MOUTH [facility] ONCE A . [facility] Topiramate Topiramate Yes Beau not C ommon Reagan defined [facility] Losartan Losartan Yes Beau not Commo n Potassium Potassium Reagan defined S pirit [facility] Vitamin D3 Vitamin D3 Yes Beau not C ommon Reagan defined [facility] Oxcarbazepi Oxcarbazepi Yes Beau not Common ne ne Reagan defined [facility] Vitamin D Vitamin D Yes Beau not Com mon (Ergocalcif (Ergocalcif Reagan defined Spirit joanna) joanna) [facility] Hydrocodone Hydrocodone Yes Beau not Common -Acetaminop -Acetaminop Reagan defined Spirit hen hen [facility] amLODIPine amLODIPine No amLODIPine Besylate 10 Besylate 10 Besylate MG MG 10 MG HYDROcodone HYDROcodone No HYDROcodon -Acetaminop -Acetaminop e-Acetamin hen hen ophen Topiramate Topiramate No Topiramate Topamax 50 Topamax 50 No 2{table BID Topamax 50 MG MG t} MG OXcarbazepi OXcarbazepi No OXcarbazep ne ne ine levETIRAcet levETIRAcet No 1{table BID levETIRAce am 250 MG am 250 MG t} [place]xt[place] 250 MG Losartan Losartan No Losartan Potassium Potassium Potassium Vitamin D Vitamin D No Vitamin D (Ergocalcif (Ergocalcif (Ergocalci joanna) joanna) ferol) Cozaar 100 Cozaar 100 No 1{table QD Cozaar 100 MG MG t} MG Vitamin D3 Vitamin D3 No Vitamin D3 Vitamin D3 Vitamin D3 No Vitamin D3 Topamax 50 Topamax 50 No 2{table BID Topamax 50 MG MG t} MG amLODIPine amLODIPine No amLODIPine Besylate 10 Besylate 10 Besylate MG MG 10 MG OXcarbazepi OXcarbazepi No OXcarbazep ne ne ine Topiramate Topiramate No Topiramate levETIRAcet levETIRAcet No 1{table BID levETIRAce am 250 MG am 250 MG t} [place] 250 MG Cozaar 100 Cozaar 100 No 1{table QD Cozaar 100 MG MG t} MG Vitamin D Vitamin D No Vitamin D (Ergocalcif (Ergocalcif (Ergocalci jaonna) joanna) ferol) Losartan Losartan No Losartan Potassium Potassium Potassium Losartan Losartan No Losartan Potassium Potassium Potassium 100 MG 100 MG 100 MG HYDROcodone HYDROcodone No HYDROcodon -Acetaminop -Acetaminop e-Acetamin hen hen ophen Vitamin D3 Vitamin D3 No Vitamin D3 Topamax 50 Topamax 50 No 2{table BID Topamax 50 MG MG t} MG amLODIPine amLODIPine No amLODIPine Besylate 10 Besylate 10 Besylate MG MG 10 MG OXcarbazepi OXcarbazepi No OXcarbazep ne ne ine Topiramate Topiramate No Topiramate Losartan Losartan Yes [facility] Potassium Potassium Physi ci 100 MG Oral 100 MG Oral a ns Tablet Tablet levETIRAcet levETIRAcet No 1{table BID levETIRAce am 250 MG am 250 MG t} [place]xt[place] 250 MG Cozaar 100 Cozaar 100 No 1{table QD Cozaar 100 MG MG t} MG Vitamin D Vitamin D No Vitamin D (Ergocalcif (Ergocalcif (Ergocalci joanna) joanna) ferol) amLODIPine amLODIPine Yes [facility] Besylate Besylate Physici TABS TABS ans Losartan Losartan No Losartan Potassium Potassium Potassium Losartan Losartan No Losartan Potassium Potassium Potassium 100 MG 100 MG 100 MG HYDROcodone HYDROcodone No HYDROcodon -Acetaminop -Acetaminop e-Acetamin hen hen ophen Topiramate Topiramate No Topiramate Vitamin D Vitamin D No Vitamin D (Ergocalcif (Ergocalcif (Ergocalci joanna) joanna) ferol) Cozaar 100 Cozaar 100 No 1{table QD Cozaar 100 MG MG t} MG Topamax 50 Topamax 50 No 2{table BID Topamax 50 MG MG t} MG OXcarbazepi OXcarbazepi No OXcarbazep ne ne ine Vitamin D3 Vitamin D3 No Vitamin D3 Losartan Losartan No Losartan Potassium Potassium Potassium Losartan Losartan No Losartan Potassium Potassium Potassium 100 MG 100 MG 100 MG levETIRAcet levETIRAcet No 1{table BID levETIRAce am 250 MG am 250 MG t} [place] 250 MG HYDROcodone HYDROcodone No HYDROcodon -Acetaminop -Acetaminop e-Acetamin hen hen ophen amLODIPine amLODIPine No amLODIPine Besylate 10 Besylate 10 Besylate MG MG 10 MG amLODIPine amLODIPine No amLODIPine Besylate 10 Besylate 10 Besylate MG MG 10 MG Topiramate Topiramate No Topiramate Vitamin D Vitamin D No Vitamin D (Ergocalcif (Ergocalcif (Ergocalci joanna) joanna) ferol) Cozaar 100 Cozaar 100 No 1{table QD Cozaar 100 MG MG t} MG Topamax 50 Topamax 50 No 2{table BID Topamax 50 MG MG t} MG OXcarbazepi OXcarbazepi No OXcarbazep ne ne ine Vitamin D3 Vitamin D3 No Vitamin D3 Losartan Losartan No Losartan Potassium Potassium Potassium Losartan Losartan No Losartan Potassium Potassium Potassium 100 MG 100 MG 100 MG levETIRAcet levETIRAcet No 1{table BID levETIRAce am 250 MG am 250 MG t} [place] 250 MG HYDROcodone HYDROcodone No HYDROcodon -Acetaminop -Acetaminop e-Acetamin hen hen ophen amLODIPine amLODIPine No amLODIPine Besylate 10 Besylate 10 Besylate MG MG 10 MG amLODIPine amLODIPine No amLODIPine Besylate 10 Besylate 10 Besylate MG MG 10 MG Immunizations Ordered Filled Immunization Date Status Comments Sourc e Immunization Name Name TD 2018-01-[address] [facility] 00:00:00 [facility] TD 2018-01-17 Completed [facility] 00:[facility]00 [facility] TDAP 2018-01-17 Completed University :00: [facility] TDAP 2018-01-17 Completed University :00: [facility] TDAP 2018-01-17 Completed University 00:00:00 [facility] Vital Signs Vital Name Observation Time Observation Value Comments Source Systolic blood 2022-10-04 180 mm[Hg] [facility] pressure 05:05:00 [facility] Diastolic blood 2022-10-04 92 mm[Hg] [facility] pressure 05:05:00 [facility] Heart rate 2022-10-04 72 /min [facility] 05:05:00 [facility] Body temperature 2022-10-[address] [facility] 05:05:00 [facility] Respiratory rate 2022-10-04 18 /min [facility] 05:05:00 [facility] Body height 2022-10-[address] [facility] 05:05:00 [facility] Body weight 2022-10-[address] [facility] 05:05:00 [facility] BMI 2022-10-04 39.94 kg/m2 [facility] 05:05:00 [facility] Oxygen saturation 2022-10-04 99 /min [facility] in Arterial blood 05:05:00 [facility] by Pulse oximetry [place] Systolic blood 2022-08-20 140 mm[Hg] [facility] pressure 03:30:00 [facility] Diastolic blood 2022-08-20 81 mm[Hg] [facility] pressure 03:30:00 [facility] Heart rate 2022-08-20 61 /min [facility] 03:30:00 [facility] Respiratory rate 2022-08-20 17 /min [facility] 03:30:00 [facility] Oxygen saturation 2022-08-20 97 /min [facility] in Arterial blood 03:30:00 [facility] by Pulse oximetry [place] Body temperature 2022-08-[address] [facility] 01:35:00 [facility] Body height 2022-08-[address] [facility] 01:35:00 [facility] Body weight 2022-08-[address] [facility] 01:35:00 [facility] BMI 2022-08-20 38.79 kg/m2 [facility] 01:35:00 [facility] height 2022-03-14 70 [in_i] [facility] - 10:40:00 [facility] weight 2022-03-14 291.5 [lb_av] [facility] - 10:40:00 [facility] temperature 2022-03-14 97.5 [degF] [facility] - 10:40:00 [facility] bmi 2022-03-14 41.82 kg/m2 [facility] - 10:40:00 [facility] oximetry 2022-03-14 91 % [facility] - 10:40:00 [facility] respiratory rate 2022-03-14 16 /min [facility] it - 10:40:00 [facility] blood pressure 2022-03-14 139 mm[Hg] [facility] - systolic 10:40:00 [facility] blood pressure 2022-03-14 78 mm[Hg] [facility] - diastolic 10:40:00 [facility] height 2021-09-09 70 [in_i] [facility] - 11:10:00 [facility] weight 2021-09-09 290.6 [lb_av] [facility] - 11:10:00 [facility] temperature 2021-09-09 98.7 [degF] [facility] - 11:10:00 [facility] bmi 2021-09-09 41.69 kg/m2 [facility] - 11:10:00 [facility] oximetry 2021-09-09 97 % [facility] - 11:10:00 [facility] respiratory rate 2021-09-09 18 /min [facility] it - 11:10:00 [facility] blood pressure 2021-09-09 138 mm[Hg] [facility] - systolic 11:10:00 [facility] blood pressure 2021-09-09 68 mm[Hg] [facility] - diastolic 11:10:00 [facility] Systolic blood 2021-08-16 136 mm[Hg] [facility] pressure 17:42:00 Diastolic blood 2021-08-16 81 mm[Hg] [facility] pressure 17:42:00 Heart rate 2021-08-16 65 /min [facility] 17:42:00 Body temperature 2021-08-16 37.11 Sandy [facility] 17:42:00 Respiratory rate 2021-08-16 18 /min [facility] 17:42:00 Body height 2021-08-16 182.9 cm [facility] 17:42:00 Body weight 2021-08-16 129.729 kg [facility] 17:42:00 BMI 2021-08-16 38.79 kg/m2 [facility] 17:42:00 Oxygen saturation 2021-08-16 97 /min [facility] in Arterial blood 17:42:00 by Pulse oximetry Body height 2021-06-08 182.9 cm [facility] 16:50:00 Body weight 2021-06-08 130.182 kg [facility] 16:50:00 BMI 2021-06-08 38.92 kg/m2 [facility] 16:50:00 height 2021-04-07 70 [in_i] [facility] - 10:10:00 [facility] weight 2021-04-07 298.9 [lb_av] [facility] - 10:10:00 [facility] temperature 2021-04-07 97.7 [degF] [facility] - 10:10:00 [facility] bmi 2021-04-07 42.88 kg/m2 [facility] - 10:10:00 [facility] oximetry 2021-04-07 97 % [facility] - 10:10:00 [facility] respiratory rate 2021-04-07 19 /min [facility] - 10:10:00 [facility] blood pressure 2021-04-07 132 mm[Hg] [facility] - systolic 10:10:00 [facility] blood pressure 2021-04-07 67 mm[Hg] [facility] - diastolic 10:10:00 [facility] Height 2021-12-23 182.88 cm Jose Vilchis n 15:04:00 Weight 2021-12-23 Jose Vilchis n 15:04:00 BMI Calculated 2021-12-23 Jose Boswell eb 15:04:00 Heart Rate 2021-12-23 Jose Vilchis n 14:47:55 Respitory Rate 2021-12-23 Jose Boswell eb 14:47:55 Systolic (mm Hg) 2021-12-23 [facility] Miles rmann 14:46:31 Diastolic (mm Hg) 2021-12-23 [facility] ermann 14:46:31 Heart Rate 2021-12-23 [facility] Deng n 14:46:31 Systolic blood 2020-07-14 168 mm[Hg] [place] [facility] [facility] [facility] [place] 09:04:00 Position: Sitting Diastolic blood 2020-07-14 92 mm[Hg] [place] [facility] [place] [facility] pressure 09:04:00 Position: Sitting Body height 2020-07-14 72 [in_us] [facility] 09:04:00 Weight 2020-07-14 294.5 [lb_av] [facility] 09:04:00 Body mass index 2020-07-14 39.94 kg/m2 [facility] (BMI) [Ratio] 09:04:00 Body temperature 2020-07-14 97.4 [degF] Method: [place] [facility] 09:04:00 Temporal Heart Rate 2020-07-14 84 /min [facility] 09:04:00 Respiratory rate 2020-07-14 18 /min Quality: Normal [facility] 09:04:00 O2 SAT 2020-07-14 99 % Source: [facility] 09:04:00 Body height 2020-05-12 72 [in_us] [facility] 10:17:00 Weight 2020-05-12 290 [lb_av] [facility] 10:17:00 Body mass index 2020-05-12 39.33 kg/m2 [facility] (BMI) [Ratio] 10:17:00 Body temperature 2020-05-12 97.4 [degF] [facility] 10:17:00 BP Systolic 2019-05-31 152 mm[Hg] [facility] 10:17:00 BP Diastolic 2019-05-31 80 mm[Hg] [facility] 10:17:00 Height 2019-05-31 72 [in_us] [facility] 10:17:00 Weight 2019-05-31 299 [lb_av] [facility] 10:17:00 Body Mass Index 2019-05-31 40.55 kg/m2 [facility] Calculated 10:17:00 Heart Rate 2019-05-31 76 /min [facility] 10:17:00 Temperature Oral 2019-01-22 98.1 F [facility] rmann (F) 13:00:00 Systolic (mm Hg) 2019-01-22 [facility] rmann 13:00:00 Diastolic (mm Hg) 2019-01-22 [facility] 13:00:00 Heart Rate 2019-01-22 [facility] n 13:00:00 Respitory Rate 2019-01-22 [facility] 13:00:00 Temperature Oral 2019-01-22 97.6 F [facility] rmann (F) 01:13:00 Respitory Rate 2019-01-22 [facility] 01:13:00 Systolic (mm Hg) 2019-01-22 [facility] 01:13:00 Diastolic (mm Hg) 2019-01-22 [facility] 01:13:00 Heart Rate 2019-01-22 [facility] n 01:13:00 Weight 2019-01-22 [facility] 00:00:00 BMI Calculated 2019-01-22 [facility] 00:00:00 Height 2019-01-22 182.88 cm [facility] n 00:00:00 Heart Rate 2019-01-21 [facility] 22:00:00 Respitory Rate 2019-01-21 [facility] 22:00:00 Temperature Oral 2019-01-21 98.4 F [facility] rmann (F) 22:00:00 Systolic (mm Hg) 2019-01-21 [facility] 22:00:00 Diastolic (mm Hg) 2019-01-21 [facility] 22:00:00 BP Systolic 2018-11-23 149 mm[Hg] [facility] 11:02:00 BP Diastolic 2018-11-23 93 mm[Hg] [facility] 11:02:00 Height 2018-11-23 72 [in_us] [facility] 11:02:00 Weight 2018-11-23 298 [lb_av] [facility] 11:02:00 Body Mass Index 2018-11-23 40.42 kg/m2 [facility] Calculated 11:02:00 Heart Rate 2018-11-23 71 /min [facility] 11:02:00 BP Systolic 2018-08-14 146 mm[Hg] [place]; [place] [facility] 10:17:00 Position: Sitting BP Diastolic 2018-08-14 83 mm[Hg] [place] [facility] [facility] 10:17:00 Position: Sitting Height 2018-08-14 72 [in_us] [facility] 10:17:00 Weight 2018-08-14 292 [lb_av] [facility] 10:17:00 Body Mass Index 2018-08-14 39.6 kg/m2 [facility] Calculated 10:17:00 Temperature 2018-08-14 99.9 [degF] Method: Oral [facility] 10:17:00 Heart Rate 2018-08-14 69 /min [facility] 10:17:00 BP Systolic 2018-05-22 147 mm[Hg] [facility] 10:37:00 BP Diastolic 2018-05-22 82 mm[Hg] [facility] 10:37:00 Height 2018-05-22 72 [in_us] [facility] 10:37:00 Weight 2018-05-22 287 [lb_av] [facility] 10:37:00 Body Mass Index 2018-05-22 38.92 kg/m2 [facility] Calculated 10:37:00 Heart Rate 2018-05-22 83 /min [facility] 10:37:00 BP Systolic 2018-04-17 153 mm[Hg] Location: [facility]; [facility] 10:15:00 Position: Sitting BP Diastolic 2018-04-17 87 mm[Hg] Location: [facility]; [facility] 10:15:00 Position: Sitting Height 2018-04-17 72 [in_us] [facility] 10:15:00 Weight 2018-04-17 292 [lb_av] [facility] 10:15:00 Body Mass Index 2018-04-17 39.6 kg/m2 [facility] Calculated 10:15:00 Temperature 2018-04-17 98.4 [degF] Method: Oral [facility] 10:15:00 Heart Rate 2018-04-17 73 /min [facility] 10:15:00 BP Systolic 2018-03-06 146 mm[Hg] [facility] 11:14:00 BP Diastolic 2018-03-06 91 mm[Hg] [facility] 11:14:00 Height 2018-03-06 72 [in_us] [facility] 11:14:00 Weight 2018-03-06 295 [lb_av] [facility] 11:14:00 Body Mass Index 2018-03-06 40.01 kg/m2 [facility] Calculated 11:14:00 Heart Rate 2018-03-06 73 /min [facility] 11:14:00 BP Systolic 2017-12-18 161 mm[Hg] [place] [facility] 11:10:00 Position: Sitting BP Diastolic 2017-12-18 96 mm[Hg] [facility]: [facility]; [facility] 11:10:00 Position: Sitting Height 2017-12-18 72 [in_us] [facility] 11:10:00 Weight 2017-12-18 292.1 [lb_av] [facility] 11:10:00 Body Mass Index 2017-12-18 39.62 kg/m2 [facility] Calculated 11:10:00 Temperature 2017-12-18 97.3 [degF] Method: Oral [facility] 11:10:00 Heart Rate 2017-12-18 83 /min [facility] 11:10:00 Height 2017-11-28 182.88 cm [facility] Deng n 15:40:00 Weight 2017-11-28 [facility] 15:40:00 BMI Calculated 2017-11-28 [facility] 15:40:00 BP Systolic 2017-11-10 145 mm[Hg] Location: [facility]; [facility] 10:02:00 Position: Sitting BP Diastolic 2017-11-10 86 mm[Hg] Location: [facility]; [facility] 10:02:00 Position: Sitting Height 2017-11-10 72 [in_us] [facility] 10:02:00 Weight 2017-11-10 293 [lb_av] [facility] 10:02:00 Body Mass Index 2017-11-10 39.74 kg/m2 [facility] Calculated 10:02:00 Temperature 2017-11-10 97.5 [degF] Method: Oral [facility] 10:02:00 Heart Rate 2017-11-10 87 /min [facility] 10:02:00 BP Systolic 2017-10-26 156 mm[Hg] Location: [facility]; [facility] 10:04:00 Position: Sitting BP Diastolic 2017-10-26 92 mm[Hg] Location: [facility]; [facility] 10:04:00 Position: Sitting Height 2017-10-26 72 [in_us] [facility] 10:04:00 Weight 2017-10-26 289 [lb_av] [facility] 10:04:00 Body Mass Index 2017-10-26 39.2 kg/m2 [facility] Calculated 10:04:00 Temperature 2017-10-26 98 [degF] Method: Oral [facility] 10:04:00 Heart Rate 2017-10-26 81 /min [facility] 10:04:00 Respitory Rate 2017-10-24 [facility] 12:47:00 Temperature Oral 2017-10-24 97.9 F [facility] rmann (F) 12:47:00 Systolic (mm Hg) 2017-10-24 [facility] 12:47:00 Diastolic (mm Hg) 2017-10-24 [facility] 12:47:00 Systolic (mm Hg) 2017-10-24 [facility] 11:00:00 Diastolic (mm Hg) 2017-10-24 [facility] 11:00:00 Heart Rate 2017-10-24 [facility] 10:30:00 Respitory Rate 2017-10-24 [facility] 10:30:00 Temperature Oral 2017-10-24 98 F [facility] (F) 10:30:00 Systolic (mm Hg) 2017-10-24 [facility] 10:30:00 Diastolic (mm Hg) 2017-10-24 [facility] 10:30:00 Weight 2017-10-24 [facility] 08:50:00 Respitory Rate 2017-10-24 [facility] 08:50:00 Heart Rate 2017-10-24 [facility] 08:50:00 Temperature Oral 2017-10-24 98.2 F [facility] (F) 08:50:00 Systolic (mm Hg) 2017-10-20 [facility] 12:36:00 Diastolic (mm Hg) 2017-10-20 [facility] 12:36:00 Heart Rate 2017-10-20 [facility] 12:36:00 Temperature Oral 2017-10-20 98.6 F [facility] (F) 12:36:00 Respitory Rate 2017-10-20 [facility] 12:36:00 Temperature Oral 2017-10-20 97.5 F [facility] (F) 09:24:00 Heart Rate 2017-10-20 [facility] 09:24:00 Respitory Rate 2017-10-20 [facility] 09:24:00 Systolic (mm Hg) 2017-10-20 [facility] 09:24:00 Diastolic (mm Hg) 2017-10-20 [facility] 09:24:00 Temperature Oral 2017-10-20 97.2 F [facility] (F) 04:50:00 Heart Rate 2017-10-20 [facility] 04:50:00 Respitory Rate 2017-10-20 [facility] 04:50:00 Systolic (mm Hg) 2017-10-20 [facility] 04:50:00 Diastolic (mm Hg) 2017-10-20 [facility] 04:50:00 BMI Calculated 2017-10-19 [facility] 12:02:00 Weight 2017-10-19 [facility] 12:02:00 Height 2017-10-19 182.88 cm [facility] 12:02:00 BMI Calculated 2017-10-12 [facility] 20:01:00 Weight 2017-10-12 [facility] 20:01:00 Height 2017-10-12 182.88 cm [facility] 20:01:00 Systolic (mm Hg) 2016-11-03 [facility] 01:13:00 Diastolic (mm Hg) 2016-11-03 [facility] 01:13:00 Respitory Rate 2016-11-03 [facility] 01:13:00 Temperature Oral 2016-11-03 98.2 F [facility] (F) 00:40:00 Respitory Rate 2016-11-03 [facility] 00:40:00 Systolic (mm Hg) 2016-11-03 [facility] 00:40:00 Diastolic (mm Hg) 2016-11-03 [facility] 00:40:00 Respitory Rate 2016-11-02 [facility] 23:00:00 Systolic (mm Hg) 2016-11-02 [facility] 23:00:00 Diastolic (mm Hg) 2016-11-02 [facility] 23:00:00 Heart Rate 2016-11-02 [facility] 21:58:00 Respitory Rate 2016-11-02 [facility] 18:35:00 Heart Rate 2016-11-02 [facility] 18:35:00 Systolic (mm Hg) 2016-11-02 [facility] 18:35:00 Diastolic (mm Hg) 2016-11-02 [facility] 18:35:00 Height 2016-11-02 180.34 cm [facility] 18:35:00 BMI Calculated 2016-11-02 [facility] 18:35:00 Weight 2016-11-02 [facility] 18:35:00 Procedures Procedure Date / Time Performing Clinician Source Performed RAPID STREP SCREEN FOR 2022-10-04 05:14:00 Jed Leonard [facility] A Medical Branch RAPID INFLUENZA A/B 2022-10-04 05:14:00 Jed Leonard [facility] Medical [place] COVID-19 (ID NOW RAPID 2022-10-04 05:14:00 Jed Leonard [facility] TESTING) Medical Branch CONSENT/REFUSAL FOR 2022-10-04 04:53:46 Doctor Unassigned, [facility] DIAGNOSIS AND TREATMENT [facility] Medical Branch EKG-12 LEAD 2022-08-20 03:21:44 Isabel Ho [facility] XR CHEST 1 VW 2022-08-20 02:19:32 Isabel Ho [facility] TROPONIN I 2022-08-20 01:52:00 Isabel Ho [facility] COMP. METABOLIC PANEL 2022-08-20 01:52:00 Isabel Ho [facility] ([id number]) Medical Branch CBC WITH DIFF 2022-08-20 01:52:00 Isabel Ho [facility] N-TERMINAL PRO-BNP 2022-08-20 01:52:00 Isabel Ho [facility] NOTICE OF PRIVACY 2022-08-20 01:18:08 Doctor Unassigned, [facility] PRACTICES [facility] [place] CONSENT/REFUSAL FOR 2022-08-20 01:17:34 Doctor Unassamando, [facility] DIAGNOSIS AND TREATMENT [facility] MEDICATION CORRESPONDENCE 2021-09-24 05:01:00 Doctor Unassigned, [facility] Name Medical Branch CHG CT SCAN,MAXILLOFACIAL 2021-05-21 20:22[facility] SCAN,MAXILLOFACIAL 2021-05-21 20:22:00 Katy [facility],W/O CONTRAST MRI Brain wo contrast 2019-05-31 00:00:00 [id number] [[facility]] Neuro Adult 23 Hr 2018-12-18 00:00:00 [facility] EEG 23hr EEG/Video 2018-11-23 00:00:00 [facility] Sleep Lab - Sleep 2018-03-06 00:00:00 [facility] Study Full sleep study [facility] n Inner ear [facility] operation<sup>1</sup> Knee joint [facility] operation<sup>2</sup> Laparoscopic repair of [facility] hernia History of Knee surgery [facility] History of Hernia repair [facility] History of Myringotomy [facility] Plan of Care Planned Activity Planned Date Details Comments Source Diagnostic Test Pending 2018-12-18 00:00:00 [[facility]] Neuro Adult [facility] 23 Hr EEG [code = [UTP] Neuro Adult 23 Hr EEG] Diagnostic Test Pending 2018-12-18 00:00:00 [[facility]] [facility] Adult [facility] 23 Hr EEG [code = [UTP] Neuro Adult 23 Hr EEG] Diagnostic Test Pending 2018-12-18 00:00:00 [[facility]] [facility] Adult [facility] 23 Hr EEG [code = [UTP] Neuro Adult 23 Hr EEG] Encounters Start End Encounter Admission Attending Care Care Encounter Source Date/Time Date/Time Type Type Clinicians Facility Department ID 2022-08-31 Outpatient Reagan, STLMLC STLMLC [id number] [facility] 08:29:00 [facility] [id number] [facility] 2022-01-04 Outpatient Reagan, STLMLC STLMLC [id number] [facility] 10:29:00 [facility] [id number] [facility] [facility] 2021-07-14 Outpatient Reagan, STLMLC STLMLC [id number] Common 14:03:16 [facility] 82976 [facility] 2021-07-14 Outpatient Reagan, STLMLC STLMLC [id number] Common 14:02:18 [facility] 73853 [facility] 2021-07-14 Outpatient Reagan, STLMLC STLMLC [id number] Common 13:29:00 [facility] 53263 [facility] 2021-07-14 Outpatient Reagan, STLMLC STLMLC [id number] Common 13:27:45 [facility] 82782 [facility] 2021-07-14 Outpatient Reagan, STLMLC STLMLC [id number] Common 13:09:47 [facility] 59233 [facility] 2021-07-14 Outpatient Reagan, STLMLC STLMLC [id number] Common 12:43:17 [facility] 21198 [facility] 2021-07-14 Outpatient Reagan, STLMLC STLMLC [id number] Common 12:42:20 Beau 26875 [facility] 2021-07-14 Outpatient Reagan, STLMLC [place] [id number] Common 12:39:55 Beau 30944 [facility] 2021-07-14 Outpatient Reagan, STLMLC [place] [id number] Common 12:25:11 Beau [id number] [facility] 2021-07-14 Outpatient Reagan, STLMLC [place] [id number] Common 12:22:51 Beau 13940 [facility] 2021-07-14 Outpatient Reagan, STLC [place] [id number] Common 12:21:49 Beau 02220 [facility] 2021-07-14 Outpatient Reagan, [place] [id number] Common 11:46:14 Beau 30773 [facility] 2021-07-14 Outpatient Reagan, [place] [id number] Common 11:13:00 Beau 85276 [facility] 2021-04-15 Emergency [facility] [id number] Univers 11:20:06 [facility]22-10-04 2022-10-04 Emergency X [facility] ERT [id number] Univers 00:16:00 02:07:00 VANESSA ity [facility] 2022-10-04 2022-10-04 Emergency [facility] 1.2.840.114 [id number] Univers 00:16:00 02:07:00 Vanessa BLAIR 350.1.13.10 ity [facility] 4.2.7.2.686 [place] [facility] [phone] [place] [address] [address] 2022-08-19 2022-08-19 Emergency X [facility] ERT [id number] Univers 19:43:00 21:47:00 [facility]EL [facility] 2022-08-19 2022-08-19 Emergency [facility] 1.2.840.114 [id number] Univers 19:43:00 21:47:00 Isabel BLAIR 350.1.13.10 ity of [facility] 4.2.7.2.686 [place] [phone] [facility] 084 [place] 2022-03-14 2022-03-14 OFFICE [facility] [id number] Co mmon 00:00:00 00:00:00 VISIT Spirit ESTAB PT - CHI LEVEL 4 [facility] 2021-12-23 2021-12-24 Outpatient nullFlavo TR Sleep [id number] Memoria 14:10:00 04:59:00 r Clinic 10 l (SLCR) [place] 2021-12-23 2021-12-24 Outpatient nullFlavo TR Sleep 4621 [id number] Memoria 14:10:00 04:59:00 r Clinic 10 l (SLCR) [place] 2021-12-23 2021-12-23 Outpatient [facility] MHTIRR MHTIRR [id number] 09:10:00 23:59:00 a, Angeline 10 [place] 2021-12-23 2021-12-23 Outpatient TALLAVAJHUL [facility] [id number] [place] 10:00:00 10:00:00 A, ANGELINE [facility]alt [facility] 2021-10-25 2021-10-25 Refill [facility] 1.2.840.114 [id number] Univers 00:00:00 00:00:00 Tashi BLAIR 350.1.13.10 ity of [facility] 4.2.7.2.686 [place] [facility] [phone] Pa dical NAL [address] [place] [address] 2021-09-24 2021-09-24 Refill [facility] 1.2.840.114 [id number] Univers 00:00:00 00:00:00 Tashi BLAIR 350.1.13.10 ity of [facility] 4.2.7.2.686 [place] [phone] Pa dical NAL 9 [facility] 2021-09-24 2021-09-24 Orders Doctor MADRID 1.2.840.114 [id number] Univers 00:00:00 00:00:00 Only Unassigned, VILLA 350.1.13.10 ity [facility] 4.2.7.2.686 Wm [phone] [facility] 009 [address] 2021-09-09 2021-09-09 (TEL) STLMLC STLMLC [id number] Co mmon 00:00:00 00:00:00 Spirit - CHI [facility] 2021-09-09 2021-09-09 OFFICE STLMLC STLMLC [id number] Co mmon 00:00:00 00:00:00 VISIT Spirit ESTAB PT - CHI LEVEL 4 [facility] 2021-08-26 2021-08-[address] [facility] ERT [id number] Univers 20:59:00 23:06:00 TERRELL guzman [facility] 2021-08-26 2021-08-26 Emergency [facility] 1.2.212.823 [id number] Univers 20:59:00 23:06:00 Terrell BLAIR 350.1.13.10 i [facility] 4.2.7.2.686 [place] [facility] [phone] [facility] 084 [address] 2021-08-16 2021-08-16 Outpatient LACUEY [facility] [id number] [place] 13:06:10 13:06:10 Miles MEDINA 2021-08-16 2021-08-16 Office Naima COYNE 6410 1.2.840.114 [id number] [place] 12:00:00 13:06:07 Visit SYLVIA Medina 350.1.13.58 [facility] 9.2.7.2.686 [id number] [id number] 2021-07-20 2021-07-20 Outpatient Libia VICKERS [facility] [id number] Univers 13:20:00 13:20:00 TASHI corona f [facility] 2021-07-16 2021-07-16 Outpatient LACUEY [facility] [id number] UT 15:14:34 15:14:34 Miles MEDINA 2021-06-08 2021-06-08 Office STANFORD Yin 6400 1.2.840.114 [id number] [place] 10:30:00 11:59:17 Visit Cordell SULLIVAN 350.1.13.58 Health 9.2.7.2.686 [phone] 3 2021-05-27 2021-05-27 Outpatient R ANNIKA, [facility] [id number] Univers 16:00:00 16:00:00 [facility] 2021-05-25 2021-05-26 Emergency X MARLEN, K [facility] ERT [id number] Univers 23:11:00 02:11:00 [facility] 2021-05-25 2021-05-26 Emergency MarlenAimee [facility] 1.2.840.114 [id number] Univers 23:11:00 02:11:00 Danita BLAIR 350.1.13.10 i [facility] 4.2.7.2.686 [place] [facility] [id number] [address] 2021-05-21 2021-05-22 Outpt Diag nullFlavo [facility] [id number] Memoria 20:13:00 05:59:00 Services r Outpatient 03 l Imaging Reggie Paredes 2021-05-21 2021-05-22 Outpt Diag nullFlavo [facility] [id number] Memoria 20:13:00 05:59:00 Services r Outpatient 03 l Imaging Reggie Paredes 2021-05-21 2021-05-21 Outpatient Annamaria, [facility] [id number] 14:13:00 23:59:00 Cordell Dominic Travon-Britt 2021-05-21 2021-05-21 EXT MHH OP Annamaria, EXT MSRDP 1.2.840.114 1 [id number] UT 00:00:00 00:00:00 Cordell FLYNN 350.1.13.58 H ealth 9.2.7.2.686 [id number] 0 2021-05-21 2021-05-21 EXT MHH OP Annamaria, EXT MSRDP 1.2.840.114 1 [id number] UT 00:00:00 00:00:00 Cordell FLYNN 350.1.13.58 H ealth 9.2.7.2.686 [id number] 0 2021-04-07 2021-04-07 [facility] [id number] Co mmon 00:00:00 00:00:00 VISIT EST Spir it PT LEVEL 3 - [facility] 2021-03-19 2021-03-19 Jose Miguel Vickers [facility] 1.2.840.114 [id number] Univers 00:00:00 00:00:00 Tashi Blair 350.1.13.10 ity of [place] Profess[place] [phone] [address] 2021-01-05 2021-01-05 [facility] [id number] Common 00:00:00 00:00:00 [facility] 2020-12-04 2020-12-04 [facility] [id number] Common 00:00:00 00:00:00 [facility] 2020-10-24 2020-10-24 Outpatient [facility] [id number] UT 04:01:39 04:01:39 [facility] 2020-10-06 2020-10-06 Jose Miguel [facility] 1.2.840.114 [id number] Univers 00:00:00 00:00:00 Oscarsandy Roma 350.1.13.10 ity of [place].7.2.[place] Profess[place] [phone] [address] 2020-09-22 2020-09-22 Sarahi Vickers [facility] 1.2.501.621 [id number] Univers 00:00:00 00:00:00 Tashi Blair 350.1.13.10 ity of [place].2.[place] Profess[place] [phone] [address] 2020-09-18 2020-09-18 Laboratory Lab, Adc Fam Pob I [facility] 1.2. 840.114 [id number] Univers 15:04:37 15:24:37 Only Ivan Urbina [facility] 350.1.13.10 ity of [place] 4.2.7.2.686 Wm as Professio [phone] Pa dical nal [address] 2020-09-18 2020-09-18 Outpatient R HARRYSURI, [facility] [id number] Univers 15:00:00 15:00:00 IVAN guzman of [facility] 2020-09-07 2020-09-07 Outpatient STLMLC STLMLC [id number] Common 00:00:00 00:00:00 [facility] 2020-07-20 2020-07-20 Office [facility] 1.2.840.114 [id number] Univers 12:54:17 13:27:04 Visit Tashi Blair 350.1.13.10 ity of [place] 4.2.7.2.686 [place] Professio [phone] Pa dical nal [address] 2020-07-20 2020-07-20 [facility] [id number] Univers 13:00:00 13:00:00 TASHI guzman o f [facility] 2020-07-20 2020-07-20 Orders Doctor MADRID 1.2.840.114 [id number] Univers 00:00:00 00:00:00 Only Unassigned, VILLA 350.1.13.10 ity of [facility] 4.2.7.2.686 Wm as [phone] [address] 2020-07-14 2020-07-14 ST[facility] Infante Neurology - 7 [id number] [place] 10:30:00 10:30:00 Xiang Ventura M.D. Medical ans STEPHEN, Center M.D. 2020-07-07 2020-07-07 Outpatient STLMLC STLMLC [id number] Common 00:00:00 00:00:00 [facility] 2020-07-07 2020-07-07 Outpatient STLMLC STLMLC [id number] Common 00:00:00 00:00:00 [facility] 2020-06-08 2020-06-08 Outpatient STLMLC STLMLC [id number] Common 00:00:00 00:00:00 [facility] 2020-05-12 2020-05-12 STANFORD Bob Otorhinolar [id number] [place] 10:45:00 10:45:00 t; CORDELL YIN yngology - Ph codi RICKETTS M.D. [facility] 2020-03-31 2020-03-31 Appointmen STANFORD YIN [facility] [id number] UT 10:15:00 10:15:00 t; CORDELL YIN Physi ci WILLIAM, M.D. [facility] Kaley 2020-03-12 2020-03-12 Refill [facility] 1.2.840.114 [id number] 00:00:00 00:00:00 Tonapadmasandy Roma 350.1.13.10 [place] 4.2.7.2.[phone] 2020-03-12 2020-03-12 Refill [facility] 1.2.840.114 [id number] [facility] 00:00:00 00:00:00 Tashi Molinaton 350.1.13.10 ity of [place] 4.2.7.2.[place] [phone] Pa dical [address] 2020-03-04 2020-03-04 Outpatient [facility] [id number] Common 16:07:00 16:07:00 t Savage [employer] Spir it Drive [facility] 2020-03-04 2020-03-04 Outpatient [facility] [id number] Common 16:00:00 16:00:00 t Savage [employer] Spir it Drive [facility] 2020-03-02 2020-03-02 Outpatient [facility] [id number] Common 09:30:00 09:30:00 t Bone Bone and Spiri t and Joint [facility] - [facility] 2020-02-27 2020-02-27 Outpatient [facility] [id number] Common 15:52:00 15:52:00 t Bone Bone and Spiri t and Joint [facility] - [facility] 2020-02-27 2020-02-27 Outpatient [facility] [id number] Common 15:42:00 15:42:[address] [facility] 2020-02-26 2020-02-26 Outpatient Teo Brucet [id number] Common 16:41:00 16:41:00 t Source MDx Spir it Drive [facility] 2020-02-03 2020-02-03 Outpatient Teo Brucet [id number] Common 11:26:00 11:26:00 t Bone Bone and Spiri t and Joint [facility] - [facility] 2020-01-30 2020-01-30 Outpatient Teo Brucet 32 [id number] Common 16:21:00 16:21:00 t Bone Bone and Spiri t and Joint [facility] 2020-01-30 2020-01-30 Outpatient Teo Kate [id number] Common 13:30:00 13:30:00 t Bone Bone and Spiri t and Joint [facility] 2020-01-27 2020-01-27 Outpatient Teo Kate [id number] Common 09:05:00 09:05:00 t Bone Bone and Spiri t and Joint [facility] 2020-01-20 2020-01-20 Outpatient Teo Kate 31 [id number] Common 08:00:00 08:00:00 t Bone Bone and Spiri t and Joint [facility] - [facility] 2020-01-08 2020-01-08 Telephone [facility] 1.2.676.261 [id number] 00:00:00 00:00:00 Tashi Blair 350.1.13.10 [place] 4.2.7.2.686 Professio [phone] [address] 2020-01-08 2020-01-08 Telephone [facility] 1.2.930.149 [id number] [facility] 00:00:00 00:00:00 Tashi Blair 350.1.13.10 ity of [place] [phone] [address] 2020-01-07 2020-01-07 Orders Doctor JULIUS 1.2.840.114 [id number] 00:00:00 00:00:00 Only Unassigned, VILLA 350.1.13.10 [place] [facility] 4.2.7.2.686 [id number] 009 2020-01-07 2020-01-07 Orders Doctor JULIUS 1.2.840.114 [id number] Univers 00:00:00 00:00:00 Only Unassigned, VILLA 350.1.13.10 ity of [place] [facility] 4.2.7.2.686 Wm as [phone] [facility] jac 009 [place] 2019-12-23 2019-12-23 Outpatient [facility] [id number] Common 08:17:00 08:17:00 t Bone Bone and Spiri t and Joint [facility] 2019-12-23 2019-12-23 Outpatient [facility] [id number] Common 08:13:00 08:13:00 t Bone Bone and Spiri t and Joint [facility] - [facility] 2019-12-19 2019-12-19 Outpatient [facility] [id number] Common 08:00:00 08:00:00 t Bone Bone and Spiri t and Joint [facility] - [facility] 2019-12-14 2019-12-14 Orders Doctor MADRID 1.2.840.114 [id number] 00:00:00 00:00:00 Only Unassigned, VILLA 350.1.13.10 [place] [facility] 4.2.7.2.686 [id number] 009 2019-12-14 2019-12-14 Orders Doctor JULIUS 1.2.840.114 [id number] Univers 00:00:00 00:00:00 Only Unassigned, VILLA 350.1.13.10 ity of [place] [facility] 4.2.7.2.686 Wm as [phone] [facility] jac 009 [place] 2019-12-13 2019-12-13 Outpatient [facility] [id number] Common 11:33:00 11:33:00 t Source MDx Spir it Drive Family - [facility] 2019-11-29 2019-11-29 Outpatient [facility] [id number] Common 10:30:00 10:30:[address] [facility] 2019-11-22 2019-11-22 Outpatient [facility] [id number] Common 12:47:00 12:47:[address] [facility] 2019-11-21 2019-11-21 Outpatient [facility] [id number] Common 09:30:00 09:30:[address] [facility] 2019-10-17 2019-10-17 Refill Toby, [facility] 1.2.840.114 [id number] 00:00:00 00:00:00 Qiangjun Roma 350.1.13.10 [place] 4.2.7.2.686 Professio [phone] [address] 2019-10-17 2019-10-17 Refill Toby, [facility] 1.2.840.114 [id number] [facility] 00:00:00 00:00:00 Qiangjun Roma 350.1.13.10 ity of [place] 4.[place].2.[place] [phone] Pa dic[address] 2019-10-16 2019-10-16 Refill Toby, [facility] 1.2.840.114 [id number] 00:00:00 00:00:00 Qiangjun Roma 350.1.13.10 [place] 4.2.7.2.686 Professio [phone] [address] 2019-10-16 2019-10-16 Refill Toby, [facility] 1.2.840.114 [id number] [facility] 00:00:00 00:00:00 Qiangjun Roma 350.1.13.10 ity of [place] 4.2.7.2.686 [place] [phone] Pa dic[address] 2019-08-30 2019-08-30 Appointmen ST[facility]FORD VIERA [facility] [id number] UT 10:00:00 10:00:00 t; Stalin ARROYO M.D. ans STEPHEN, M.D. 2019-08-29 2019-08-29 Outpatient [facility] [id number] Common 09:30:00 09:30:00 t Source MDx [facility] it [facility] 2019-08-14 2019-08-15 Emergency [facility], [facility] 1.2.863.815 [id number] 22:55:11 00:54:00 Jed Blair 350.1.13.10 [place] 4.2.7.2.686 [place] [phone] [facility] 2019-08-14 2019-08-15 Emergency [facility] 1.2.849.956 [id number] [facility] 22:55:11 00:54:00 Jed Blair 350.1.13.10 ity of [place] 4.2.7.2.686 [place] [phone] [address] 2019-07-16 2019-07-16 Office [facility] 1.2.840.114 [id number] [facility] 10:32:03 11:01:50 Visit Tashi Molinaton 350.1.13.10 ity of [place] 4.2.7.2.686 [facility] [phone] Pa dical nal 059 [facility] 2019-06-29 2019-06-30 Outpt Diag nullFlavo [facility] [id number] Memoria 18:47:00 05:59:00 Services r Outpatient 02 l Imaging Reggie Reggie 2019-06-29 2019-06-30 Outpt Diag nullFlavo [facility] [id number] Memoria 18:47:00 05:59:00 Services r Outpatient 02 l Imaging Reggieeb Paredes 2019-06-29 2019-06-29 Outpatient [facility] [id number] 12:47:00 23:59:00 Facundo Causey 2019-05-31 2019-05-31 AppointSTANFORD Diaz Neurology - 5 [id number] [place] 10:30:00 10:30:00 t; Xiang ARROYO M.D. Medical ans STEPHEN, Center M.D. 2019-05-30 2019-05-30 Outpatient Teo Kate [id number] Common 09:30:00 09:30:00 [place] [facility] it [facility] 2019-03-08 2019-03-08 Associate Chief Nurse Tech, Carolyn Cardio Fac [facility] 1. 2.840.114 [id number] Univers 12:40:39 13:28:07 Visit 2, Adc Cardio Fac [facility] [place] 350.1. 13.10 ity of Tashi Vickers 4.2.7.2.686 [place] Professio [phone] [place] [id number] [facility] 2019-03-07 2019-03-07 Office Toby [facility] 1.2.840.114 [id number] Univers 09:28:45 10:08:34 Visit Tashi Blair 350.1.13.10 ity of [place] 4.2.7.2.686 [place] [phone] [address] 2019-03-06 2019-03-06 Telephone Toby [facility] 1.2.611.559 [id number] Univers 00:00:00 00:00:00 Tashi Blair 350.1.13.10 ity of [place] 4.2.7.2.686 [place] [phone] [address] 2019-03-04 2019-03-05 Emergency Reg [facility] 1.2.563.273 [id number] Univers 21:28:21 00:51:00 Cristina Blair 350.1.13.10 i ty of [place] 4.2.7.2.686 [place] [phone] [facility] [address] 2019-02-22 2019-02-22 Associate Chief Nurse 1, [facility] [place] 1.2.840.114 [id number] Univers 15:25:33 15:40:33 Visit Tashi Vickers 350.1.13.10 ity of [place] 4.2.7.2.686 [facility] [place] [phone] [facility] [address] 2019-02-22 2019-02-22 Refill Toby [facility] 1.2.840.114 [id number] Univers 00:00:00 00:00:00 [facility] 350.1.13.10 ity of [place] 4.2.7.2.686 [place] Profess[place] [phone] Pa dical nal 059 [facility] 2019-02-22 2019-02-22 Orders Doctor JULIUS 1.2.840.114 [id number] Univers 00:00:00 00:00:00 Only Unassigned, VILLA 350.1.13.10 ity of [facility] 4.2.7.2.686 Wm as [phone] [address] 2019-02-11 2019-02-11 Appointmen STANFORD YIN [id number] [place] 10:15:00 10:15:00 tCORDELL QUIROGA, Physi ci William RICKETTS. ans Kaley 2019-01-21 2019-01-22 [facility] [id number] Memoria 20:44:00 22:05:[address] 2019-01-21 2019-01-22 [facility] [id number] Memoria 20:44:00 22:05:[address] 2019-01-21 2019-01-22 Outpatient Maximiliano [facility] [id number] 15:44:00 17:05:00 Facundomaira Causey 2019-01-21 2019-01-21 Outpatient [facility] [id number] [facility] 15:44:00 15:44:00 2019-01-17 2019-01-17 Associate Chief Nurse [facility], Adc Cardio Fac [facility] 1. 2.840.114 [id number] [facility] 10:07:38 10:50:46 Visit 2, Adc Cardio Fac [facility] 350.1. 13.10 ity of Tashi Vickers 4.2.7.2.686 [place] Professio [phone] Pa dical nal 059 [facility] 2018-12-17 2018-12-17 Outpatient [facility] [id number] Common 10:30:00 10:30:00 t Source MDx [facility] it [facility] 2018-11-23 2018-11-23 [facility]ante [facility] - 5 [id number] [place] 10:30:00 10:30:00 t; Xiang ARROYO M.D. [facility] Rizwan ARROYO M.D. 2018-11-20 2018-11-20 [facility] Infante UTP [id number] [place] 10:30:00 10:30:00 t; Stalin ARROYO M.D. ans STEPHEN, M.D. 2018-09-18 2018-09-18 Outpatient [facility] [id number] Common 10:15:00 10:15:00 t [employer] it Drive [facility] 2018-08-14 2018-08-14 STANFORD Bob Otorhinolar [id number] [place] 10:15:00 10:15:00 t; CORDELL YIN yngology - Ph codi RICKETTS M.D. [facility] 2018-08-09 2018-08-09 Outpatient [facility] [id number] Common 10:30:00 10:30:00 t [employer] it Drive [facility] 2018-08-03 2018-08-03 Yogi [facility]L [facility] [id number] [place] 11:00:00 11:00:00 t; ANGELINE Redmond Phys ici TALLAVAJHU M.D. ans [place], SUDHA, M.D. 2018-06-29 2018-06-29 Outpatient [facility] [id number] Common 10:00:00 10:00:00 t [employer] it Drive [facility] 2018-05-22 2018-05-22 [facility] [id number] UT 10:00:00 10:00:00 t; Stalin ARROYO M.D. ans STEPHEN, M.D. 2018-04-17 2018-04-17 STANFORD Bob Otorhinolar [id number] [place] 10:15:00 10:15:00 t; CORDELL YIN yngology - Ph codi RICKETTS M.D. [facility] 2018-03-29 2018-03-29 PreReg nullFlavo Neuro [id number] Memoria 15:15:00 15:15:00 r Rehab 06 l [facility] ([facility]) 2018-03-29 2018-03-29 PreReg nullFlavo [facility] [id number] Memoria 15:15:00 15:15:00 r Rehab 06 l [facility] ([facility]) 2018-03-29 2018-03-29 Outpatient Cielo TIRR TIRR [id number] 10:15:00 10:15:00 a, Angeline 06 [place] 2018-03-13 2018-03-15 Outside nullFlavo [facility] [id number] Memoria 14:04:00 04:59:59 Medical r Internal 01 l Records Medicine [facility] 2018-03-13 2018-03-15 Outside nullFlavo MG [id number] Memoria 14:04:00 04:59:59 Medical r Internal 01 l Records [facility] 2018-03-13 2018-03-14 Outpatient [facility] [id number] 09:04:00 23:59:59 01 2018-03-06 2018-03-06 [facility] [id number] [place] 10:30:00 10:30:00 t; Stalin ARROYO M.D. ans STEPHEN, M.D. 2018-01-29 2018-01-29 [facility] [id number] Common 14:34:00 14:34:00 t Source MDx [facility] [address] [facility] 2018-01-22 2018-01-22 [facility]TP [id number] [place] 09:30:00 09:30:00 t; Stalin ARROYO M.D. ans STEPHEN, M.D. 2018-01-15 2018-01-15 [facility] UTP [id number] [place] 09:30:00 09:30:00 t; Stalin ARROYO M.D. ans STEPHEN, M.D. 2018-01-10 2018-01-10 [facility] [id number] Common 10:02:00 10:02:00 t Source MDx [facility] it Drive [facility] 2017-12-21 2017-12-23 Phone nullFlavo [facility] [id number] Memoria 22:48:00 04:59:59 Message r Internal 00 l Medicine [facility] 2017-12-21 2017-12-23 Phone nullFlavo [facility] [id number] Memoria 22:48:00 04:59:59 Message r Internal 00 l Medicine [facility] 2017-12-21 2017-12-22 Outpatient MG [facility] [id number] 17:48:00 23:59:59 00 2017-12-18 2017-12-18 [facility]tor[facility] [id number] [place] 11:00:00 11:00:00 tCORDELL QUIROGA, yngology - Ph codi RICKETTS M.D. [facility] 2017-12-13 2017-12-13 Outpatient nullFlavo [facility] [id number] Memoria 01:00:00 13:00:00 r [facility] 07 l [facility] 2017-12-13 2017-12-13 Outpatient nullFlavo [facility] [id number] Memoria 01:00:00 13:00:[address] 2017-12-12 2017-12-13 Outpatient Tall[place]ul MHTIRR MHTIRR [id number] 20:00:00 08:00:00 a, Angeline 07 Gustabo 2017-12-04 2017-12-04 [facility]patient [facility] [id number] Common 10:00:00 10:00:00 t Source MDx [facility] it [employer] [facility] 2017-11-28 2017-11-29 Outpatient nullFlavo TIRR [id number] Memoria 15:11:00 04:59:00 r [facility] 05 [facility] 2017-11-28 2017-11-29 Outpatient nullFlavo TIRR [id number] Memoria 15:11:00 04:59:00 r [facility] 05 l [facility] 2017-11-28 2017-11-28 Outpatient Tallavajhul MHTIRR MHTIRR [id number] 10:11:00 23:59:00 a, Angeline 05 Gustabo 2017-11-10 2017-11-10 [place] Bob Otorhinolar [id number] [place] 10:00:00 10:00:00 t; CORDELL YIN yngology - Ph codi RICKETTS M.D. [place] [facility] 2017-10-26 2017-10-26 Appointmen STANFORD YIN Otorhinolar [id number] [place] 10:00:00 10:00:00 t; CORDELL YIN yngology - Ph codi RICKETTS [facility].D. [facility] 2017-10-24 2017-10-24 Emergency nullFlavo [facility] [id number] Memoria 08:49:00 12:48:[address] 2017-10-24 2017-10-24 Emergency nullFlavo [facility] [id number] Memoria 08:49:00 12:48:[address] 2017-10-24 2017-10-24 Outpatient Beba [facility] [id number] 03:49:00 07:48:00 Flaquito Cruz Jeremy 2017-10-19 2017-10-20 Observatio nullFlavo [facility] [id number] Memoria 16:46:00 16:47:00 n r [address] 2017-10-19 2017-10-20 Observatio nullFlavo [facility] [id number] Memoria 16:46:00 16:47:00 n r [address] 2017-10-19 2017-10-20 Outpatient Annamaria [facility] [id number] 11:46:00 11:47:00 Cordell Lopez ChiLuciog 2017-09-05 2017-09-05 Appointmen STANFORD YIN UTP [id number] [place] 09:30:00 09:30:00 t; CORDELL YIN Physi ci WILLIAM, M.D. ans M.D. 2017-08-22 2017-08-23 Outpt Diag nullFlavo [facility] [id number] Memoria 21:06:00 05:59:00 Services r Outpatient 01 l Imaging [facility] 2017-08-22 2017-08-23 Outpt Diag nullFlavo [facility] [id number] Memoria 21:06:00 05:59:00 Services r Outpatient 01 l Imaging [facility] 2017-08-22 2017-08-22 Outpatient Annamaria, MHOIP MHOIP [id number] 15:06:00 23:59:00 Cordell Rashawn Jeffries 2017-08-22 2017-08-22 Outpatient Annamaria, MHOIP MHOIP [id number] 15:06:00 23:59:00 Cordell Rashawn Jeffries 2017-08-22 2017-08-22 [facility] UTP [id number] [place] 09:45:00 09:45:00 t; CORDELL YIN Physi Kaley RICKETTS [place] 2017-02-08 2017-02-08 Appointgerri MCKINNEY, [facility] UTP [id number] [place] 11:00:00 11:00:00 t; VANESSA MCKINNEY Phy sici JEREMY, M.D. ans M.D. 2017-02-01 2017-02-01 [facility] UTP [id number] [place] 10:30:00 10:30:00 t; VANESSA MCKINNEY Phy sici JEREMY, M.D. ans M.D. 2016-11-16 2016-11-17 Outpt Diag nullFlavo [facility] [id number] Memoria 21:29:00 04:59:00 Services r Outpatient 00 l Imaging [place] 2016-11-16 2016-11-17 Outpt Diag nullFlavo [facility] [id number] Memoria 21:29:00 04:59:00 Services r Outpatient 00 l Imaging [place] 2016-11-16 2016-11-16 Outpatient TIERRA Mckinney MH29 [id number] 16:29:00 23:59:00 Vanessa Nair 2016-11-03 2016-11-03 [facility] UTP [id number] [place] 16:00:00 16:00:00 t; VANESSA MCKINNEY Phy sici JEREMY, M.D. ans M.D. 2016-11-02 2016-11-03 Outpatient nullFlavo TIRR [id number] Memoria 16:50:00 04:59:00 r Memorial 02 l [facility] 2016-11-02 2016-11-03 Outpatient nullFlavo TIRR [id number] Memoria 16:50:00 04:59:00 r [facility] 02 [facility] 2016-11-02 2016-11-03 Emergency nullFlavo [facility] [id number] Memoria 21:54:00 01:52:00 r Reggie 03 [facility] 2016-11-02 2016-11-03 Emergency nullFlavo [facility] [id number] Memoria 21:54:00 01:52:00 r [place] 03 [facility] 2016-11-02 2016-11-02 [id number] 11:50:00 23:59:00 a, Angeline Gustabo 2016-11-02 2016-11-02 [facility] [id number] 16:54:00 20:52:00 Medardo Navarrete 2016-09-28 2016-09-28 [facility] UTP [id number] [place] 14:00:00 14:00:00 t; VANESSA MCKINNEY Phy sici JEREMY, M.D. ans [place] 2016-08-31 2016-08-31 [facility]N [facility] UTP [id number] [place] 09:30:00 09:30:00 t; VANESSA MCKINNEY Phy sici JEREMY, M.D. ans [place] 2016-06-01 2016-06-01 [facility] MCKINNEY UTP [id number] [place] 13:30:00 13:30:00 t; VANESSA MCKINNEY Phy sici JEREMY, M.D. ans M.D. 2016-05-11 2016-05-11 Outpatient nullFlavo TIRR [id number] Memoria 01:00:00 13:00:00 r [facility] 01 [facility] 2016-05-11 2016-05-11 Outpatient nullFlavo TIRR [id number] Memoria 01:00:00 13:00:00 r [facility] 01 [facility] 2016-05-10 2016-05-11 [facility] TIR[facility] TIRR [id number] 19:00:00 07:00:00 a, Angeline Gustabo 2016-04-26 2016-04-26 [facility] UTP [id number] [place] 09:45:00 09:45:00 t; Bin mccall Phys ici Montalvo-C M.D. ans hen, Rolf, M.D. 2016-04-08 2016-04-08 [facility] UTP [id number] [place] 15:00:00 15:00:00 t; Bin mccall Phys ici Montalvo-C M.D. ans hen, Rolf, M.D. 2016-03-23 2016-03-23 [facility] UTP [id number] [place] 10:30:00 10:30:00 t; VANESSA MCKINNEY Phy sici JEREMY, M.D. ans M.D. 2014-09-23 2014-09-24 [place] [id number] Memoria 18:23:00 04:59:[address] 2014-09-23 2014-09-24 Outpatient [place] [id number] Memoria 18:23:00 04:59:[address] 2014-09-23 2014-09-23 Outpatient Mckinney [id number] 13:23:00 23:59:00 Vanessa [id number] 03 Korey [id number] 72 8024-11-03 2011-04-21 Outpatient [place] [id number] Memoria 09:07:00 09:07:00 r Medical [address] [place] [address] 2011-04-21 2011-04-21 Outpatient [place] [id number] Memoria 09:07:00 09:07:00 r Medical [address] [place] [address] Results Test Description Test Time Test Comments Results Result Comments Source TROPONIN I 2022-08-20 02:56:42 Test Item Value Reference Range Interpretation Comme nts TROPONIN I (test code = 2586539207) 0.011 ng/mL <=0.034 BATOOL (test code = BATOOL) Reference (Normal) Range (defined by the 99th percentile reference limit): <= 0.034 ng/mL Note: Cardiac troponin begins to rise 3-4 hours after the onset of ischemia. Repeat in 4-6 hours if the sample was drawn within 3-4 hours of the onset of the symptom and found normal. Diagnosis of myocardial injury is made with acute changes in cTn concentrations with at least one serial sample above the 99th percentile upper reference limit (URL), taken together with the patient's clinical presentation. Biotin has been reported to cause a negative bias, interpret results relative to patient's use of biotin. Lab Interpretation (test code = Normal 03908-0) [facility] [id number]-[id number] 02:53:45 Test Item Value Reference Range Interpretation Comments NT-proBNP (test code = 36 pg/mL <=125 2304333040) BATOOL (test code = BATOOL) Biotin has been reported to cause a negative bias, interpret results relative to patient's use of biotin. Lab Interpretation (test Normal code = 58815-0) [facility] MET[facility]OLIC PANEL (60638)2022-08-20 02:45:04 Test Item Value Reference Range Interpretation Comments NA (test code = 139 mmol/L 135-145 4486208851) K (test code = 4.0 mmol/L 3.5-5.0 0240507207) CL (test code = 106 mmol/L 98-108 4603305858) CO2 TOTAL (test code = 22 mmol/L 23-31 L 8490862076) AGAP (test code = 11 2-16 3547220208) BUN (test code = 14 mg/dL 7-23 5493097214) GLUCOSE (test code = 114 mg/dL 70-110 H 7919623211) CREATININE (test code = 0.96 mg/dL 0.60-1.25 5024967067) TOTAL BILI (test code = 0.5 mg/dL 0.1-1.8 8315578331) CALCIUM (test code = 8.5 mg/dL 8.6-10.6 L 0081597104) T PROTEIN (test code = 7.8 g/dL 6.3-8.2 2002172497) ALBUMIN (test code = 4.6 g/dL 3.5-5.0 0243641742) ALK PHOS (test code = 122 U/L 34-122 0833489214) ALTv (test code = 30 U/L 5-50 1742-6) AST(SGOT) (test code = 24 U/L 13-40 0701303205) eGFR (test code = 81.6 mL/min/1.73m2 9846738569) BATOOL (test code = BATOOL) Association of Glomerular Filtration Rate (GFR) and Staging of Kidney Disease* + --+ --+ ------+| GFR (mL/min/1.73 m2) ?| With Kidney Damage ?| ?Without Kidney Damage+ --------+ --------+ +| ?>90 ?| ?Stage one ?| ? Normal ?+ ---+ ---+ -------+| ?60-89 ?| ?Stage two ?| ? Decreased GFR ? + --+ --+ ------+| ?30-59 ?| ?Stage three ?| ? Stage three ? + --+ --+ ------+| ?15-29 ?| ?Stage four ? | ? Stage four ?+ ---+ ---+ -------+| ?<15 (or dialysis) ? ?| ?Stage five ? | ? Stage five ?+ ---+ ---+ -------+ *Each stage assumes the associated GFR level has been in effect for at least three months. ?Stages 1 to 5, with or without kidney disease, indicate chronic kidney disease. Notes: Determination of stages one and two (with eGFR >59mL/min/1.73 m2) requires estimation of kidney damage for at least three months as defined by structural or functional abnormalities of the kidney, manifested by either:Pathological abnormalities or Markers of kidney damage (including abnormalities in the composition of the blood or urine or abnormalities in imaging tests). Lab Interpretation Abnormal (test code = 59891-9) [facility] WITH [id number] 02:33:00 Test Item Value Reference Range Interpretation Comments WBC (test code = 6.61 See_Comment [Automated 7671-2) message] The sy stem which generated this result transmitted reference range : 4.20 - 10.70 10*3/?L. The reference range was not used to interpret this result as normal/abnormal . RBC (test code = 5.19 See_Comment [Automated 633-0) message] The sy stem which generated this result transmitted reference range : 4.26 - 5.52 10*6/?L. The reference range was not used to interpret this result as normal/abnormal . HGB (test code = 15.8 g/dL 12.2-16.4 718-7) HCT (test code = 45.2 % 38.4-49.3 4544-3) MCV (test code = 87.1 fL 81.7-95.6 787-2) MCH (test code = 30.4 pg 26.1-32.7 785-6) MCHC (test code = 35.0 g/dL 31.2-35.0 786-4) RDW-SD (test code = 39.2 fL 38.5-51.6 59104-2) RDW-CV (test code = 12.4 % 12.1-15.4 788-0) PLT (test code = 182 See_Comment [Automated 777-3) message] The sy stem which generated this result transmitted reference range : 150 - 328 10*3/ ?L. The reference r jose was not used to interpret this result as normal/abnormal . MPV (test code = 8.7 fL 9.8-13.0 L 04264-7) NRBC/100 WBC (test 0.0 See_Comment [Automat ed code = 5590261109) message] The system which generated this result transmitted reference range : 0.0 - 10.0 /100 WBCs. The refer ence range was not u sed to interpret th is result as normal/abnormal . NRBC x10^3 (test code See_Comment [Auto mated = 4369026168) message] The s ystem which generated this result transmitted reference range : 10*3/?L. The reference range was not used to interpret this result as normal/abnormal . GRAN MAT (NEUT) % 64.9 % (test code = 770-8) IMM GRAN % (test code 0.90 % = 9750222046) LYMPH % (test code = 22.4 % 736-9) MONO % (test code = 8.8 % 5905-5) EOS % (test code = 2.7 % 713-8) BASO % (test code = 0.3 % 706-2) GRAN MAT x10^3(ANC) 4.29 10*3/uL 1.99-6.95 (test code = 2184174220) IMM GRAN x10^3 (test 0.06 10*3/uL 0.00-0.06 code = 8216899366) LYMPH x10^3 (test code 1.48 10*3/uL 1.09-3.23 = 731-0) MONO x10^3 (test code 0.58 10*3/uL 0.36-1.02 = 742-7) EOS x10^3 (test code = 0.18 10*3/uL 0.06-0.53 711-2) BASO x10^3 (test code 0.01-0.09 = 704-7) Lab Interpretation Abnormal (test code = 44387-3) [facility] Brain wo contrast [id number] 15:09:00 EXAM: MRI BRAIN WITHOUT CONTRASTDATE: 06/29/2019 13:35 CSTINDICATION: 48 years old Male patient with history of - 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 No intracranialhemorrhage is identified. Theventricles are normal in size. No parenchymalmass, mass effect or midline shift is present. No pathologic extra axial fluidis identified. Major intracranial vascular flow voids are preserved. Smallinflammatory mucosal thickening of the right maxillary sinus. The remainingparanasal sinuses are clear. No mastoid effusion is identified.IMPRESSION:1. No intracranial abnormality.--Read by: Jose Ridley MDDictated Date/time: 07/01/19 09:06Electronically Signed by: Jose Ridley MD 07/01/2009:22FINAL REPORTUT BhetarwwrdACCYIFOCCESI8730-82-23 09:13:00 Test Item Value Reference Range Interpretation Comments Creatinine Lvl (test code = Creatinine 0.86 0.50-1.40 Lvl) [facility]HO[facility]YPNGJH3106-39-43 09:13:00 Test Item Value Reference Range Interpretation Comments Potassium Lvl (test code = Potassium 3.5 3.5-5.1 Lvl) [facility] ChjiqypHCLIWCJBXM1383-08-47 09:13:00 Test Item Value Reference Range Interpretation Comments Lymphocytes # (test code = Lymphocytes 1.2 1.0-5.5 #) [facility] CenterBurxodaWUFHFIBIHN0393-96-59 09:13:00 Test Item Value Reference Range Interpretation Comments Eosinophils # (test code 0.2 See_Comment [A utomated message] The = Eosinophils #) system whic h generated this result tra nsmitted reference range : <=0.5. The reference r jose was not used to int erpret this result as normal/abnormal . [facility] CenterAwnkiplVLFVPZZOAJ4959-02-46 09:13:00 Test Item Value Reference Range Interpretation Comments Eosinophils (test code = 3.0 See_Comment [A utomated message] The Eosinophils) system which ge nerated this result tra nsmitted reference range : <=4.0. The reference r jose was not used to int erpret this result as normal/abnormal . [facility] CenterOmlzdewUAPHHIBUTU4583-37-35 09:13:00 Test Item Value Reference Range Interpretation Comments Basophils (test code = 0.4 See_Comment [Aut omated message] The Basophils) system which ge nerated this result tra nsmitted reference range : <=1.0. The reference r jose was not used to int erpret this result as normal/abnormal . [facility] CenterKqzgvrgTEWPWDUNMK9326-71-26 09:13:00 Test Item Value Reference Range Interpretation Comments Segs-Bands # (test code = Segs-Bands #) 5.1 1.5-8.1 [facility] CenterSposthtPGBCPTVQBC4103-08-36 09:13:00 Test Item Value Reference Range Interpretation Comments Monocytes # (test code 0.7 See_Comment [Aut omated message] The = Monocytes #) system which generated this result tra nsmitted reference range : <=0.8. The reference r jose was not used to int erpret this result as normal/abnormal . [facility] CenterIzqltopUTSXSOWPXB7940-54-54 09:13:00 Test Item Value Reference Range Interpretation Comments Lymphocytes (test code = Lymphocytes) 16.9 20.0-40.0 [facility] CenterZrexxiyMRUGRQWYTR0283-51-67 09:13:00 Test Item Value Reference Range Interpretation Comments Segs (test code = Segs) 70.6 45.0-75.0 [facility] CenterIpozilbSOQFDLBKAF8733-25-69 09:13:00 Test Item Value Reference Range Interpretation Comments Monocytes (test code = Monocytes) 9.1 2.0-12.0 [facility] CenterPscurcfUUHEWAYAMS9793-47-76 09:13:00 Test Item Value Reference Range Interpretation Comments Platelet (test code = Platelet) 206 133-450 [facility] CenterWfqgicmRNWETCRILA3969-96-70 09:13:00 Test Item Value Reference Range Interpretation Comments RDW (test code = RDW) 13.2 11.5-14.5 [facility] CenterDypnesmZCSDUJLXMQ6480-59-99 09:13:00 Test Item Value Reference Range Interpretation Comments MCHC (test code = MCHC) 35.0 32.0-36.0 [facility] CenterPklvpqiBEDFPSBNEU3598-82-68 09:13:00 Test Item Value Reference Range Interpretation Comments MCH (test code = MCH) 30.8 pg 27.0-31.0 [facility] CenterZbsfithBFXACGRZNR9967-74-03 09:13:00 Test Item Value Reference Range Interpretation Comments MCV (test code = MCV) 88.0 80.0-94.0 [facility] CenterVgnpbqhWLTDRBNIZR1046-71-50 09:13:00 Test Item Value Reference Range Interpretation Comments Hct (test code = Hct) 42.2 42.0-54.0 [facility] CenterSjnkkvqTVYHQPHXPP1528-91-63 09:13:00 Test Item Value Reference Range Interpretation Comments RBC (test code = RBC) 4.80 4.70-6.10 [facility] CenterNklobagISBXSQRULD9779-24-91 09:13:00 Test Item Value Reference Range Interpretation Comments MPV (test code = MPV) 7.0 7.4-10.4 [facility] CenterQmtbbxjRYWRPWLWTX1209-15-89 09:13:00 Test Item Value Reference Range Interpretation Comments WBC (test code = WBC) 7.2 3.7-10.4 [facility] CenterJrfsdyjEDOYRYZFGS1104-25-75 09:13:00 Test Item Value Reference Range Interpretation Comments Hgb (test code = Hgb) 14.8 14.0-18.0 [facility] HospitalNhdlfvlIABVACWBGRDI6069-07-43 09:13:00 Test Item Value Reference Range Interpretation Comments AGAP (test code = AGAP) 15.5 10.0-20.0 [facility] HospitalMqtsxyoREECWZUPIRUO1920-37-35 09:13:00 Test Item Value Reference Range Interpretation Comments Calcium Lvl (test code = Calcium Lvl) 8.1 8.5-10.5 [facility] HospitalTwelndaSEYVGRUVERFN9647-51-02 09:13:00 Test Item Value Reference Range Interpretation Comments eGFR (test code = eGFR) 102 [facility] HospitalCdbjmtlSSXAMFQPUBPK1897-46-68 09:13:00 Test Item Value Reference Range Interpretation Comments CO2 (test code = CO2) 21 24-32 [facility] HospitalHriebztMMCWWOXMSAKS1844-45-69 09:13:00 Test Item Value Reference Range Interpretation Comments Chloride Lvl (test code = Chloride Lvl) 105 95-109 [facility] HospitalDlvqkyfWRCMJZCILXWB4484-23-22 09:13:00 Test Item Value Reference Range Interpretation Comments BUN (test code = BUN) 12 7-22 [facility] HospitalSskujflQVWNBDQEQLIY0323-15-44 09:13:00 Test Item Value Reference Range Interpretation Comments Glucose Lvl (test code = Glucose Lvl) 130 70-99 [facility] HospitalIfqwyvcCFJYUCGWZFNF7248-08-56 09:13:00 Test Item Value Reference Range Interpretation Comments Sodium Lvl (test code = Sodium Lvl) 138 135-145 [facility] HospitalVydtrzlVSPLXNZLZVKB1603-93-88 09:13:00 Test Item Value Reference Range Interpretation Comments Creatinine Lvl (test code = Creatinine 0.86 0.50-1.40 Lvl) [facility] HospitalOgvvtviHMTGGQTQHAXW9917-09-66 09:13:00 Test Item Value Reference Range Interpretation Comments Potassium Lvl (test code = Potassium 3.5 3.5-5.1 Lvl) [facility] CenterGhnglvwKGAIDULGEQ1820-93-27 09:13:00 Test Item Value Reference Range Interpretation Comments Lymphocytes # (test code = Lymphocytes 1.2 1.0-5.5 #) [facility] CenterCmsmpnrSPKZLVUYAA5910-63-97 09:13:00 Test Item Value Reference Range Interpretation Comments Eosinophils # (test code 0.2 See_Comment [A utomated message] The = Eosinophils #) system whic h generated this result tra nsmitted reference range : <=0.5. The reference r jose was not used to int erpret this result as normal/abnormal . [facility] CenterZgmjstvCTLKSSXLUR9011-45-68 09:13:00 Test Item Value Reference Range Interpretation Comments Eosinophils (test code = 3.0 See_Comment [A utomated message] The Eosinophils) system which ge nerated this result tra nsmitted reference range : <=4.0. The reference r jose was not used to int erpret this result as normal/abnormal . [facility] CenterAnwtkvmVXMLAGTCLO6331-56-69 09:13:00 Test Item Value Reference Range Interpretation Comments Basophils (test code = 0.4 See_Comment [Aut omated message] The Basophils) system which ge nerated this result tra nsmitted reference range : <=1.0. The reference r jose was not used to int erpret this result as normal/abnormal . [facility] CenterQfyhxwsZTSWYZRCKY0644-50-46 09:13:00 Test Item Value Reference Range Interpretation Comments Segs-Bands # (test code = Segs-Bands #) 5.1 1.5-8.1 [facility] CenterIistlvnLHVHKKCMRR6252-32-90 09:13:00 Test Item Value Reference Range Interpretation Comments Monocytes # (test code 0.7 See_Comment [Aut omated message] The = Monocytes #) system which generated this result tra nsmitted reference range : <=0.8. The reference r jose was not used to int erpret this result as normal/abnormal . [facility] CenterUsnquxtQRDLKZFQLT6203-04-52 09:13:00 Test Item Value Reference Range Interpretation Comments Lymphocytes (test code = Lymphocytes) 16.9 20.0-40.0 [facility] CenterYkgekjsJSCWSMHSUD5935-78-42 09:13:00 Test Item Value Reference Range Interpretation Comments Segs (test code = Segs) 70.6 45.0-75.0 [facility] CenterKzjuarfZSTGKTAXMM7317-69-90 09:13:00 Test Item Value Reference Range Interpretation Comments Monocytes (test code = Monocytes) 9.1 2.0-12.0 [facility] CenterOjwqstrTKCMKAKDDT6353-05-58 09:13:00 Test Item Value Reference Range Interpretation Comments Platelet (test code = Platelet) 206 133-450 [facility] CenterQbcbmgsVPJGYOHMPZ3078-67-59 09:13:00 Test Item Value Reference Range Interpretation Comments RDW (test code = RDW) 13.2 11.5-14.5 [facility] CenterNfcyxicQIOAYTQJDI7052-14-56 09:13:00 Test Item Value Reference Range Interpretation Comments MCHC (test code = MCHC) 35.0 32.0-36.0 [facility] CenterZwkfgthZADAYXAERN2192-22-34 09:13:00 Test Item Value Reference Range Interpretation Comments MCH (test code = MCH) 30.8 pg 27.0-31.0 [facility] CenterTisxcgiWPQBTSAANN6806-66-64 09:13:00 Test Item Value Reference Range Interpretation Comments MCV (test code = MCV) 88.0 80.0-94.0 [facility] CenterTqxzydwVXSCAWVZCY0387-12-81 09:13:00 Test Item Value Reference Range Interpretation Comments Hct (test code = Hct) 42.2 42.0-54.0 [facility] CenterCxvkaqzAHVSVTNZGE6043-62-24 09:13:00 Test Item Value Reference Range Interpretation Comments RBC (test code = RBC) 4.80 4.70-6.10 [facility] CenterExwyszvRXJTJDPCCF1479-06-55 09:13:00 Test Item Value Reference Range Interpretation Comments MPV (test code = MPV) 7.0 7.4-10.4 [facility] CenterKnallbcKFZFYUNXCZ2587-08-52 09:13:00 Test Item Value Reference Range Interpretation Comments WBC (test code = WBC) 7.2 3.7-10.4 [facility] CenterUndkpbzIEVMBCGPXP1557-55-78 09:13:00 Test Item Value Reference Range Interpretation Comments Hgb (test code = Hgb) 14.8 14.0-18.0 [facility] HospitalMbpabldTYTBUWRZQDPL9497-41-74 09:13:00 Test Item Value Reference Range Interpretation Comments AGAP (test code = AGAP) 15.5 10.0-20.0 [facility] HospitalNusadqiYPHIYUZUHWHS1065-32-19 09:13:00 Test Item Value Reference Range Interpretation Comments Calcium Lvl (test code = Calcium Lvl) 8.1 8.5-10.5 [facility] HospitalTgxeqxpCXZNRWEVVUXE7412-85-23 09:13:00 Test Item Value Reference Range Interpretation Comments eGFR (test code = eGFR) 102 [facility] HospitalMoivvvkDKRFOOMVWDFP6315-94-14 09:13:00 Test Item Value Reference Range Interpretation Comments CO2 (test code = CO2) 21 24-32 [facility] HospitalIpkcikgRFDHILLQHYLF5442-75-64 09:13:00 Test Item Value Reference Range Interpretation Comments Chloride Lvl (test code = Chloride Lvl) 105 95-109 [facility] HospitalPdulkoxAXGVWEKUDMOH8148-81-70 09:13:00 Test Item Value Reference Range Interpretation Comments BUN (test code = BUN) 12 7-22 [facility] HospitalMhaqoovEBONFIUIWZRB1282-54-86 09:13:00 Test Item Value Reference Range Interpretation Comments Glucose Lvl (test code = Glucose Lvl) 130 70-99 [facility] HospitalWvkuywsEWQPNWLSHQXP3527-38-98 09:13:00 Test Item Value Reference Range Interpretation Comments Sodium Lvl (test code = Sodium Lvl) 138 135-145 [facility] HospitalIyrypsxIJUFGDASHGIJ4866-13-96 09:13:00 Test Item Value Reference Range Interpretation Comments Creatinine Lvl (test code = Creatinine 0.86 0.50-1.40 Lvl) [facility] HospitalPuyldzuRACIRGRUGXZB5951-53-75 09:13:00 Test Item Value Reference Range Interpretation Comments Potassium Lvl (test code = Potassium 3.5 3.5-5.1 Lvl) [facility] CenterIluuuhvMLYAXBTFCH4310-85-06 09:13:00 Test Item Value Reference Range Interpretation Comments Lymphocytes # (test code = Lymphocytes 1.2 1.0-5.5 #) [facility] CenterZfiufogPEXFLZBXFG3851-78-42 09:13:00 Test Item Value Reference Range Interpretation Comments Eosinophils # (test code 0.2 See_Comment [A utomated message] The = Eosinophils #) system [facility] h generated this result tra nsmitted reference range : <=0.5. The reference r jose was not used to int erpret this result as normal/abnormal . [facility] CenterJrjngvmSWDRLSANVF2107-51-87 09:13:00 Test Item Value Reference Range Interpretation Comments Eosinophils (test code = 3.0 See_Comment [A utomated message] The Eosinophils) system which nerated this result tra nsmitted reference range : <=4.0. The reference r jose was not used to int erpret this result as normal/abnormal . [facility] CenterWopzwfdNCVEFHLQOT9631-58-18 09:13:00 Test Item Value Reference Range Interpretation Comments Basophils (test code = 0.4 See_Comment [Aut omated message] The Basophils) system which ge nerated this result tra nsmitted reference range : <=1.0. The reference r jose was not used to int erpret this result as normal/abnormal . [facility] CenterQfczokiIKUVQBRWCW7962-78-85 09:13:00 Test Item Value Reference Range Interpretation Comments Segs-Bands # (test code = Segs-Bands #) 5.1 1.5-8.1 [facility] CenterOmafdzfUYYJUZJAUZ4014-91-25 09:13:00 Test Item Value Reference Range Interpretation Comments Monocytes # (test code 0.7 See_Comment [Aut omated message] The = Monocytes #) system which generated this result tra nsmitted reference range : <=0.8. The reference r jose was not used to int erpret this result as normal/abnormal . [facility] CenterQbgffioUSPEQGEFZP3078-50-93 09:13:00 Test Item Value Reference Range Interpretation Comments Lymphocytes (test code = Lymphocytes) 16.9 20.0-40.0 [facility] CenterEpdrmenZJZNNYMMSJ8271-49-05 09:13:00 Test Item Value Reference Range Interpretation Comments Segs (test code = Segs) 70.6 45.0-75.0 [facility] CenterRtddwffUNSQMLBQDZ6818-37-02 09:13:00 Test Item Value Reference Range Interpretation Comments Monocytes (test code = Monocytes) 9.1 2.0-12.0 [facility] CenterIvjwjzbOIXOUWZWXA3162-14-73 09:13:00 Test Item Value Reference Range Interpretation Comments Platelet (test code = Platelet) 206 133-450 [facility] CenterHzpjjoyUXQORCQXEG0865-63-49 09:13:00 Test Item Value Reference Range Interpretation Comments RDW (test code = RDW) 13.2 11.5-14.5 [facility] CenterPuxnrlnAIQIGONIIQ8376-38-25 09:13:00 Test Item Value Reference Range Interpretation Comments MCHC (test code = MCHC) 35.0 32.0-36.0 [facility] CenterCzlnzwtIQTGWCWJWA9243-86-22 09:13:00 Test Item Value Reference Range Interpretation Comments MCH (test code = MCH) 30.8 pg 27.0-31.0 [facility] CenterJvwfoltWRMIOASIFR1528-15-53 09:13:00 Test Item Value Reference Range Interpretation Comments MCV (test code = MCV) 88.0 80.0-94.0 [facility] CenterUixvrbeBTOIEHRXYM8861-75-54 09:13:00 Test Item Value Reference Range Interpretation Comments Hct (test code = Hct) 42.2 42.0-54.0 [facility] CenterLjoauzpEMKSIKBAJO4497-01-80 09:13:00 Test Item Value Reference Range Interpretation Comments RBC (test code = RBC) 4.80 4.70-6.10 [facility] CenterYpxcipdRLWZGZWOGL6358-19-88 09:13:00 Test Item Value Reference Range Interpretation Comments MPV (test code = MPV) 7.0 7.4-10.4 [facility] CenterMhdhamtXLKOXDRHRP3377-08-73 09:13:00 Test Item Value Reference Range Interpretation Comments WBC (test code = WBC) 7.2 3.7-10.4 [facility] CenterNosimdoOTKKHRVJVC6890-31-29 09:13:00 Test Item Value Reference Range Interpretation Comments Hgb (test code = Hgb) 14.8 14.0-18.0 [facility] HospitalCarjkiqXIKXMYNEZNPN1854-70-67 09:13:00 Test Item Value Reference Range Interpretation Comments AGAP (test code = AGAP) 15.5 10.0-20.0 [facility] HospitalFgrkjzkKTUNEZHEECZV5256-32-70 09:13:00 Test Item Value Reference Range Interpretation Comments Calcium Lvl (test code = Calcium Lvl) 8.1 8.5-10.5 [facility] HospitalKmhydrzLBJOMEUNKHTU4654-18-31 09:13:00 Test Item Value Reference Range Interpretation Comments eGFR (test code = eGFR) 102 [facility] HospitalFhtvgcbUPYAKTBKLVTF9398-40-80 09:13:00 Test Item Value Reference Range Interpretation Comments CO2 (test code = CO2) 21 24-32 [facility] HospitalSijupwbXRBWLGVGVUHO4718-13-43 09:13:00 Test Item Value Reference Range Interpretation Comments Chloride Lvl (test code = Chloride Lvl) 105 95-109 [facility] HospitalLstukugXLMLFEMYBUWW8477-14-60 09:13:00 Test Item Value Reference Range Interpretation Comments BUN (test code = BUN) 12 7-22 [facility] HospitalNwrlhcjWLLHSLPAAZDO8546-95-81 09:13:00 Test Item Value Reference Range Interpretation Comments Glucose Lvl (test code = Glucose Lvl) 130 70-99 [facility] HospitalQtokxjuWORWSFLKZOZB4830-30-17 09:13:00 Test Item Value Reference Range Interpretation Comments Sodium Lvl (test code = Sodium Lvl) 138 135-145 [facility] HospitalGfmeivjPMAYDACGAWTY2499-10-48 09:13:00 Test Item Value Reference Range Interpretation Comments Creatinine Lvl (test code = Creatinine 0.86 0.50-1.40 Lvl) [facility] HospitalItdihpkYVXAQEIVEHLZ9868-65-59 09:13:00 Test Item Value Reference Range Interpretation Comments Potassium Lvl (test code = Potassium 3.5 3.5-5.1 Lvl) [facility] CenterImbdzssDULJQYHUFT4898-46-23 09:13:00 Test Item Value Reference Range Interpretation Comments Lymphocytes # (test code = Lymphocytes 1.2 1.0-5.5 #) [facility] CenterEmgxapoGRNMPMIISY4303-46-29 09:13:00 Test Item Value Reference Range Interpretation Comments Eosinophils # (test code 0.2 See_Comment [A utomated message] The = Eosinophils #) system whic h generated this result tra nsmitted reference range : <=0.5. The reference r jose was not used to int erpret this result as normal/abnormal . [facility] CenterBxlspzsXVDSNVIAJP3331-73-97 09:13:00 Test Item Value Reference Range Interpretation Comments Eosinophils (test code = 3.0 See_Comment [A utomated message] The Eosinophils) system which ge nerated this result tra nsmitted reference range : <=4.0. The reference r jose was not used to int erpret this result as normal/abnormal . [facility] CenterNqhxjzjKLFCBDIZLH8276-70-06 09:13:00 Test Item Value Reference Range Interpretation Comments Basophils (test code = 0.4 See_Comment [Aut omated message] The Basophils) system which ge nerated this result tra nsmitted reference range : <=1.0. The reference r jose was not used to int erpret this result as normal/abnormal . [facility] CenterHblhylsFQWOXJWSIR9980-89-50 09:13:00 Test Item Value Reference Range Interpretation Comments Segs-Bands # (test code = Segs-Bands #) 5.1 1.5-8.1 [facility] CenterWaujoyqQNNTLLIFJJ9936-52-26 09:13:00 Test Item Value Reference Range Interpretation Comments Monocytes # (test code 0.7 See_Comment [Aut omated message] The = Monocytes #) system which generated this result tra nsmitted reference range : <=0.8. The reference r jose was not used to int erpret this result as normal/abnormal . [facility] CenterRlvekctKTNHHXQRXU7565-03-67 09:13:00 Test Item Value Reference Range Interpretation Comments Lymphocytes (test code = Lymphocytes) 16.9 20.0-40.0 [facility] CenterGitcuviCUIGIOGAZD3840-94-17 09:13:00 Test Item Value Reference Range Interpretation Comments Segs (test code = Segs) 70.6 45.0-75.0 [facility]CblsrawQIVLYVDDEV6616-10-73 09:13:00 Test Item Value Reference Range Interpretation Comments Monocytes (test code = Monocytes) 9.1 2.0-12.0 [facility] CenterJkqgkdqBRYTFTDQBM5631-68-08 09:13:00 Test Item Value Reference Range Interpretation Comments Platelet (test code = Platelet) 206 133-450 [facility] CenterAdfguudOLOFXTDFGE0104-57-23 09:13:00 Test Item Value Reference Range Interpretation Comments RDW (test code = RDW) 13.2 11.5-14.5 [facility] HospitalQcxzpqcZYRFWZPXXK4913-55-00 09:13:00 Test Item Value Reference Range Interpretation Comments MCHC (test code = MCHC) 35.0 32.0-36.0 [facility] CenterZwazmtbNDIWCNBBQN9335-73-08 09:13:00 Test Item Value Reference Range Interpretation Comments MCH (test code = MCH) 30.8 pg 27.0-31.0 [facility] CenterDvvuoxgHCMPLEZHAN6670-22-42 09:13:00 Test Item Value Reference Range Interpretation Comments MCV (test code = MCV) 88.0 80.0-94.0 [facility] HospitalTdhnucqDDABPMZFPS3468-79-04 09:13:00 Test Item Value Reference Range Interpretation Comments Hct (test code = Hct) 42.2 42.0-54.0 [facility] CenterSpjbphkTXRAJUQUVM9554-26-34 09:13:00 Test Item Value Reference Range Interpretation Comments RBC (test code = RBC) 4.80 4.70-6.10 [facility] CenterYhuldxdJUZALPNTAO8680-22-15 09:13:00 Test Item Value Reference Range Interpretation Comments MPV (test code = MPV) 7.0 7.4-10.4 [facility] HospitalGadpynlMNDHPFYUZJ6143-78-95 09:13:00 Test Item Value Reference Range Interpretation Comments WBC (test code = WBC) 7.2 3.7-10.4 [facility] HospitalThbdmzzWKJAUJVGQW5254-98-71 09:13:00 Test Item Value Reference Range Interpretation Comments Hgb (test code = Hgb) 14.8 14.0-18.0 [facility]leFjfehtdAALHJEFIWIIB9391-71-59 09:13:00 Test Item Value Reference Range Interpretation Comments AGAP (test code = AGAP) 15.5 10.0-20.0 [facility] HospitalDmfxrmpTUKNDGBDJCER5748-18-10 09:13:00 Test Item Value Reference Range Interpretation Comments Calcium Lvl (test code = Calcium Lvl) 8.1 8.5-10.5 [facility] HospitalJdkwqbeDKHUUCPSTGBO9559-77-52 09:13:00 Test Item Value Reference Range Interpretation Comments eGFR (test code = eGFR) 102 [facility] HospitalVyjnvifGJHJKPXOECQI2218-31-28 09:13:00 Test Item Value Reference Range Interpretation Comments CO2 (test code = CO2) 21 24-32 [facility] HospitalKvyxdhxPFSPCUFAKDYQ8828-20-52 09:13:00 Test Item Value Reference Range Interpretation Comments Chloride Lvl (test code = Chloride Lvl) 105 95-109 [facility] HospitalQnlknloHPPAFWRZELXV5326-16-65 09:13:00 Test Item Value Reference Range Interpretation Comments BUN (test code = BUN) 12 7-22 [facility] HospitalHnolvndAWUQPOJDSYHI0277-33-30 09:13:00 Test Item Value Reference Range Interpretation Comments Glucose Lvl (test code = Glucose Lvl) 130 70-99 [facility] HospitalCwobplkDYBSMBFFYMVX3188-66-49 09:13:00 Test Item Value Reference Range Interpretation Comments Sodium Lvl (test code = Sodium Lvl) 138 135-145 [facility] HospitalAtbetqsKGZRUNCBGBCE4060-40-86 09:13:00 Test Item Value Reference Range Interpretation Comments Creatinine Lvl (test code = Creatinine 0.86 0.50-1.40 Lvl) [facility] HospitalOnkbruoYKYNYAMDKWQE9665-29-81 09:13:00 Test Item Value Reference Range Interpretation Comments Potassium Lvl (test code = Potassium 3.5 3.5-5.1 Lvl) [facility] CenterIvwdqziNYRQWWSCPF5798-08-26 09:13:00 Test Item Value Reference Range Interpretation Comments Lymphocytes # (test code = Lymphocytes 1.2 1.0-5.5 #) [facility] CenterHezyaeuYRYIIXEECJ4228-39-09 09:13:00 Test Item Value Reference Range Interpretation Comments Eosinophils # (test code 0.2 See_Comment [A utomated message] The = Eosinophils #) system whic h generated this result tra nsmitted reference range : <=0.5. The reference r jose was not used to int erpret this result as normal/abnormal . [facility] CenterFqxmrvrOIBWQNUFZZ9435-46-23 09:13:00 Test Item Value Reference Range Interpretation Comments Eosinophils (test code = 3.0 See_Comment [A utomated message] The Eosinophils) system which ge nerated this result tra nsmitted reference range : <=4.0. The reference r jose was not used to int erpret this result as normal/abnormal . [facility] CenterVcbqawsWCWGUZCEBR9734-73-09 09:13:00 Test Item Value Reference Range Interpretation Comments Basophils (test code = 0.4 See_Comment [Aut omated message] The Basophils) system which ge nerated this result tra nsmitted reference range : <=1.0. The reference r jose was not used to int erpret this result as normal/abnormal . [facility] CenterHutjlfdNOLFEUBVYT7655-97-11 09:13:00 Test Item Value Reference Range Interpretation Comments Segs-Bands # (test code = Segs-Bands #) 5.1 1.5-8.1 [facility] CenterNsislyyQVSQGGLVYL1249-89-91 09:13:00 Test Item Value Reference Range Interpretation Comments Monocytes # (test code 0.7 See_Comment [Aut omated message] The = Monocytes #) system which generated this result tra nsmitted reference range : <=0.8. The reference r jose was not used to int erpret this result as normal/abnormal . [facility] CenterYlmycnkJHXLENXLFI7476-85-65 09:13:00 Test Item Value Reference Range Interpretation Comments Lymphocytes (test code = Lymphocytes) 16.9 20.0-40.0 [facility] CenterFkpllamIHUGTUTUVE6598-56-29 09:13:00 Test Item Value Reference Range Interpretation Comments Segs (test code = Segs) 70.6 45.0-75.0 [facility] CenterBtzhtazQSPZCMKPCV5187-28-25 09:13:00 Test Item Value Reference Range Interpretation Comments Monocytes (test code = Monocytes) 9.1 2.0-12.0 [facility] CenterDmeohesLLOASVPMDT4045-43-52 09:13:00 Test Item Value Reference Range Interpretation Comments Platelet (test code = Platelet) 206 133-450 [facility] CenterHwgylpbKQZSGVVGNZ5641-62-76 09:13:00 Test Item Value Reference Range Interpretation Comments RDW (test code = RDW) 13.2 11.5-14.5 [facility] CenterHzarhhiYBAGWGGSLQ7543-91-54 09:13:00 Test Item Value Reference Range Interpretation Comments MCHC (test code = MCHC) 35.0 32.0-36.0 [facility] CenterIjsxfzqPCJQEVPYNK8123-64-63 09:13:00 Test Item Value Reference Range Interpretation Comments MCH (test code = MCH) 30.8 pg 27.0-31.0 [facility] CenterKhzeukzGFHLDFMDLA5849-32-89 09:13:00 Test Item Value Reference Range Interpretation Comments MCV (test code = MCV) 88.0 80.0-94.0 [facility] CenterNvzzbzzATFYOYGJNR0027-64-58 09:13:00 Test Item Value Reference Range Interpretation Comments Hct (test code = Hct) 42.2 42.0-54.0 [facility] CenterBqmegsaHESYAUZFIM5924-07-00 09:13:00 Test Item Value Reference Range Interpretation Comments RBC (test code = RBC) 4.80 4.70-6.10 [facility] CenterKmaanxiOVIENXMFBT2041-71-12 09:13:00 Test Item Value Reference Range Interpretation Comments MPV (test code = MPV) 7.0 7.4-10.4 [facility] CenterLtmwwpaNPDYQSAHIS2001-99-00 09:13:00 Test Item Value Reference Range Interpretation Comments WBC (test code = WBC) 7.2 3.7-10.4 [facility] CenterDrveyofIFATYNNWCV2886-72-54 09:13:00 Test Item Value Reference Range Interpretation Comments Hgb (test code = Hgb) 14.8 14.0-18.0 [facility] HospitalXjhbqffXVPUXZRUPJKJ5017-25-42 09:13:00 Test Item Value Reference Range Interpretation Comments AGAP (test code = AGAP) 15.5 10.0-20.0 [facility] HospitalZusknqrWBDKOQFHBNST8447-27-12 09:13:00 Test Item Value Reference Range Interpretation Comments Calcium Lvl (test code = Calcium Lvl) 8.1 8.5-10.5 [facility] HospitalRagugegZPQXHEDVAPMY9748-76-13 09:13:00 Test Item Value Reference Range Interpretation Comments eGFR (test code = eGFR) 102 [facility] HospitalQlvjyccNDEVRZFIHYVE4162-65-52 09:13:00 Test Item Value Reference Range Interpretation Comments CO2 (test code = CO2) 21 24-32 [facility] HospitalBtcnjdxMIAWSMIMWLKV3614-96-16 09:13:00 Test Item Value Reference Range Interpretation Comments Chloride Lvl (test code = Chloride Lvl) 105 95-109 [facility] HospitalVyrrdlbWMIVOVBVIZHQ9312-80-56 09:13:00 Test Item Value Reference Range Interpretation Comments BUN (test code = BUN) 12 7-22 [facility] HospitalXoovgooTJTUOFPKMEYL3533-91-68 09:13:00 Test Item Value Reference Range Interpretation Comments Glucose Lvl (test code = Glucose Lvl) 130 70-99 [facility] HospitalLhymhnxJQUKXAUQSQYE7989-26-25 09:13:00 Test Item Value Reference Range Interpretation Comments Sodium Lvl (test code = Sodium Lvl) 138 135-145 [facility] HospitalKtpjwsjQFPLLONHSUAX1399-35-08 09:13:00 Test Item Value Reference Range Interpretation Comments Creatinine Lvl (test code = Creatinine 0.86 0.50-1.40 Lvl) [facility] HospitalJwsuqnoWAULMNOYPBGH4471-76-15 09:13:00 Test Item Value Reference Range Interpretation Comments Potassium Lvl (test code = Potassium 3.5 3.5-5.1 Lvl) [facility] CenterBxlvoffEPICDAHWZQ8411-23-59 09:13:00 Test Item Value Reference Range Interpretation Comments Lymphocytes # (test code = Lymphocytes 1.2 1.0-5.5 #) [facility] CenterEscszlgFHHVVKKOWB9152-69-82 09:13:00 Test Item Value Reference Range Interpretation Comments Eosinophils # (test code 0.2 See_Comment [A utomated message] The = Eosinophils #) system [facility] h generated this result tra nsmitted reference range : <=0.5. The reference r jose was not used to int erpret this result as normal/abnormal . [facility] CenterWgylloxRZVWXDMEPV9250-71-84 09:13:00 Test Item Value Reference Range Interpretation Comments Eosinophils (test code = 3.0 See_Comment [A utomated message] The Eosinophils) system which ge nerated this result tra nsmitted reference range : <=4.0. The reference r jose was not used to int erpret this result as normal/abnormal . [facility] CenterLxqcnytOAGYRYPUUH2817-81-92 09:13:00 Test Item Value Reference Range Interpretation Comments Basophils (test code = 0.4 See_Comment [Aut omated message] The Basophils) system which ge nerated this result tra nsmitted reference range : <=1.0. The reference r jose was not used to int erpret this result as normal/abnormal . [facility] CenterBqddmplHIEKAWISYF9099-09-40 09:13:00 Test Item Value Reference Range Interpretation Comments Segs-Bands # (test code = Segs-Bands #) 5.1 1.5-8.1 [facility] CenterLcenxfvRCHULRIFDI4323-42-81 09:13:00 Test Item Value Reference Range Interpretation Comments Monocytes # (test code 0.7 See_Comment [Aut omated message] The = Monocytes #) system which generated this result tra nsmitted reference range : <=0.8. The reference r jose was not used to int erpret this result as normal/abnormal . [facility] CenterMnwooegBULEAMBODJ7380-58-91 09:13:00 Test Item Value Reference Range Interpretation Comments Lymphocytes (test code = Lymphocytes) 16.9 20.0-40.0 [facility] CenterGbsqshnCGKISPMGFC6935-86-77 09:13:00 Test Item Value Reference Range Interpretation Comments Segs (test code = Segs) 70.6 45.0-75.0 [facility] CenterBhqzpskPJYQLNPOXV6924-37-87 09:13:00 Test Item Value Reference Range Interpretation Comments Monocytes (test code = Monocytes) 9.1 2.0-12.0 [facility] CenterUbyhgrjKDEAJVQRXP2795-55-22 09:13:00 Test Item Value Reference Range Interpretation Comments Platelet (test code = Platelet) 206 133-450 [facility] CenterCwbjbmyTAOBZAKBHG7865-02-96 09:13:00 Test Item Value Reference Range Interpretation Comments RDW (test code = RDW) 13.2 11.5-14.5 [facility] CenterOfenhnlBMMXBBZBIU5518-25-72 09:13:00 Test Item Value Reference Range Interpretation Comments MCHC (test code = MCHC) 35.0 32.0-36.0 [facility] CenterTfbdabcRFAALVCSAQ9333-41-26 09:13:00 Test Item Value Reference Range Interpretation Comments MCH (test code = MCH) 30.8 pg 27.0-31.0 [facility] CenterJfwpxdtUZSKNOORKF3670-55-41 09:13:00 Test Item Value Reference Range Interpretation Comments MCV (test code = MCV) 88.0 80.0-94.0 [facility] CenterYvozukfDQXEZUCUPM5179-11-37 09:13:00 Test Item Value Reference Range Interpretation Comments Hct (test code = Hct) 42.2 42.0-54.0 [facility] CenterQpeikhjHXRCLAIDEI7647-08-92 09:13:00 Test Item Value Reference Range Interpretation Comments RBC (test code = RBC) 4.80 4.70-6.10 [facility] CenterEgrvnvsFCIPCOPUDE5246-09-18 09:13:00 Test Item Value Reference Range Interpretation Comments MPV (test code = MPV) 7.0 7.4-10.4 [facility] CenterNiqtireUNGJPQETZJ5336-35-86 09:13:00 Test Item Value Reference Range Interpretation Comments WBC (test code = WBC) 7.2 3.7-10.4 [facility] CenterLbucgkmJUUNFGAGAX0154-95-73 09:13:00 Test Item Value Reference Range Interpretation Comments Hgb (test code = Hgb) 14.8 14.0-18.0 [facility] HospitalTrjqiktODONQHFYQPRF0287-64-57 09:13:00 Test Item Value Reference Range Interpretation Comments AGAP (test code = AGAP) 15.5 10.0-20.0 [facility] HospitalOclobisZKTFPLHKPWIF2812-89-58 09:13:00 Test Item Value Reference Range Interpretation Comments Calcium Lvl (test code = Calcium Lvl) 8.1 8.5-10.5 [facility] HospitalXkmdwfjWVKDPTSANERW6924-65-44 09:13:00 Test Item Value Reference Range Interpretation Comments eGFR (test code = eGFR) 102 [facility] HospitalBswbddxFWHMGDIJFEDI1704-22-06 09:13:00 Test Item Value Reference Range Interpretation Comments CO2 (test code = CO2) 21 24-32 [facility] HospitalRuwmolnSPPWCHGYYEHY7832-90-28 09:13:00 Test Item Value Reference Range Interpretation Comments Chloride Lvl (test code = Chloride Lvl) 105 95-109 [facility] HospitalHvqmdwuKRXHZMYWGJVM0431-93-64 09:13:00 Test Item Value Reference Range Interpretation Comments BUN (test code = BUN) 12 7-22 [facility] HospitalDwuvxwwLFYGDOPDBDFX1244-22-30 09:13:00 Test Item Value Reference Range Interpretation Comments Glucose Lvl (test code = Glucose Lvl) 130 70-99 [facility] HospitalWwljxwxQEDCLFUNUJAO0237-58-37 09:13:00 Test Item Value Reference Range Interpretation Comments Sodium Lvl (test code = Sodium Lvl) 138 135-145 [facility] HospitalAqbiiqiSWXVRGABVTKU8984-89-68 09:13:00 Test Item Value Reference Range Interpretation Comments Creatinine Lvl (test code = Creatinine 0.86 0.50-1.40 Lvl) [facility] HospitalUjpzznrEPPFLVAMIHGW1632-36-57 09:13:00 Test Item Value Reference Range Interpretation Comments Potassium Lvl (test code = Potassium 3.5 3.5-5.1 Lvl) [facility] CenterAruanidCVMUKDJYDI5173-52-08 09:13:00 Test Item Value Reference Range Interpretation Comments Lymphocytes # (test code = Lymphocytes 1.2 1.0-5.5 #) [facility] CenterLdzprdhHNZMPSZJLU4734-52-54 09:13:00 Test Item Value Reference Range Interpretation Comments Eosinophils # (test code 0.2 See_Comment [A utomated message] The = Eosinophils #) system whic h generated this result tra nsmitted reference range : <=0.5. The reference r jose was not used to int erpret this result as normal/abnormal . [facility] CenterGsgowufLKNWHWRIGU6923-59-03 09:13:00 Test Item Value Reference Range Interpretation Comments Eosinophils (test code = 3.0 See_Comment [A utomated message] The Eosinophils) system which ge nerated this result tra nsmitted reference range : <=4.0. The reference r jose was not used to int erpret this result as normal/abnormal . [facility] CenterQwhdeqgVKZEEDSENI9403-03-79 09:13:00 Test Item Value Reference Range Interpretation Comments Basophils (test code = 0.4 See_Comment [Aut omated message] The Basophils) system which ge nerated this result tra nsmitted reference range : <=1.0. The reference r jose was not used to int erpret this result as normal/abnormal . [facility] CenterAmcttxsRGOVIMJSTR2495-19-54 09:13:00 Test Item Value Reference Range Interpretation Comments Segs-Bands # (test code = Segs-Bands #) 5.1 1.5-8.1 [facility] CenterZxcnliqPCNOWMKMCJ0610-88-43 09:13:00 Test Item Value Reference Range Interpretation Comments Monocytes # (test code 0.7 See_Comment [Aut omated message] The = Monocytes #) system which generated this result tra nsmitted reference range : <=0.8. The reference r jose was not used to int erpret this result as normal/abnormal . [facility] CenterNhatpedEAASVSXCAX2579-32-22 09:13:00 Test Item Value Reference Range Interpretation Comments Lymphocytes (test code = Lymphocytes) 16.9 20.0-40.0 [facility] CenterZyzuhjjCCZFZKSEQE6200-21-38 09:13:00 Test Item Value Reference Range Interpretation Comments Segs (test code = Segs) 70.6 45.0-75.0 [facility] CenterYuusbcaTVTVUADUJI5510-23-88 09:13:00 Test Item Value Reference Range Interpretation Comments Monocytes (test code = Monocytes) 9.1 2.0-12.0 [facility] CenterUcullcuZHBLTYEGBF8309-71-83 09:13:00 Test Item Value Reference Range Interpretation Comments Platelet (test code = Platelet) 206 133-450 [facility] CenterIdynbzrDIUPLWVRSA0861-66-72 09:13:00 Test Item Value Reference Range Interpretation Comments RDW (test code = RDW) 13.2 11.5-14.5 [facility] CenterJljtuakQLKMQLWUCJ6686-44-51 09:13:00 Test Item Value Reference Range Interpretation Comments MCHC (test code = MCHC) 35.0 32.0-36.0 [facility] CenterKtjcfzpFDVOACWGHX5916-43-90 09:13:00 Test Item Value Reference Range Interpretation Comments MCH (test code = MCH) 30.8 pg 27.0-31.0 [facility] CenterYcknzwsZRRLHVFBBA9191-39-52 09:13:00 Test Item Value Reference Range Interpretation Comments MCV (test code = MCV) 88.0 80.0-94.0 [facility] CenterJmmurqqSOGBWHMCWJ5904-08-32 09:13:00 Test Item Value Reference Range Interpretation Comments Hct (test code = Hct) 42.2 42.0-54.0 [facility] CenterFskpinqQZRZDVTLLM3953-98-22 09:13:00 Test Item Value Reference Range Interpretation Comments RBC (test code = RBC) 4.80 4.70-6.10 [facility] CenterRazfqliQHMDVIFCJJ9493-33-34 09:13:00 Test Item Value Reference Range Interpretation Comments MPV (test code = MPV) 7.0 7.4-10.4 [facility]AwitwysMBGXTQTROX5962-32-18 09:13:00 Test Item Value Reference Range Interpretation Comments WBC (test code = WBC) 7.2 3.7-10.4 [facility] CenterXiimffpNKMXOUXHHU9477-27-24 09:13:00 Test Item Value Reference Range Interpretation Comments Hgb (test code = Hgb) 14.8 14.0-18.0 [facility]RoexpvsEXVQXTCZQTIM4653-19-01 09:13:00 Test Item Value Reference Range Interpretation Comments AGAP (test code = AGAP) 15.5 10.0-20.0 [facility] HospitalIafutlyIDWRDHVWALBW6108-74-93 09:13:00 Test Item Value Reference Range Interpretation Comments Calcium Lvl (test code = Calcium Lvl) 8.1 8.5-10.5 [facility] HospitalBhkvwjwQJWLZDSHXJYI0989-31-23 09:13:00 Test Item Value Reference Range Interpretation Comments eGFR (test code = eGFR) 102 [facility] HospitalYsvboenZXAICQUZZKQL8980-17-55 09:13:00 Test Item Value Reference Range Interpretation Comments CO2 (test code = CO2) 21 24-32 [facility] HospitalNmpvpklFQWUPIVENHUD5470-96-79 09:13:00 Test Item Value Reference Range Interpretation Comments Chloride Lvl (test code = Chloride Lvl) 105 95-109 [facility] HospitalFofhtshQISNRVHLDZST4001-81-94 09:13:00 Test Item Value Reference Range Interpretation Comments BUN (test code = BUN) 12 7-22 [facility] HospitalWzitygaZAVTEDTIDBBB9385-08-49 09:13:00 Test Item Value Reference Range Interpretation Comments Glucose Lvl (test code = Glucose Lvl) 130 70-99 [facility] HospitalKtgouwjVMLVAFHHQQCC0729-78-13 09:13:00 Test Item Value Reference Range Interpretation Comments Sodium Lvl (test code = Sodium Lvl) 138 135-145 [facility] HospitalTfgfgcgBQZLEMGCFLKF1615-65-06 09:13:00 Test Item Value Reference Range Interpretation Comments Creatinine Lvl (test code = Creatinine 0.86 0.50-1.40 Lvl) [facility] HospitalQtvuiazTNDAGISGPCBW8955-42-34 09:13:00 Test Item Value Reference Range Interpretation Comments Potassium Lvl (test code = Potassium 3.5 3.5-5.1 Lvl) [facility] CenterLxctosbSMABNOZAWT8919-31-87 09:13:00 Test Item Value Reference Range Interpretation Comments Lymphocytes # (test code = Lymphocytes 1.2 1.0-5.5 #) [facility] CenterYpfxenkQRUFBDUTCX2669-16-06 09:13:00 Test Item Value Reference Range Interpretation Comments Eosinophils # (test code 0.2 See_Comment [A utomated message] The = Eosinophils #) system whic h generated this result tra nsmitted reference range : <=0.5. The reference r jose was not used to int erpret this result as normal/abnormal . [facility] CenterDenufejTNJHPATGZK3984-08-03 09:13:00 Test Item Value Reference Range Interpretation Comments Eosinophils (test code = 3.0 See_Comment [A utomated message] The Eosinophils) system which ge nerated this result tra nsmitted reference range : <=4.0. The reference r jose was not used to int erpret this result as normal/abnormal . [facility] CenterPtgqgjfHNDZBILVPD8240-27-96 09:13:00 Test Item Value Reference Range Interpretation Comments Basophils (test code = 0.4 See_Comment [Aut omated message] The Basophils) system which ge nerated this result tra nsmitted reference range : <=1.0. The reference r jose was not used to int erpret this result as normal/abnormal . [facility] CenterJahiiyrHISLMGHKAL7777-07-71 09:13:00 Test Item Value Reference Range Interpretation Comments Segs-Bands # (test code = Segs-Bands #) 5.1 1.5-8.1 [facility] CenterYqisaioWLRTPTMWRK4368-67-91 09:13:00 Test Item Value Reference Range Interpretation Comments Monocytes # (test code 0.7 See_Comment [Aut omated message] The = Monocytes #) system which generated this result tra nsmitted reference range : <=0.8. The reference r jose was not used to int erpret this result as normal/abnormal . [facility] CenterYzywtqiYUKUTHFTMR1794-42-01 09:13:00 Test Item Value Reference Range Interpretation Comments Lymphocytes (test code = Lymphocytes) 16.9 20.0-40.0 [facility] CenterSmovsomRQBBBCMUPY3482-54-39 09:13:00 Test Item Value Reference Range Interpretation Comments Segs (test code = Segs) 70.6 45.0-75.0 [facility] CenterDkktqkmMJJJAPJEAG0520-08-13 09:13:00 Test Item Value Reference Range Interpretation Comments Monocytes (test code = Monocytes) 9.1 2.0-12.0 [facility] CenterNvkgsucPIOZDXPLZN4154-83-12 09:13:00 Test Item Value Reference Range Interpretation Comments Platelet (test code = Platelet) 206 133-450 [facility] CenterStuyrkvSAJBOHFTTT0066-30-60 09:13:00 Test Item Value Reference Range Interpretation Comments RDW (test code = RDW) 13.2 11.5-14.5 [facility] CenterLeuipehOVKGEFEYEJ5592-28-92 09:13:00 Test Item Value Reference Range Interpretation Comments MCHC (test code = MCHC) 35.0 32.0-36.0 [facility] CenterCxxfotiNATKPKEFJI4042-89-14 09:13:00 Test Item Value Reference Range Interpretation Comments MCH (test code = MCH) 30.8 pg 27.0-31.0 [facility] CenterQrqxgtnXBECSZYHHN4010-51-99 09:13:00 Test Item Value Reference Range Interpretation Comments MCV (test code = MCV) 88.0 80.0-94.0 [facility] CenterLefvikcSXWKXQDXKJ7646-32-74 09:13:00 Test Item Value Reference Range Interpretation Comments Hct (test code = Hct) 42.2 42.0-54.0 [facility] CenterXumrmpkZOMDGGYEFS0357-13-12 09:13:00 Test Item Value Reference Range Interpretation Comments RBC (test code = RBC) 4.80 4.70-6.10 [facility] CenterKjqyqpsVMSUFGMJZI1090-13-74 09:13:00 Test Item Value Reference Range Interpretation Comments MPV (test code = MPV) 7.0 7.4-10.4 [facility] CenterRrwedxoCBNCDQOJNF8727-84-30 09:13:00 Test Item Value Reference Range Interpretation Comments WBC (test code = WBC) 7.2 3.7-10.4 [facility] CenterQwfeahpKCIVKKDBMH2589-01-69 09:13:00 Test Item Value Reference Range Interpretation Comments Hgb (test code = Hgb) 14.8 14.0-18.0 [facility] HospitalQrbrcawXEFJNYPIDIVH9290-07-36 09:13:00 Test Item Value Reference Range Interpretation Comments AGAP (test code = AGAP) 15.5 10.0-20.0 [facility] HospitalPvjhidmHEJHQPPXDICQ4758-34-85 09:13:00 Test Item Value Reference Range Interpretation Comments Calcium Lvl (test code = Calcium Lvl) 8.1 8.5-10.5 [facility] HospitalGvsjhqbQDZHLEZAKNMM3196-41-93 09:13:00 Test Item Value Reference Range Interpretation Comments eGFR (test code = eGFR) 102 [facility] HospitalFzhvwwlXLUISMIFWYVV3990-12-29 09:13:00 Test Item Value Reference Range Interpretation Comments CO2 (test code = CO2) 21 24-32 [facility] HospitalZkzuxwlHPLEMOIWNOPH8830-56-74 09:13:00 Test Item Value Reference Range Interpretation Comments Chloride Lvl (test code = Chloride Lvl) 105 95-109 [facility] FxtuqccBKFMQOGVTCQY2573-97-87 09:13:00 Test Item Value Reference Range Interpretation Comments BUN (test code = BUN) 12 7-22 [facility]leFampltlLEOLEXAAJZUQ8441-53-74 09:13:00 Test Item Value Reference Range Interpretation Comments Glucose Lvl (test code = Glucose Lvl) 130 70-99 [facility]IcqcddlLMKMXHRWPQHM7874-78-34 09:13:00 Test Item Value Reference Range Interpretation Comments Sodium Lvl (test code = Sodium Lvl) 138 135-145 [facility] [place] FGOLXNI6948-55-06 11:48:00 Test Item Value Reference Range Interpretation Comments ABO/Rh (test code = ABO/Rh) O POS [facility] [employer] HUXKMWD5378-69-69 11:48:00 Test Item Value Reference Range Interpretation Comments Antibody Scrn (test Negative (10/19/17 6:48 code = Antibody Scrn) AM) [facility] [employer] MEISHOE2148-57-75 11:48:00 Test Item Value Reference Range Interpretation Comments ABO/Rh (test code = ABO/Rh) O POS [facility] GASYDNB6312-95-54 11:48:00 Test Item Value Reference Range Interpretation Comments Antibody Scrn (test Negative (10/19/17 6:48 code = Antibody Scrn) AM) [facility] [employer] KGKAPRQ9061-08-56 11:48:00 Test Item Value Reference Range Interpretation Comments ABO/Rh (test code = ABO/Rh) O POS [facility] [employer] OMKXWCU4016-41-18 11:48:00 Test Item Value Reference Range Interpretation Comments Antibody Scrn (test Negative (10/19/17 6:48 code = Antibody Scrn) AM) [facility] [employer] AGEBSRQ6750-33-39 11:48:00 Test Item Value Reference Range Interpretation Comments ABO/Rh (test code = ABO/Rh) O POS [facility] [employer] XJFTGPN7126-46-32 11:48:00 Test Item Value Reference Range Interpretation Comments Antibody Scrn (test Negative (10/19/17 6:48 code = Antibody Scrn) AM) [facility] [employer] VGZJDWC9480-59-46 11:48:00 Test Item Value Reference Range Interpretation Comments ABO/Rh (test code = ABO/Rh) O POS [employer] DYFBCQX1362-59-30 11:48:00 Test Item Value Reference Range Interpretation Comments Antibody Scrn (test Negative (10/19/17 6:48 code = Antibody Scrn) AM) [facility] WEQXTNM6684-48-15 11:48:00 Test Item Value Reference Range Interpretation Comments ABO/Rh (test code = ABO/Rh) O POS [employer] LSISRGK3353-81-75 11:48:00 Test Item Value Reference Range Interpretation Comments Antibody Scrn (test Negative (10/19/17 6:48 code = Antibody Scrn) AM) [facility] [employer] WVSBWNN0754-73-40 11:48:00 Test Item Value Reference Range Interpretation Comments ABO/Rh (test code = ABO/Rh) O POS [employer] IAKRSNV5944-04-30 11:48:00 Test Item Value Reference Range Interpretation Comments Antibody Scrn (test Negative (10/19/17 6:48 code = Antibody Scrn) AM) [facility] [employer] HLEISFJ5193-86-66 11:48:00 Test Item Value Reference Range Interpretation Comments ABO/Rh (test code = ABO/Rh) O POS [employer] EBYSWPY6241-26-49 11:48:00 Test Item Value Reference Range Interpretation Comments Antibody Scrn (test Negative (10/19/17 6:48 code = Antibody Scrn) AM) [employer] QZNAP0634-11-92 17:00:00 Test Item Value Reference Range Interpretation Comments eGFR (test code = eGFR) 94 [facility] [place] XIGRN6799-33-61 17:00:00 Test Item Value Reference Range Interpretation Comments CO2 (test code = CO2) 23 24-32 [employer]2018-04-26 17:00:00 Test Item Value Reference Range Interpretation Comments Calcium Lvl (test code = Calcium Lvl) 8.1 8.5-10.5 [employer]2018-04-26 17:00:00 Test Item Value Reference Range Interpretation Comments Chloride Lvl (test code = Chloride Lvl) 110 95-109 [employer]2018-04-26 17:00:00 Test Item Value Reference Range Interpretation Comments Potassium Lvl (test code = Potassium 3.9 3.5-5.1 Lvl) [facility]2018-04-26 17:00:00 Test Item Value Reference Range Interpretation Comments Sodium Lvl (test code = Sodium Lvl) 141 135-145 [facility]2018-04-26 17:00:00 Test Item Value Reference Range Interpretation Comments Creatinine Lvl (test code = Creatinine 0.95 0.50-1.40 Lvl) [place] 598398-04-26 17:00:00 Test Item Value Reference Range Interpretation Comments BUN (test code = BUN) 12 7-22 [place] 598398-04-26 17:00:00 Test Item Value Reference Range Interpretation Comments Glucose Lvl (test code = Glucose Lvl) 89 70-99 [facility]2018-04-26 17:00:00 Test Item Value Reference Range Interpretation Comments AGAP (test code = AGAP) 11.9 10.0-20.0 [place] 746048-04-26 17:00:00 Test Item Value Reference Range Interpretation Comments Segs-Bands # (test code = Segs-Bands #) 3.9 1.5-8.1 [place] 746048-04-26 17:00:00 Test Item Value Reference Range Interpretation Comments Lymphocytes # (test code = Lymphocytes 1.5 1.0-5.5 #) [facility] CenterIthszxaTQGBNBTDAB3992-74-67 17:00:00 Test Item Value Reference Range Interpretation Comments Basophils (test code = 0.3 See_Comment [Aut omated message] The Basophils) system which ge nerated this result tra nsmitted reference range : <=1.0. The reference r jose was not used to int erpret this result as normal/abnormal . [facility] CenterJosdkywISRYQAMMNJ9918-11-05 17:00:00 Test Item Value Reference Range Interpretation Comments Eosinophils # (test code 0.1 See_Comment [A utomated message] The = Eosinophils #) system whic h generated this result tra nsmitted reference range : <=0.5. The reference r jose was not used to int erpret this result as normal/abnormal . [facility] CenterJhoonwjYWSQOHMZGN0202-61-43 17:00:00 Test Item Value Reference Range Interpretation Comments Monocytes # (test code 0.6 See_Comment [Aut omated message] The = Monocytes #) system which generated this result tra nsmitted reference range : <=0.8. The reference r jose was not used to int erpret this result as normal/abnormal . [facility] CenterNktirpuEOIBPRLVXS7469-99-01 17:00:00 Test Item Value Reference Range Interpretation Comments Monocytes (test code = Monocytes) 9.1 2.0-12.0 [facility] CenterKzavrxcXHELTANVSY4432-50-53 17:00:00 Test Item Value Reference Range Interpretation Comments Eosinophils (test code = 2.0 See_Comment [A utomated message] The Eosinophils) system which ge nerated this result tra nsmitted reference range : <=4.0. The reference r jose was not used to int erpret this result as normal/abnormal . [facility] CenterCeyreblPCETYSERZY7640-32-08 17:00:00 Test Item Value Reference Range Interpretation Comments Lymphocytes (test code = Lymphocytes) 24.3 20.0-40.0 [facility] CenterQrsscxtCBVPPGEOLN0204-56-20 17:00:00 Test Item Value Reference Range Interpretation Comments Segs (test code = Segs) 64.3 45.0-75.0 [facility] CenterGigssvcTKCKFTDVEJ0291-73-82 17:00:00 Test Item Value Reference Range Interpretation Comments MCHC (test code = MCHC) 34.7 32.0-36.0 [facility] CenterOpvwcabISZDDJEBOO7865-96-09 17:00:00 Test Item Value Reference Range Interpretation Comments RDW (test code = RDW) 13.5 11.5-14.5 [facility] CenterFuapzglPUCCMUOAKE3610-06-78 17:00:00 Test Item Value Reference Range Interpretation Comments MCH (test code = MCH) 30.5 pg 27.0-31.0 [facility] CenterVfvrgzyKNOAQWOVKD7329-67-59 17:00:00 Test Item Value Reference Range Interpretation Comments Platelet (test code = Platelet) 182 133-450 [facility] CenterNeidnsxUWKGGBGWSY9473-03-02 17:00:00 Test Item Value Reference Range Interpretation Comments MPV (test code = MPV) 7.6 7.4-10.4 [facility] CenterGgwyriiXSGPNORUKU1363-22-72 17:00:00 Test Item Value Reference Range Interpretation Comments Hct (test code = Hct) 46.0 42.0-54.0 [facility] CenterUrvgnbuYXGUKTIBRV7588-65-09 17:00:00 Test Item Value Reference Range Interpretation Comments MCV (test code = MCV) 87.7 80.0-94.0 [facility]JglttkgPYLXZOZOWM2731-06-89 17:00:00 Test Item Value Reference Range Interpretation Comments WBC (test code = WBC) 6.1 3.7-10.4 [facility] HospitalRrhdmhuJFZAEKMZHB9444-72-55 17:00:00 Test Item Value Reference Range Interpretation Comments Hgb (test code = Hgb) 16.0 14.0-18.0 [facility] HospitalNyyyyieOJEJQFPYLS8787-84-71 17:00:00 Test Item Value Reference Range Interpretation Comments RBC (test code = RBC) 5.25 4.70-6.10 [facility] WQRGTCXCA3747-29-28 17:00:00 Test Item Value Reference Range Interpretation Comments Hgb A1C (test code = Hgb A1C) 5.4 [facility]2018-04-26 17:00:00 Test Item Value Reference Range Interpretation Comments eGFR (test code = eGFR) 94 [facility]2018-04-26 17:00:00 Test Item Value Reference Range Interpretation Comments CO2 (test code = CO2) 23 24-32 [facility]2018-04-26 17:00:00 Test Item Value Reference Range Interpretation Comments Calcium Lvl (test code = Calcium Lvl) 8.1 8.5-10.5 [facility]2018-04-26 17:00:00 Test Item Value Reference Range Interpretation Comments Chloride Lvl (test code = Chloride Lvl) 110 95-109 [facility]2018-04-26 17:00:00 Test Item Value Reference Range Interpretation Comments Potassium Lvl (test code = Potassium 3.9 3.5-5.1 Lvl) [facility]2018-04-26 17:00:00 Test Item Value Reference Range Interpretation Comments Sodium Lvl (test code = Sodium Lvl) 141 135-145 [facility]2018-04-26 17:00:00 Test Item Value Reference Range Interpretation Comments Creatinine Lvl (test code = Creatinine 0.95 0.50-1.40 Lvl) [facility]2018-04-26 17:00:00 Test Item Value Reference Range Interpretation Comments BUN (test code = BUN) 12 7-22 [facility]2018-04-26 17:00:00 Test Item Value Reference Range Interpretation Comments Glucose Lvl (test code = Glucose Lvl) 89 70-99 [facility]2018-04-26 17:00:00 Test Item Value Reference Range Interpretation Comments AGAP (test code = AGAP) 11.9 10.0-20.0 [facility] CenterHkyfokdVTLIMPULKU8180-18-48 17:00:00 Test Item Value Reference Range Interpretation Comments Segs-Bands # (test code = Segs-Bands #) 3.9 1.5-8.1 [facility] CenterRxvrkbmPIPQDEWGCV6896-56-48 17:00:00 Test Item Value Reference Range Interpretation Comments Lymphocytes # (test code = Lymphocytes 1.5 1.0-5.5 #) [facility] CenterFlyrdyySGVCDUAXAS5349-92-88 17:00:00 Test Item Value Reference Range Interpretation Comments Basophils (test code = 0.3 See_Comment [Aut omated message] The Basophils) system which ge nerated this result tra nsmitted reference range : <=1.0. The reference r jose was not used to int erpret this result as normal/abnormal . [facility] CenterUjrftjxYKYBCBZWCS2245-04-27 17:00:00 Test Item Value Reference Range Interpretation Comments Eosinophils # (test code 0.1 See_Comment [A utomated message] The = Eosinophils #) system wh h generated this result tra nsmitted reference range : <=0.5. The reference r jose was not used to int erpret this result as normal/abnormal . [facility] CenterPnztkyjFJFCIEGXOL6489-54-91 17:00:00 Test Item Value Reference Range Interpretation Comments Monocytes # (test code 0.6 See_Comment [Aut omated message] The = Monocytes #) system which generated this result tra nsmitted reference range : <=0.8. The reference r jose was not used to int erpret this result as normal/abnormal . [facility] CenterQhggyvoONDIEYNQNN4933-17-88 17:00:00 Test Item Value Reference Range Interpretation Comments Monocytes (test code = Monocytes) 9.1 2.0-12.0 [facility] CenterWizsuibAVMMSUVJTZ9979-49-95 17:00:00 Test Item Value Reference Range Interpretation Comments Eosinophils (test code = 2.0 See_Comment [A utomated message] The Eosinophils) system which ge nerated this result tra nsmitted reference range : <=4.0. The reference r jose was not used to int erpret this result as normal/abnormal . [facility] CenterCcycuzsFWXOGGTTPI0924-50-90 17:00:00 Test Item Value Reference Range Interpretation Comments Lymphocytes (test code = Lymphocytes) 24.3 20.0-40.0 [facility] CenterKknxuctJQJAOBHBUO1256-93-78 17:00:00 Test Item Value Reference Range Interpretation Comments Segs (test code = Segs) 64.3 45.0-75.0 [facility] CenterYjkekytESUOXUCCHN5920-01-04 17:00:00 Test Item Value Reference Range Interpretation Comments MCHC (test code = MCHC) 34.7 32.0-36.0 [facility] CenterAjnoikaAFCDEECUPZ9161-02-61 17:00:00 Test Item Value Reference Range Interpretation Comments RDW (test code = RDW) 13.5 11.5-14.5 [facility] CenterYltidqhRDJZYMVZCR2761-67-81 17:00:00 Test Item Value Reference Range Interpretation Comments MCH (test code = MCH) 30.5 pg 27.0-31.0 [facility] CenterFzlxpthVURJSFIGUU1167-49-09 17:00:00 Test Item Value Reference Range Interpretation Comments Platelet (test code = Platelet) 182 133-450 [facility] CenterAewncmjENQEUJOEBP6874-64-76 17:00:00 Test Item Value Reference Range Interpretation Comments MPV (test code = MPV) 7.6 7.4-10.4 [facility] CenterQifdybfQWLLRVFXMG3386-93-57 17:00:00 Test Item Value Reference Range Interpretation Comments Hct (test code = Hct) 46.0 42.0-54.0 [facility] CenterVkcsfgmBJISJVUOQI7777-96-64 17:00:00 Test Item Value Reference Range Interpretation Comments MCV (test code = MCV) 87.7 80.0-94.0 [facility] CenterFbjmozyDAEZISWKSK8987-01-56 17:00:00 Test Item Value Reference Range Interpretation Comments WBC (test code = WBC) 6.1 3.7-10.4 [facility] CenterGudgtbhTRVSWTWIZL3484-75-70 17:00:00 Test Item Value Reference Range Interpretation Comments Hgb (test code = Hgb) 16.0 14.0-18.0 [facility] [facility]BTIEFEKGW4875[facility] 17:00:00 Test Item Value Reference Range Interpretation Comments RBC (test code = RBC) 5.25 4.70-6.10 [facility] JWUJGZTJY3916-20-23 17:00:00 Test Item Value Reference Range Interpretation Comments Hgb A1C (test code = Hgb A1C) 5.4 [facility]2018-04-26 17:00:00 Test Item Value Reference Range Interpretation Comments eGFR (test code = eGFR) 94 [facility]2018-04-26 17:00:00 Test Item Value Reference Range Interpretation Comments CO2 (test code = CO2) 23 24-32 [facility]2018-04-26 17:00:00 Test Item Value Reference Range Interpretation Comments Calcium Lvl (test code = Calcium Lvl) 8.1 8.5-10.5 [facility]2018-04-26 17:00:00 Test Item Value Reference Range Interpretation Comments Chloride Lvl (test code = Chloride Lvl) 110 95-109 [facility]2018-04-26 17:00:00 Test Item Value Reference Range Interpretation Comments Potassium Lvl (test code = Potassium 3.9 3.5-5.1 Lvl) [facility]2018-04-26 17:00:00 Test Item Value Reference Range Interpretation Comments Sodium Lvl (test code = Sodium Lvl) 141 135-145 [facility]2018-04-26 17:00:00 Test Item Value Reference Range Interpretation Comments Creatinine Lvl (test code = Creatinine 0.95 0.50-1.40 Lvl) [facility]2018-04-26 17:00:00 Test Item Value Reference Range Interpretation Comments BUN (test code = BUN) 12 7-22 [facility]2018-04-26 17:00:00 Test Item Value Reference Range Interpretation Comments Glucose Lvl (test code = Glucose Lvl) 89 70-99 [facility]2018-04-26 17:00:00 Test Item Value Reference Range Interpretation Comments AGAP (test code = AGAP) 11.9 10.0-20.0 [facility]DOXZVVJOW0823[facility]74-63 17:00:00 Test Item Value Reference Range Interpretation Comments Segs-Bands # (test code = Segs-Bands #) 3.9 1.5-8.1 [facility] HospitalFtldlpeIGUCLHAWSM2437-55-17 17:00:00 Test Item Value Reference Range Interpretation Comments Lymphocytes # (test code = Lymphocytes 1.5 1.0-5.5 #) [facility] CenterYbwomsvJPWOGGKGTP7260-43-47 17:00:00 Test Item Value Reference Range Interpretation Comments Basophils (test code = 0.3 See_Comment [Aut omated message] The Basophils) system which ge nerated this result tra nsmitted reference range : <=1.0. The reference r jose was not used to int erpret this result as normal/abnormal . [facility] CenterDchoykrHXZKTTZOMK1027-87-39 17:00:00 Test Item Value Reference Range Interpretation Comments Eosinophils # (test code 0.1 See_Comment [A utomated message] The = Eosinophils #) system whic h generated this result tra nsmitted reference range : <=0.5. The reference r jose was not used to int erpret this result as normal/abnormal . [facility] CenterHirkeraFBBQAHTUTQ0009-45-58 17:00:00 Test Item Value Reference Range Interpretation Comments Monocytes # (test code 0.6 See_Comment [Aut omated message] The = Monocytes #) system which generated this result tra nsmitted reference range : <=0.8. The reference r jose was not used to int erpret this result as normal/abnormal . [facility] CenterAwuhqbqIVYGWOVRNO6919-03-94 17:00:00 Test Item Value Reference Range Interpretation Comments Monocytes (test code = Monocytes) 9.1 2.0-12.0 [facility] CenterPzjmttnBQNECXFJIN2521-89-95 17:00:00 Test Item Value Reference Range Interpretation Comments Eosinophils (test code = 2.0 See_Comment [A utomated message] The Eosinophils) system which ge nerated this result tra nsmitted reference range : <=4.0. The reference r jose was not used to int erpret this result as normal/abnormal . [facility] CenterLcfnvuuUNJLLZWQBH4537-64-62 17:00:00 Test Item Value Reference Range Interpretation Comments Lymphocytes (test code = Lymphocytes) 24.3 20.0-40.0 [facility] CenterAzbktqvVYLYXQXILJ7785-02-94 17:00:00 Test Item Value Reference Range Interpretation Comments Segs (test code = Segs) 64.3 45.0-75.0 [facility] CenterOowsukgUVKGSMKNOF4801-21-66 17:00:00 Test Item Value Reference Range Interpretation Comments MCHC (test code = MCHC) 34.7 32.0-36.0 [facility]QrpjciqLJIOQSYOLR4414-07-05 17:00:00 Test Item Value Reference Range Interpretation Comments RDW (test code = RDW) 13.5 11.5-14.5 [facility] HospitalAtwmzdwEMAXAXULYW2087-61-04 17:00:00 Test Item Value Reference Range Interpretation Comments MCH (test code = MCH) 30.5 pg 27.0-31.0 [facility] HospitalCycpawjKNAEOQMMEQ5237-30-19 17:00:00 Test Item Value Reference Range Interpretation Comments Platelet (test code = Platelet) 182 133-450 [facility] HospitalNyqbxcpKVPFWFNFVN7310-00-29 17:00:00 Test Item Value Reference Range Interpretation Comments MPV (test code = MPV) 7.6 7.4-10.4 [facility] HospitalTcfbnynJMJTMPBWOB3459-37-35 17:00:00 Test Item Value Reference Range Interpretation Comments Hct (test code = Hct) 46.0 42.0-54.0 [facility] HospitalSrvvgcqKCOQFKVJJQ4472-13-66 17:00:00 Test Item Value Reference Range Interpretation Comments MCV (test code = MCV) 87.7 80.0-94.0 [facility] HospitalScxfmyeKGVPPJIEFA8597-53-42 17:00:00 Test Item Value Reference Range Interpretation Comments WBC (test code = WBC) 6.1 3.7-10.4 [facility] HospitalCnpyjpmNLGGKNQUHT8603-80-56 17:00:00 Test Item Value Reference Range Interpretation Comments Hgb (test code = Hgb) 16.0 14.0-18.0 [facility] HospitalVxfhqzlOSPPCKXACQ3735-69-08 17:00:00 Test Item Value Reference Range Interpretation Comments RBC (test code = RBC) 5.25 4.70-6.10 [facility] FLUDYTPLP6481[facility]53-25 17:00:00 Test Item Value Reference Range Interpretation Comments Hgb A1C (test code = Hgb A1C) 5.4 [facility] HJJEK6806-52-57 17:00:00 Test Item Value Reference Range Interpretation Comments eGFR (test code = eGFR) 94 [facility] ResourcesCHE[facility] DIZMG3828-06-86 17:00:00 Test Item Value Reference Range Interpretation Comments CO2 (test code = CO2) 23 24-32 [facility]CHE[facility] YNHFO0569-03-75 17:00:00 Test Item Value Reference Range Interpretation Comments Calcium Lvl (test code = Calcium Lvl) 8.1 8.5-10.5 [facility]2018-04-26 17:00:00 Test Item Value Reference Range Interpretation Comments Chloride Lvl (test code = Chloride Lvl) 110 95-109 [facility]2018-04-26 17:00:00 Test Item Value Reference Range Interpretation Comments Potassium Lvl (test code = Potassium 3.9 3.5-5.1 Lvl) [facility]2018-04-26 17:00:00 Test Item Value Reference Range Interpretation Comments Sodium Lvl (test code = Sodium Lvl) 141 135-145 [facility]2018-04-26 17:00:00 Test Item Value Reference Range Interpretation Comments Creatinine Lvl (test code = Creatinine 0.95 0.50-1.40 Lvl) [facility]2018-04-26 17:00:00 Test Item Value Reference Range Interpretation Comments BUN (test code = BUN) 12 7-22 [facility]2018-04-26 17:00:00 Test Item Value Reference Range Interpretation Comments Glucose Lvl (test code = Glucose Lvl) 89 70-99 [facility]2018-04-26 17:00:00 Test Item Value Reference Range Interpretation Comments AGAP (test code = AGAP) 11.9 10.0-20.0 [facility] CenterKkevyltPQTIHZLUZL5633-40-10 17:00:00 Test Item Value Reference Range Interpretation Comments Segs-Bands # (test code = Segs-Bands #) 3.9 1.5-8.1 [facility] CenterSjkjozqDMCJPWJONJ1196-35-91 17:00:00 Test Item Value Reference Range Interpretation Comments Lymphocytes # (test code = Lymphocytes 1.5 1.0-5.5 #) [facility] CenterRbtepklXMEXLKLVJQ8412-88-60 17:00:00 Test Item Value Reference Range Interpretation Comments Basophils (test code = 0.3 See_Comment [Aut omated message] The Basophils) system which ge nerated this result tra nsmitted reference range : <=1.0. The reference r jose was not used to int erpret this result as normal/abnormal . [facility] CenterJrurhzsZNQSAZQTZM7912-81-69 17:00:00 Test Item Value Reference Range Interpretation Comments Eosinophils # (test code 0.1 See_Comment [A utomated message] The = Eosinophils #) system whic h generated this result tra nsmitted reference range : <=0.5. The reference r jose was not used to int erpret this result as normal/abnormal . [facility] CenterFjxtqxpUBJNKFZQHX8110-83-01 17:00:00 Test Item Value Reference Range Interpretation Comments Monocytes # (test code 0.6 See_Comment [Aut omated message] The = Monocytes #) system which generated this result tra nsmitted reference range : <=0.8. The reference r jose was not used to int erpret this result as normal/abnormal . [facility] CenterHnokpqwIDJWWSMAYG6103-59-05 17:00:00 Test Item Value Reference Range Interpretation Comments Monocytes (test code = Monocytes) 9.1 2.0-12.0 [facility] CenterNutwhvgDZWFIXNGRN5168-68-52 17:00:00 Test Item Value Reference Range Interpretation Comments Eosinophils (test code = 2.0 See_Comment [A utomated message] The Eosinophils) system which ge nerated this result tra nsmitted reference range : <=4.0. The reference r jose was not used to int erpret this result as normal/abnormal . [facility] CenterTzvqgveEDIRMRJCZT8429-53-78 17:00:00 Test Item Value Reference Range Interpretation Comments Lymphocytes (test code = Lymphocytes) 24.3 20.0-40.0 [facility] CenterLbtmgonOCMVYNSRAA4942-39-51 17:00:00 Test Item Value Reference Range Interpretation Comments Segs (test code = Segs) 64.3 45.0-75.0 [facility] CenterIyntqeqOAGIFHOJIM8113-17-77 17:00:00 Test Item Value Reference Range Interpretation Comments MCHC (test code = MCHC) 34.7 32.0-36.0 [facility] CenterSzmsvhpGGSUHXFCYO3603-12-40 17:00:00 Test Item Value Reference Range Interpretation Comments RDW (test code = RDW) 13.5 11.5-14.5 [facility] CenterVfcvlflFQYIXQTSUO9640-23-38 17:00:00 Test Item Value Reference Range Interpretation Comments MCH (test code = MCH) 30.5 pg 27.0-31.0 [facility] CenterGfjghqiJGHKHMJHFH3877-61-86 17:00:00 Test Item Value Reference Range Interpretation Comments Platelet (test code = Platelet) 182 133-450 [facility] HospitalCqeacnnRPXWAYGMYZ0505-52-54 17:00:00 Test Item Value Reference Range Interpretation Comments MPV (test code = MPV) 7.6 7.4-10.4 [facility] HospitalWdfnjkpTNMXIJWVYW4251-30-16 17:00:00 Test Item Value Reference Range Interpretation Comments Hct (test code = Hct) 46.0 42.0-54.0 [facility] HospitalQkgljlgQRPZYNQJZH0122-76-79 17:00:00 Test Item Value Reference Range Interpretation Comments MCV (test code = MCV) 87.7 80.0-94.0 [facility] CenterQegccngDZWUFYYYJM3062-61-87 17:00:00 Test Item Value Reference Range Interpretation Comments WBC (test code = WBC) 6.1 3.7-10.4 [facility] CenterPvcidgaEBBRMUZAUY3233-47-36 17:00:00 Test Item Value Reference Range Interpretation Comments Hgb (test code = Hgb) 16.0 14.0-18.0 [facility] CenterOfsvaldDFYPDWSKNG6577-28-58 17:00:00 Test Item Value Reference Range Interpretation Comments RBC (test code = RBC) 5.25 4.70-6.10 [facility] EXFWQDHVK0894-82-99 17:00:00 Test Item Value Reference Range Interpretation Comments Hgb A1C (test code = Hgb A1C) 5.4 [facility] NNOHV4176-52-16 17:00:00 Test Item Value Reference Range Interpretation Comments eGFR (test code = eGFR) 94 [facility] DLQMK7074-68-62 17:00:00 Test Item Value Reference Range Interpretation Comments CO2 (test code = CO2) 23 24-32 [facility] WFZRL4978-68-83 17:00:00 Test Item Value Reference Range Interpretation Comments Calcium Lvl (test code = Calcium Lvl) 8.1 8.5-10.5 [facility] PFPIA1732-20-68 17:00:00 Test Item Value Reference Range Interpretation Comments Chloride Lvl (test code = Chloride Lvl) 110 95-109 [facility] VFOEX4119-13-65 17:00:00 Test Item Value Reference Range Interpretation Comments Potassium Lvl (test code = Potassium 3.9 3.5-5.1 Lvl) [facility] OSWOW7907-99-63 17:00:00 Test Item Value Reference Range Interpretation Comments Sodium Lvl (test code = Sodium Lvl) 141 135-145 [facility]2018-04-26 17:00:00 Test Item Value Reference Range Interpretation Comments Creatinine Lvl (test code = Creatinine 0.95 0.50-1.40 Lvl) [facility]2018-04-26 17:00:00 Test Item Value Reference Range Interpretation Comments BUN (test code = BUN) 12 7-22 [facility]2018-04-26 17:00:00 Test Item Value Reference Range Interpretation Comments Glucose Lvl (test code = Glucose Lvl) 89 70-99 [facility]2018-04-26 17:00:00 Test Item Value Reference Range Interpretation Comments AGAP (test code = AGAP) 11.9 10.0-20.0 [place] 746048-04-26 17:00:00 Test Item Value Reference Range Interpretation Comments Segs-Bands # (test code = Segs-Bands #) 3.9 1.5-8.1 [place] 746048-04-26 17:00:00 Test Item Value Reference Range Interpretation Comments Lymphocytes # (test code = Lymphocytes 1.5 1.0-5.5 #) [facility] CenterKdpmqgqEDFRSWCTGR5862-31-48 17:00:00 Test Item Value Reference Range Interpretation Comments Basophils (test code = 0.3 See_Comment [Aut omated message] The Basophils) system which ge nerated this result tra nsmitted reference range : <=1.0. The reference r jose was not used to int erpret this result as normal/abnormal . [facility] CenterWhsffnzHUJFDAQTQS1579-92-50 17:00:00 Test Item Value Reference Range Interpretation Comments Eosinophils # (test code 0.1 See_Comment [A utomated message] The = Eosinophils #) system whic h generated this result tra nsmitted reference range : <=0.5. The reference r jose was not used to int erpret this result as normal/abnormal . [facility] CenterMrpdrmrYEJAYXFKGG9446-34-94 17:00:00 Test Item Value Reference Range Interpretation Comments Monocytes # (test code 0.6 See_Comment [Aut omated message] The = Monocytes #) system which generated this result tra nsmitted reference range : <=0.8. The reference r jose was not used to int erpret this result as normal/abnormal . [facility] CenterCbrnuazZHMIHVAPSA9170-80-76 17:00:00 Test Item Value Reference Range Interpretation Comments Monocytes (test code = Monocytes) 9.1 2.0-12.0 [facility] CenterUpslawpFTROVSDASZ6268-11-43 17:00:00 Test Item Value Reference Range Interpretation Comments Eosinophils (test code = 2.0 See_Comment [A utomated message] The Eosinophils) system which ge nerated this result tra nsmitted reference range : <=4.0. The reference r jose was not used to int erpret this result as normal/abnormal . [facility] CenterWoqxqqfDRTMVSOSKI4976-20-50 17:00:00 Test Item Value Reference Range Interpretation Comments Lymphocytes (test code = Lymphocytes) 24.3 20.0-40.0 [facility] CenterKtwtqwdKUSYIHQMBS7292-72-72 17:00:00 Test Item Value Reference Range Interpretation Comments Segs (test code = Segs) 64.3 45.0-75.0 [facility] CenterPexwdozGUURCOJBFV7378-45-55 17:00:00 Test Item Value Reference Range Interpretation Comments MCHC (test code = MCHC) 34.7 32.0-36.0 [facility] CenterKgfxhzfTANZXNZBWF4243-92-55 17:00:00 Test Item Value Reference Range Interpretation Comments RDW (test code = RDW) 13.5 11.5-14.5 [facility] CenterYeunjvmNPDLBWMWTJ1943-94-89 17:00:00 Test Item Value Reference Range Interpretation Comments MCH (test code = MCH) 30.5 pg 27.0-31.0 [facility] CenterBkwcwrsARHDRBAOVJ3514-24-12 17:00:00 Test Item Value Reference Range Interpretation Comments Platelet (test code = Platelet) 182 133-450 [facility] CenterTtcekgfFPRPZNGGBA4552-74-14 17:00:00 Test Item Value Reference Range Interpretation Comments MPV (test code = MPV) 7.6 7.4-10.4 [facility] CenterLjgubfkRTRVBDKCJL7417-48-12 17:00:00 Test Item Value Reference Range Interpretation Comments Hct (test code = Hct) 46.0 42.0-54.0 [facility] CenterBrgltrkLKJATAHJUT4769-17-11 17:00:00 Test Item Value Reference Range Interpretation Comments MCV (test code = MCV) 87.7 80.0-94.0 [facility] CenterPoussuwSREHIDIQZI8694-57-13 17:00:00 Test Item Value Reference Range Interpretation Comments WBC (test code = WBC) 6.1 3.7-10.4 [facility]QthjrzhPHFUOOSXGD1434-44-34 17:00:00 Test Item Value Reference Range Interpretation Comments Hgb (test code = Hgb) 16.0 14.0-18.0 [facility] HospitalEsnlrpgZNMUHMVFJF6959-53-53 17:00:00 Test Item Value Reference Range Interpretation Comments RBC (test code = RBC) 5.25 4.70-6.10 [facility] WRCVJFVHR6476-83-71 17:00:00 Test Item Value Reference Range Interpretation Comments Hgb A1C (test code = Hgb A1C) 5.4 [facility] CLRQT6074-37-65 17:00:00 Test Item Value Reference Range Interpretation Comments eGFR (test code = eGFR) 94 [facility]2018-04-26 17:00:00 Test Item Value Reference Range Interpretation Comments CO2 (test code = CO2) 23 24-32 [facility]2018-04-26 17:00:00 Test Item Value Reference Range Interpretation Comments Calcium Lvl (test code = Calcium Lvl) 8.1 8.5-10.5 [facility]2018-04-26 17:00:00 Test Item Value Reference Range Interpretation Comments Chloride Lvl (test code = Chloride Lvl) 110 95-109 [facility]2018-04-26 17:00:00 Test Item Value Reference Range Interpretation Comments Potassium Lvl (test code = Potassium 3.9 3.5-5.1 Lvl) [facility]2018-04-26 17:00:00 Test Item Value Reference Range Interpretation Comments Sodium Lvl (test code = Sodium Lvl) 141 135-145 [facility]2018-04-26 17:00:00 Test Item Value Reference Range Interpretation Comments Creatinine Lvl (test code = Creatinine 0.95 0.50-1.40 Lvl) [facility]2018-04-26 17:00:00 Test Item Value Reference Range Interpretation Comments BUN (test code = BUN) 12 7-22 [facility]2018-04-26 17:00:00 Test Item Value Reference Range Interpretation Comments Glucose Lvl (test code = Glucose Lvl) 89 70-99 [facility]2018-04-26 17:00:00 Test Item Value Reference Range Interpretation Comments AGAP (test code = AGAP) 11.9 10.0-20.0 [facility] CenterTlzzgyjPHQZLUHQGK5204-62-30 17:00:00 Test Item Value Reference Range Interpretation Comments Segs-Bands # (test code = Segs-Bands #) 3.9 1.5-8.1 [facility] CenterNmmnozzIRTCWTAWNU6095-19-21 17:00:00 Test Item Value Reference Range Interpretation Comments Lymphocytes # (test code = Lymphocytes 1.5 1.0-5.5 #) [facility] CenterPfjawinFDRSBGKJHN9651-40-74 17:00:00 Test Item Value Reference Range Interpretation Comments Basophils (test code = 0.3 See_Comment [Aut omated message] The Basophils) system which ge nerated this result tra nsmitted reference range : <=1.0. The reference r jose was not used to int erpret this result as normal/abnormal . [facility] CenterWqyapgvPWCSTDVTLI8482-75-87 17:00:00 Test Item Value Reference Range Interpretation Comments Eosinophils # (test code 0.1 See_Comment [A utomated message] The = Eosinophils #) system whic h generated this result tra nsmitted reference range : <=0.5. The reference r jose was not used to int erpret this result as normal/abnormal . [facility] CenterRcpokdvTENRNWKRXQ5705-97-50 17:00:00 Test Item Value Reference Range Interpretation Comments Monocytes # (test code 0.6 See_Comment [Aut omated message] The = Monocytes #) system which generated this result tra nsmitted reference range : <=0.8. The reference r jose was not used to int erpret this result as normal/abnormal . [facility] CenterVdguifrYUWKHFTJRF5709-90-66 17:00:00 Test Item Value Reference Range Interpretation Comments Monocytes (test code = Monocytes) 9.1 2.0-12.0 [facility] CenterEkqvgmtASPHZCJVSH9041-67-72 17:00:00 Test Item Value Reference Range Interpretation Comments Eosinophils (test code = 2.0 See_Comment [A utomated message] The Eosinophils) system which ge nerated this result tra nsmitted reference range : <=4.0. The reference r jose was not used to int erpret this result as normal/abnormal . [place] [address]-04-26 17:00:00 Test Item Value Reference Range Interpretation Comments Lymphocytes (test code = Lymphocytes) 24.3 20.0-40.0 [facility] CenterYjorocyGIJRIMOTHK3703-42-38 17:00:00 Test Item Value Reference Range Interpretation Comments Segs (test code = Segs) 64.3 45.0-75.0 [facility] CenterMnstbemJSZHLCNECR7817-17-50 17:00:00 Test Item Value Reference Range Interpretation Comments MCHC (test code = MCHC) 34.7 32.0-36.0 [facility] CenterNwswjwhJAXMGKICQP2701-69-14 17:00:00 Test Item Value Reference Range Interpretation Comments RDW (test code = RDW) 13.5 11.5-14.5 [facility] CenterKgtolokAVOQERKUUW1018-85-15 17:00:00 Test Item Value Reference Range Interpretation Comments MCH (test code = MCH) 30.5 pg 27.0-31.0 [facility] CenterPbrlbglOUOLHJWMKI4936-19-45 17:00:00 Test Item Value Reference Range Interpretation Comments Platelet (test code = Platelet) 182 133-450 [facility] CenterPhqrnvbQPQGSIEFWZ2698-94-40 17:00:00 Test Item Value Reference Range Interpretation Comments MPV (test code = MPV) 7.6 7.4-10.4 [facility] CenterHwadcjgJSJZYJBNFE0733-07-63 17:00:00 Test Item Value Reference Range Interpretation Comments Hct (test code = Hct) 46.0 42.0-54.0 [facility] CenterSxqdjxnEVBZUCDQCM6743-70-62 17:00:00 Test Item Value Reference Range Interpretation Comments MCV (test code = MCV) 87.7 80.0-94.0 [facility] CenterExvyxscXVRJXIJPHW5605-68-34 17:00:00 Test Item Value Reference Range Interpretation Comments WBC (test code = WBC) 6.1 3.7-10.4 [facility] CenterLfarjrqHELCXAICZT5885-39-06 17:00:00 Test Item Value Reference Range Interpretation Comments Hgb (test code = Hgb) 16.0 14.0-18.0 [facility] CenterNgdomdaBKHLOIXHBO0480-54-72 17:00:00 Test Item Value Reference Range Interpretation Comments RBC (test code = RBC) 5.25 4.70-6.10 [facility] UGFBVRCGL4959-06-54 17:00:00 Test Item Value Reference Range Interpretation Comments Hgb A1C (test code = Hgb A1C) 5.4 [facility]2018-04-26 17:00:00 Test Item Value Reference Range Interpretation Comments eGFR (test code = eGFR) 94 [facility]2018-04-26 17:00:00 Test Item Value Reference Range Interpretation Comments CO2 (test code = CO2) 23 24-32 [facility]2018-04-26 17:00:00 Test Item Value Reference Range Interpretation Comments Calcium Lvl (test code = Calcium Lvl) 8.1 8.5-10.5 [facility]2018-04-26 17:00:00 Test Item Value Reference Range Interpretation Comments Chloride Lvl (test code = Chloride Lvl) 110 95-109 [facility]2018-04-26 17:00:00 Test Item Value Reference Range Interpretation Comments Potassium Lvl (test code = Potassium 3.9 3.5-5.1 Lvl) [facility]2018-04-26 17:00:00 Test Item Value Reference Range Interpretation Comments Sodium Lvl (test code = Sodium Lvl) 141 135-145 [facility]2018-04-26 17:00:00 Test Item Value Reference Range Interpretation Comments Creatinine Lvl (test code = Creatinine 0.95 0.50-1.40 Lvl) [facility]2018-04-26 17:00:00 Test Item Value Reference Range Interpretation Comments BUN (test code = BUN) 12 7-22 [facility]2018-04-26 17:00:00 Test Item Value Reference Range Interpretation Comments Glucose Lvl (test code = Glucose Lvl) 89 70-99 [facility]2018-04-26 17:00:00 Test Item Value Reference Range Interpretation Comments AGAP (test code = AGAP) 11.9 10.0-20.0 [facility]JjubploFEREDTGWRZ7358-88-41 17:00:00 Test Item Value Reference Range Interpretation Comments Segs-Bands # (test code = Segs-Bands #) 3.9 1.5-8.1 [facility] CenterTadfrmwNWBENDREEF0318-31-36 17:00:00 Test Item Value Reference Range Interpretation Comments Lymphocytes # (test code = Lymphocytes 1.5 1.0-5.5 #) [facility] CenterOanofbuBLYWSZCVQV0006-72-30 17:00:00 Test Item Value Reference Range Interpretation Comments Basophils (test code = 0.3 See_Comment [Aut omated message] The Basophils) system which ge nerated this result tra nsmitted reference range : <=1.0. The reference r jose was not used to int erpret this result as normal/abnormal . [facility] CenterJmufzzgKVVJKLRIKQ9301-09-83 17:00:00 Test Item Value Reference Range Interpretation Comments Eosinophils # (test code 0.1 See_Comment [A utomated message] The = Eosinophils #) system whic h generated this result tra nsmitted reference range : <=0.5. The reference r jose was not used to int erpret this result as normal/abnormal . [facility] CenterOwlrjevZQYUGPUTSD9212-27-17 17:00:00 Test Item Value Reference Range Interpretation Comments Monocytes # (test code 0.6 See_Comment [Aut omated message] The = Monocytes #) system which generated this result tra nsmitted reference range : <=0.8. The reference r jose was not used to int erpret this result as normal/abnormal . [facility] CenterAvfyjyoQJKJTZLPOI4712-39-75 17:00:00 Test Item Value Reference Range Interpretation Comments Monocytes (test code = Monocytes) 9.1 2.0-12.0 [facility] CenterRoljjxxRKURNBQFZP8904-28-32 17:00:00 Test Item Value Reference Range Interpretation Comments Eosinophils (test code = 2.0 See_Comment [A utomated message] The Eosinophils) system which ge nerated this result tra nsmitted reference range : <=4.0. The reference r jose was not used to int erpret this result as normal/abnormal . [facility] CenterNmvzxieKSRRAEIGDU4870-60-42 17:00:00 Test Item Value Reference Range Interpretation Comments Lymphocytes (test code = Lymphocytes) 24.3 20.0-40.0 [facility] CenterRyypncuEHGTXETWSN8029-25-33 17:00:00 Test Item Value Reference Range Interpretation Comments Segs (test code = Segs) 64.3 45.0-75.0 [facility] CenterWeezxysLSWPIHOJDQ9788-60-27 17:00:00 Test Item Value Reference Range Interpretation Comments MCHC (test code = MCHC) 34.7 32.0-36.0 [facility] CenterFtrfxihTXQPRPHMEK9337-06-77 17:00:00 Test Item Value Reference Range Interpretation Comments RDW (test code = RDW) 13.5 11.5-14.5 [facility]mb[facility]nVFJRGUBXPS7137-81-63 17:00:00 Test Item Value Reference Range Interpretation Comments MCH (test code = MCH) 30.5 pg 27.0-31.0 [facility]NnfhqxbHKPJHEUMZB5167-12-18 17:00:00 Test Item Value Reference Range Interpretation Comments Platelet (test code = Platelet) 182 133-450 [facility] HospitalEfqtwyqHMLGAGBSBL2477-86-64 17:00:00 Test Item Value Reference Range Interpretation Comments MPV (test code = MPV) 7.6 7.4-10.4 [facility] HospitalXebbrnhIAAWEDKRPQ9306-07-29 17:00:00 Test Item Value Reference Range Interpretation Comments Hct (test code = Hct) 46.0 42.0-54.0 [facility] HospitalUpcrqrpKFDTWXEZTI5619-10-74 17:00:00 Test Item Value Reference Range Interpretation Comments MCV (test code = MCV) 87.7 80.0-94.0 [facility] HospitalTxmabpqIRUKLZLGYY3865-40-57 17:00:00 Test Item Value Reference Range Interpretation Comments WBC (test code = WBC) 6.1 3.7-10.4 [facility] HospitalJxhzlzkRNZGLKOULI4841-29-69 17:00:00 Test Item Value Reference Range Interpretation Comments Hgb (test code = Hgb) 16.0 14.0-18.0 [facility] HospitalAkpnzxtYIYXIMPDNQ6914-34-29 17:00:00 Test Item Value Reference Range Interpretation Comments RBC (test code = RBC) 5.25 4.70-6.10 [facility] DKNAUHWYB7412-70-87 17:00:00 Test Item Value Reference Range Interpretation Comments Hgb A1C (test code = Hgb A1C) 5.4 [facility] [id number] 17:00:00 Test Item Value Reference Range Interpretation Comments eGFR (test code = eGFR) 94 [facility] [id number] 17:00:00 Test Item Value Reference Range Interpretation Comments CO2 (test code = CO2) 23 24-32 [facility]CHE[facility] [id number] 17:00:00 Test Item Value Reference Range Interpretation Comments Calcium Lvl (test code = Calcium Lvl) 8.1 8.5-10.5 [facility]2018-04-26 17:00:00 Test Item Value Reference Range Interpretation Comments Chloride Lvl (test code = Chloride Lvl) 110 95-109 [facility]2018-04-26 17:00:00 Test Item Value Reference Range Interpretation Comments Potassium Lvl (test code = Potassium 3.9 3.5-5.1 Lvl) [facility]2018-04-26 17:00:00 Test Item Value Reference Range Interpretation Comments Sodium Lvl (test code = Sodium Lvl) 141 135-145 [facility]2018-04-26 17:00:00 Test Item Value Reference Range Interpretation Comments Creatinine Lvl (test code = Creatinine 0.95 0.50-1.40 Lvl) [facility]2018-04-26 17:00:00 Test Item Value Reference Range Interpretation Comments BUN (test code = BUN) 12 7-22 [facility]2018-04-26 17:00:00 Test Item Value Reference Range Interpretation Comments Glucose Lvl (test code = Glucose Lvl) 89 70-99 [facility]2018-04-26 17:00:00 Test Item Value Reference Range Interpretation Comments AGAP (test code = AGAP) 11.9 10.0-20.0 [facility] CenterAqioovfYQHVCKNPZU6980-69-92 17:00:00 Test Item Value Reference Range Interpretation Comments Segs-Bands # (test code = Segs-Bands #) 3.9 1.5-8.1 [facility] CenterDyozdkfLHYDKAYUZK5354-14-03 17:00:00 Test Item Value Reference Range Interpretation Comments Lymphocytes # (test code = Lymphocytes 1.5 1.0-5.5 #) [facility] CenterXsbzouxTQRRCRNHHB0405-30-25 17:00:00 Test Item Value Reference Range Interpretation Comments Basophils (test code = 0.3 See_Comment [Aut omated message] The Basophils) system which ge nerated this result tra nsmitted reference range : <=1.0. The reference r jose was not used to int erpret this result as normal/abnormal . [facility] CenterHmqrqqlFHOLBIXKUD7363-24-79 17:00:00 Test Item Value Reference Range Interpretation Comments Eosinophils # (test code 0.1 See_Comment [A utomated message] The = Eosinophils #) system whic h generated this result tra nsmitted reference range : <=0.5. The reference r jose was not used to int erpret this result as normal/abnormal . [facility] CenterUcemxxaCNREZBMPYY2006-58-63 17:00:00 Test Item Value Reference Range Interpretation Comments Monocytes # (test code 0.6 See_Comment [Aut omated message] The = Monocytes #) system which generated this result tra nsmitted reference range : <=0.8. The reference r jose was not used to int erpret this result as normal/abnormal . [facility] CenterNdgzpynRGBMMOZQWC8850-84-34 17:00:00 Test Item Value Reference Range Interpretation Comments Monocytes (test code = Monocytes) 9.1 2.0-12.0 [facility] CenterWxaugwqMTEMEVNEOH1904-72-53 17:00:00 Test Item Value Reference Range Interpretation Comments Eosinophils (test code = 2.0 See_Comment [A utomated message] The Eosinophils) system which ge nerated this result tra nsmitted reference range : <=4.0. The reference r jose was not used to int erpret this result as normal/abnormal . [facility] CenterRebloicHMUXFFMRID5813-63-91 17:00:00 Test Item Value Reference Range Interpretation Comments Lymphocytes (test code = Lymphocytes) 24.3 20.0-40.0 [facility] CenterCltxaeqZGTCECQEET7737-60-72 17:00:00 Test Item Value Reference Range Interpretation Comments Segs (test code = Segs) 64.3 45.0-75.0 [facility] CenterIhctalaGNWIRKYKNG6414-78-85 17:00:00 Test Item Value Reference Range Interpretation Comments MCHC (test code = MCHC) 34.7 32.0-36.0 [facility] CenterXwyukekKLUGKFHFZK9950-72-13 17:00:00 Test Item Value Reference Range Interpretation Comments RDW (test code = RDW) 13.5 11.5-14.5 [facility] CenterVmldluqPQIURKUEKH2525-98-99 17:00:00 Test Item Value Reference Range Interpretation Comments MCH (test code = MCH) 30.5 pg 27.0-31.0 [facility] CenterDtrqxzdPYERMZGRVA4668-85-53 17:00:00 Test Item Value Reference Range Interpretation Comments Platelet (test code = Platelet) 182 133-450 [facility] CenterVngjbxqJNLNNEBYSE2001-31-68 17:00:00 Test Item Value Reference Range Interpretation Comments MPV (test code = MPV) 7.6 7.4-10.4 [facility] HospitalRyiugxaQQBYUTZLAO2178-32-79 17:00:00 Test Item Value Reference Range Interpretation Comments Hct (test code = Hct) 46.0 42.0-54.0 [facility] HospitalVpxntosFLDHKKDMIV0148-68-97 17:00:00 Test Item Value Reference Range Interpretation Comments MCV (test code = MCV) 87.7 80.0-94.0 [facility] CenterHnctraqGECLWBEPKW9574-97-40 17:00:00 Test Item Value Reference Range Interpretation Comments WBC (test code = WBC) 6.1 3.7-10.4 [facility] HospitalWvyogmqVTVHMTAFZB7015-84-64 17:00:00 Test Item Value Reference Range Interpretation Comments Hgb (test code = Hgb) 16.0 14.0-18.0 [facility] HospitalUyvuuqeXVQFFCOCNE7329-38-80 17:00:00 Test Item Value Reference Range Interpretation Comments RBC (test code = RBC) 5.25 4.70-6.10 [facility] ERNMKWBNG8698-67-55 17:00:00 Test Item Value Reference Range Interpretation Comments Hgb A1C (test code = Hgb A1C) 5.4 [facility]
[2022-11-02] MEDS ORDERED: LEVETIRACETAM 500 MG/5 ML VIAL IV ONE (11:24)
[2022-11-02] MEDS ORDERED: NA CHLORIDE 0.9% 100 ML ONE (11:25)
--- NOTE | 2022-11-02 11:32 | RAD REPORT ---
EXAM DESCRIPTION: CT - CTHCSPWOC - 11/02/2022 11:10 am CLINICAL HISTORY: Trauma, head and neck injury. TRAUMA COMPARISON: No comparisons TECHNIQUE: Axial 5 mm thick images of the head were obtained. Axial 2 mm thick images of the cervical spine were obtained with sagittal and coronal reconstruction images generated and reviewed. All CT scans are performed using dose optimization technique as appropriate and may include automated exposure control or mA/KV adjustment according to patient size. FINDINGS: CT HEAD WITHOUT CONTRAST: No acute hemorrhage, hydrocephalus or extra-axial collection is identified.No areas of brain edema or midline shift. The paranasal sinuses and mastoids are clear.The calvarium is intact. CT CERVICAL SPINE WITHOUT CONTRAST: No fracture or subluxation.No prevertebral soft tissues swelling is identified. IMPRESSION: No acute intracranial or cervical spine findings.
--- NOTE | 2022-11-02 12:06 | RAD REPORT ---
EXAM DESCRIPTION: RAD - Foot Left 3 View - 11/02/2022 11:18 am CLINICAL HISTORY: PAIN COMPARISON: No comparisons FINDINGS: Small calcaneal spurs. No acute fracture or dislocation.
--- NOTE | 2022-11-02 12:07 | RAD REPORT ---
EXAM DESCRIPTION: RAD - Foot Right 3 View - 11/02/2022 11:18 am CLINICAL HISTORY: PAIN COMPARISON: No comparisons FINDINGS: Tiny posterior calcaneal spur. Soft tissue swelling affects the great toe. No fracture or dislocation visualized.
[2022-11-02 13:51] LABS: Hematocrit 43.9 % (39.6-49.0); Lymphocytes % 12.4 % (15.3-44.8); MCV 88.2 fL (80-100); MPV 6.6 fL (7.6-11.3); RBC Red Blood Cell Count 4.97 M/uL (4.33-5.43)
[2022-11-02 14:09] LABS: Albumin 3.6 g/dL (3.4-5.0); Bilirubin Total 0.4 mg/dL (0.2-1.0); Potassium 3.5 mEq/L (3.5-5.1); Protein, Total 7.2 g/dL (6.4-8.2); Troponin High Sensitivity 14.7 pg/mL (<58.9)
--- NOTE | 2022-11-02 14:36 | ER ---
Nurse's Notes [facility] Name: Pravin Bateman Age: 52 yrs Sex: Male : 1970 Arrival Date: 11/02/2022 Time: 10:32 Bed 19 Private MD: Diagnosis: Breakthrough seizure Presentation: 11/02 10:35 Chief complaint: EMS states: Seizure this am while taking a shower. Hx of seizure nj1 disorder, taking meds for it. Recently started a multivitamin, patient believes calcium is a seizure trigger. Not really postictal upon arrival, no seizure activity noted. Complaining of head and right toe pain. Not taking blood thinner. 10:35 Method Of Arrival: EMS: [facility] 10:35 Coronavirus screen: Vaccine status: Patient reports being unvaccinated. Ebola Screen: nj1 Patient denies travel to an Ebola-affected area in the 21 days before illness onset. Initial Sepsis Screen: Does the patient meet any 2 criteria? No. Patient's initial sepsis screen is negative. Does the patient have a suspected source of infection? No. Patient's initial sepsis screen is negative. Risk Assessment: Do you want to hurt yourself or someone else? Patient reports no desire to harm self or others. Onset of symptoms was November 02, 2022. 10:35 Acuity: DONNIE 3 nj1 Triage Assessment: 15:01 General: Behavior is calm, cooperative. sg5 15:01 General: Appears in no apparent distress. comfortable. sg5 Historical: - Allergies: 10:58 Augmentin; nj1 10:58 Dilantin; nj1 10:58 K-Clor; nj1 10:58 PENICILLINS; nj1 10:58 potassium, high doses; nj1 - Home Meds: 15:02 losartan 100 mg Oral tab 1 tab once daily [Active]; Keppra 500 mg Oral tab 1 tab 2 sg5 times per day [Active]; amlodipine 10 mg tab [Active]; - PMHx: 10:58 Hypertension; Seizures; Sleep apnea; nj1 - PSHx: 10:58 Umbilical hernia repair; nj1 - Immunization history:: Client reports having NOT received the Covid vaccine. - Social history:: Smoking status: Patient/guardian denies using tobacco, the patient reports quitting approximately 15 years ago. - Family history:: not pertinent. Screenin:01 [facility] ED Fall Risk Assessment (Adult) History of falling in the last 3 months, sg5 including since admission Yes- physiologic fall (2 pts). Abuse screen: Denies threats or abuse. Nutritional screening: No deficits noted. Tuberculosis screening: No symptoms or risk factors identified. Assessment: 12:57 General: Appears in no apparent distress. comfortable, Reports pain to head and feet. sg5 Pain: Complains of pain in head top right and bilateral feet. Neuro: Level of Consciousness is awake, alert, obeys commands, Oriented to person, place, time, situation, Appropriate for age Reports headache frontal area, seizure. Cardiovascular: Capillary refill < 3 seconds. Respiratory: Airway is patent Respiratory effort is even, unlabored. GI: No signs and/or symptoms were reported involving the gastrointestinal system. : No signs and/or symptoms were reported regarding the genitourinary system. EENT: No signs and/or symptoms were reported regarding the EENT system. Derm: No signs and/or symptoms reported regarding the dermatologic system. Musculoskeletal: No signs and/or symptoms reported regarding the musculoskeletal system. 15:00 Reassessment: Patient appears in no apparent distress at this time. Patient and/or sg5 family updated on plan of care and expected duration. Pain level reassessed. Patient is alert, oriented x 3, equal unlabored respirations, skin warm/dry/pink. Patient states symptoms have improved. Vital Signs: 10:35 BP 158 / 80; Pulse 93; Resp 18; Temp 98.8(TE); Pulse Ox 100% on R/A; Weight 128.82 kg nj1 (R); Height 6 ft. 0 in. (R); Pain 8/10; 11:30 BP 134 / 67; Pulse 74; Resp 16; Pulse Ox 98% on R/A; sg5 12:30 BP 126 / 62; Pulse 67; Resp 16; Pulse Ox 99% on R/A; Pain 5/10; sg5 13:30 BP 142 / 80; Pulse 62; Resp 18; Pulse Ox 99% on R/A; Pain 5/10; sg5 14:29 BP 145 / 85; Pulse 65; Resp 18; Pulse Ox 99% on R/A; Pain 5/10; sg5 10:35 Body Mass Index 38.52 (128.82 kg, 182.88 cm) nj1 10:35 Pain Scale: Adult nj1 12:30 Pain Scale: Adult sg5 13:30 Pain Scale: Adult sg5 14:29 Pain Scale: Adult sg5 Xiomara Coma Score: 15:01 Eye Response: spontaneous(4). Motor Response: obeys commands(6). Verbal Response: sg5 oriented(5). Total: 15. ED Course: 10:41 Patient arrived in ED. aa5 10:41 Reece Panchal MD is Attending Physician. rt 10:58 Triage completed. nj1 10:59 Arm band placed on. nj1 11:03 Aidan Dutton, RN is Primary Nurse. bp 11:15 CT Head C Spine In Process Unspecified. EDMS 11:19 Foot Right 3 View XRAY In Process Unspecified. EDMS 11:19 Foot Left 3 View XRAY In Process Unspecified. EDMS 14:30 Niyah Payne, RN is Primary Nurse. sg5 15:00 Patient has correct armband on for positive identification. Bed in low position. Call sg5 light in reach. Side rails up X2. Adult w/ patient. Valuables Left with patient. 15:00 No provider procedures requiring assistance completed. IV discontinued. sg5 15:01 Seizure precautions initiated. sg5 Administered Medications: 11:29 Drug: Keppra IV 1000 mg Route: IV; Rate: calculated rate; Site: left antecubital; bp 13:00 Follow up: IV Status: Completed infusion sg5 13:04 Follow up: IV Status: Completed infusion sg5 14:52 Drug: Acetaminophen PO 1000 mg Route: PO; sg5 Medication: 15:02 VIS not applicable for this client. sg5 Outcome: 14:35 Discharge ordered by . rt 15:00 Discharged to home via wheelchair, with family. sg5 15:00 Condition: good 15:00 Discharge instructions given to patient, Instructed on discharge instructions, follow up and referral plans. 15:02 Patient left the ED. sg5 Signatures: Dispatcher [employer] EDAR Mercedes Mike RN RN [facility] Aidan Dutton, RN RN Reece Panchal MD MD rt Niyah Payne, KIMBERLY HARRIS 5 Latanya Rivers RN RN [facility]
--- NOTE | 2022-11-02 14:36 | EDPHYS ---
Physician Documentation [facility] Name: Pravin Bateman Age: 52 yrs Sex: Male : 1970 Arrival Date: 11/02/2022 Time: 10:32 Bed 19 Private MD: ED Physician Reece Panchal HPI: 11/02 10:51 This 52 yrs old Male presents to ER via Unassigned with complaints of Probable rt Seizure. 10:51 Patient presents to the ED with recurrent seizure. Patient does have a history of rt seizure disorder, currently takes Keppra, missed his dose this morning. Patient was taking shower when he had an acute seizure. EMS was called noted that he was postictal that is since resolved. The patient had hematoma to the right parietal region, patient does complain of pain to the right great toe, left foot. Denies other pain or other acute complaints, states that he is otherwise without complaints. Symptoms are moderate severity, no other aggravating or alleviating factors.. Historical: - Allergies: 10:58 Augmentin; nj1 10:58 Dilantin; nj1 10:58 K-Clor; nj1 10:58 PENICILLINS; nj1 10:58 potassium, high doses; nj1 - Home Meds: 15:02 losartan 100 mg Oral tab 1 tab once daily [Active]; Keppra 500 mg Oral tab 1 tab 2 sg5 times per day [Active]; amlodipine 10 mg tab [Active]; - PMHx: 10:58 Hypertension; Seizures; Sleep apnea; nj1 - PSHx: 10:58 Umbilical hernia repair; nj1 - Immunization history:: Client reports having NOT received the Covid vaccine. - Social history:: Smoking status: Patient/guardian denies using tobacco, the patient reports quitting approximately 15 years ago. - Family history:: not pertinent. ROS: 10:51 Constitutional: Negative for fever, chills, and weight loss, Cardiovascular: Negative rt for chest pain, palpitations, and edema, Respiratory: Negative for shortness of breath, cough, wheezing, and pleuritic chest pain, Abdomen/GI: Negative for abdominal pain, nausea, vomiting, diarrhea, and constipation, Skin: Negative for injury, rash, and discoloration, Neuro: Negative for headache, weakness, numbness, tingling, and seizure, Psych: Negative for depression, anxiety, suicide ideation, homicidal ideation, and hallucinations. 10:51 MS/extremity: Positive for pain, Negative for decreased range of motion. 10:51 Skin: Positive for pain, neg for lac. 10:51 Neuro: Positive for seizure activity, Negative for altered mental status. Exam: 10:54 Constitutional: This is a well developed, well nourished patient who is awake, alert, rt and in no acute distress. Head/Face: Normocephalic, atraumatic. Neck: Trachea midline, no thyromegaly or masses palpated, and no cervical lymphadenopathy. Supple, full range of motion without nuchal rigidity, or vertebral point tenderness. No Meningismus. Chest/axilla: Normal chest wall appearance and motion. Nontender with no deformity. No lesions are appreciated. Cardiovascular: Regular rate and rhythm with a normal S1 and S2. No gallops, murmurs, or rubs. Normal PMI, no JVD. No pulse deficits. Respiratory: Lungs have equal breath sounds bilaterally, clear to auscultation and percussion. No rales, rhonchi or wheezes noted. No increased work of breathing, no retractions or nasal flaring. Abdomen/GI: Soft, non-tender, with normal bowel sounds. No distension or tympany. No guarding or rebound. No evidence of tenderness throughout. Skin: Warm, dry with normal turgor. Normal color with no rashes, no lesions, and no evidence of cellulitis. MS/ Extremity: Pulses equal, no cyanosis. Neurovascular intact. Full, normal range of motion. Neuro: Awake and alert, GCS 15, oriented to person, place, time, and situation. Cranial nerves II-XII grossly intact. Motor strength 5/5 in all extremities. Sensory grossly intact. Cerebellar exam normal. Normal gait. Psych: Awake, alert, with orientation to person, place and time. Behavior, mood, and affect are within normal limits. 11:28 ECG was reviewed by the Attending Physician. rt Vital Signs: 10:35 BP 158 / 80; Pulse 93; Resp 18; Temp 98.8(TE); Pulse Ox 100% on R/A; Weight 128.82 kg nj1 (R); Height 6 ft. 0 in. (R); Pain 8/10; 11:30 BP 134 / 67; Pulse 74; Resp 16; Pulse Ox 98% on R/A; sg5 12:30 BP 126 / 62; Pulse 67; Resp 16; Pulse Ox 99% on R/A; Pain 5/10; sg5 13:30 BP 142 / 80; Pulse 62; Resp 18; Pulse Ox 99% on R/A; Pain 5/10; sg5 14:29 BP 145 / 85; Pulse 65; Resp 18; Pulse Ox 99% on R/A; Pain 5/10; sg5 10:35 Body Mass Index 38.52 (128.82 kg, 182.88 cm) nj1 10:35 Pain Scale: Adult nj1 12:30 Pain Scale: Adult sg5 13:30 Pain Scale: Adult sg5 14:29 Pain Scale: Adult sg5 Xiomara Coma Score: 15:01 Eye Response: spontaneous(4). Motor Response: obeys commands(6). Verbal Response: sg5 oriented(5). Total: 15. MDM: 10:41 Patient medically screened. rt 17:34 Differential diagnosis: Breakthrough seizure, medication nonadherence, intracranial rt hemorrhage, fracture. Data reviewed: vital signs, nurses notes. Consideration of Admission/Observation Escalation of care including admission/observation considered. I considered the following discharge prescriptions or medication management in the emergency department Medications were administered in the Emergency Department. See MAR. Independent interpretation of the following test(s) in the Emergency Department CT Scan: My interpretation is No hemorrhage seen on interpretation of CT scan images. Care significantly affected by the following chronic conditions: Seizure disorder. Counseling: I had a detailed discussion with the patient and/or guardian regarding: the historical points, exam findings, and any diagnostic results supporting the discharge/admit diagnosis, the presence of at least one elevated blood pressure reading (>120/80) during this emergency department visit, the need for outpatient follow up. 11/02 10:43 Order name: CBC with Diff; Complete Time: 14:02 rt 11/02 10:43 Order name: CMP; Complete Time: 14:23 rt 11/02 10:43 Order name: Troponin High Sensitivity; Complete Time: 14:23 rt 11/02 10:43 Order name: CT Head C Spine; Complete Time: 12:12 rt 11/02 10:43 Order name: Foot Right 3 View XRAY; Complete Time: 12:12 rt 11/02 10:51 Order name: Foot Left 3 View XRAY; Complete Time: 12:12 rt 11/02 10:43 Order name: EKG; Complete Time: 10:44 rt 11/02 10:43 Order name: EKG - Nurse/Tech; Complete Time: 11:23 rt EC:28 Rate is 73 beats/min. Rhythm is regular, Normal Sinus Rhythm with No ectopy. QRS [place] rt is Normal. SC interval is normal. QRS interval is normal. QT interval is normal. No Q waves. T waves are Normal. No ST changes noted. Interpreted by me. Administered Medications: 11:29 Drug: Keppra IV 1000 mg Route: IV; Rate: calculated rate; Site: left antecubital; bp 13:00 Follow up: IV Status: Completed infusion sg5 13:04 Follow up: IV Status: Completed infusion sg5 14:52 Drug: Acetaminophen PO 1000 mg Route: PO; sg5 Disposition Summary: 11/02/22 14:35 Discharge Ordered Location: Home rt Problem: an acute exacerbation rt Symptoms: are resolved rt Condition: Stable rt Diagnosis - Breakthrough seizure rt Followup: rt - With: Private Physician - When: 2 - 3 days - Reason: Discharge Instructions: - Discharge Summary Sheet rt - Seizure, Adult rt Forms: - Medication Reconciliation Form rt - Thank You Letter rt - Antibiotic Education rt - Prescription Opioid Use rt - Work release form sg5 - Family Work Release sg5 Signatures: Dispatcher [employer] Lorenza Cheema, RN KIMBERLY Aidan Dutton RN RN Reece Crespo MD MD rt Niyah Payne RN RN sg5 Latanya Rivers RN RN nj1
[2022-11-02] MEDS ORDERED: ACETAMINOPHEN 500 MG TAB ONE (14:58)
[2022-11-02 15:07] VITALS: TEMP 98.8
[2022-11-02 15:11] VITALS: O2SAT 99
[2022-11-02 15:14] VITALS: BP 145/85
--- NOTE | 2022-11-03 11:24 | EKG ---
Test Date: 2022-11-02 Test Time: 11:19:37 Academic Advisor: SAMAN MEASUREMENT RESULTS: Intervals: Rate: 73 GA: 144 QRSD: 82 QT: 410 QTc: 451 [place]: P: 67 GA: 144 QRS: 8 T: 30 INTERPRETIVE STATEMENTS: Normal sinus rhythm Normal ECG Compared to ECG 06/29/2020 23:38:08 No significant changes Electronically Signed On 11-03-22 11:20:26 CDT by Manuel Smith
== END 2022-11-02 15:02 | disposition home or self-care (01) ==
LOC: ER 10:32
DX: G40.509 Epileptic seizures related to external causes, not intractable, without status epilepticus (principal); I10 Essential (primary) hypertension; Z88.0 Allergy status to penicillin; Z88.1 Allergy status to other antibiotic agents; Z88.8 Allergy status to other drugs, medicaments and biological substances
CPT/HCPCS: 85025; 36415; 84484; 80053; 70450; 72125; 73630 ×2; J1953; 93005

== ENCOUNTER → 2023-07-08 | Emergency (ER) | payer OTHER ==
--- NOTE | 2023-07-08 16:39 | EDPHYS ---
Physician Documentation [facility] Name: Pravin Bateman Age: 52 yrs Sex: Male : 1970 Arrival Date: 07/08/2023 Time: 16:24 Bed IW1 Private MD: ED Physician Shaggy Mesa HPI: 07/08 16:40 This 52 yrs old Male presents to ER via Ambulatory with complaints of ec2 Medication Refill. 16:40 Patient arrives today for medication refill of his amlodipine that he has been taking ec2 for many years. Reports no other concerns, 10 mg of amlodipine once a day.. Historical: - Allergies: 16:35 Augmentin; nj1 16:35 Dilantin; nj1 16:35 K-Clor; nj1 16:35 PENICILLINS; nj1 16:35 potassium; nj1 - PMHx: 16:35 Hypertension; Seizures; Sleep Apnea; nj1 - PSHx: 16:35 umbilical hernia repair; nj1 - Immunization history:: Client reports having NOT received the Covid vaccine. - Social history:: Smoking status: Patient/guardian denies using tobacco, the patient reports quitting approximately 20 years ago. ROS: 16:40 Constitutional: as per hpi ec2 Exam: 16:40 Constitutional: No acute distress ec2 Vital Signs: 16:31 BP 156 / 75; Pulse 65; Resp 18; Temp 98.1; Pulse Ox 100% ; Weight 127.91 kg; Height 5 nj1 ft. 11 in. ; 16:31 Body Mass Index 39.33 (127.91 kg, 180.34 cm) nj1 MDM: 16:39 Patient medically screened. ec2 16:40 Data reviewed: vital signs. ED course: Patient arrives today for medication refill. ec2 Examination remarkable for well-appearing nontoxic dividual's otherwise in no acute distress. Will discharge with refill for amlodipine. Return precautions given.. Administered Medications: No medications were administered Disposition Summary: 07/08/23 16:39 Discharge Ordered Notes: Location: Home ec2 Condition: Stable ec2 Diagnosis - Medication Refill ec2 Followup: ec2 - With: Private Physician - When: - Reason: Continuance of care Discharge Instructions: - Discharge Summary Sheet ec2 Forms: - Medication Reconciliation Form ec2 - Thank You Letter ec2 - Antibiotic Education ec2 - Prescription Opioid Use ec2 - Patient Portal Instructions ec2 - Leadership Thank You Letter ec2 Prescriptions: - amlodipine 10 mg Oral tablet - take 1 tablet ORAL route daily; 60 tablet; Refills: 0, Product Selection ec2 Permitted Signatures: Latanya Rivers RN RN nj1 Shaggy Mesa MD MD ec2
--- NOTE | 2023-07-08 16:39 | ER ---
Nurse's Notes [facility] Name: Pravin Bateman Age: 52 yrs Sex: Male : 1970 Arrival Date: 07/08/2023 Time: 16:24 Bed IW1 Private MD: Diagnosis: Medication Refill Presentation: 07/08 16:31 Chief complaint: Patient states: Out of amlodipine, went to pharmacy to get it filled nj but did not have any refills left, advised to come to ED or urgent care for prescription. Coronavirus screen: Vaccine status: Patient reports being unvaccinated. Ebola Screen: Patient denies travel to an Ebola-affected area in the 21 days before illness onset. Initial Sepsis Screen: Does the patient meet any 2 criteria? No. Patient's initial sepsis screen is negative. Does the patient have a suspected source of infection? No. Patient's initial sepsis screen is negative. Risk Assessment: Do you want to hurt yourself or someone else? Patient reports no desire to harm self or others. Onset of symptoms was July 08, 2023. 16:31 Method Of Arrival: Ambulatory [facility] 16:31 Acuity: DONNIE 5 [facility] Triage Assessment: 16:36 General: Appears in no apparent distress. comfortable, Behavior is calm, cooperative, nj appropriate for age. Pain: Denies pain. Neuro: No deficits noted. Cardiovascular: No deficits noted. Respiratory: No deficits noted. Historical: - Allergies: 16:35 Augmentin; nj1 16:35 Dilantin; nj1 16:35 K-Clor; id1 16:35 PENICILLINS; id1 16:35 potassium; nj - PMHx: 16:35 Hypertension; Seizures; Sleep Apnea; [facility] - PSHx: 16:35 umbilical hernia repair; nj1 - Immunization history:: Client reports having NOT received the Covid vaccine. - Social history:: Smoking status: Patient/guardian denies using tobacco, the patient reports quitting approximately 20 years ago. Vital Signs: 16:31 BP 156 / 75; Pulse 65; Resp 18; Temp 98.1; Pulse Ox 100% ; Weight 127.91 kg; Height 5 nj1 ft. 11 in. ; 16:31 Body Mass Index 39.33 (127.91 kg, 180.34 cm) [facility] ED Course: 16:27 Patient arrived in ED. im 16:31 Shaggy Mesa MD is Attending Physician. ec2 16:35 Triage completed. nj1 16:36 Arm band placed on right wrist. nj1 16:49 Patient did not have IV access during this emergency room visit. nj1 Administered Medications: No medications were administered Outcome: 16:39 Discharge ordered by . ec2 16:49 Discharged to home ambulatory, nj1 16:49 Condition: stable 16:49 Discharge instructions given to patient, significant other, Instructed on discharge instructions, follow up and referral plans. medication usage, Demonstrated understanding of instructions, follow-up care, medications, Prescriptions given X 1, 16:49 Patient left the ED. nj1 Signatures: Latanya Rivers RN RN nj1 Kimberlee Mishra Shaggy Mesa MD MD ec2
[2023-07-08 20:36] VITALS: BP 156/75; TEMP 98.1; O2SAT 100
== END ==
LOC: ER 16:24
DX: Z76.0 Encounter for issue of repeat prescription (principal)
CPT/HCPCS: 99283

== ENCOUNTER 2023-12-04 17:49 | Emergency (ER) | payer OTHER ==
[2023-12-04] MEDS ORDERED: dexAMETHasone 10 MG/ML VIAL ONE (19:15)
[2023-12-04] MEDS ORDERED: METOCLOPRAMIDE 10 MG/2mL INJ ONE (19:16)
[2023-12-04] MEDS ORDERED: DIPHENHYDRAMINE 50 MG/ML VIAL ONE (19:16)
[2023-12-04] MEDS ORDERED: NA CHLORIDE 0.9% 1,000 ML ONE (19:16)
[2023-12-04 19:25] LABS: Absolute Eosinophils 0.1 K/uL (0-0.5); Absolute Lymphocytes (CBC) 1.3 K/uL (0.7-4.9); Absolute Monocytes 0.5 K/uL (0.1-1.3); Absolute Neutrophil 4.5 K/uL (1.8-8.0); Basophils % 0.4 % (0-1.3); Hematocrit 46.2 % (39.6-49.0); Hemoglobin 15.5 g/dL (13.6-17.9); Lymphocytes % 19.7 % (15.3-44.8); MCH 29.9 pg (27.0-35.0); MCHC 33.5 g/dL (32.0-36.0); MCV 89.1 fL (80-100); MPV 6.8 fL (7.6-11.3); Monocytes % 7.9 % (3.3-12.3); Platelets 217 thou/uL (152-406); RBC Red Blood Cell Count 5.19 M/uL (4.33-5.43); Red Cell Distribution Width 13.4 % (12.1-15.2)
[2023-12-04 19:37] LABS: Anion Gap 8.6 mEq/L (5.0-15.0); Potassium 3.6 mEq/L (3.5-5.1)
--- NOTE | 2023-12-04 20:21 | RAD REPORT ---
EXAM DESCRIPTION: CT - Head Brain Wo Cont - 12/04/2023 6:26 pm CLINICAL HISTORY: HEADACHE COMPARISON: Head Brain Wo Cont dated 06/29/2020; Head Brain Wo Cont dated 02/26/2020 TECHNIQUE: Noncontrast head CT images were obtained without IV contrast. Multiplanar reformats were generated and reviewed. All CT scans are performed using dose optimization technique as appropriate and may include automated exposure control or mA/KV adjustment according to patient size. FINDINGS: No intracranial hemorrhage, mass, or edema. Midline structures are unremarkable. Normal ventricular caliber for age. Parrish-white matter differentiation is preserved, without evidence of acute infarct. No abnormal extra- axial fluid collections. Mastoid air cells and visualized portions of the paranasal sinuses are clear. No acute bony findings. IMPRESSION: No evidence of an acute intracranial process.
--- NOTE | 2023-12-04 22:12 | ER ---
Nurse's Notes [facility] Name: Pravin Bateman Age: 53 yrs Sex: Male : 1970 Arrival Date: 12/04/2023 Time: 17:49 Bed 17 Private MD: Diagnosis: Headache;Acute headache Presentation: 12/03 17:55 Chief complaint: Patient states: headaches that are becoming more frequent. Coronavirus aa5 screen: At this time, the client does not indicate any symptoms associated with coronavirus-19. Ebola Screen: Patient denies travel to an Ebola-affected area in the 21 days before illness onset. Initial Sepsis Screen: Does the patient meet any 2 criteria? No. Patient's initial sepsis screen is negative. Does the patient have a suspected source of infection? No. Patient's initial sepsis screen is negative. Risk Assessment: Do you want to hurt yourself or someone else? Patient reports no desire to harm self or others. Onset of symptoms was November 2023. 17:55 Method Of Arrival: Ambulatory aa5 17:55 Acuity: DONNIE 2 aa5 Triage Assessment: 19:25 Headache History: The patient has had previous headaches and this one is similar to mb9 previous episodes. General: Appears in no apparent distress. Pain: Also complains of no other associated symptoms. Historical: - Allergies: 17:54 Augmentin; aa5 17:54 Dilantin; aa5 17:54 K-Clor; aa5 17:54 PENICILLINS; aa5 17:54 potassium; high doses; aa5 - PMHx: 17:54 Hypertension; Seizures; Sleep Apnea; aa5 17:56 Brain tumor removed; aa5 17:57 Enlarged Heart; aa5 - PSHx: 17:54 umbilical hernia repair; aa5 17:56 Brain tumor removed; aa5 - Immunization history:: Adult Immunizations unknown. - Infectious Disease History:: Denies. - Social history:: Smoking status: Patient denies any tobacco usage or history of. Screenin:25 [facility] ED Fall Risk Assessment (Adult) History of falling in the last 3 months, mb9 including since admission No falls in past 3 months (0 pts) Confusion or Disorientation No (0 pts) Intoxicated or Sedated No (0 pts) Impaired Gait No (0 pts) Mobility Assist Device Used No (0 pt) Altered Elimination No (0 pt) Score/Fall Risk Level 0 - 2 = Low Risk Oriented to surroundings, Maintained a safe environment, Educated pt \T\ family on fall prevention, incl call for assistance when getting out of bed. Abuse screen: Denies threats or abuse. Nutritional screening: No deficits noted. Tuberculosis screening: No symptoms or risk factors identified. Assessment: 19:23 General: Appears in no apparent distress. Behavior is calm, cooperative. Pain: mb9 Complains of pain in posterior head Pain does not radiate. Pain currently is 8 out of 10 on a pain scale. Quality of pain is described as pressure, Pain began suddenly, Is continuous. Neuro: Smith Agitation-Sedation Scale (RASS): 0 - Alert and Calm Level of Consciousness is awake, alert, obeys commands, Oriented to person, place, time, situation, Appropriate for age General Maintenance Helper are equal bilaterally Moves all extremities. Gait is steady, Speech is normal, Facial symmetry appears normal, Pupils are PERRLA, Intact Reports headache. Cardiovascular: Heart tones S1 S2 present Patient's skin is warm and dry. Respiratory: Airway is patent Respiratory effort is even, unlabored, Respiratory pattern is regular, symmetrical, Breath sounds are clear bilaterally. GI: Abdomen is round non-distended, Bowel sounds present X 4 quads. Abd is soft and non tender X 4 quads. : No signs and/or symptoms were reported regarding the genitourinary system. EENT: No signs and/or symptoms were reported regarding the EENT system. Derm: Skin is pink, warm \T\ dry. Musculoskeletal: Range of motion: intact in all extremities. 20:45 Reassessment: Patient and/or family updated on plan of care and expected duration. Pain mb9 level reassessed. Patient is alert, oriented x 3, equal unlabored respirations, skin warm/dry/pink. Patient states feeling better. Patient states symptoms have improved. 21:53 Reassessment: No changes from previously documented assessment. Patient and/or family mb9 updated on plan of care and expected duration. Pain level reassessed. Patient is alert, oriented x 3, equal unlabored respirations, skin warm/dry/pink. 22:28 General: Appears in no apparent distress. Behavior is calm, cooperative. Neuro: Level kd3 of Consciousness is awake, alert, obeys commands, Oriented to person, place, time, situation. Cardiovascular: Patient's skin is warm and dry. Respiratory: Airway is patent Trachea midline Respiratory effort is even, unlabored, Respiratory pattern is regular, symmetrical. Vital Signs: 17:55 BP 171 / 82; Pulse 80; Resp 18 S; Temp 97.8(TE); Pulse Ox 98% on R/A; Weight 131.54 kg aa5 (R); Height 5 ft. 11 in. (R); Pain 7/10; 19:25 BP 152 / 72; Pulse 74; Resp 18; Pulse Ox 98% on R/A; mb9 21:07 BP 146 / 67; Pulse 75; Resp 16; Pulse Ox 100% on R/A; mb9 22:27 BP 124 / 68; Pulse 79; Resp 16; Pulse Ox 99% on R/A; kd3 17:55 Body Mass Index 40.45 (131.54 kg, 180.34 cm) aa5 17:55 Pain Scale: Adult aa5 ED Course: 17:51 Patient arrived in ED. ec2 17:51 Shaggy Mesa MD is Attending Physician. ec2 17:54 Arm band placed on. aa5 17:56 Triage completed. aa5 18:28 CT Head Brain wo Cont In Process Unspecified. EDMS 19:11 Zeinab Jarquin, RN is Primary Nurse. mb9 19:16 Basic Metabolic Panel Sent. bc6 19:16 CBC with Diff Sent. bc6 19:16 Initial lab(s) drawn, by in, sent to lab. Inserted saline lock: 20 gauge in right bc6 antecubital area, using aseptic technique. Blood collected. 19:24 Placed in gown. Bed in low position. Call light in reach. Side rails up X 1. Provided mb9 Education on: press call light if needing anything. Client placed on continuous cardiac and pulse oximetry monitoring. NIBP monitoring applied. surveillance system monitor on. Door closed. Noise minimized. Warm blanket given. Pillow given. 19:25 No provider procedures requiring assistance completed. mb9 22:03 Attending Physician role handed off by Shaggy Mesa MD sp4 22:03 Michael Jackson MD is Attending Physician. sp4 22:27 IV discontinued, intact, bleeding controlled, No redness/swelling at site. Pressure kd3 dressing applied. Administered Medications: 19:18 Drug: metoCLOPramide IVP 10 mg IVP once; over 1 to 2 minutes Route: IVP; Site: right mb9 antecubital; 21:06 Follow up: Response: No adverse reaction mb9 19:20 Drug: Decadron - Dexamethasone IVP 10 mg IVP once Route: IVP; Site: right antecubital; mb9 21:05 Follow up: Response: No adverse reaction mb9 19:23 Drug: NS 0.9% IV 1000 ml IV at 1 bolus Per protocol; 1000 mL bolus Route: IV; Rate: 1 mb9 bolus; Site: right antecubital; 21:05 Follow up: Response: No adverse reaction; IV Status: Completed infusion mb9 19:23 Drug: diphenhydrAMINE IVP 25 mg IVP once Route: IVP; Site: right antecubital; mb9 21:05 Follow up: Response: No adverse reaction mb9 Medication: 19:25 VIS not applicable for this client. mb9 Outcome: 22:12 Discharge ordered by MD. sp4 22:27 Discharged to home ambulatory, kd3 22:27 Condition: stable 22:27 Discharge instructions given to patient, family, Instructed on discharge instructions, follow up and referral plans. medication usage, Demonstrated understanding of instructions, follow-up care, medications, Prescriptions given X 2, 22:28 Patient left the ED. kd3 Signatures: Dispatcher [employer] EDMercedes Tavera RN RN aa5 Shelly Mobley RN RN kd3 Zeinab Jarquin RN RN mb9 Jonna Guerra Sergey, MD MD sp4 Shaggy Mesa MD MD ec2 Corrections: (The following items were deleted from the chart) 17:57 17:55 Acuity: DONNIE 3 aa5 aa5 18:00 17:55 BP 171 / 82; Pulse 80bpm; Resp 18bpm; Spontaneous; Pulse Ox 98% RA; Temp 97.8F aa5 Temporal; aa5 18:01 17:55 BP 171 / 82; Pulse 80bpm; Resp 18bpm; Spontaneous; Pulse Ox 98% RA; Temp 97.8F aa5 Temporal; Pain 7/10, Adult; aa5
--- NOTE | 2023-12-04 22:12 | EDPHYS ---
Physician Documentation [facility] Name: Pravin Bateman Age: 53 yrs Sex: Male : 1970 Arrival Date: 12/04/2023 Time: 17:49 Bed 17 Private MD: ED Physician Michael Jackson HPI: 12/03 18:02 This 53 yrs old Male presents to ER via Ambulatory with complaints of Headache.ec2 18:02 Patient arrives today for evaluation of a headache. Patient reports previous history of ec2 intracranial mass, status post resection, complaining of a headache. Patient reports the pain has been more persistent over the weekend which is what prompted evaluation. Patient reports some associated nausea, no vomiting. Denies any head injuries or trauma.. Historical: - Allergies: 17:54 Augmentin; aa5 17:54 Dilantin; aa5 17:54 K-Clor; aa5 17:54 PENICILLINS; aa5 17:54 potassium; high doses; aa5 - PMHx: 17:54 Hypertension; Seizures; Sleep Apnea; aa5 17:56 Brain tumor removed; aa5 17:57 Enlarged Heart; aa5 - PSHx: 17:54 umbilical hernia repair; aa5 17:56 Brain tumor removed; aa5 - Immunization history:: Adult Immunizations unknown. - Infectious Disease History:: Denies. - Social history:: Smoking status: Patient denies any tobacco usage or history of. ROS: 18:02 Constitutional: as per hpi ec2 Exam: 18:02 Constitutional: GEN: NAD Head: atraumatic Eyes: EOMI Ears: External ears are ec2 normal. CV: regular rate LUNGS: no respiratory distress ABD: non-distended SKIN: no evidence of rashes MSK: no evidence of trauma NEURO: moves all extremities equally, cranial nerves II through XII intact, strength intact all 4 extremities. Vital Signs: 17:55 BP 171 / 82; Pulse 80; Resp 18 S; Temp 97.8(TE); Pulse Ox 98% on R/A; Weight 131.54 kg aa5 (R); Height 5 ft. 11 in. (R); Pain 7/10; 19:25 BP 152 / 72; Pulse 74; Resp 18; Pulse Ox 98% on R/A; mb9 21:07 BP 146 / 67; Pulse 75; Resp 16; Pulse Ox 100% on R/A; mb9 22:27 BP 124 / 68; Pulse 79; Resp 16; Pulse Ox 99% on R/A; kd3 17:55 Body Mass Index 40.45 (131.54 kg, 180.34 cm) aa5 17:55 Pain Scale: Adult aa5 MDM: 17:54 Patient medically screened. ec2 18:02 Data reviewed: vital signs. ED course: Patient arrives today for evaluation of ec2 headache. Examination remarkable for neuro intact individual is otherwise in no acute distress with a reassuring examination. Will obtain lab work, CT imaging. Will treat the patient's headache as well. Differential diagnosis includes recurrence of intracranial mass, electrolyte disturbances, anemia, dehydration.. 19:51 ED course: CBC and metabolic profile reassuring . ec2 20:09 Transition of care: After a detail discussion of the patient's case, care is ec2 transferred to Michael Jackson MD. ED course: Patient signed out to oncoming physician with pending CT imaging. . 12/03 18:02 Order name: Basic Metabolic Panel; Complete Time: 19:51 ec2 12/03 18:02 Order name: CBC with Diff; Complete Time: 19:51 ec2 12/03 18:02 Order name: CT Head Brain wo Cont; Complete Time: 22:03 ec2 12/03 18:02 Order name: Cardiac monitoring; Complete Time: 19:12 ec2 12/03 18:02 Order name: IV Saline Lock; Complete Time: 19:16 ec2 12/03 18:02 Order name: Labs collected and sent; Complete Time: 19:12 ec2 12/03 18:02 Order name: O2 Per Protocol; Complete Time: 19:12 ec2 12/03 18:02 Order name: O2 Sat Monitoring; Complete Time: 19:12 ec2 Administered Medications: 19:18 Drug: metoCLOPramide IVP 10 mg IVP once; over 1 to 2 minutes Route: IVP; Site: right mb9 antecubital; 21:06 Follow up: Response: No adverse reaction mb9 19:20 Drug: Decadron - Dexamethasone IVP 10 mg IVP once Route: IVP; Site: right antecubital; mb9 21:05 Follow up: Response: No adverse reaction mb9 19:23 Drug: NS 0.9% IV 1000 ml IV at 1 bolus Per protocol; 1000 mL bolus Route: IV; Rate: 1 mb9 bolus; Site: right antecubital; 21:05 Follow up: Response: No adverse reaction; IV Status: Completed infusion mb9 19:23 Drug: diphenhydrAMINE IVP 25 mg IVP once Route: IVP; Site: right antecubital; mb9 21:05 Follow up: Response: No adverse reaction mb9 Disposition Summary: 12/04/23 22:12 Discharge Ordered Condition: Stable sp4 Diagnosis - Headache sp4 - Acute headache sp4 Followup: ec2 - With: Private Physician - When: - Reason: Re-evaluation by your physician Discharge Instructions: - Discharge Summary Sheet sp4 - General Headache Without Cause, [id number] sp4 Forms: - Patient Portal Instructions sp4 Prescriptions: - Fioricet 50-300-40 mg Oral capsule - take 1 capsule ORAL route 3 times per day as needed for pain; 30 capsule; sp4 Refills: 0, Product Selection Permitted - promethazine 25 mg Oral tablet - take 1 tablet ORAL route every 6 hours As needed PRN nausea; 30 tablet; sp4 Refills: 0, Product Selection Permitted Signatures: Dispatcher [employer] Mercedes Jalloh RN RN aa5 Zeinab Jarquin RN RN mb9 Michael Jackson MD MD sp4 Shaggy Mesa MD MD ec2
[2023-12-04 22:49] VITALS: BP 124/68; TEMP 97.8; O2SAT 99
== END 2023-12-04 22:28 | disposition home or self-care (01) ==
LOC: ER 17:49
DX: R51.9 Headache, unspecified (principal)
CPT/HCPCS: 96361; 85025; 80048; 36415; 70450; 96375; 96374; 99285; J2765; J1200; J1100; J7030

== ENCOUNTER 2024-04-22 19:57 | Observation (INO) | payer OTHER ==
--- NOTE | 2024-04-22 21:01 | RAD REPORT ---
Procedure: Chest Single View HISTORY: Chest pain COMPARISON: 2019 FINDINGS: The lungs appear clear of acute infiltrate. No significant pleural effusion noted. The heart is normal size. IMPRESSION: No acute abnormality is displayed.
[2024-04-22 21:09] LABS: Absolute Eosinophils 0.2 K/uL (0-0.5); Absolute Monocytes 0.5 K/uL (0.1-1.3); Absolute Neutrophil 4.8 K/uL (1.8-8.0); Basophils % 0.4 % (0-1.3); Eosinophils % 2.8 % (0-4.4); Hematocrit 47.5 % (39.6-49.0); Hemoglobin 16.4 g/dL (13.6-17.9); Lymphocytes % 15.7 % (15.3-44.8); MCH 30.8 pg (27.0-35.0); MCHC 34.5 g/dL (32.0-36.0); MCV 89.1 fL (80-100); Neutrophils % 73.1 % (41.7-73.7); Nucleated Red Blood Cells % 0.1 % (0-0); Platelets 179 thou/uL (152-406); RBC Red Blood Cell Count 5.34 M/uL (4.33-5.43); Red Cell Distribution Width 13.6 % (12.1-15.2)
[2024-04-22 21:10] LABS: Protime INR 1.17
[2024-04-22 21:22] LABS: Albumin 3.8 g/dL (3.4-5.0); Albumin/Globulin Ratio 0.9 (1.1-1.8); Anion Gap 9.3 mEq/L (5.0-15.0); Bilirubin Direct 0.2 mg/dL (0-0.2); Bilirubin Indirect, Calculated 0.6 mg/dL (0.2-0.8); Bilirubin Total 0.8 mg/dL (0.2-1.0); Globulin 4.1 g/dL (2.3-3.5); Magnesium 1.9 mg/dL (1.6-2.4); Potassium 3.3 mEq/L (3.5-5.1); Protein, Total 7.9 g/dL (6.4-8.2); Troponin High Sensitivity 16.9 pg/mL (<58.9)
[2024-04-22] MEDS ORDERED: PANTOPRAZOLE 40 MG INJ ONE (21:53)
[2024-04-22] MEDS ORDERED: ASPIRIN 81 MG CHEWABLE TABLET ONE (21:53)
[2024-04-22] MEDS ORDERED: HYDRALAZINE HCL 25 MG TABLET ONE (21:53)
[2024-04-22] MEDS ORDERED: KETOROLAC 30 MG/ML INJ ONE (21:54)
[2024-04-22] MEDS ORDERED: NA CHLORIDE 0.9% 1,000 ML ONE (21:54)
[2024-04-22] MEDS ORDERED: FAMOTIDINE 20 MG/2 ML VIAL IV ONE (21:54)
[2024-04-22] MEDS ORDERED: METOCLOPRAMIDE 10 MG/2mL INJ ONE (21:54)
--- NOTE | 2024-04-23 01:07 | EDPHYS ---
Physician Documentation [facility] Name: Pravin Bateman Age: 53 yrs Sex: Male : 1970 Arrival Date: 04/22/2024 Time: 19:57 Bed 19 Private MD: ED Physician Michael Jackson HPI: 04/22 20:20 This 53 yrs old Male presents to ER via Ambulatory with complaints of Chest sp4 Pain, Headache, High Blood Pressure. 04/23 01:11 Patient with extensive PMH presents with acute non exertional mid sternal chest sp4 pressure . Historical: - Allergies: 04/22 20:04 Augmentin; cm10 20:04 Dilantin; cm10 20:04 K-Clor; cm10 20:04 PENICILLINS; cm10 20:04 potassium; cm10 - PMHx: 20:04 Brain tumor removed; Enlarged Heart; Hypertension; Seizures; Sleep Apnea; cm10 - PSHx: 20:04 Brain tumor removed; umbilical hernia repair; cm10 - Immunization history:: Adult Immunizations up to date. - Infectious Disease History:: Denies. - Social history:: Smoking status: Patient denies any tobacco usage or history of. - Family history:: not pertinent. ROS: 04/23 01:11 Constitutional: Negative for fever, chills, and weight loss, positive for chest sp4 pressure 01:11 All other systems are negative, sp4 Exam: 01:06 Constitutional: This is a well developed, well nourished patient who is awake, alert, sp4 and in no acute distress. Head/Face: Normocephalic, atraumatic. Eyes: Pupils equal round and reactive to light, extra-ocular motions intact. Lids and lashes normal. Conjunctiva and sclera are not injected. Cornea within normal limits. Periorbital areas with no swelling, redness, or edema. ENT: Nares patent. No nasal discharge, no septal abnormalities noted. Tympanic membranes are normal and external auditory canals are clear. Oropharynx with no redness, swelling, or masses, exudates, or evidence of obstruction, uvula midline. Mucous membranes moist. Neck: Trachea midline, no thyromegaly or masses palpated, and no cervical lymphadenopathy. Supple, full range of motion without nuchal rigidity, or vertebral point tenderness. Chest/axilla: Normal chest wall appearance and motion. Nontender with no deformity. No lesions are appreciated. Cardiovascular: Regular rate and rhythm with a normal S1 and S2. No gallops, murmurs, or rubs. Normal PMI, no JVD. No pulse deficits. Respiratory: Lungs have equal breath sounds bilaterally, clear to auscultation and percussion. No rales, rhonchi or wheezes noted. No increased work of breathing, no retractions or nasal flaring. Abdomen/GI: Soft, with normal bowel sounds. No distension or tympany. No guarding or rebound. No evidence of tenderness throughout. Back: No spinal tenderness. No costovertebral tenderness. Skin: Warm, dry with normal turgor. Normal color with no rashes, no lesions, and no evidence of cellulitis. MS/ Extremity: Pulses equal, no cyanosis. Neurovascular intact. Full, normal range of motion. Neuro: Awake and alert, GCS 15, oriented to person, place, time, and situation. Cranial nerves II-XII grossly intact. Motor strength 5/5 in all extremities. Sensory grossly intact. Psych: Awake, alert, with orientation to person, place and time. Behavior, mood, and affect are within normal limits 01:06 ECG was reviewed by the Attending Physician. EKG at 20:07 NSR Vital Signs: 04/22 20:02 BP 178 / 94; Pulse 81; Resp 18; Temp 99.1(O); Pulse Ox 98% on R/A; Weight 131.54 kg; cm10 Height 6 ft. 0 in. ; Pain 4/10; 20:57 BP 157 / 88; Pulse 67; Resp 22; Pulse Ox 97% on R/A; Pain 3/10; rv1 22:00 BP 144 / 75; Pulse 61; Resp 18; Pulse Ox 98% ; vc1 23:00 BP 144 / 70; Pulse 59; Resp 20; Pulse Ox 97% ; vc1 23:30 BP 119 / 66; Pulse 52; Resp 16; Pulse Ox 95% ; vc1 04/23 03:00 BP 169 / 89; Pulse 58; Resp 18; Pulse Ox 97% ; cp4 04:00 BP 163 / 91; Pulse 59; Resp 18; Pulse Ox 99% on 2 lpm NC; cp4 06:00 BP 159 / 86; Pulse 57; Resp 18; Pulse Ox 99% on 2 lpm NC; cp4 08:00 BP 155 / 84; Pulse 62; Resp 17; Temp 98(O); Pulse Ox 97% on R/A; rs5 04/22 20:02 Body Mass Index 39.33 (131.54 kg, 182.88 cm) cm10 04/22 20:02 Pain Scale: Adult cm10 20:57 Pain Scale: Adult rv1 Xiomara Coma Score: 01:11 Eye Response: spontaneous(4). Motor Response: obeys commands(6). Verbal Response: sp4 oriented(5). Total: 15. MDM: 04/22 20:37 Medical Screening Exam initiated sp4 04/23 01:05 ED course: Procedure: Chest Single View HISTORY: Chest pain COMPARISON: 2019 FINDINGS: sp4 The lungs appear clear of acute infiltrate. No significant pleural effusion noted. The heart is normal size. IMPRESSION: No acute abnormality is displayed. . 01:12 Differential diagnosis: acute myocardial infarction, acute pericarditis, anxiety, sp4 coronary artery disease chest wall pain, congestive heart failure esophagitis, gastritis. HEART Score: History: Moderately Suspicious (1), ECG: Normal (0), Age: > 45 and < 65 years (1), Risk Factors: > or = 3 Risk factors for atherosclerotic disease (2), Troponin: < or = 1 x Normal Limit (0), Total Score = 4. The patient was given aspirin in the Emergency Department. Data reviewed: vital signs, nurses notes, old medical records, lab test result(s), EKG, radiologic studies, plain films. Consideration of Admission/Observation Patient was admitted/placed on observation. Escalation of care including admission/observation considered. Management of patient was discussed with the following: Hospitalist: Yousuf PINEDA . ED course: Admitted for observation for angina . 04/22 20:20 Order name: Basic Metabolic Panel; Complete Time: : 4 04/22 20:20 Order name: CBC with Diff; Complete Time: 21: sp4 04/22 20:20 Order name: LFT's; Complete Time: : sp4 04/22 20:20 Order name: Magnesium; Complete Time: : sp4 04/22 20:20 Order name: NT PRO-BNP; Complete Time: : 4 04/22 20:20 Order name: PT-INR; Complete Time: 21:17 sp4 04/22 20:20 Order name: Troponin HS; Complete Time: : 4 04/22 20:20 Order name: Lipase; Complete Time: : sp4 04/23 02:32 Order name: Troponin High Sensitivity; Complete Time: 06:40 EDMS 04/23 05:34 Order name: Troponin High Sensitivity; Complete Time: 20:46 EDMS 04/23 06:08 Order name: Urinalysis w/ reflexes EDMS 04/22 20:20 Order name: XRAY Chest (1 view); Complete Time: 21:17 4 04/22 20:20 Order name: EKG; Complete Time: 20: [facility] 04/22 20:20 Order name: Cardiac monitoring; Complete Time: 20:57 4 04/22 20:20 Order name: EKG - Nurse/Tech; Complete Time: 20:57 [facility] 04/22 20:20 Order name: IV Saline Lock; Complete Time: 20:57 4 04/22 20:20 Order name: Labs collected and sent; Complete Time: 20:57 4 04/22 20:20 Order name: O2 Per Protocol; Complete Time: 20:57 4 04/22 20:20 Order name: O2 Sat Monitoring; Complete Time: 20:57 sp4 EC:06 Rate is 70 beats/min. Rhythm is regular, Normal Sinus Rhythm. QRS [place] is Normal. CT sp4 interval is normal. QRS interval is normal. QT interval is normal. No Q waves. T waves are Normal. No ST changes noted. Clinical impression: Normal ECG. Interpreted by me. Reviewed by me. Administered Medications: 04/22 22:07 Drug: Aspirin PO Chewable Tablet 324 mg PO once; 81 mg tablets x 4 Route: PO; vc1 23:24 Follow up: Response: No adverse reaction; Marked relief of symptoms vc1 22:07 Drug: Ketorolac IVP 30 mg IVP once Route: IVP; Site: left antecubital; vc1 22:07 Drug: Famotidine IVP 20 mg IVP once; dilute with 10 mL 0.9% NaCl; give over 2 minutes vc1 Route: IVP; Site: left antecubital; 22:07 Drug: Pantoprazole IVP 40 mg IVP once Route: IVP; Site: left antecubital; vc1 22:07 Drug: NS 0.9% IV 1000 ml IV at 125 ml/hr continuous Route: IV; Rate: 125 ml/hr; Site: vc1 left antecubital; 22:07 Drug: metoCLOPramide IVP 10 mg IVP once; over 1 to 2 minutes Route: IVP; Site: left vc1 antecubital; 23:24 Not Given (Hemodynamic Parameters): [id number] mg PO once vc1 Disposition Summary: 04/23/24 01:06 Hospitalization Ordered Notes: Hospitalization Status: Observation sp4 Provider: Matias To sp4 Condition: Stable sp4 Problem: new sp4 Symptoms: have improved sp4 Bed/Room Type: Standard sp4 Location: Telemetry/MedSurg (Inpatient)(04/23/24 07:29) vc1 Room Assignment: [facility](04/23/24 07:29) vc1 Diagnosis - Unstable angina sp4 Forms: - Medication Reconciliation Form sp4 - SBAR form sp4 - Leadership Thank You Letter sp4 Signatures: Dispatcher [employer] EDMS Ember Mcbride RN RN vc1 Michael Jackson MD MD sp4 Nancy Campos RN RN cm10 Corrections: (The following items were deleted from the chart) 04/23 01:57 01:06 Telemetry/MedSurg (observation) sp4 vc1 01:57 01:06 sp4 vc1 03:18 04/22 23:37 Troponin High Sensitivity+C.LAB.BRZ ordered. EDMS EDMS 04/23 04:27 02:32 Urinalysis w/ reflexes ordered. EDMS EDMS 04:27 02:32 CBC with Automated Diff ordered. EDMS EDMS 04:27 02:32 CBC with Automated Diff ordered. EDMS EDMS 04:27 02:32 Comprehensive Metabolic Panel ordered. EDMS EDMS 04:27 02:32 Comprehensive Metabolic Panel ordered. EDMS EDMS 04:27 02:32 Troponin High Sensitivity ordered. EDMS EDMS 04:27 02:32 Troponin High Sensitivity ordered. EDMS EDMS 04:27 02:32 Troponin High Sensitivity ordered. EDMS EDMS 07:29 01:57 BR ER HOLD vc1 vc1 07:29 01:57 ERHOLD- vc1 vc1
--- NOTE | 2024-04-23 01:07 | ER ---
Nurse's Notes [facility] Name: Pravin Bateman Age: 53 yrs Sex: Male : 1970 Arrival Date: 04/22/2024 Time: 19:57 Bed 19 [facility] MD: Diagnosis: Unstable angina Presentation: 04/22 20:02 Chief complaint: Patient states: Chest pain and headache onset today at 1800. Pt states cm10 the pain is to the center of his chest. Coronavirus screen: Client denies travel out of the [place] in the last 14 days. Ebola Screen: Patient denies travel to an Ebola-affected area in the 21 days before illness onset. Initial Sepsis Screen: Does the patient meet any 2 criteria? No. Patient's initial sepsis screen is negative. Does the patient have a suspected source of infection? No. Patient's initial sepsis screen is negative. Risk Assessment: Do you want to hurt yourself or someone else? Patient reports no desire to harm self or others. Onset of symptoms was April 22, 2024. 20:02 Method Of Arrival: Ambulatory cm10 20:02 Acuity: DONNIE 2 cm10 Triage Assessment: 20:05 General: Appears in no apparent distress. comfortable, Behavior is calm, cooperative. cm10 Neuro: No deficits noted. Level of Consciousness is awake, alert, obeys commands, Oriented to person, place, time, situation, Appropriate for age. Respiratory: No deficits noted. Airway is patent Respiratory effort is even, unlabored, Respiratory pattern is regular, symmetrical. Historical: - Allergies: 20:04 Augmentin; cm10 20:04 Dilantin; cm10 20:04 K-Clor; cm10 20:04 PENICILLINS; cm10 20:04 potassium; cm10 - PMHx: 20:04 Brain tumor removed; Enlarged Heart; Hypertension; Seizures; Sleep Apnea; cm10 - PSHx: 20:04 Brain tumor removed; umbilical hernia repair; cm10 - Immunization history:: Adult Immunizations up to date. - Infectious Disease History:: Denies. - Social history:: Smoking status: Patient denies any tobacco usage or history of. - Family history:: not pertinent. Screenin:[facility] ED Fall Risk Assessment (Adult) History of falling in the last 3 months, vc1 including since admission No falls in past 3 months (0 pts) Confusion or Disorientation No (0 pts) Intoxicated or Sedated No (0 pts) Impaired Gait No (0 pts) Mobility Assist Device Used No (0 pt) Altered Elimination No (0 pt) Score/Fall Risk Level 0 - 2 = Low Risk Oriented to surroundings, Maintained a safe environment, Educated pt \T\ family on fall prevention, incl call for assistance when getting out of bed. Abuse screen: Denies threats or abuse. Nutritional screening: No deficits noted. Tuberculosis screening: No symptoms or risk factors identified. Assessment: 04/23 00:04 Reassessment: Patient and/or family updated on plan of care and expected duration. Pain vc1 level reassessed. Patient is alert, oriented x 3, equal unlabored respirations, skin warm/dry/pink. Patient states feeling better. Patient states symptoms have improved. 03:00 Reassessment: No changes from previously documented assessment. Patient and/or family cp4 updated on plan of care and expected duration. Pain level reassessed. Patient is alert, oriented x 3, equal unlabored respirations, skin warm/dry/pink. 04:00 Reassessment: Patient appears in no apparent distress at this time. Patient and/or cp4 family updated on plan of care and expected duration. Pain level reassessed. Patient is alert, oriented x 3, equal unlabored respirations, skin warm/dry/pink. 05:00 Reassessment: Patient appears in no apparent distress at this time. Patient and/or cp4 family updated on plan of care and expected duration. Pain level reassessed. Patient is alert, oriented x 3, equal unlabored respirations, skin warm/dry/pink. 06:13 General: Appears in no apparent distress. comfortable, Behavior is calm, cooperative, cp4 appropriate for age. Pain: Complains of pain in chest Pain does not radiate. Pain began 1 day ago. Neuro: Level of Consciousness is awake, alert, obeys commands, Oriented to person, place, time, situation. Cardiovascular: Reports chest pain, Patient's skin is warm and dry. Rhythm is sinus rhythm. Respiratory: Airway is patent Respiratory effort is even, unlabored. GI: No signs and/or symptoms were reported involving the gastrointestinal system. : No signs and/or symptoms were reported regarding the genitourinary system. EENT: No signs and/or symptoms were reported regarding the EENT system. Derm: No signs and/or symptoms reported regarding the dermatologic system. Musculoskeletal: No signs and/or symptoms reported regarding the musculoskeletal system. 07:01 Reassessment: Patient and/or family updated on plan of care and expected duration. Pain rs5 level reassessed. Patient is alert, oriented x 3, equal unlabored respirations, skin warm/dry/pink. 08:15 Reassessment: Patient and/or family updated on plan of care and expected duration. Pain rs5 level reassessed. Patient is alert, oriented x 3, equal unlabored respirations, skin warm/dry/pink. Vital Signs: 04/22 20:02 BP 178 / 94; Pulse 81; Resp 18; Temp 99.1(O); Pulse Ox 98% on R/A; Weight 131.54 kg; cm10 Height 6 ft. 0 in. ; Pain 4/10; 20:57 BP 157 / 88; Pulse 67; Resp 22; Pulse Ox 97% on R/A; Pain 3/10; rv1 22:00 BP 144 / 75; Pulse 61; Resp 18; Pulse Ox 98% ; vc1 23:00 BP 144 / 70; Pulse 59; Resp 20; Pulse Ox 97% ; vc1 23:30 BP 119 / 66; Pulse 52; Resp 16; Pulse Ox 95% ; vc1 04/23 03:00 BP 169 / 89; Pulse 58; Resp 18; Pulse Ox 97% ; cp4 04:00 BP 163 / 91; Pulse 59; Resp 18; Pulse Ox 99% on 2 lpm NC; cp4 06:00 BP 159 / 86; Pulse 57; Resp 18; Pulse Ox 99% on 2 lpm NC; cp4 08:00 BP 155 / 84; Pulse 62; Resp 17; Temp 98(O); Pulse Ox 97% on R/A; rs5 04/22 20:02 Body Mass Index 39.33 (131.54 kg, 182.88 cm) cm10 04/22 20:02 Pain Scale: Adult cm10 20:57 Pain Scale: Adult rv1 Xiomara Coma Score: 01:11 Eye Response: spontaneous(4). Motor Response: obeys commands(6). Verbal Response: sp4 oriented(5). Total: 15. ED Course: 04/22 19:59 Patient arrived in ED. mr 20:04 Triage completed. cm10 20:05 Arm band placed on right wrist. Patient placed in waiting room. EKG completed in cm10 triage. Results shown to . 20:05 EKG done, by ED staff. cm10 20:20 Michael Jackson MD is Attending Physician. sp4 20:51 XRAY Chest (1 view) In Process Unspecified. EDMS 20:56 Missed attempt(s): 20 gauge in right antecubital area. Bleeding controlled, band aid rv1 applied, catheter tip intact. 20:57 Inserted saline lock: 22 gauge in left antecubital area, using aseptic technique. Blood rv1 collected. Flushed with 10 mL NS. 20:57 Lipase Sent. rv1 20:57 Basic Metabolic Panel Sent. rv1 20:57 CBC with Diff Sent. rv1 20:57 LFT's Sent. rv1 20:57 Magnesium Sent. rv1 20:57 NT PRO-BNP Sent. rv1 20:57 PT-INR Sent. rv1 20:57 Troponin HS Sent. rv1 22:00 Patient has correct armband on for positive identification. Bed in low position. Call vc1 light in reach. manager monitoring on. Pulse ox on. NIBP on. 23:24 Ember Mcbride, KIMBERLY is Primary Nurse. vc1 23:59 No provider procedures requiring assistance completed. Patient maintains SpO2 vc1 saturation greater than 95% on room air. 04/23 01:06 Matias To MD is Hospitalizing Provider. sp4 03:00 Provided Education on: admission. cp4 03:00 Patient admitted, IV remains in place. cp4 Administered Medications: 04/22 22:07 Drug: Aspirin PO Chewable Tablet 324 mg PO once; 81 mg tablets x 4 Route: PO; vc1 23:24 Follow up: Response: No adverse reaction; Marked relief of symptoms vc1 22:07 Drug: Ketorolac IVP 30 mg IVP once Route: IVP; Site: left antecubital; vc1 22:07 Drug: Famotidine IVP 20 mg IVP once; dilute with 10 mL 0.9% NaCl; give over 2 minutes vc1 Route: IVP; Site: left antecubital; 22:07 Drug: Pantoprazole IVP 40 mg IVP once Route: IVP; Site: left antecubital; vc1 22:07 Drug: NS 0.9% IV 1000 ml IV at 125 ml/hr continuous Route: IV; Rate: 125 ml/hr; Site: vc1 left antecubital; 22:07 Drug: metoCLOPramide IVP 10 mg IVP once; over 1 to 2 minutes Route: IVP; Site: left vc1 antecubital; 23:24 Not Given (Hemodynamic Parameters): [id number] mg PO once vc1 Medication: 04/23 03:00 VIS not applicable for this client. cp4 Outcome: 01:06 Decision to Hospitalize by Provider. sp4 03:00 Admitted to ER Hold. Please see [facility] for further documentation. cp4 03:00 Condition: stable 03:00 Instructed on the need for admit, 08:21 Patient left the ED. rs5 Signatures: Dispatcher [employer] EDMS Zeinab Lamas Reg Reg mr CalcaidenEmber RN RN vc1 Jasmin Rowland rv1 Dilan Carrera RN RN rs5 Michael Jackson MD MD sp4 Nancy Campos RN RN cm10 Mackenzie Hawkins cp4 Corrections: (The following items were deleted from the chart) 04/22 20:58 20:57 BP 157 / 88; Pulse 67bpm; Resp 22bpm; Pulse Ox 97% RA; rv1 rv1 04/23 09:04 08:00 BP 155 / 84; Pulse 62bpm; Resp 17bpm; Pulse Ox 97% RA; rs5 rs5
[2024-04-23] MEDS ORDERED: ACETAMINOPHEN 325 MG TABLET PO PRN ×2 (02:27→06:05)
[2024-04-23] MEDS ORDERED: ONDANSETRON 4 MG/2 ML VIAL IV PRN ×2 (02:27→06:05)
--- NOTE | 2024-04-23 02:33 | P.HP ---
Certification for Inpatient Patient admitted to: Observation With expected LOS: <2 Midnights Practitioner: I am a practitioner with admitting privileges, knowledge of patient current condition, hospital course, and medical plan of care. Services: Services provided to patient in accordance with Admission requirements found in Title 42 Section 412.3 of the Code of Federal Regulations Patient History Date of Service: 04/23/24 Reason for admission: Chest Pain History of Present Illness: 53 yrs old Male with past medical history of hypertension, hyperlipidemia, seizure disorder, history of brain tumor which was removed, sleep apnea, who was brought to ER with chest discomfort. Insidious in onset. Not associated with any exercise . Pain is located retrosternally with radiation to the left side and to the neck. At the time of interview patient does not have any chest pain. Pain was pressure-like in quality. Intermittent, 8 out of 10 in severity, no relationship with exercise or position. Denies any diaphoresis. No nausea vomiting or diarrhea. Patient was assessed in the ER and was admitted for further management of chest pain to rule out ACS Allergies potassium [From Potassimin] Allergy (Severe, Verified 03/15/17 10:01) seizure phenytoin [From Dilantin] Allergy (Verified 01/20/20 09:23) sezures K-Clor Allergy (Uncoded 03/26/17 20:16) Unknown Home medications list reviewed: Yes Home Medications: Losartan Potassium [Cozaar] 100 mg PO DAILY 12/21/13 Topiramate [Topamax] 150 mg PO BID 12/21/13 Levetiracetam [Keppra] 250 mg PO BID 03/15/17 Carvedilol [Coreg] 3.125 mg PO BID 04/23/24 - Past Medical/Surgical History Diabetic: No Past Medical History: Reviewed- Non-Contributory -: htn -: seizure -: pneumonia -: sleep apnea Past Surgical History: Reviewed- Non-Contributory -: knee surg -: blx ear surg -: back abcess removed - Family History Family History: Reviewed- Non-Contributory - Family History Mother -: Cancer Father -: Heart disease, Stroke - Social History Smoking Status: Never smoker Alcohol use: No CD- Drugs: No Caffeine use: Yes Review of Systems 10-point ROS is otherwise unremarkable Physical Examination - Vital Signs Temperature: 97.2 F Blood Pressure: 158/76 Pulse: 82 Respirations: 18 Pulse Ox (%): 94 - Physical Exam General: Alert, In no apparent distress, Oriented x3, Obese HEENT: Atraumatic, Normocephalic Neck: Supple Respiratory: Clear to auscultation bilaterally, Normal air movement Cardiovascular: Normal pulses, Regular rate/rhythm, Normal S1 S2 Capillary refill: <2 Seconds Gastrointestinal: Soft and benign, Non-distended Musculoskeletal: No clubbing, No swelling Integumentary: No rashes Neurological: Normal speech, Other (Alert, Awake ) Lymphatics: No axilla or inguinal lymphadenopathy - Studies Laboratory Data (last 24 hrs) 04/22/24 04/22/24 04/22/24 20:57 20:57 20:57 WBC 6.60 Hgb 16.4 Hct 47.5 Plt Count 179 PT 13.0 H INR 1.17 Sodium 138 Potassium 3.3 L BUN 15 Creatinine 1.02 Glucose 99 Magnesium 1.9 Total Bilirubin 0.8 AST 11 L ALT 34 Alkaline Phosphatase 99 Lipase 33 Assessment and Plan - Plan Chest pain rule out ACS Will trend cardiac enzymes Will monitor telemetry Started on aspirin and statin EKG did not show any acute changes suggestive of ischemia Patient denies any chest pain at the time of interview Cardiology consult Hypertension Antihypertensives titrated Continue home medications and titrate as needed Hydralazine as needed Hyperlipidemia Continue statin Seizure disorder History of brain tumor status post surgery Continue home medications and titrate as needed Seizure precautions GI/DVT prophylaxis Advanced directive full code Discharge Plan: Home Plan to discharge in: 48 Hours - Advance Directives Does patient have a Living Will: Yes Does patient have a Durable POA for Healthcare: Yes - Code Status/Comfort Care Code Status: Full Code Time Spent Managing Pts Care (In Minutes): 48
[2024-04-23 04:25] VITALS: TEMP 97.2
[2024-04-23] MEDS ORDERED: MORPHINE 2 MG/ML SYR IV PRN (06:06)
[2024-04-23] MEDS ORDERED: HYDROCODONE/APAP 5/325 MG TAB PO PRN (06:06)
[2024-04-23] MEDS ORDERED: ENOXAPARIN 40 MG/0.4 ML SQ SCH (09:00)
[2024-04-23] MEDS ORDERED: levETIRAcetam 500 MG TAB PO SCH (09:00)
[2024-04-23] MEDS ORDERED: TOPIRAMATE 100 MG TAB PO SCH (09:00)
[2024-04-23] MEDS ORDERED: LOSARTAN POTASSIUM 50 MG TABLET PO SCH (09:00)
[2024-04-23] MEDS ORDERED: ASPIRIN EC 81 MG TAB PO SCH (09:00)
[2024-04-23] MEDS: ENOXAPARIN 40 MG/0.4 ML SQ SCH (09:00)
[2024-04-23] MEDS: HYDRALAZINE HCL 20 MG/ML VIAL IV PRN (09:21)
[2024-04-23] MEDS: ASPIRIN EC 81 MG TAB PO SCH (09:22)
[2024-04-23 09:36] VITALS: O2SAT 96; BMI 40.0
[2024-04-23] MEDS: carvediloL 12.5 MG TAB PO ONE (10:23)
--- NOTE | 2024-04-23 10:29 | P.DS ---
Admission Date: 04/23/24 Discharge Date: 04/23/24 Disposition: ROUTINE DISCHARGE Discharge Condition: GOOD Reason for Admission: Chest Pain Consultations: Cardiology - Dr. Hunt Brief History of Present Illness: 53yo M, PMH: hypertension, hyperlipidemia, seizure disorder, history of brain tumor which was removed, sleep apnea, Patient was brought to ER with chest discomfort. Insidious in onset. Not associated with any exercise. Pain is located retrosternally with radiation to the left side and to the neck. At the time of interview patient does not have any chest pain. Pain was pressure-like in quality. Intermittent, 8 out of 10 in severity, no relationship with exercise or position. Denies any diaphoresis. No nausea vomiting or diarrhea. Patient was assessed in the ER and was admitted for further management of chest pain to rule out ACS. Hospital Course: Problem List: Chest discomfort, resolved Hypertension Hyperlipidemia Seizure disorder Hx brain tumor Physician discharge instructions: Patient presented with intermittent chest discomfort associated with high blood pressure. Cardiac workup this hospitalization was negative including EKG, chest xray, negative troponins x3. Chest pain/pressure resolved shortly after arrival to ED. Cardiology was consulted. Given negative workup and resolved symptoms, recommended patient to follow up in office in near future for outpatient stress test to further evaluate. No evidence to warrant further inpatient testing. In regards to elevated blood pressure, Dr. Hunt had recommended increasing his home coreg to 6.25 from 3.125 mg. Patient was monitored overnight, feeling better, chest pain resolved, and deemed stable for discharge. Medications: Coreg increased to 6.25 mg from 3.125 Continue other home medications as previously prescribed. Follow up: PCP 3-5 days Cardiology 2-4 weeks Please call to schedule / confirm appointments Physical Exam: GEN: Alert, oriented, NAD HEENT: Normal conjunctiva, sclera anicteric, CV: Regular rate and rhythm, no edema Pulm: Nonlabored respirations on room air, clear bilaterally ABD: soft, nontender, nondistended Neuro: Normal speech, normal affect Vital Signs/Physical Exam: Temp Pulse Resp BP Pulse Ox 97.2 F 57 18 159/86 H 94 04/23/24 04:28 04/23/24 06:00 04/23/24 06:00 04/23/24 06:00 04/23/24 04:28 Laboratory Data at Discharge: WBC 6.60 thou/uL (4.3-10.9) 04/22/24 20:57 Hgb 16.4 g/dL (13.6-17.9) 04/22/24 20:57 Hct 47.5 % (39.6-49.0) 04/22/24 20:57 Plt Count 179 thou/uL (152-406) 04/22/24 20:57 PT 13.0 SECONDS (9.4-12.5) H 04/22/24 20:57 INR 1.17 04/22/24 20:57 Sodium 138 mEq/L (136-145) 04/22/24 20:57 Potassium 3.3 mEq/L (3.5-5.1) L 04/22/24 20:57 BUN 15 mg/dL (7-18) 04/22/24 20:57 Creatinine 1.02 mg/dL (0.70-1.30) 04/22/24 20:57 Glucose 99 mg/dL (74-106) 04/22/24 20:57 Magnesium 1.9 mg/dL (1.6-2.4) 04/22/24 20:57 Total Bilirubin 0.8 mg/dL (0.2-1.0) 04/22/24 20:57 AST 11 U/L (15-37) L 04/22/24 20:57 ALT 34 U/L (16-61) 04/22/24 20:57 Alkaline Phosphatase 99 U/L (45-117) 04/22/24 20:57 Lipase 33 U/L (13-75) 04/22/24 20:57 Home Medications: Losartan Potassium [Cozaar] 100 mg PO DAILY 12/21/13 Topiramate [Topamax] 50 mg PO TID 12/21/13 Levetiracetam [Keppra] 250 mg PO BID 03/15/17 carvediloL [Carvedilol] 6.25 mg PO BID 30 Days #60 tab 04/23/24 New Medications: carvediloL [Carvedilol] 6.25 mg PO BID 30 Days #60 tab Physician Discharge Instructions: Physician discharge instructions: Patient presented with intermittent chest discomfort associated with high blood pressure. Cardiac workup this hospitalization was negative including EKG, chest xray, negative troponins x3. Chest pain/pressure resolved shortly after arrival to ED. Cardiology was consulted. Given negative workup and resolved symptoms, recommended patient to follow up in office in near future for outpatient stress test to further evaluate. No evidence to warrant further inpatient testing. In regards to elevated blood pressure, Dr. Hunt had recommended increasing his home coreg to 6.25 from 3.125 mg. Patient was monitored overnight, feeling better, chest pain resolved, and deemed stable for discharge. Medications: Coreg increased to 6.25 mg from 3.125 Continue other home medications as previously prescribed. Follow up: PCP 3-5 days Cardiology 2-4 weeks Please call to schedule / confirm appointments Followup: Beau Reagan, DO [Primary Care Provider] - 1-2 Weeks Time spent managing pt's care (in minutes): 45
[2024-04-23] MEDS: levETIRAcetam 500 MG TAB PO ONE (10:48)
[2024-04-23] MEDS: LOSARTAN POTASSIUM 50 MG TABLET PO ONE (10:49)
[2024-04-23] MEDS: TOPIRAMATE 100 MG TAB PO ONE (10:49)
[2024-04-23 10:54] VITALS: BP 158/75
[2024-04-23] MEDS: carvediloL 6.25 MG TAB PO ONE (10:54)
--- NOTE | 2024-04-23 11:04 | P.CNS ---
Date of Consult: 04/23/24 Chief Complaint: Chest Pain History of Present Illness: Patient with PMH of HTN, presented with chest pain that started yesterday, pressure in nature, no radiation, associated with high BP, dneies any other symptoms. Allergies potassium [From Potassimin] Allergy (Severe, Verified 03/15/17 10:01) seizure phenytoin [From Dilantin] Allergy (Verified 01/20/20 09:23) sezures K-Clor Allergy (Uncoded 03/26/17 20:16) Unknown Home medications list reviewed: Yes Home Medications: Losartan Potassium [Cozaar] 100 mg PO DAILY 12/21/13 Topiramate [Topamax] 50 mg PO TID 12/21/13 Levetiracetam [Keppra] 250 mg PO BID 03/15/17 Carvedilol [Coreg] 3.125 mg PO BID 04/23/24 - Past Medical/Surgical History Diabetic: No -: htn -: seizure -: pneumonia -: sleep apnea -: knee surg -: blx ear surg -: back abcess removed - Family History Mother Medical History: Cancer Father Medical History: Heart disease, Stroke - Social History Smoking Status: Unknown if ever smoked Alcohol use: No CD- Drugs: No Caffeine use: Yes Place of Residence: Home Review of Systems 10-point ROS is otherwise unremarkable Physical Examination Temp Pulse Resp BP Pulse Ox 97.2 F 79 18 158/75 H 94 04/23/24 04:28 04/23/24 10:54 04/23/24 06:00 04/23/24 10:54 04/23/24 04:28 General: Alert, In no apparent distress HEENT: Atraumatic, PERRLA, Mucous membr. moist/pink, EOMI, Sclerae nonicteric Neck: Supple, 2+ carotid pulse no bruit, No LAD, Without JVD or thyroid abnormality Respiratory: Clear to auscultation bilaterally, Normal air movement Cardiovascular: Regular rate/rhythm, Normal S1 S2 Gastrointestinal: Normal bowel sounds, No tenderness Musculoskeletal: No tenderness Integumentary: No rashes Neurological: Normal gait, Normal speech, Normal tone, Normal affect Lymphatics: No axilla or inguinal lymphadenopathy Laboratory Data (last 24 hrs) 04/22/24 04/22/24 04/22/24 20:57 20:57 20:57 WBC 6.60 Hgb 16.4 Hct 47.5 Plt Count 179 PT 13.0 H INR 1.17 Sodium 138 Potassium 3.3 L BUN 15 Creatinine 1.02 Glucose 99 Magnesium 1.9 Total Bilirubin 0.8 AST 11 L ALT 34 Alkaline Phosphatase 99 Lipase 33 - Problems (1) Chest pain Current Visit: Yes Status: Acute Plan: pain is better now, ACS ruled out as EKG is normal and cardiac enzymes are negative x3 follow up as outpatient for stress test. (2) Hypertension Onset Date: 02/01/17 Current Visit: No Status: Chronic Plan: increase Coreg to 12.5 mg po BID Continue Losartan Qualifiers: Hypertension type: essential hypertension Qualified Code(s): I10 - Essential (primary) hypertension
--- NOTE | 2024-04-23 12:17 | EKG ---
Test Date: 2024-04-22 Test Time: 20:07:26 Waste Baler: [facility] MEASUREMENT RESULTS: Intervals: Rate: 70 MT: 132 QRSD: 84 QT: 410 QTc: 442 Whitman: P: 52 MT: 132 QRS: 10 T: 42 INTERPRETIVE STATEMENTS: Normal sinus rhythm Normal ECG Compared to ECG 11/02/2022 11:19:37 No significant changes Electronically Signed On 04-23-24 12:16:00 HOTEL RESERVATION AGENT by Farshad Hunt
[2024-04-23] MEDS ORDERED: ATORVASTATIN 40 MG TAB PO SCH ×2 (21:00)
[2024-04-23] MEDS ORDERED: AMLODIPINE 10 MG TAB PO SCH (21:00)
== END 2024-04-23 13:15 | disposition home or self-care (01) ==
LOC: ER 19:57 → ERHOLD 04-23 02:27 → EDLOC 04-23 02:27 → 4TH 04-23 07:39
PROVIDERS: ADMIT Family Medicine; ATTEND Hospitalist
DX: R07.9 Chest pain, unspecified (principal); I10 Essential (primary) hypertension; E78.5 Hyperlipidemia, unspecified; R56.9 Unspecified convulsions; G47.33 Obstructive sleep apnea (adult) (pediatric); Z88.8 Allergy status to other drugs, medicaments and biological substances
CPT/HCPCS: 93005; 85025; 80048; 36415; 83735; 85610; 80076; 84484 ×3; 83690; 83880; 71045; J0360; J2765; J2470; J7030; G0378; J1650

== ENCOUNTER 2024-07-01 14:21 | Emergency (ER) | payer OTHER ==
[2024-07-01] MEDS ORDERED: ASPIRIN 81 MG CHEWABLE TABLET ONE (14:28)
[2024-07-01 14:48] LABS: Absolute Eosinophils 0.1 K/uL (0-0.5); Absolute Lymphocytes (CBC) 0.5 K/uL (0.7-4.9); Absolute Monocytes 0.4 K/uL (0.1-1.3); Absolute Neutrophil 4.5 K/uL (1.8-8.0); Basophils % 0.3 % (0-1.3); Eosinophils % 2.1 % (0-4.4); Hematocrit 48.3 % (39.6-49.0); Hemoglobin 17.1 g/dL (13.6-17.9); Lymphocytes % 8.1 % (15.3-44.8); MCH 30.9 pg (27.0-35.0); MCHC 35.3 g/dL (32.0-36.0); MCV 87.4 fL (80-100); MPV 6.9 fL (7.6-11.3); Monocytes % 7.7 % (3.3-12.3); Neutrophils % 81.8 % (41.7-73.7); Nucleated Red Blood Cells % 0.2 % (0-0); Platelets 184 thou/uL (152-406); RBC Red Blood Cell Count 5.53 M/uL (4.33-5.43)
[2024-07-01 15:01] LABS: Anion Gap 9.5 mEq/L (5.0-15.0); Magnesium 1.9 mg/dL (1.6-2.4); Potassium 3.5 mEq/L (3.5-5.1); Troponin High Sensitivity 11.6 pg/mL (<58.9)
[2024-07-01] MEDS ORDERED: ACETAMINOPHEN 500 MG TAB ONE (15:34)
[2024-07-01 15:43] LABS: SARS-CoV-2 Antigen CONTROL BLUE LINE VIS/BG OK; SARS-CoV-2 Antigen Rapid Res Negative (Negative)
--- NOTE | 2024-07-01 16:11 | RAD REPORT ---
EXAMINATION: ONE VIEW CHEST XR CLINICAL INDICATION: Male, 53 years old.,CHEST PAIN TECHNIQUE: Frontal chest projection is submitted. Examination is limited by patient positioning and t echnique. COMPARISON: 04/22/2024 FINDINGS: The lungs are well inflated and clear. No pneumothorax or sizable effusion. The heart is normal in s ize. Mediastinal contours are unremarkable. IMPRESSION: No acute intrathoracic abnormalities.
--- NOTE | 2024-07-01 16:33 | ER ---
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 Pt reports feeling chills and headache. Pt describes the pain as a stabbing pain. 14:31 Coronavirus screen: Client denies travel out of the [place] in the last 14 days. Ebola cm10 Screen: Patient denies travel to an Ebola-affected area in the 21 days before illness onset. No symptoms or risks identified at this time. Initial Sepsis Screen: Does the patient meet any 2 criteria? No. Patient's initial sepsis screen is negative. Does the patient have a suspected source of infection? No. Patient's initial sepsis screen is negative. Risk Assessment: Do you want to hurt yourself or someone else? Patient reports no desire to harm self or others. Onset of symptoms was July 01, 2024. 14:31 Method Of Arrival: Ambulatory cm10 14:31 Acuity: DONNIE 2 cm10 Triage Assessment: 14:32 General: Appears in no apparent distress. uncomfortable, Behavior is calm, cooperative. cm10 Pain: Complains of pain in chest Pain currently is 7 out of 10 on a pain scale. Quality of pain is described as sharp, shooting. Neuro: No deficits noted. Level of Consciousness is awake, alert, obeys commands, Oriented to person, place, time, situation, Appropriate for age. Respiratory: No deficits noted. Airway is patent Respiratory effort is even, unlabored, Respiratory pattern is regular, symmetrical. Historical: - Allergies: 14:32 Augmentin; cm10 14:32 Dilantin; cm10 14:32 K-Clor; cm10 14:32 PENICILLINS; cm10 14:32 potassium; cm10 - PMHx: 14:32 Brain tumor removed; Enlarged Heart; Hypertension; Seizures; Sleep Apnea; cm10 - PSHx: 14:32 Brain tumor removed; Brain tumor removed; umbilical hernia repair; cm10 - Immunization history:: Adult Immunizations up to date. - Infectious Disease History:: Denies. - Social history:: Smoking status: Patient denies any tobacco usage or history of. Screenin:54 [facility] ED Fall Risk Assessment (Adult) History of falling in the last 3 months, kc6 including since admission No falls in past 3 months (0 pts) Confusion or Disorientation No (0 pts) Intoxicated or Sedated No (0 pts) Impaired Gait No (0 pts) Mobility Assist Device Used No (0 pt) Altered Elimination No (0 pt) Score/Fall Risk Level 0 - 2 = Low Risk Oriented to surroundings, Maintained a safe environment. Abuse screen: Denies threats or abuse. Denies injuries from another. Nutritional screening: No deficits noted. Tuberculosis screening: No symptoms or risk factors identified. Assessment: 14:44 General: Appears uncomfortable, Behavior is calm, cooperative, appropriate for age. ap3 Pain: Complains of pain in chest Pain does not radiate. Pain began suddenly. Neuro: Level of Consciousness is awake, alert, obeys commands, Oriented to person, place, time, situation, Appropriate for age Speech is normal. Cardiovascular: Reports chest pain. Respiratory: Airway is patent Respiratory effort is even, unlabored, Respiratory pattern is regular, symmetrical. 15:54 Reassessment: Patient appears in no apparent distress at this time. No changes from kc6 previously documented assessment. Patient and/or family updated on plan of care and expected duration. Pain level reassessed. Patient is alert, oriented x 3, equal unlabored respirations, skin warm/dry/pink. Vital Signs: 14:31 BP 166 / 79; Pulse 87; Resp 17; Temp 98.9(O); Pulse Ox 97% on R/A; Weight 135.17 kg; cm10 Height 6 ft. 0 in. ; Pain 7/10; 15:24 BP 148 / 69; Pulse 84; Resp 17; Pulse Ox 98% on R/A; ap3 15:32 Temp 102.2(O); jb4 16:08 BP 157 / 63; Pulse 85; Resp 16; Pulse Ox 98% on R/A; jb4 16:20 BP 143 / 65; Pulse 79; Resp 16 S; Temp 100.1(O); Pulse Ox 100% on R/A; kc6 16:48 BP 142 / 64; Pulse 84; Resp 18; Pulse Ox 98% on R/A; ap3 14:31 Body Mass Index 40.42 (135.17 kg, 182.88 cm) cm10 14:31 Pain Scale: Adult cm10 ED Course: 14:22 Patient arrived in ED. sj2 14:23 Erik Alonso DO is Attending Physician. ms3 14:25 Michelle Mccormick, RN is Primary Nurse. kc6 14:32 Triage completed. cm10 14:32 Arm band placed on right wrist. Patient placed in an exam room, on a stretcher. cm10 14:32 Patient has correct armband on for positive identification. Placed in gown. Bed in low kc6 position. Call light in reach. Side rails up X 1. Adult w/ patient. quality assurance monitor chassis on. Pulse ox on. NIBP on. Door closed. Noise minimized. Lights dimmed. Warm blanket given. Pillow given. 14:34 Initial lab(s) drawn, by me, sent to lab. Inserted saline lock: 22 gauge in right ap3 antecubital area, using aseptic technique. Blood collected. Flushed with 10 mL NS. 15:15 XRAY Chest (1 view) In Process Unspecified. EDMS 15:55 Patient maintains SpO2 saturation greater than 95% on room air. kc6 16:32 Beau Reagan DO is Referral Physician. ms3 16:48 Provided Education on: discharge instructions. ap3 16:48 No provider procedures requiring assistance completed. IV discontinued, intact, ap3 bleeding controlled, No redness/swelling at site. Pressure dressing applied. Administered Medications: 14:39 Drug: Aspirin PO Chewable Tablet 324 mg PO once; 81 mg tablets x 4 Route: PO; kc6 16:49 Follow up: Response: No adverse reaction ap3 15:37 Drug: Acetaminophen PO 1000 mg PO once Route: PO; jb4 16:20 Follow up: Response: No adverse reaction; Temperature is decreased kc6 Medication: 16:49 VIS not applicable for this client. ap3 Outcome: 16:32 Discharge ordered by . ms3 16:48 Discharged to home ambulatory, with family, ap3 16:48 Condition: good 16:48 Discharge instructions given to patient, family, Instructed on discharge instructions, follow up and referral plans. medication usage, Demonstrated understanding of instructions, follow-up care, medications, Prescriptions given X 1, 16:49 Patient left the ED. ap3 Signatures: Dispatcher [employer] EDMS Lorenza Cabrera, RN RN Bar Jurado RN RN jb4 Dora Wills RN RN ap3 Erik Alonso DO DO ms3 Michelle Mccormick, KIMBERLY RN kc6 Nancy Campos RN RN cm10 Celio West 2
--- NOTE | 2024-07-01 16:33 | EDPHYS ---
Physician Documentation [facility] Name: Pravin Bateman Age: 53 yrs Sex: Male : 1970 Arrival Date: 07/01/2024 Time: 14:21 Bed 7 Private MD: ED Physician Erik Alonso HPI: 07/01 15:54 This 53 yrs old Male presents to ER via Ambulatory with complaints of Chest ms3 Pain. 15:54 Pravin Bateman, a 53-year-old male, presents to the emergency department with complaints ms3 of chest pain. He reports that earlier today he experienced a scratchy throat after eating chocolate almonds, which he believes may have become stuck in his throat. Later, around 1 o'clock, he began feeling chills and cold, accompanied by shivering. He describes his current chest pain as mild, rating it as a 1 to 2 out of 10, but earlier it was more severe, around a 6 to 7 out of 10. He also reports pressure on his face and head when coughing.. Historical: - Allergies: 14:32 Augmentin; cm10 14:32 Dilantin; cm10 14:32 K-Clor; cm10 14:32 PENICILLINS; cm10 14:32 potassium; cm10 - PMHx: 14:32 Brain tumor removed; Enlarged Heart; Hypertension; Seizures; Sleep Apnea; cm10 - PSHx: 14:32 Brain tumor removed; Brain tumor removed; umbilical hernia repair; cm10 - Immunization history:: Adult Immunizations up to date. - Infectious Disease History:: Denies. - Social history:: Smoking status: Patient denies any tobacco usage or history of. ROS: 15:54 Respiratory: Negative for shortness of breath, cough, wheezing, and pleuritic chest ms3 pain, Abdomen/GI: Negative for abdominal pain, nausea, vomiting, diarrhea, and constipation, MS/Extremity: Negative for injury and deformity, 15:54 Constitutional: Positive for body aches, chills, 15:54 Cardiovascular: Positive for chest pain, Exam: 15:54 Constitutional: This is a well developed, well nourished patient who is awake, alert, ms3 and in no acute distress. Chest/axilla: Normal chest wall appearance and motion. Nontender with no deformity. Cardiovascular: Regular rate and rhythm with a normal S1 and S2. No gallops, murmurs, or rubs. Normal PMI, no JVD. No pulse deficits. Respiratory: Lungs have equal breath sounds bilaterally, clear to auscultation and percussion. No rales, rhonchi or wheezes noted. No increased work of breathing, no retractions or nasal flaring. Abdomen/GI: Soft, non-tender, with normal bowel sounds. No distension or tympany. No guarding or rebound. No evidence of tenderness throughout. Skin: Warm, dry with normal turgor. Normal color with no rashes, no lesions, and no evidence of cellulitis. 15:56 ECG was reviewed by the Attending Physician. ms3 Vital Signs: 14:31 BP 166 / 79; Pulse 87; Resp 17; Temp 98.9(O); Pulse Ox 97% on R/A; Weight 135.17 kg; cm10 Height 6 ft. 0 in. ; Pain 7/10; 15:24 BP 148 / 69; Pulse 84; Resp 17; Pulse Ox 98% on R/A; ap3 15:32 Temp 102.2(O); jb4 16:08 BP 157 / 63; Pulse 85; Resp 16; Pulse Ox 98% on R/A; jb4 16:20 BP 143 / 65; Pulse 79; Resp 16 S; Temp 100.1(O); Pulse Ox 100% on R/A; kc6 16:48 BP 142 / 64; Pulse 84; Resp 18; Pulse Ox 98% on R/A; ap3 14:31 Body Mass Index 40.42 (135.17 kg, 182.88 cm) cm10 14:31 Pain Scale: Adult cm10 MDM: 14:46 Medical Screening Exam initiated ms3 15:54 Differential diagnosis: abnormal EKG, acute myocardial infarction, anxiety, pneumonia, ms3 Flu vs Covid. 18:05 HEART Score: History: Slightly Suspicious (0), ECG: Normal (0), Age: > 45 and < 65 ms3 years (1), Risk Factors: 1 or 2 risk factors (1), Troponin: < or = 1 x Normal Limit (0), Total Score = 2. The patient was given aspirin in the Emergency Department. Data reviewed: vital signs, nurses notes, lab test result(s), EKG, radiologic studies, and as a result, I will discharge patient. I considered the following discharge prescriptions or medication management in the emergency department Medications were administered in the Emergency Department. See MAR. Independent interpretation of the following test(s) in the Emergency Department EKG: See my EKG interpretation above. Counseling: I had a detailed discussion with the patient and/or guardian regarding the historical points, exam findings, and any diagnostic results supporting the discharge/admit diagnosis, lab results, radiology results, the need for outpatient follow up, to return to the emergency department if symptoms worsen or persist or if there are any questions or concerns that arise at home. Special discussion: Based on the patient's history, exam, and Dx evaluation, there is no indication for emergent intervention or inpatient Tx. It is understood by the patient/guardian that if the Sx's persist or worsen they need to return immediately for re-evaluation. ED course: On reevaluation patient symptoms improved, patient is alert and oriented x 4, no apparent distress, nontoxic-appearing, speaking full sentences, ambulatory in the emergency department. Discussed normal troponin level, EKG normal, chest x-ray does not show pneumonia. Patient flu and COVID-negative. Patient without abdominal complaints or urinary complaints. Patient to follow-up with primary care physician in 2 to 3 days. Patient understands and agrees with plan. All questions were answered. Return precautions discussed include worsening symptoms, or any other concerns.. 07/01 14:24 Order name: Basic Metabolic Panel; Complete Time: 15:38 ms3 07/01 14:24 Order name: CBC with Diff; Complete Time: 15:38 ms3 07/01 14:24 Order name: Magnesium; Complete Time: 15:38 ms3 07/01 14:24 Order name: Troponin HS; Complete Time: 15:38 ms3 07/01 14:46 Order name: Flu; Complete Time: 15:53 ms3 07/01 14:46 Order name: SARS RAPID; Complete Time: 15:53 ms3 07/01 14:24 Order name: XRAY Chest (1 view); Complete Time: 16:21 ms3 07/01 14:24 Order name: EKG; Complete Time: 14:24 ms3 07/01 14:24 Order name: Cardiac monitoring; Complete Time: 14:39 ms3 07/01 14:24 Order name: EKG - Nurse/Tech; Complete Time: 14:39 ms3 07/01 14:24 Order name: IV Saline Lock; Complete Time: 14:34 ms3 07/01 14:24 Order name: Labs collected and sent; Complete Time: 14:34 ms3 07/01 14:24 Order name: O2 Per Protocol; Complete Time: 14:26 ms3 07/01 14:24 Order name: O2 Sat Monitoring; Complete Time: 14:26 ms3 EC:56 Rate is 87 beats/min. Rhythm is regular. QRS [place] is Normal. [place] interval is normal. QRS ms3 interval is normal. Clinical impression: Normal ECG. Interpreted by me. Reviewed by me. Administered Medications: 14:39 Drug: Aspirin PO Chewable Tablet 324 mg PO once; 81 mg tablets x 4 Route: PO; kc6 16:49 Follow up: Response: No adverse reaction ap3 15:37 Drug: Acetaminophen PO 1000 mg PO once Route: PO; jb4 16:20 Follow up: Response: No adverse reaction; Temperature is decreased kc6 Disposition Summary: 07/01/24 16:32 Discharge Ordered Notes: Location: Home ms3 Condition: Stable ms3 Diagnosis - Fever, unspecified ms3 - Cough ms3 - Pain in throat ms3 Followup: ms3 - With: Beau Reagan DO - When: 2 - 3 days - Reason: Recheck today's complaints Discharge Instructions: - Discharge Summary Sheet ms3 - Sore Throat ms3 - Cough, Adult ms3 Forms: - Medication Reconciliation Form ms3 - Antibiotic Education ms3 - Prescription Opioid Use ms3 - Patient Portal Instructions ms3 - Leadership Thank You Letter ms3 Prescriptions: - benzonatate 200 mg Oral capsule - take 1 capsule ORAL route 3 times per day as needed; 15 capsule; Refills: 0, ms3 Product Selection Permitted Signatures: Dispatcher [employer] EDBar Avery RN RN jb4 Erik Alonso DO DO ms3 Michelle Mccormick RN RN kc6 Nancy Campos RN RN cm10 Dora Wills RN ap3
[2024-07-02 16:57] VITALS: BP 142/64; TEMP 100.1; O2SAT 98
--- NOTE | 2024-07-04 12:03 | EKG ---
Test Date: 2024-07-01 Test Time: 14:35:10 Bird Keeper: MAYE MEASUREMENT RESULTS: Intervals: Rate: 87 IA: 134 QRSD: 82 QT: 372 QTc: 447 [place]: P: 56 IA: 134 QRS: 4 T: 39 INTERPRETIVE STATEMENTS: Normal sinus rhythm Normal ECG Compared to ECG 04/22/2024 20:07:26 No significant changes Electronically Signed On 07-04-24 12:00:32 THERMODYNAMIC PHYSICIST by Farshad Hunt
== END 2024-07-01 16:49 | disposition home or self-care (01) ==
LOC: ER 14:21
DX: R50.9 Fever, unspecified (principal); R05.9 Cough, unspecified; R07.0 Pain in throat; Z11.52 Encounter for screening for COVID-19
CPT/HCPCS: 36415; 71045; 80048; 83735; 84484; 85025; 87804; 87811; 93005; 99284

== ENCOUNTER 2024-09-01 17:57 | Emergency (ER) | payer OTHER ==
--- NOTE | 2024-09-01 18:34 | RAD REPORT ---
EXAM: CT Ct Stroke Brain Wo Cont HISTORY: STROKE ALERT COMPARISON: 12/04/2023 TECHNIQUE: Multiple contiguous axial images were obtained for a CT of the brain without contrast. Sag ittal and coronal reformats were performed. One or more of the following dose reduction techniques were used: Automated exposure control, adjus tment of the mA and kV according to patient size, and iterative reconstruction. Unless otherwise specified, incidental findings do not require dedicated imaging follow-up. FINDINGS: No evidence of hydrocephalus, intracranial hemorrhage, or extra-axial fluid collection. The brain is normal in morphology. The calvarium is intact. Small paranasal sinus small mucous retention cysts. Mastoid air cells are es sentially clear. IMPRESSION: No evidence of acute intracranial abnormality.
[2024-09-01 18:48] LABS: Absolute Eosinophils 0.2 K/uL (0-0.5); Absolute Lymphocytes (CBC) 1.2 K/uL (0.7-4.9); Absolute Monocytes 0.5 K/uL (0.1-1.3); Absolute Neutrophil 4.5 K/uL (1.8-8.0); Basophils % 0.5 % (0-1.3); Eosinophils % 2.6 % (0-4.4); Hematocrit 44.5 % (39.6-49.0); Hemoglobin 15.5 g/dL (13.6-17.9); Lymphocytes % 18.2 % (15.3-44.8); MCH 30.5 pg (27.0-35.0); MCHC 34.7 g/dL (32.0-36.0); MCV 87.8 fL (80-100); MPV 6.5 fL (7.6-11.3); Monocytes % 8.1 % (3.3-12.3); Neutrophils % 70.6 % (41.7-73.7); Nucleated Red Blood Cells % 0.1 % (0-0); Platelets 183 thou/uL (152-406); RBC Red Blood Cell Count 5.07 M/uL (4.33-5.43); Red Cell Distribution Width 13.7 % (12.1-15.2)
[2024-09-01 18:54] LABS: PT Prothrombin Time 12.7 SECONDS (10-13.0); Protime INR 1.12
[2024-09-01 19:02] LABS: Anion Gap 11.6 mEq/L (5.0-15.0); Potassium 3.6 mEq/L (3.5-5.1); Troponin High Sensitivity 10.1 pg/mL (<58.9)
--- NOTE | 2024-09-01 19:27 | EDPHYS ---
Physician Documentation [facility] Name: Pravin Bateman Age: 54 yrs Sex: Male : 1970 Arrival Date: 09/01/2024 Time: 17:57 Bed 18 Private MD: ED Physician Yovani Lovelace HPI: 09/01 19:19 This 54 yrs old Male presents to ER via EMS with complaints of Probable bo1 Seizure. 19:19 The patient presents with a history of multiple seizures, a total of 3, the episode(s) bo1 was witnessed, by a spouse, the . Character of seizure(s): Loss of consciousness: the patient did not lose consciousness, Motor activity: No tonic clonic shaking, Incontinence: none, Apnea: the patient did not experience apnea, Pt had "no spoken" at times but at others he seemed "normal.". Seizure onset: today. Context: the seizure(s) was witnessed, by a significant other, . Seizure Hx: Cause: Exposure to home fumigant. The patient has experienced similar episodes in the past, Currently on Keppra and Topamax. Historical: - Allergies: 18:07 Augmentin; kc6 18:07 Dilantin; kc6 18:07 K-Clor; kc6 18:07 PENICILLINS; kc6 18:07 potassium; kc6 - PMHx: 18:07 Brain tumor removed; Enlarged Heart; Hypertension; Seizures; Sleep Apnea; kc6 - PSHx: 18:07 Brain tumor removed; umbilical hernia repair; kc6 - Immunization history:: Adult Immunizations up to date. - Infectious Disease History:: Denies. - Social history:: Smoking status: Patient denies any tobacco usage or history of. ROS: 19:29 Constitutional: Negative for chills, fever, weight loss, bo1 19:29 Neck: Negative for mass, pain with movement, pain at rest, 19:29 Cardiovascular: Negative for chest pain, 19:29 Respiratory: Negative for cough, shortness of breath, 19:29 Abdomen/GI: Negative for abdominal pain, nausea and vomiting, nausea, vomiting, and diarrhea, 19:29 Back: Negative for pain at rest, pain with movement, 19:29 Neuro: Positive for headache, speech changes, 19:29 Psych: Negative for anxiety, depression, 19:29 All other systems are negative, 19:30 Constitutional: Negative for fever, chills, and weight loss bo1 Exam: 18:46 ECG was reviewed by the Attending Physician. bo1 19:21 Constitutional: This is a well developed, well nourished patient who is awake, alert, bo1 and in no acute distress. 19:21 Constitutional: The patient appears in no acute distress, alert, awake, comfortable, 19:21 Neck: External neck: is normal, Short necked, 19:21 Cardiovascular: Rate: normal, Rhythm: regular, 19:21 Respiratory: the patient does not display signs of respiratory distress, Respirations: normal, Breath sounds: are clear throughout, 19:21 Abdomen/GI: Inspection: abdomen appears normal, Palpation: abdomen is soft and non-tender, 19:21 Musculoskeletal/extremity: Extremities: all appear grossly normal, with no appreciated pain with palpation, 19:21 Neuro: Orientation: is normal, appropriate for stated age, Mentation: is normal, appropriate for stated age, Memory: is normal, appropriate for stated age, seizure activity, is not displayed by the patient, Pt's spouse reports no focal changes and post ictal type of confusion, No changes in meds as far as both parties can say. Pt has been taking for the past week more Zinc and Vit D supplements, Vital Signs: 18:05 BP 171 / 82; Pulse 70; Resp 18 S; Temp 98.3(O); Pulse Ox 100% on R/A; Weight 136.98 kg kc6 (M); Height 6 ft. 0 in. (R); Pain 8/10; 19:29 BP 142 / 70; Pulse 96; Resp 18; Temp 98(O); Pulse Ox 96% on R/A; rg5 18:05 Body Mass Index 40.96 (136.98 kg, 182.88 cm) kc6 18:05 Pain Scale: Adult kc6 [place] Coma Score: 18:07 Eye Response: spontaneous(4). Motor Response: obeys commands(6). Verbal Response: kc6 oriented(5). Total: 15. MDM: 18:07 Medical Screening Exam initiated bo1 19:24 Differential diagnosis: TIA, Vs atypical seizures - absence vs petit mal. Data bo1 reviewed: vital signs, lab test result(s), No levels of Keppra can be done here, EKG, radiologic studies, CT scan. ED course: F/U with primary neuro MD tomorrow Monday to recheck today's sxs for any changes to his usual meds. 09/01 18:08 Order name: Basic Metabolic Panel; Complete Time: 19:18 bo1 09/01 18:08 Order name: CBC with Diff; Complete Time: 19:18 bo1 09/01 18:08 Order name: High Sensitivity Troponin; Complete Time: 19:18 bo1 09/01 18:08 Order name: Protime (+inr); Complete Time: 19:18 bo1 09/01 18:08 Order name: CT Stroke Brain w/o Contrast; Complete Time: 19:18 bo1 09/01 18:08 Order name: EKG; Complete Time: 18:09 bo1 09/01 18:08 Order name: Accucheck; Complete Time: 18:46 bo1 09/01 18:08 Order name: Cardiac monitoring; Complete Time: 19:43 bo1 09/01 18:08 Order name: EKG - Nurse/Tech; Complete Time: 18:46 bo1 09/01 18:08 Order name: IV Saline Lock; Complete Time: 18:16 bo1 09/01 18:08 Order name: Labs collected and sent; Complete Time: 18:46 bo1 09/01 18:08 Order name: NPO; Complete Time: 18:16 bo1 09/01 18:08 Order name: O2 Per Protocol; Complete Time: 18:16 bo1 09/01 18:08 Order name: O2 Sat Monitoring; Complete Time: 18:16 bo1 EC:46 Rate is 61 beats/min. Rhythm is regular. QRS [place] is Normal. [place] interval is normal. QRS bo1 interval is normal. QT interval is normal. No Q waves. T waves are Normal. No ST changes noted. Clinical impression: Normal ECG and Non specific T-wave changes. Interpreted by me. Reviewed by me. Administered Medications: No medications were administered Disposition Summary: 09/01/24 19:26 Discharge Ordered Notes: Location: Home bo1 Problem: chronic bo1 Symptoms: are unchanged bo1 Condition: Stable bo1 Diagnosis - Other seizures bo1 - Epileptic seizures related to external causes bo1 Followup: bo1 - With: Private Physician - When: Tomorrow - Reason: Recheck today's complaints, Continuance of care Discharge Instructions: - Discharge Summary Sheet bo1 - Seizure, Adult bo1 - Seizure, Adult, [id number] bo1 Forms: - Medication Reconciliation Form bo1 - Antibiotic Education bo1 - Prescription Opioid Use bo1 - Patient Portal Instructions bo1 - Leadership Thank You Letter bo1 Signatures: Dispatcher [employer] Michelle Parekh RN RN kc6 OeYovani green MD MD bo1
--- NOTE | 2024-09-01 19:27 | ER ---
Nurse's Notes [facility] Name: Pravin Bateman Age: 54 yrs Sex: Male : 1970 Arrival Date: 09/01/2024 Time: 17:57 Bed 18 Private MD: Diagnosis: Other seizures;Epileptic seizures related to external causes Presentation: 09/01 18:05 Chief complaint: EMS states: they were toned out for stroke like symptoms. upon EMS kc6 arrival pt reports right frontal headache radiating to the occipital with absent seizures since 0900. pt denies any other complaints at this time. Coronavirus screen: At this time, the client does not indicate any symptoms associated with coronavirus-19. Ebola Screen: No symptoms or risks identified at this time. Initial Sepsis Screen: Does the patient meet any 2 criteria? No. Patient's initial sepsis screen is negative. Does the patient have a suspected source of infection? No. Patient's initial sepsis screen is negative. Risk Assessment: Do you want to hurt yourself or someone else? Patient reports no desire to harm self or others. Onset of symptoms was September 01, 2024. Care prior to arrival: IV initiated. 20 GA, in the left antecubital area, Glucose check: 82. 18:05 Method Of Arrival: EMS: [facility] kc6 18:05 Acuity: DONNIE 2 kc6 Historical: - Allergies: 18:07 Augmentin; kc6 18:07 Dilantin; kc6 18:07 K-Clor; kc6 18:07 PENICILLINS; kc6 18:07 potassium; kc6 - PMHx: 18:07 Brain tumor removed; Enlarged Heart; Hypertension; Seizures; Sleep Apnea; kc6 - PSHx: 18:07 Brain tumor removed; umbilical hernia repair; kc6 - Immunization history:: Adult Immunizations up to date. - Infectious Disease History:: Denies. - Social history:: Smoking status: Patient denies any tobacco usage or history of. Screenin:08 [facility] ED Fall Risk Assessment (Adult) History of falling in the last 3 months, kc6 including since admission No falls in past 3 months (0 pts) Confusion or Disorientation No (0 pts) Intoxicated or Sedated No (0 pts) Impaired Gait No (0 pts) Mobility Assist Device Used No (0 pt) Altered Elimination No (0 pt) Score/Fall Risk Level 0 - 2 = Low Risk Oriented to surroundings, Maintained a safe environment, Educated pt \T\ family on fall prevention, incl call for assistance when getting out of bed. Abuse screen: Denies threats or abuse. Denies injuries from another. Nutritional screening: No deficits noted. Tuberculosis screening: No symptoms or risk factors identified. Assessment: 18:46 General: Appears in no apparent distress. comfortable, obese, well groomed, well kc6 developed, Behavior is calm, cooperative, appropriate for age. Pain: Complains of pain in face and scalp Quality of pain is described as dull, throbbing. Neuro: Level of Consciousness is awake, alert, obeys commands, Oriented to person, place, time, situation, Appropriate for age Molder Sweep are equal bilaterally Moves all extremities. Full function Gait is steady, Speech is normal, Facial symmetry appears normal, Facial symmetry: tongue is midline, Pupils are PERRLA, Intact Reports headache in right parietal area, frontal area, occipital area, Denies blurred vision dizziness, Seizure activity reported prior to arrival. Type of seizure: absence seizure. Cardiovascular: Capillary refill < 3 seconds. Respiratory: Airway is patent Trachea midline Respiratory effort is even, unlabored, Respiratory pattern is regular, symmetrical. GI: No signs and/or symptoms were reported involving the gastrointestinal system. : No signs and/or symptoms were reported regarding the genitourinary system. EENT: No signs and/or symptoms were reported regarding the EENT system. Derm: No signs and/or symptoms reported regarding the dermatologic system. Skin is intact, is healthy with good turgor, Skin is pink, warm \T\ dry. Musculoskeletal: No signs and/or symptoms reported regarding the musculoskeletal system. Circulation, motion, and sensation intact. Range of motion: intact in all extremities. 19:30 General: Appears in no apparent distress. comfortable, Behavior is calm, cooperative, rg5 appropriate for age. Pain: Complains of pain in head Quality of pain is described as dull. Neuro: Level of Consciousness is awake, alert, obeys commands, Oriented to person, place, time, situation. Cardiovascular: Denies chest pain, Patient's skin is warm and dry. Respiratory: Airway is patent Trachea midline Respiratory effort is even, unlabored, Respiratory pattern is regular, symmetrical. GI: No signs and/or symptoms were reported involving the gastrointestinal system. : No signs and/or symptoms were reported regarding the genitourinary system. Derm: Skin is intact, Skin is dry, Skin is normal, Skin temperature is warm. Musculoskeletal: Circulation, motion, and sensation intact. Range of motion: intact in all extremities. Vital Signs: 18:05 BP 171 / 82; Pulse 70; Resp 18 S; Temp 98.3(O); Pulse Ox 100% on R/A; Weight 136.98 kg kc6 (M); Height 6 ft. 0 in. (R); Pain 8/10; 19:29 BP 142 / 70; Pulse 96; Resp 18; Temp 98(O); Pulse Ox 96% on R/A; rg5 18:05 Body Mass Index 40.96 (136.98 kg, 182.88 cm) kc6 18:05 Pain Scale: Adult kc6 [place] Coma Score: 18:07 Eye Response: spontaneous(4). Motor Response: obeys commands(6). Verbal Response: kc6 oriented(5). Total: 15. ED Course: 18:04 Patient arrived in ED. kc6 18:07 Triage completed. kc6 18:07 Yovani Lovelace MD is Attending Physician. bo1 18:07 Arm band placed on. kc6 18:07 Patient has correct armband on for positive identification. Bed in low position. Call kc6 light in reach. Side rails up X2. Adult w/ patient. Seizure precautions initiated. Pulse ox on. NIBP on. Door closed. Noise minimized. Lights dimmed. Pillow given. Verbal reassurance given. 18:07 Maintain EMS IV. Dressing intact. Good blood return noted. Site clean \T\ dry. Gauge \T\ basilio 6 site: 20g LAC. Flushed with 10 mL NS. Patient maintains SpO2 saturation greater than 95% on room air. 18:16 Michelle Mccormick RN is Primary Nurse. kc6 18:29 CT Stroke Brain w/o Contrast In Process Unspecified. EDMS 18:46 Initial lab(s) drawn, by me, sent to lab. EKG done, by ED staff, reviewed by Yovani Lovelace MD. 19:30 No provider procedures requiring assistance completed. rg5 19:43 IV discontinued, bleeding controlled, No redness/swelling at site. Pressure dressing rg5 applied. 19:44 Provided Education on: post er care. rg5 Administered Medications: No medications were administered Medication: 19:30 VIS not applicable for this client. rg5 Outcome: 19:26 Discharge ordered by . bo1 19:44 Discharged to home ambulatory, rg5 19:44 Condition: stable 19:44 Discharge instructions given to patient, Instructed on discharge instructions, follow up and referral plans. Demonstrated understanding of instructions, follow-up care, :44 Patient left the ED. rg5 Signatures: Dispatcher [employer] Michelle Parekh, RN RN basilio6 Yovani Lovelace MD MD bo1 Jered Esteban, KIMBERLY RN rg5
[2024-09-01 19:54] VITALS: BP 142/70; TEMP 98; O2SAT 96
== END 2024-09-01 19:44 | disposition home or self-care (01) ==
LOC: ER 17:57
DX: G40.509 Epileptic seizures related to external causes, not intractable, without status epilepticus (principal)
CPT/HCPCS: 36415; 70450; 80048; 84484; 85025; 85610; 93005; 99284